=== PATIENT | male | born 1950 | race Caucasian/White ===

== ENCOUNTER → 2019-06-16 14:34 | Outpatient (CLI) | payer MEDICARE, SELFPAY ==
--- NOTE | 2019-06-16 15:00 | CA_ITS ---
APPROVED REPORT Bilateral Lower Extremity Venous Study for DVT. Avionics Integration Engineer: ANTONI Indications Lower Extremity Pain: Lower Extremity Edema: HISTORY OF FACTOR V-5 PREVIOUS HISTORY OF DVT LOWER EXTREMITY LEFT Vein Imaging SFJ (L): Partially Compressible POP (L): Partially Compressible PTV (L): Partially Compressible Findings Acute DVT is visualized in the SUPERFICIAL FEMORAL VEIN, POPLITEAL VEIN,POSTERIOR TIBIAL veins of the left lower extremity. Conclusion Acute DVT is visualized in the SUPERFICIAL FEMORAL VEIN, POPLITEAL VEIN,POSTERIOR TIBIAL veins of the left lower extremity. Electronically signed by : Panfilo Marrero MD 06/16/2019 15:53:24
[2019-06-16 15:17] LABS: Basophils # 0.1 K/mm3 (0-0.2); Basophils % 0.6 % (0.1-2.0); Eosinophils # 0.2 K/mm3 (0.0-0.4); Eosinophils % 2.7 % (0.1-12.0); Hematocrit 43.4 % (42.0-52.0); Lymphocytes # 1.9 K/mm3 (0.7-4.5); Lymphocytes % 21.2 % (10-50); Mean Corpuscular HGB Conc 32.3 g/dL (31.8-35.4); Mean Corpuscular Hemoglobin 27.4 pg (27.0-31.2); Mean Corpuscular Volume 84.7 fl (80-94); Mean Platelet Volume 6.7 fl (7.4-10.4); Monocytes # 0.7 K/mm3 (0.1-1.0); Monocytes % 7.5 % (1.7-9.3); Neutrophils # 6.1 K/mm3 (1.8-7.8); Platelet Count 272 K/mm3 (142-424); Red Blood Count 5.12 M/mm3 (4.60-6.20); Red Cell Distribution Width 14.1 % (11.5-17.5)
[2019-06-16 15:28] LABS: INR 1.32 (0.9-1.1); Prothrombin Time 13.5 seconds (9.4-11.8)
[2019-06-16 17:13] LABS: Anion Gap 11.7 mEq/L (5-15); Blood Urea Nitrogen 16 mg/dL (7-18); Calcium 9.5 mg/dL (8.5-10.1); Carbon Dioxide 31 mmol/L (21.0-32.0); Chloride 100 mmol/L (98-107); Creatinine,Serum 1.02 mg/dL (0.70-1.30); Estimated Glomerular Filt Rate 72 ml/min (>60); GFR (African American) 87 ML/MIN (>60); Glucose 142 mg/dL (74-106); Potassium 4.7 mmoL/L (3.5-5.1); Sodium 138 mmol/L (136-145)
== END ==
LOC: LAB 14:36 → RT 14:59
PROVIDERS: PCP Nurse Practitioner Family; Visit Provider Internal Medicine Adolescent Medicine
DX: I82.492 Acute embolism and thrombosis of other specified deep vein of left lower extremity (principal); M79.605 Pain in left leg
CPT/HCPCS: 36415; 80048; 85025; 85610; 93971

== ENCOUNTER → 2019-09-11 10:01 | Outpatient (CLI) | payer MEDICARE, SELFPAY ==
--- NOTE | 2019-09-11 10:34 | XR_ITS ---
PROCEDURE: XR CHEST 2V CLINICAL HISTORY: COUGH COMPARISON: No exams were available for comparison FINDINGS: The cardiomediastinal silhouette and pulmonary vascularity are within normal limits. The lungs are clear without infiltrates, suspicious nodules, or pleural effusions. No acute bony abnormalities. IMPRESSION: No acute findings. Dictated by: Dr. Karel Mcgee MD 09/11/2019 12:[address] Karel Mcgee MD in [place] 09/11/2019 12:17
[2019-09-11 10:41] LABS: Basophils % 0.7 % (0.1-2.0); Eosinophils # 0.1 K/mm3 (0.0-0.4); Eosinophils % 2.1 % (0.1-12.0); Hematocrit 44.4 % (42.0-52.0); Hemoglobin 14.1 g/dL (14.1-18.0); Lymphocytes # 1.6 K/mm3 (0.7-4.5); Mean Corpuscular HGB Conc 31.7 g/dL (31.8-35.4); Mean Corpuscular Hemoglobin 27.2 pg (27.0-31.2); Mean Corpuscular Volume 85.7 fl (80-94); Mean Platelet Volume 7.2 fl (7.4-10.4); Monocytes # 0.6 K/mm3 (0.1-1.0); Monocytes % 9.2 % (1.7-9.3); Neutrophils # 3.9 K/mm3 (1.8-7.8); Platelet Count 324 K/mm3 (142-424); Red Blood Count 5.18 M/mm3 (4.60-6.20); Red Cell Distribution Width 14.8 % (11.5-17.5); White Blood Count 6.3 K/mm3 (4.8-10.8)
[2019-09-11 14:23] LABS: Hemoglobin A1C 8.3 % (0.0-7.0)
[2019-09-11 17:24] LABS: Alanine Aminotransferase 19 U/L (12-78); Albumin Level 3.5 gm/dL (3.4-5.0); Albumin/Globulin Ratio 1.1 (1.1-1.8); Alkaline Phosphatase 51 U/L (46-116); Anion Gap 14.7 mEq/L (5-15); Aspartate Amino Transferase 17 U/L (15-37); Bilirubin,Total 0.4 mg/dL (0.2-1.0); Blood Urea Nitrogen 17 mg/dL (7-18); Calcium 8.8 mg/dL (8.5-10.1); Carbon Dioxide 26 mmol/L (21.0-32.0); Chloride 102 mmol/L (98-107); Chol/HDL Ratio 4.4 (1-3.5); Cholesterol 115 mg/dL (140-200); Creatinine,Serum 0.83 mg/dL (0.70-1.30); Estimated Glomerular Filt Rate 92 ml/min (>60); GFR (African American) 111 ML/MIN (>60); Globulin 3.3 gm/dl (1.3-3.2); Glucose 162 mg/dL (74-106); HDL Cholesterol 26 mg/dL (27-67); LDL Cholesterol 76 mg/dL (0-130); Potassium 4.7 mmoL/L (3.5-5.1); Prostate Specific Ag Screen 4.3 ng/mL (0.0-4.0); Sodium 138 mmol/L (136-145); Thyroid Stimulating Hormone 2.19 uIU/ml (0.358-3.740); Total Protein,Serum 6.8 gm/dL (6.4-8.2); Triglycerides 63 mg/dL (30-200); VLDL Cholesterol 13 mg/dL (0-40)
[2019-09-12 17:21] LABS: Microalbumin, Urine 7.9 ug/mL (Not Estab.)
[2019-09-13 10:17] LABS: Peripheral Smear Review Scanned Result
== END ==
PROVIDERS: PCP Nurse Practitioner Family; Visit Provider Nurse Practitioner Family
DX: E11.9 Type 2 diabetes mellitus without complications (principal); R22.1 Localized swelling, mass and lump, neck; R05 Cough; D68.2 Hereditary deficiency of other clotting factors; I82.509 Chronic embolism and thrombosis of unspecified deep veins of unspecified lower extremity; I10 Essential (primary) hypertension; N40.1 Benign prostatic hyperplasia with lower urinary tract symptoms; Z12.5 Encounter for screening for malignant neoplasm of prostate
CPT/HCPCS: 36415; 71046; 80053; 80061; 82043; 83036; 84443; 85025; G0103

== ENCOUNTER → 2019-09-12 11:45 | Outpatient (CLI) | payer MEDICARE, SELFPAY ==
--- NOTE | 2019-09-12 11:57 | CT_ITS ---
PROCEDURE: CT SOFT TISSUE NECK W CON CLINICAL HISTORY: LT SIDE NECK MASS COMPARISON: THY US THYROID from 05/28/2014 TECHNIQUE: Oral Contrast: None IV Contrast: 75 mL Optiray 350 Axial images obtained with sagittal and coronal reformats. All CT scans at the facility use one or more dose reduction, viz: automated exposure control, ma/kV adjustment per patient size (including targeted exams where dose is matched to indication, i.e. head), or iterative reconstruction technique. FINDINGS: A BB is placed on the palpable abnormality in the left neck. There is a large lymph node at this region at the internal jugular area posterior to the sternocleidomastoid beginning superior to the level of the hyoid and extending inferior to the level of the hyoid. This node measures 6.4 cm cephalad caudad, 3.7 cm transverse, and 3.2 cm AP. There are other smaller lymph nodes in both sides of the neck. The parotid glands, submandibular glands, thyroid gland and epiglottis has an unremarkable appearance. No obvious nasopharyngeal mass. The base of the tongue has an unremarkable appearance as does the glottic and subglottic region. The lung apices are clear. There are degenerative changes in the cervical spine. Paranasal sinuses are unremarkable. No mastoid effusion IMPRESSION: Enlarged left internal jugular ( level 2/level 3). Neoplasm such as lymphoma or metastatic disease is considered. Reactive lymph node is not totally excluded. Fine-needle aspiration could be performed with sonographic guidance if clinically desired. Dictated by: Panfilo Marrero MD 09/12/2019 13:04 Electronically signed by Panfilo Marrero MD in [place] 09/12/2019 13:04
== END ==
PROVIDERS: PCP Nurse Practitioner Family; Visit Provider Nurse Practitioner Family
DX: R22.1 Localized swelling, mass and lump, neck (principal)
CPT/HCPCS: 70491; Q9967

== ENCOUNTER → 2019-10-02 09:11 | Outpatient (CLI) | payer MEDICARE, SELFPAY ==
--- NOTE | 2019-10-02 09:15 | US_ITS ---
PROCEDURE: US SOFT TISSUE HEAD AND NECK CLINICAL INDICATION: LT SIDE NECK MASS COMPARISON: CT SOFT TISSUE NECK W CON from 09/12/2019 FINDINGS: There is a 4.4 x 2 cm hypoechoic mass in the left neck corresponding to the palpable abnormality and corresponding to the CT abnormality consistent with enlarged lymph node. This does not represent a cyst. The nodules not extensively hypervascular. The submandibular and parotid glands have an unremarkable appearance. No other dominant nodules are evident. IMPRESSION: 4.4 x 2 cm hypoechoic left neck mass consistent with enlarged lymph node. This could be neoplastic such as lymphoma or metastatic disease or could be reactive in nature. This was subsequently targeted for biopsy. Dictated by: Panfilo Marrero MD 10/03/2019 11:30 Electronically signed by Panfilo Marrero MD in [place] 10/03/2019 11:31
--- NOTE | 2019-10-02 09:17 | US_ITS ---
PROCEDURE: US BIOPSY ST CHEST/NECK CLINICAL INDICATION: LT NECK MASS COMPARISON: CT SOFT TISSUE NECK W CON from 09/12/2019 US SOFT TISSUE HEAD AND NECK from 10/02/2019 FINDINGS: Following obtaining informed consent and procedure under aseptic conditions and local anesthesia with 1 percent buffered lidocaine with sonographic guidance, 2 fine needle aspirations were performed the left neck mass. Following this, 4 core biopsies were obtained using sonographic guidance with an 18 gauge needle. The patient tolerated the procedure well without evidence of immediate complication. Cytology: Polymorphous lymphocytes Pathology: Atypical lymphoid proliferation with dysplastic cells highly suspicious for Hodgkin's lymphoma IMPRESSION: Uneventful ultrasound-guided fine needle aspiration and core biopsy of left neck mass showing Atypical lymphoid proliferation with dysplastic cells highly suspicious for Hodgkin's lymphoma. Please see pathologist comments Dictated by: Panfilo Marrero MD 10/07/2019 11:38 Electronically signed by Panfilo Marrero MD in [place] 10/07/2019 11:38
== END ==
PROVIDERS: PCP Nurse Practitioner Family; Visit Provider Nurse Practitioner Family
DX: R22.1 Localized swelling, mass and lump, neck (principal)
CPT/HCPCS: 10005; 76536; 76942; 88305; 88342

== ENCOUNTER → 2021-04-06 11:46 | Outpatient (CLI) | payer MEDICARE, SELFPAY | PROVIDERS: Visit Provider Internal Medicine Gastroenterology | DX: Z01.812 Encounter for preprocedural laboratory examination (principal); Z20.822 Contact with and (suspected) exposure to COVID-19; Z12.11 Encounter for screening for malignant neoplasm of colon | CPT/HCPCS: U0003 ==

== ENCOUNTER 2021-04-08 10:41 | Day surgery (SDC) | payer MEDICARE, SELFPAY ==
[2021-03-31 08:29] VITALS: BMI 34.8
[2021-04-08] VITALS (7 sets, daily range): BP systolic 98–162; BP diastolic 53–88; PULSE 59–85; RESP 16–18; TEMP 36.9–37.1; O2SAT 92–98
--- NOTE | 2021-04-08 11:23 | P.PN_ITS ---
[facility] Anesthesia Checklist - Patient Identification Patient Identification: Arm Band - Structural Data Admitted From: Home Planned Operative Procedure/s: Colonoscopy Consent for Planned Operative Procedure(s) Verified: Yes - NPO Status Verified Time NPO: 00:00 - Airway Assessment C-Spine Mobility Assessed: Yes TMJ Mobility Assessed: Yes Dentition: Good Dentition - Neurological Assessment Level of Consciousness: Awake Hx Seizures: No Numbness or tingling in extremities: No - Anesthesia Plan Anesthesia Risk discussed: Yes Anesthesia Plan: Verified ASA Class: III Anesthesia Type: MAC [facility] History I have reviewed the patient's past medical history: Yes Medical History: Reports:: Cancer (hodgkins lymphoma), Diabetes Mellitus Type 2, Hyperlipidemia, Lung Disease, Pulmonary Embolism Denies:: Diabetes Mellitus Type 1, MRSA *Have you ever received a pneumonia vaccine?: Yes *Have you received a flu vaccine this season?: Yes Other Medical History: Reports: Other (Factor 5 Leiden, DVT) Anesthesia experience/problems:: None Amputation: No Fractures: No - *Social History Last grade of school completed: Advanced degree Smoking Status: Never smoker Alcohol Intake: never Substance Use Type: denies use *Occupational Status:: retired *Travel in the last 8 weeks: None Family Hx:: Unable to obtain
[2021-04-08 11:41] LABS: POC Glucose,Bedside 169 (70-110)
--- NOTE | 2021-04-08 12:25 | HMH.PROC ---
[facility] Procedure Note Procedure Note:: Colonoscopy Procedure Report: Colonoscopy with cold snare polypectomy Endoscopist: Lj Marshall II, MD Referring physician: MARTINEZ Kenney/Tima Vasquez MD (hematology/oncology [facility]) Date of Procedure: April 08, 2021 Equipment: Olympus 190 variable stiffness pediatric colonoscope Sedation: MAC sedation Indication: Mr. Hager is a 71-year-old gentleman who was diagnosed with lymphoma. He received chemotherapy and during the duration of the treatment he had moderate to marked constipation. Nothing worked except for MiraLAX. He states that he would have sputtering bowel movements all through chemotherapy. He also developed more significant left upper quadrant abdominal pain that would sometimes be excruciating and awaken him from sleep. He does state that his father had perforated diverticulitis. He reports no rectal bleeding, weight loss or family history of colon cancer. He does have moderate bloating and some gassiness. Procedure: Prior to the procedure, a history and physical exam was performed, and patient's medications and allergies were reviewed. The risks, benefits and alternatives of the sedation and procedure were discussed with the patient. All questions were answered and informed consent was obtained. The patient was brought to the procedure room. Patient identification and proposed procedure were verified by the physician and the nurse. The patient was placed in a left lateral decubitus position and the scope was passed under direct vision. Throughout the procedure, the patient's blood pressure, pulse, and oxygen saturations were monitored continuously. The colonoscopy was accomplished without difficulty. The patient tolerated the procedure well. Findings: On digital rectal examination there was normal rectal tone. There were no external hemorrhoids. Prostate was 2+ with some firm asymmetry in the left upper lobe of the prostate. The colonoscope was introduced through the anal canal to the rectum and advanced to the cecum. The ileocecal valve and appendiceal orifice were identified. The scope was advanced a short distance into the ileum which appeared grossly normal. The scope was then withdrawn into the colon. The cecum and ascending colon were normal. There was a single 5 mm polyp in the transverse colon removed via cold snare polypectomy. There was some angulation at the splenic flexure suggestive of splenic flexure syndrome. There were scattered extensive diverticuli throughout the distal descending and sigmoid colon (LEFT colon). The rectum itself was normal. Upon retroflexion within the rectum there were grade 2 internal hemorrhoids. The preparation was fair throughout with [place] Preparation Score of 7 out of 9. The cecal time was 12 minutes. Impression: 1. Transverse colon polyp (5 mm) 2. Extensive left-sided diverticulosis 3. 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 Grade 2 internal hemorrhoids 5. Left upper lobe prostate mild firmness/asymmetry Plan: I do feel that his left upper quadrant abdominal pain is related to the functional intestinal disorder called splenic flexure syndrome. We will discuss additional dietary measures and treatment options. I will follow up the polyp histology and determine whether further surveillance is warranted. I would encourage routine PSA testing.
== END 2021-04-08 13:20 | disposition home or self-care (01) ==
LOC: OUTP 10:44
PROVIDERS: PCP Nurse Practitioner Family; Visit Provider Internal Medicine Gastroenterology
PROC: 0DJD8ZZ Inspection of Lower Intestinal Tract, Via Natural or Artificial Opening Endoscopic (ICD-10-PCS; CPT 45378; principal; 2021-04-08 12:00)
DX: K63.5 Polyp of colon (principal); K57.30 Diverticulosis of large intestine without perforation or abscess without bleeding; K59.9 Functional intestinal disorder, unspecified; K64.1 Second degree hemorrhoids; Z83.79 Family history of other diseases of the digestive system; Z85.71 Personal history of Hodgkin lymphoma; E11.9 Type 2 diabetes mellitus without complications; E78.5 Hyperlipidemia, unspecified; Z86.711 Personal history of pulmonary embolism; J98.4 Other disorders of lung; Z86.718 Personal history of other venous thrombosis and embolism; Z88.2 Allergy status to sulfonamides
CPT/HCPCS: 45385; 82962; 88305

== ENCOUNTER → 2021-04-21 08:18 | Outpatient (CLI) | payer MEDICARE, SELFPAY ==
[2021-04-21 08:59] LABS: Basophils # 0.1 K/mm3 (0-0.2); Basophils % 1.3 % (0.1-2.0); Eosinophils # 0.4 K/mm3 (0.0-0.4); Hematocrit 44.3 % (42.0-52.0); Lymphocytes # 1.6 K/mm3 (0.7-4.5); Lymphocytes % 29.2 % (10-50); Mean Corpuscular HGB Conc 33.8 g/dL (31.8-35.4); Mean Corpuscular Hemoglobin 29.5 pg (27.0-31.2); Mean Platelet Volume 7.1 fl (7.4-10.4); Monocytes # 0.5 K/mm3 (0.1-1.0); Monocytes % 9.8 % (1.7-9.3); Neutrophils # 2.9 K/mm3 (1.8-7.8); Neutrophils % 52.7 % (37.0-80.0); Platelet Count 282 K/mm3 (142-424); Red Blood Count 5.09 M/mm3 (4.60-6.20); Red Cell Distribution Width 14.3 % (11.5-17.5); White Blood Count 5.4 K/mm3 (4.8-10.8)
[2021-04-21 09:16] LABS: Microalbumin < 6.000 mg/L (0-16.7)
[2021-04-21 12:43] LABS: Alanine Aminotransferase 25 U/L (12-78); Albumin Level 4.1 g/dl (3.5-5.0); Albumin/Globulin Ratio 1.7 (1.1-1.8); Alkaline Phosphatase 56 U/L (38-126); Aspartate Amino Transferase 23 U/L (17-59); Bilirubin,Total 0.5 mg/dl (0.2-1.3); Blood Urea Nitrogen 18 mg/dl (9-20); Calcium 9.4 mg/dl (8.4-10.2); Carbon Dioxide 28 mmol/L (22.0-30.0); Chloride 101 mmol/L (98-107); Chol/HDL Ratio 10.4 (1-3.5); Cholesterol 271 mg/dl (140-200); Estimated Glomerular Filt Rate 95 ml/min (>60); GFR (African American) 115 ML/MIN (>60); Globulin 2.4 g/dL (1.3-3.2); Glucose 183 mg/dl (74-100); HDL Cholesterol 26 mg/dl (40-60); Sodium 137 mmol/L (136-145); Total Protein,Serum 6.5 g/dl (6.3-8.2); Triglycerides 176 mg/dl (30-150); VLDL Cholesterol 35 mg/dL (0-40)
[2021-04-21 12:54] LABS: Direct LDL Cholesterol 208.52 mg/dL (100-129)
[2021-04-21 13:14] LABS: Prostate Specific Ag Screen 3.5 ng/ml (0.0-4.0)
== END ==
PROVIDERS: Visit Provider Internal Medicine Adolescent Medicine
DX: E11.9 Type 2 diabetes mellitus without complications (principal); E78.2 Mixed hyperlipidemia; N40.1 Benign prostatic hyperplasia with lower urinary tract symptoms; Z12.5 Encounter for screening for malignant neoplasm of prostate; Z79.84 Long term (current) use of oral hypoglycemic drugs
CPT/HCPCS: 36415; 80053; 80061; 82043; 83036; 85025; G0103

== ENCOUNTER → 2021-06-16 12:10 | Outpatient (CLI) | payer MEDICARE, SELFPAY ==
[2021-06-16 13:02] LABS: Prothrombin Time 35.9 seconds (10.1-12.5)
[2021-06-16 13:05] LABS: INR 3.33 (0.9-1.1)
== END ==
PROVIDERS: Visit Provider Nurse Practitioner Family
DX: Z51.81 Encounter for therapeutic drug level monitoring (principal); Z79.01 Long term (current) use of anticoagulants; D68.2 Hereditary deficiency of other clotting factors
CPT/HCPCS: 36415; 85610

== ENCOUNTER → 2021-09-29 15:39 | Outpatient (CLI) | payer MEDICARE, SELFPAY ==
[2021-09-29 16:26] LABS: INR 3.85 (0.9-1.1); Prothrombin Time 39.4 seconds (10.1-12.5)
== END ==
PROVIDERS: Visit Provider Nurse Practitioner Family
DX: Z51.81 Encounter for therapeutic drug level monitoring (principal); Z79.01 Long term (current) use of anticoagulants; D68.2 Hereditary deficiency of other clotting factors
CPT/HCPCS: 36415; 85610

== ENCOUNTER → 2021-11-01 13:46 | Outpatient (CLI) | payer MEDICARE, SELFPAY ==
[2021-11-01 14:32] LABS: INR 3.15 (0.9-1.1); Prothrombin Time 32.7 seconds (10.1-12.5)
== END ==
PROVIDERS: Visit Provider Nurse Practitioner Family
DX: D68.2 Hereditary deficiency of other clotting factors (principal); Z51.81 Encounter for therapeutic drug level monitoring; Z79.01 Long term (current) use of anticoagulants
CPT/HCPCS: 36415; 85610

== ENCOUNTER → 2021-11-18 08:24 | Outpatient (CLI) | payer MEDICARE, SELFPAY ==
[2021-11-18 08:47] LABS: Basophils # 0.1 K/mm3 (0-0.2); Basophils % 1.7 % (0.1-2.0); Eosinophils # 0.2 K/mm3 (0.0-0.4); Eosinophils % 3.7 % (0.1-12.0); Hematocrit 49.9 % (42.0-52.0); Lymphocytes # 1.6 K/mm3 (0.7-4.5); Lymphocytes % 25.4 % (10-50); Mean Corpuscular HGB Conc 32.1 g/dL (31.8-35.4); Mean Corpuscular Hemoglobin 29.1 pg (27.0-31.2); Mean Corpuscular Volume 90.7 fl (80-94); Mean Platelet Volume 7.8 fl (7.4-10.4); Monocytes # 0.5 K/mm3 (0.1-1.0); Monocytes % 7.5 % (1.7-9.3); Neutrophils # 3.9 K/mm3 (1.8-7.8); Neutrophils % 61.7 % (37.0-80.0); Platelet Count 256 K/mm3 (142-424); Red Blood Count 5.51 M/mm3 (4.60-6.20); Red Cell Distribution Width 13.7 % (11.5-17.5); White Blood Count 6.3 K/mm3 (4.8-10.8)
[2021-11-18 08:56] LABS: INR 2.43 (0.9-1.1); Prothrombin Time 25.7 seconds (10.1-12.5)
[2021-11-18 09:00] LABS: Microalbumin/Creatinine Ratio 13.7
[2021-11-18 09:01] LABS: Creatinine,Urine Random 151 mg/dL (Not Estab.)
[2021-11-18 09:29] LABS: Alanine Aminotransferase 30 U/L (12-78); Albumin Level 4.7 g/dl (3.5-5.0); Albumin/Globulin Ratio 2.2 (1.1-1.8); Alkaline Phosphatase 57 U/L (38-126); Anion Gap 13.5 mEq/L (5-15); Aspartate Amino Transferase 31 U/L (17-59); Bilirubin,Total 0.6 mg/dl (0.2-1.3); Blood Urea Nitrogen 16 mg/dl (9-20); Calcium 10.2 mg/dl (8.4-10.2); Carbon Dioxide 30 mmol/L (22.0-30.0); Chloride 100 mmol/L (98-107); Chol/HDL Ratio 4.2 (1-3.5); Cholesterol 126 mg/dl (140-200); Estimated Glomerular Filt Rate 111 ml/min (>60); GFR (African American) 134 ML/MIN (>60); Globulin 2.1 g/dL (1.3-3.2); Glucose 219 mg/dl (74-100); HDL Cholesterol 30 mg/dl (40-60); Potassium 4.5 mmoL/L (3.5-5.1); Sodium 139 mmol/L (136-145); Total Protein,Serum 6.8 g/dl (6.3-8.2); Triglycerides 145 mg/dl (30-150); VLDL Cholesterol 29 mg/dL (0-40)
[2021-11-18 11:37] LABS: Hemoglobin A1C 8.9 % (4.0-6.0)
== END ==
PROVIDERS: Visit Provider Nurse Practitioner Family
DX: I10 Essential (primary) hypertension (principal); E11.9 Type 2 diabetes mellitus without complications; Z51.81 Encounter for therapeutic drug level monitoring; Z79.01 Long term (current) use of anticoagulants; Z79.84 Long term (current) use of oral hypoglycemic drugs
CPT/HCPCS: 36415; 80053; 80061; 82043; 82570; 83036; 85025; 85610

== ENCOUNTER 2022-02-27 20:44 | Emergency (ER) | payer MEDICARE, SELFPAY ==
[2022-02-27] VITALS (8 sets, daily range): BP systolic 120–167; BP diastolic 63–77; PULSE 77–102; RESP 16–18; TEMP 36.7–36.9; O2SAT 95–97; BMI 34.7
--- NOTE | 2022-02-27 21:03 | XR_ITS ---
PROCEDURE INFORMATION: Exam: XR Chest Exam date and time: 02/27/2022 9:01 PM Age: 71 years old Clinical indication: Chest wall pain; Additional info: Left sided posterior pain TECHNIQUE: Imaging protocol: XR of the chest. Views: 2 views. COMPARISON: DX XR CHEST 2V 09/11/2019 10:59 AM FINDINGS: Lungs: Unremarkable. No consolidation. Pleural spaces: Unremarkable. No pleural effusion. No pneumothorax. Heart/Mediastinum: Unremarkable. No cardiomegaly. Bones/joints: Degenerative changes of the shoulders. IMPRESSION: No acute findings.
[2022-02-27 21:16] LABS: Basophils # 0.1 K/mm3 (0-0.2); Basophils % 0.7 % (0.1-2.0); Eosinophils # 0.1 K/mm3 (0.0-0.4); Eosinophils % 1.5 % (0.1-12.0); Hematocrit 47.9 % (42.0-52.0); Hemoglobin 16.4 g/dL (14.1-18.0); Lymphocytes % 11.7 % (10-50); Mean Corpuscular HGB Conc 34.3 g/dL (31.8-35.4); Mean Corpuscular Hemoglobin 30.2 pg (27.0-31.2); Mean Corpuscular Volume 88.1 fl (80-94); Mean Platelet Volume 7.5 fl (7.4-10.4); Monocytes # 0.7 K/mm3 (0.1-1.0); Monocytes % 8.1 % (1.7-9.3); Neutrophils # 6.8 K/mm3 (1.8-7.8); Neutrophils % 78.1 % (37.0-80.0); Platelet Count 265 K/mm3 (142-424); Red Blood Count 5.44 M/mm3 (4.60-6.20); Red Cell Distribution Width 13.9 % (11.5-17.5); White Blood Count 8.8 K/mm3 (4.8-10.8)
[2022-02-27 21:22] LABS: Alanine Aminotransferase 34 U/L (12-78); Albumin Level 4.4 g/dl (3.5-5.0); Albumin/Globulin Ratio 1.8 (1.1-1.8); Alkaline Phosphatase 59 U/L (38-126); Amylase 59 U/L (30-110); Anion Gap 14.4 mEq/L (5-15); Aspartate Amino Transferase 31 U/L (17-59); Bilirubin,Total 0.6 mg/dl (0.2-1.3); Blood Urea Nitrogen 14 mg/dl (9-20); Calcium 9.4 mg/dl (8.4-10.2); Carbon Dioxide 29 mmol/L (22.0-30.0); Chloride 96 mmol/L (98-107); Creatinine Clearance Estimated 110 mL/min (50-200); Estimated Glomerular Filt Rate 111 ml/min (>60); GFR (African American) 134 ML/MIN (>60); Globulin 2.5 g/dL (1.3-3.2); Glucose 210 mg/dl (74-100); Lipase 95 U/L (23-300); Potassium 4.4 mmoL/L (3.5-5.1); Sodium 135 mmol/L (136-145); Total Protein,Serum 6.9 g/dl (6.3-8.2)
[2022-02-27 21:27] LABS: C-Reactive Protein 9.5 mg/L (0-4)
[2022-02-27 21:41] LABS: Procalcitonin 0.058 ng/mL (0.0-2.0)
--- NOTE | 2022-02-27 21:45 | CT_ITS ---
PROCEDURE INFORMATION: Exam: CT Chest With Contrast; Diagnostic Exam date and time: 02/27/2022 9:54 PM Age: 71 years old Clinical indication: Shortness of breath; Additional info: SOB, left sided posterior pain TECHNIQUE: Imaging protocol: Diagnostic computed tomography of the chest with contrast. Radiation optimization: All CT scans at this facility use at least one of these dose optimization techniques: automated exposure control; mA and/or kV adjustment per patient size (includes targeted exams where dose is matched to clinical indication); or iterative reconstruction. Contrast material: ISOVUE; Contrast volume: 75 ml; Contrast route: IV; COMPARISON: CR XR CHEST 2V 02/27/2022 9:01 PM FINDINGS: Lungs: There are hypoventalitory changes at the lung bases. Calcified right lower lobe subpleural granuloma. Pleural spaces: No pneumothorax. No pleural effusion. Heart: No cardiomegaly. No pericardial effusion. Lymph nodes: No enlarged lymph nodes. Vasculature: Unremarkable. No aortic aneurysm. Bones/joints: Scoliosis. No acute fracture. Soft tissues: No signigicant swelling. IMPRESSION: No acute findings.
--- NOTE | 2022-02-27 22:09 | CT_ITS ---
PROCEDURE INFORMATION: Exam: CT Abdomen And Pelvis With Contrast Exam date and time: 02/27/2022 9:54 PM Age: 71 years old Clinical indication: Abdominal pain TECHNIQUE: Imaging protocol: Computed tomography of the abdomen and pelvis with contrast. Radiation optimization: All CT scans at this facility use at least one of these dose optimization techniques: automated exposure control; mA and/or kV adjustment per patient size (includes targeted exams where dose is matched to clinical indication); or iterative reconstruction. Contrast material: ISOVUE; Contrast volume: 75 ml; Contrast route: IV; COMPARISON: CR XR CHEST 2V 02/27/2022 9:01 PM FINDINGS: Lungs: Small calcified right lower lobe granuloma. Liver: Normal. No mass. Gallbladder and bile ducts: No calcified stones. No ductal dilation. Pancreas: Fatty infiltration of the pancreas. Spleen: No splenomegaly. Adrenal glands: No mass. Kidneys and ureters: No hydronephrosis. Stomach and bowel: Diverticulosis coli without evidence for diverticulitis. Moderate to large stool burden within the colon. No bowel obstruction. Appendix: No evidence of appendicitis. Intraperitoneal space: No free air. No significant fluid collection. Vasculature: Calcified atherosclerosis. No abdominal aortic aneurysm. Lymph nodes: No enlarged lymph nodes. Urinary bladder: No acute abnormality. Reproductive: Prostate is enlarged measuring 5.7 cm. Bones/joints: Degenerative changes of the spine. No acute fracture. Soft tissues: Fat containing left inguinal hernia measuring 3 cm. IMPRESSION: No acute findings. Chronic and incidental findings described above.
[2022-02-27 22:12] LABS: Influenza A, PCR Not Detected (NotDetected); Influenza B, PCR Not Detected (NotDetected)
[2022-02-27 22:16] LABS: Microscopic, Urine URINE MICROSCOPIC (MICROSCOPIC)
[2022-02-27 22:17] LABS: Erythrocyte Sedimentation Rate 7 mm/hr (0-20)
[2022-02-27 22:29] LABS: Appearance,Urine CLEAR (Clear); Bilirubin,Urine Negative (Negative); Blood, Urine Negative (Negative); Color,Urine YELLOW (Yellow); Glucose,Urine (UA) 1+ (Negative); Ketones,Urine 1+ (Negative); Leukocyte Esterase,Urine Negative (Negative); Nitrate,Urine Negative (Negative); Protein,Urine Negative (Negative); Specific Gravity, Urine <= 1.005 (1.005-1.030); Urobilinogen,Urine 0.2 EU/dl (0.2)
--- NOTE | 2022-02-27 22:50 | HMH.EDNVD ---
ED Disposition Clinical Impression: COVID-19 Abdominal pain Qualifiers: Abdominal location: generalized Qualified Code(s): R10.84 - Generalized abdominal pain Disposition: Home, Self-Care Condition on Discharge: Good Instructions: DI for Acute Abdominal Pain, DI for COVID-19 (Suspected or Confirmed ) Additional Instructions: fluids and call pcp for follow up Referrals: Catrachita Raphael APRN [Primary Care Provider] - - Critical Care Critical Care Time: No Attestation: On 02/27/22, the high probability of a clinically significant, sudden or life threatening deterioration of the following system(s) required my full and direct attention, intervention and personal management. The time I documented below is in addition to time spent performing reported procedures but includes the following listed in this critical care notation. Medical Decision Making - Medical Records Medical records reviewed: Yes: I reviewed the patient's medical records. - Дмитрий Inquiry Pt receiving controlled substance: No Vital Signs: 02/27/22 20:47 Temperature 98.5 F Temperature Source Oral Pulse Rate [Left Radial] 86 Respiratory Rate 18 Blood Pressure [Right Arm] 152/72 H Blood Pressure Mean [Right Arm] 98 Blood Pressure Source [Right Arm] Automatic Cuff Blood Pressure Position [Right Arm] Sitting 02 Sat by Pulse Oximetry 97 Oxygen Delivery Method Room Air - Lab Data Lab results reviewed: Yes: I reviewed the patient's lab results. Lab Results 02/27/22 21:05: WBC 8.8, RBC 5.44, Hgb 16.4, Hct 47.9, MCV 88.1, MCH 30.2, MCHC 34.3, RDW 13.9, Plt Count 265, MPV 7.5, Neut % (Auto) 78.1, Lymph % (Auto) 11.7, [place] % (Auto) 8.1, Eos % (Auto) 1.5, Baso % (Auto) 0.7, Neut # (Auto) 6.8, Lymph # (Auto) 1.0, Burke # (Auto) 0.7, Eos # (Auto) 0.1, Baso # (Auto) 0.1, ESR 7 02/27/22 21:05: Sodium 135 L, Potassium 4.4, Chloride 96 L, Carbon Dioxide 29, Anion Gap 14.4, BUN 14, Creatinine 0.70, Estimated Creat Clear 110, Estimated GFR 111, Est GFR ( Amer) 134, Glucose 210 H, Calcium 9.4, Total Bilirubin 0.6, AST 31, ALT 34, Alkaline Phosphatase 59, C-Reactive Protein 9.5 H, Total Protein 6.9, Albumin 4.4, Globulin 2.5, Albumin/Globulin Ratio 1.8, Amylase 59, Lipase 95, Procalcitonin 0.058 02/27/22 21:05: Lactate 2.0 02/27/22 22:05: SARS-CoV-2 (PCR) Detected A, Influenza A Untype (PCR) Not detected, Influenza Type B (PCR) Not detected 02/27/22 22:07: Urine Color Yellow, Urine Appearance Clear, Urine pH 7.0, Ur Specific [place] <= 1.005, Urine Protein Negative, Urine Glucose (UA) 1+, Urine Ketones 1+, Urine Blood Negative, Urine Nitrate Negative, Urine Bilirubin Negative, Urine Urobilinogen 0.2, Ur Leukocyte Esterase Negative, Urine RBC None, Urine WBC Occasional, Ur Squamous Epith Cells Occasional, Urine Bacteria Trace Result diagrams: 02/27/22 21:05 02/27/22 21:05 Orders (Tests/Meds): ED MEDICATIONS Generic Name Dose Route Start Last Admin Trade Name Freq PRN Reason Stop Dose Admin Sodium Chloride 1,000 mls @ 999 mls/hr 02/27/22 21:15 02/27/22 21:05 Sod Chlor 0.9% 1000ml Bag IV 02/27/22 22:15 999 mls/hr .Q1H1M HAWK Administration Discontinued Medications Generic Name Dose Route Start Last Admin Trade Name Freq PRN Reason Stop Dose Admin Iopamidol 75 ml 02/27/22 22:11 02/27/22 22:11 Iopamidol-370 (76%);100ml Bottle IV 02/27/22 22:12 75 ml ONCE ONE Administration Ondansetron HCl 4 mg 02/27/22 21:02 02/27/22 21:05 Ondansetron 4mg/2ml Vial IV 02/27/22 21:03 4 mg ONCE ONE Administration Sodium Chloride 10 ml 02/27/22 22:11 02/27/22 22:11 Sodium Chloride 0.9% 10ml Syr (Rad Only) IV 02/27/22 22:12 10 ml ONCE ONE Administration ORDERS Category Date Time Status PT INR [Prothrombin Time INR] Stat Lab 02/27/22 21:05 Received Blood Culture Stat Micro 02/27/22 21:05 Received - Radiology Data #1 Image(s): Chest Image Reviewed: Yes I discussed the image results w/the radiologist
[2022-02-27 22:51] LABS: Bacteria,Urine Trace /lpf; Squamous Epithelial Cell,Urine Occasional #/hpf (0-5); WBC,Urine Occasional #/hpf (0-3)
[2022-02-27 23:02] LABS: Coronavirus 19, PCR Detected (NotDetected)
[2022-02-27 23:21] LABS: INR 3.44 (0.9-1.1); Prothrombin Time 35.5 seconds (10.1-12.5)
== END 2022-02-27 23:44 | disposition home or self-care (01) ==
PROVIDERS: Emergency Provider Emergency Medicine; PCP Nurse Practitioner Family
DX: U07.1 COVID-19 (principal); R10.84 Generalized abdominal pain; D68.51 Activated protein C resistance; C81.90 Hodgkin lymphoma, unspecified, unspecified site; E11.9 Type 2 diabetes mellitus without complications; E78.5 Hyperlipidemia, unspecified
CPT/HCPCS: 71046; 71260; 74177; 80053; 81001; 82150; 83605; 83690; 84145; 85025; 85610; 85651; 86140; 87040; 96365; 96375; 99284; C9803; J2405; Q9967; U0003; U0005

== ENCOUNTER → 2022-08-31 06:35 | Outpatient (CLI) | payer MEDICARE, SELFPAY ==
--- NOTE | 2022-08-31 | CA_ITS ---
APPROVED REPORT Exam: Pharmacologic Technologist: Kacie Valiente, Ht: 6 ft 0 in Wt: 250 lbs BSA: 2.34 m2 HR: 78 bpm BP: 129/80 mmHg Rhythm: NSR, low voltage QRS Medical History Medical History: HTN, Hyperlipidemia, Diabetes Medications: Warfarin,,,,, Metformin,,,,, Losartan,,,,, Lipitor,,,,, Vit D3,,,,, Vit C,,,,, OmeGA 3,,,,, Zinc,,,,, Cardiac Risk Factors: HTN, Hyperlipidemia, Diabetes (non-insulin) Stress Test Details Test: LEXISCAN HR Resting HR: 81 bpm Max Heart Rate (APMHR): 147.188496 bpm Max HR Achieved: 142 bpm Target HR (85% APMHR): 124.612430 bpm % of APMHR: 96.60 Recovery HR: 102 bpm BP Resting BP: 129/80 mmHg Max BP: 149/71 mmHg Recovery BP: 141.0/68.0 mmHg ECG Resting ECG: NSR, low voltage QRS Clinical Exercise duration: 04:00 min Highest Stage Achieved: Stress ECG Conclusion During lexiscan pt experinced dizzy mild head discomfort. No CP noted. Occasional PVC. 0.5mm horizontal ST depression inferiorly. Non diagnostic lexiscan stress. Myoview images reported separately. Electronically signed by : Adis Munguia MD 09/01/2022 09:37:48
--- NOTE | 2022-08-31 06:39 | NM_ITS ---
APPROVED REPORT Exam: Nuclear Stress Test Indication: short of breath..fatigue Patient Location: Outpatient Stress Tech: Kacie LLAMAS Tech:eNyda Lombardo MAEVE RT(R)(N) Ht: 6 ft 0 in Wt: 250 lbs HR: 81 bpm BP: 129/80 mmHg BSA: 2.34 m2 TID: 1.07 History: short of breath..fatigue Procedure: Patient received a 0.4 mg of intravenous Lexiscan, resting heart rate 81 bpm, resting blood pressure 129/80 mmHg, with Lexiscan maximum heart rate achived was 142 bpm which is Less than 85 % of the maximum predicted heart rate and blood pressure was 149/71 mmHg. With Lexiscan, patient denied any complaint of chest pain. Electrocardiogram Resting electrocardiogram showed sinus rhythm, with Lexiscan there is less than 1.[address] segment depression noted from the baseline EKG. The EKG portion of the Lexiscan is nondiagnostic. Cardiac Stress and Resting SPECT Images: Cardiac Stress and Resting SPECT images were obtained using technetium 99m Myoview 31.5 mCi stress and 10.63 mCi at rest. Gated SPECT analysis of segmental wall motion and calculation of the ejection fraction also done. Prone images were also obtained. Cardiac stress and rest SPECT images showed a mild fixed defect in the inferior wall with normal contractility in the gated SPECT is likely secondary to soft tissue attenuation from diaphragm no reversible ischemia seen, computer derived ejection fraction is 46% with no regional wall motion abnormality, right ventricle is normal size and contractility. Conclusion: 1. The EKG portion of the Lexiscan is nondiagnostic. 2. No scintigraphic evidence of reversible ischemia seen, computer derived ejection fraction is 46% with no regional wall motion abnormality, right ventricle is normal size and contractility. 3. Likely normal Lexiscan Myoview study. Electronically signed by : Adis Munguia MD 09/01/2022 09:45:17
--- NOTE | 2022-08-31 06:58 | CA_ITS ---
FINAL REPORT TECHNIQUE: Real-time imaging was performed of the extracranial carotid arteries in transverse and longitudinal planes with color duplex evaluation of blood flow velocity. Spectral analysis was performed. The cervicovertebral arteries were also examined. Stenosis evaluation based on elevated velocity criteria. CLINICAL HISTORY: Dizziness, hypertension FINDINGS: FINDINGS: RIGHT CAROTID: CCA PSV: 90 cm/sec ICA PSV: 91 cm/sec ECA PSV: 73 ICA/CCA systolic flow velocity ratio: 1.01 Mild atherosclerotic plaque is noted. Narrowing is classified in the less than 50 % category. LEFT CAROTID: CCA PSV: 103 cm/sec ICA PSV: 83 cm/sec ECA PSV: 78 ICA/CCA systolic flow velocity ratio: 0.81 Mild atherosclerotic plaque is noted. Narrowing is classified in the less than 50 % category. VERTEBRALS: Vertebral arteries are patent with antegrade flow and expected spectral waveforms. IMPRESSION: Less than 50% carotid artery stenosis. Patent vertebral arteries. Reviewed, Interpreted and Dictated by Tremaine Stratton MD Transcribed by Lidia Morton Authenticated and . [facility]
== END ==
PROVIDERS: PCP Nurse Practitioner Family; Visit Provider Nurse Practitioner Family
DX: R06.09 Other forms of dyspnea (principal); R42 Dizziness and giddiness; I10 Essential (primary) hypertension; Z85.79 Personal history of other malignant neoplasms of lymphoid, hematopoietic and related tissues
CPT/HCPCS: 78452; 93017; 93306; 93880; A9502; J2785

== ENCOUNTER → 2023-05-04 08:36 | Outpatient (CLI) | payer MEDICARE, SELFPAY ==
--- NOTE | 2023-05-04 08:41 | US_ITS ---
FINAL REPORT TECHNIQUE: Limited sonographic images of the thyroid were obtained. CLINICAL HISTORY: THYROMEGALY FINDINGS: US THYROID/HEAD OR NECK SOFT TISSUE Right lobe of the thyroid measures 4.3 x 1.5 x 1.9 cm. There is a cystic nodule measuring 3 x 3 x 2 mm consistent with TI-RADS category 1. The left lobe of the thyroid measures 4.1 x 1.6 x 1.5 cm. There is a cystic nodule measuring 3 x 4 x 2 mm consistent with TI-RADS category 1. Isthmus measures 0.32 cm. IMPRESSION: Bilateral thyroid nodules consistent with TI-RADS category 1. No follow-up is required per TI-RADS criteria. Reviewed, Interpreted and Dictated by Dimas Barbosa III, MD Transcribed by Randi Santillan Authenticated and [facility]
== END ==
PROVIDERS: PCP Nurse Practitioner Family; Visit Provider Nurse Practitioner Family
DX: E01.0 Iodine-deficiency related diffuse (endemic) goiter (principal)
CPT/HCPCS: 76536

== ENCOUNTER → 2023-10-02 09:36 | Outpatient (CLI) | payer MEDICARE, SELFPAY ==
--- NOTE | 2023-10-02 09:49 | XR_ITS ---
FINAL REPORT CLINICAL HISTORY: LT SIDED CHEST WALL PAIN FINDINGS: THORACIC SPINE SERIES. AP and lateral views were obtained. There is no acute fracture. The disc spaces are maintained. There is no malalignment. IMPRESSION: No acute process. Reviewed, Interpreted and Dictated by Tremaine Stratton MD Transcribed by Colin Grover Authenticated and [facility]
--- NOTE | 2023-10-02 09:49 | XR_ITS ---
FINAL REPORT CLINICAL HISTORY: LT SIDED CHEST WALL PAIN FINDINGS: RIBS WITH CHEST: Multiple views of the left ribs were obtained. There is no acute fracture. The lungs are clear. No pneumothorax is identified. IMPRESSION: No rib fracture or pneumothorax identified. Reviewed, Interpreted and Dictated by Tremaine Stratton MD Transcribed by Colin Grover Authenticated and [facility]
== END ==
PROVIDERS: PCP Nurse Practitioner Family; Visit Provider Nurse Practitioner Family
DX: R07.89 Other chest pain (principal)
CPT/HCPCS: 71101; 72072

== ENCOUNTER 2025-05-23 09:39 | Outpatient (CLI) | payer MEDICARE, SELFPAY ==
--- OUTSIDE RECORDS SUMMARY | 2025-04-16 11:05 | XMS_ITS | Encounter Summary ---
[facility] Address [address] [place] [address] Care Team Providers Care Track Repairer Name Role Phone Catrachita Raphael APRN Primary Care Provid er Encounter Details Date Type Department Care Team (Late st Contact Info) Description 04/16/2025 11:05 AM EDT Lab [facility] [address] [place] [phone] History of Hodgkin's lymphoma Social History [...] - 10.80 10*3/mm3 04/16/2025 11:10 AM EDT [facility] RBC 5.26 4.14 - 5.80 10*6/mm3 04/16/2025 11:10 AM EDT [facility] Hemoglobin 14.9 13.0 - 17.7 g/dL 04/16/2025 11:10 AM EDT [facility] Hematocrit 45.7 37.5 - 51.0 % 04/16/2025 11:10 AM EDT [facility] MCV 86.9 79.0 - 97.0 fL 04/16/2025 11:10 AM EDT [facility] MCH 28.3 26.6 - 33.0 pg 04/16/2025 11:10 AM EDT [facility] MCHC 32.6 31.5 - 35.7 g/dL 04/16/2025 11:10 AM EDT [facility] RDW 14.3 12.3 - 15.4 % 04/16/2025 11:10 AM EDT [facility] RDW-SD 45.6 37.0 - 54.0 fl 04/16/2025 11:10 AM EDT [facility] MPV 8.6 6.0 - 12.0 fL 04/16/2025 11:10 AM EDT [facility] Platelets 191 140 - 450 10*3/mm3 04/16/2025 11:10 AM EDT [facility] Neutrophil % 52.3 42.7 - 76.0 % 04/16/2025 11:10 AM EDT [facility] Lymphocyte % 35.2 19.6 - 45.3 % 04/16/2025 11:10 AM EDT [facility] Monocyte % 9.8 5.0 - 12.0 % 04/16/2025 11:10 AM EDT [facility] Eosinophil % 1.7 0.3 - 6.2 % 04/16/2025 11:10 AM EDT [facility] Basophil % 0.8 0.0 - 1.5 % 04/16/2025 11:10 AM EDT [facility] Immature Grans % 0.2 0.0 - 0.5 % 04/16/2025 11:10 AM EDT [facility] Neutrophils, Absolute 3.46 1.70 - 7.00 10*3/mm3 04/16/2025 11:10 AM EDT [facility] Lymphocytes, Absolute 2.33 0.70 - 3.10 10*3/mm3 04/16/2025 11:10 AM EDT [facility] Monocytes, Absolute 0.65 0.10 - 0.90 10*3/mm3 04/16/2025 11:10 AM EDT [facility] Eosinophils, Absolute 0.11 0.00 - 0.40 10*3/mm3 04/16/2025 11:10 AM EDT [facility] Basophils, Absolute 0.05 0.00 - 0.20 10*3/mm3 04/16/2025 11:10 AM EDT [facility] Immature Grans, Absolute 0.01 0.00 - 0.05 10*3/mm3 04/16/2025 11:10 AM EDT [facility] Blood Venipuncture / Unknown 04/16/2025 11:08 AM EDT 04/16/2025 11:08 AM EDT us Tima Vasquez MD LAB BLOOD ORDERABLES Final Resul t [facility]
[address] [place] [address], documented in this encounter Visit Diagnoses Diagnosis History of Hodgkin's lymphoma documented in this encounter Care Teams Track Repairer Relationship Specialty Start Date End Date Catrachita Raphael APRN [address] [place] [facility] [address] [facility] [address] [place] [id number] PCP - General Family Medicine 10/09/19 documented as of this encounter
--- OUTSIDE RECORDS SUMMARY | 2025-04-16 11:15 | XMS_ITS | Encounter Summary ---
[facility] [address] [place] [address] Care Team Providers Care Medical Grade Shoemaker Name Role Phone Catrachita Raphael APRN Primary Care Provid er Encounter Details Date Type Department Care Team (Late st Contact Info) Description 04/16/2025 11:15 AM EDT Office Visit [facility] [address] [facility] [address] [place] [phone] Tima Vasquez MD [address] [facility] [address] [place] [address] Mixed cellularity Hodgkin lymphoma of lymph nodes [...] neck node with other smaller nodes. 10/02/2019 [facility] left neck fine-needle aspiration and biopsy on Lovenox off Coumadin for procedure showed atypical lymphoid proliferation with dysplastic CD30 positive cells suspicious for classic Hodgkin lymphoma but unequivocal diagnosis hindered by the low number of CD30 positive cells. Excisional biopsy recommended by pathology. -10/27/2019 initial [facility] consultation: Reviewed the above hematology [...] weeks. -02/27/2022 patient went to ER at [facility] with abdominal pain, CT chest, abdomen and pelvisnegative. He did test positive for COVID. -03/14/2022 CT neck negative. CBC and CMP normal. -03/21/2022 [facility] follow-up: Srinivasa continues to do well with no evidence of diseaserecurrence in regards to his history of Hodgkin's lymphoma. He went to the ER on 02/27/2022 at [facility] with left-sided abdominal pain, CT [...] CBC and CMP on return. - 03/22/2023 [facility]ology follow-up: CBC today is unremarkable with hemoglobin 15.7 and normal white count platelet count and differential. Continue annual follow-up with CBC. Port now removed. 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 Should I be needed, I also can [...] OF PORT; Surgeon: Petros Crain MD; Location: [facility]; Service: General COLONOSCOPY HERNIA REPAIR Right 1981 Dr. Red @ [facility]- right inguinal - unsure about mesh in place LYMPH NODE BIOPSY Left 10/02/2019 (L) neck Dr. Marrero @ [facility] OTHER SURGICAL HISTORY vocal cord visualization PORTACATH PLACEMENT Left 10/2019 [facility] Allergies Allergen Reactions Sulfa Antibiotics Unknown [...] neck node with other smaller nodes. 10/02/2019 [facility] left neck fine-needle aspiration and biopsy on Lovenox off Coumadin for procedure showed atypical lymphoid proliferation with dysplastic CD30 positive cells suspicious for classic Hodgkin lymphoma but unequivocal diagnosis hindered by the low number of CD30 positive cells. Excisional biopsy recommended by pathology. -10/27/2019 initial [facility] consultation: Reviewed the above hematology [...] weeks. -02/27/2022 patient went to ER at [facility] with abdominal pain, CT chest, abdomen and pelvisnegative. He did test positive for COVID. -03/14/2022 CT neck negative. CBC and CMP normal. -03/21/2022 [facility] follow-up: Srinivasa continues to do well with no evidence of diseaserecurrence in regards to his history of Hodgkin's lymphoma. He went to the ER on 02/27/2022 at [facility] with left-sided abdominal pain, CT [...] CBC and CMP on return. - 03/22/2023 [facility] follow-up: CBC today is unremarkable with hemoglobin 15.7 and normal white count platelet count and differential. Continue annual follow-up with CBC. Port now removed. 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 Should I be needed, I also can [...] Primary documented in this encounter Care Teams Medical Grade Shoemaker Relationship Specialty Start Date End Date Catrachita Raphael APRN [address] [place] [facility] [address] [place] [address] PCP - General Family Medicine 10/09/19 documented as of this encounter
--- OUTSIDE RECORDS SUMMARY | 2025-04-23 08:44 | XMS_ITS | Encounter Summary ---
Author Organization [employer] ([place], [place], [place], [place]) Address [address] [place] [address] Care Team Providers Care Career Services Assistant Name Role Phone Unavailable Primary Care Provider Unavailabl e Reason for Referral * MRI (Routine) - Closed Specialty Diagnoses / Procedures Referred By Contac t Referred To Contact Radiology Diagnoses Elevated PSA Procedures MR prostate without & with IV contrast Jorge Ocampo MD [address] [place] [address] Phone: tel: fax: Referral ID Status Reason Start Date Expiration Date Visits Re quested Visits Authorized [id number] Closed 04/13/2025 04/13/2026 1 1 Reason for Visit * MRI (Routine) - Closed Specialty Diagnoses / Procedures Referred By Contac t Referred To Contact Radiology Diagnoses Elevated PSA Procedures MR prostate without & with IV contrast Jorge Ocampo MD [address] [place] [address] Phone: tel: fax: Referral ID Status Reason Start Date Expiration Date Visits Re quested Visits Authorized [id number] Closed 04/13/2025 04/13/2026 1 1 Encounter Details Date Type Department Care Team (Latest Contact Info) Description 04/23/2025 8:44 AM EDT - 04/23/2025 11:59 PM EDT Hospital Encounter [facility] MRI - [address] [place] [address] Jorge Ocampo MD [address] [place] [address] Elevated PSA Discharge Disposition: Home [...] protocol. The images were reviewed on the [employer] CAD workstation. The prostate measures 5.6 x [...] 4 lesions and were localized on the [employer] CAD software. TRANSITION ZONE: The transition zone [...] protocol. The images were reviewed on the [employer] CAD workstation. The prostate measures 5.6 x [...] by Dimas Barbosa MD Jorge Ocampo MD [facility] [place] MRI ORDERABLES Final Result documented in this [...]
--- OUTSIDE RECORDS SUMMARY | 2025-05-23 09:43 | XMS_ITS | Encounter Summary ---
[facility] Address [address] [place] [address] Care Team Providers Care Nurse Administrator Name Role Phone Catrachita Raphael APRN Primary Care Provid er Encounter Details Date Type Department Care Team (Late st Contact Info) Description 07/22/2018 External CPT II OPERATIONS/DISPATCH - [facility] Social History Tobacco Use Types Packs/Day Years Used Date Smoking Tobacco: Never Assessed Sex and Gender Information Value Date Recorded Sex Assigned at Male 04/11/2025 12:19 PM EDT Legal Sex Male 2:12 PM EST Gender Identity Not on file Sexual Orientation Not on file documented as of this encounter Plan of Treatment Not on file documented as of this encounter Visit Diagnoses Not on filedocumented in this encounter Additional Health Concerns Infection Onset Date Last Indicated Resolved Time COVID Screen (preop/placement) 04/02/2020 04/02/2020 04/03/2020 4:25 PM EDT documented as of this encounter Care Teams Nurse Administrator Relationship Specialty Start Date End Date Catrachita Raphael APRN [address] [place] [id number] PCP - General Family Medicine 10/09/19 documented as of this encounter
--- OUTSIDE RECORDS SUMMARY | 2025-05-23 09:43 | XMS_ITS | Encounter Summary ---
[facility] Address [address] [place] [address] Care Team Providers Care Trash Hauler Name Role Phone Catrachita Raphael APRN Primary Care Provid er Encounter Details Date Type Department Care Team (Latest Contact Info) Description 04/16/2025 Travel Social History Tobacco Use Types Packs/Day Years [...] Diagnoses Not on filedocumented in this encounter Care Teams Trash Hauler Relationship Specialty Start Date End Date Catrachita Raphael APRN [address] [place] [id number] PCP - General Family Medicine 10/09/19 documented as of this encounter
--- OUTSIDE RECORDS SUMMARY | 2025-05-23 09:43 | XMS_ITS | Clinical Summary ---
Author Organization [employer] ([place], [place], [place], [place]) Address [address] [place] [address] Care Team Providers Care Director Of Purchasing Name Role Phone Unavailable Primary Care Provider Unavailabl e Allergies No known active allergies Encounters Date Type Department Care Team Description 04/23/2025 8:44 AM EDT - 04/23/2025 11:59 PM EDT Hospital Encounter [facility] MRI - [address] [place] [address] Jorge Ocampo MD Elevated PSA Discharge Disposition: Home or Self Care 04/23/2025 Travel 04/13/2025 Outside Orders [facility] Central Scheduling [address] [place] [address] Jorge Ocampo MD Elevated PSA (Primary Dx) from Last 3 Months Social History Tobacco Use Types Packs/Day Years Used Date Smoking Tobacco: Never Assessed Sex and Gender Information Value Date Recorded Sex Assigned at Male 04/23/2025 7:44 AM CDT Legal Sex Male 10:03 AM CDT Gender Identity Male 04/23/2025 7:44 AM CDT Sexual Orientation Not on file Plan of Treatment Health Maintenance Due Date Last Done Comments Depression Screening (12+) 1961 Tobacco Cessation Counseling and Screening (12+) 1961 Hepatitis C Screening 1967 Medicare Initial AWV G0438 03/23/2015 Respiratory Syncytial Virus (RSV) Adult or (1 - 1-dose 75+ series) 2024 COVID-19 VACCINE (2023-2 5 season) 2024 08/09/2022, 08/24/2021, 12/15/2020, Additional history exists Falls Risk Screening 10/22/2024 Influenza Vaccine (#1) 2025 , 07/10/2023, 08/07/2022, Additional history exists DTAP/TDAP/TD VACCINES (2 - T d or Tdap) 09/22/2034 09/22/2024 Pneumococcal 50+ years Completed 08/28/2024, 2019 Shingles Vaccine (Zoster) Completed 12/01/2024, 11/2023 Procedures Procedure Name Priority Date/Time Associated Diagnosis Comments MR PROSTATE WITHOUT & WITH IV CONTRAST Routine 04/23/2025 9:52 AM EDT Elevated PSA from Last 3 Months Results * MR prostate without & with [...] present). Images reviewed, interpreted, and dictated by MD Roxana Lucas 04/23/2025 10:47 AM EDT MR PELVIS WITHOUT AND WITH CONTRAST HISTORY: Elevated PSA COMPARISON: None FINDINGS: Multiplanar MR imaging of the pelvis was performed without and with contrast using the prostate MRI protocol. The images were reviewed on the [employer] CAD workstation. The prostate measures 5.6 x [...] 4 lesions and were localized on the [employer] CAD software. TRANSITION ZONE: The transition zone [...] protocol. The images were reviewed on the [employer] CAD workstation. The prostate measures 5.6 x [...] by Dimas Barbosa MD Jorge Ocampo MD IMG MRI ORDERABLES Final Result from Last 3 Months Insurance [facility] MEDICARE ADVANTAGE
--- OUTSIDE RECORDS SUMMARY | 2025-05-23 09:43 | XMS_ITS | Encounter Summary ---
Author Organization [facility] Address [address] [place] [address] Care Team Providers Care Civil Technician Name Role Phone Catrachita Raphael APRN Primary Care Provid er Encounter Details Date Type Department Care Team (Late st Contact Info) Description 12/06/2017 External CPT II ELIGIBILITY COUNSELOR - [facility] Social History Tobacco Use [...] documented as of this encounter Care Teams Civil Technician Relationship Specialty Start Date End Date Catrachita Raphael APRN [address] [place] [id number] PCP - General Family Medicine 10/09/19 documented as of this encounter
--- OUTSIDE RECORDS SUMMARY | 2025-05-23 09:43 | XMS_ITS | Encounter Summary ---
Author Organization [employer] ([place], [place], [place], [place]) Address [address] [facility] [place] [address] Care Team Providers Care Transportation Superintendent Name Role Phone Unavailable Primary Care Provider Unavailabl e Reason for Referral * MRI (Routine) - Closed Specialty Diagnoses / Procedures Referred By Contac t Referred To Contact Radiology Diagnoses Elevated PSA Procedures MR prostate without & with IV contrast Jorge Ocampo MD [address] [address] Phone: tel: fax: Referral ID Status Reason Start Date Expiration Date Visits Re quested Visits Authorized [id number] Closed 04/13/2025 04/13/2026 1 1 Encounter Details Date Type Department Care Team (Late st Contact Info) Description 04/13/2025 Outside Orders [facility] Central Scheduling [address] [place] [address] Jorge Ocampo MD [address] [facility] [address] [place] [address] Elevated PSA (Primary Dx) Social History Tobacco Use Types [...] on file documented as of this encounter Results * MR prostate without [...] protocol. The images were reviewed on the [employer] CAD workstation. The prostate measures 5.6 x [...] protocol. The images were reviewed on the [employer] CAD workstation. The prostate measures 5.6 x [...] Ocampo MD IMG MRI ORDERABLES Final Result documented in this encounter Visit Diagnoses Diagnosis Elevated PSA- Primary Elevated prostate specific antigen (PSA) Elevated PSA Elevated prostate specific antigen (PSA) documented in this encounter
--- OUTSIDE RECORDS SUMMARY | 2025-05-23 09:43 | XMS_ITS | Clinical Summary ---
[facility] Organization [facility] Address [address] [place] [address] Care Team Providers Care Patrol Sergeant Name Role Phone Catrachita Raphael APRN Primary Care Provid er Allergies Active Allergy Reactions Criticality Noted Date Comments Sulfa Antibiotics Unknown - Low Severity 2019 PT does not remember- as child Medications atorvastatin (LIPITOR) 40 MG tablet Take 1 tablet by mouth Every Night. 9 Active warfarin (COUMADIN) 10 MG tablet Take 1 tablet by mouth Take As Directed. Sunday, Sunday, Sunday, Sunday 5mg. Sunday, 9 Active coenzyme Q10 100 MG capsule Take 1 capsule by mouth Daily. Active Cyanocobalamin (VITAMIN B-12 PO) Take 5,000 mcg by mouth Daily. Active cetirizine (zyrTEC) 10 MG tablet Take 1 tablet by mouth Daily. Active loratadine (CLARITIN) 10 MG tablet Take 1 tablet by mouth As Needed for Allergies. Active Melatonin 10 MG tablet Take 1 tablet by mouth As Needed. Active trifluridine (VIROPTIC) 1 % ophthalmic solution Administer 1 drop into the left eye As Needed. Active NIACIN ER PO Take by mouth. Pt not sure dosage- will bring with next visit Active losartan (COZAAR) 50 MG tablet Take 1 tablet by mouth Daily. Please call office for follow-up appointment for further refills. 90 tablet 4 Active Jardiance 25 MG tablet tablet 4 Active metFORMIN (GLUCOPHAGE) 500 MG tablet Take 1 tablet by mouth 3 (Three) Times a Day With Meals. Active glipizide (GLUCOTROL XL) 10 MG 24 hr tablet Take 2 tablets by mouth Daily. 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 10/27/2019 Encounter for antineoplastic chemotherapy 2019 Encounters Date Type Department Care Team Description 04/16/2025 11:15 AM EDT Office Visit [facility] [address] [facility] [address] [place] [address] Tima Vasquez MD 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 (Primary Dx) 04/16/2025 11:05 AM EDT Lab [facility] [address] [place] [address] History of Hodgkin's lymphoma 04/16/2025 Travel from Last 3 Months Immunizations Immunization Administration Dates Next Due COVID-19 (MODERNA) 1st,2nd,3 rd Dose Monovalent 08/24/2021,12/15/2020,11/17/2020 COVID-19 (MODERNA) BIVALENT 12+YRS 08/09/2022 Fluad Quad 65+ 07/29/2020 Fluzone High-Dose 65+yrs 08/07/2022,08/24/2021 Influenza, Unspecified 07/29/2020 Pneumococcal Conjugate 13-Valent (PCV13) 020 Family History Medical History Relation Name Comments Factor V Leiden deficiency Daughter Clotting disorder Maternal Grandfather Truman Solitario Diabetes Mother Factor V Leiden deficiency Mother Melanoma Mother Factor V Leiden deficiency Son Relation Name Status Comments Daughter Alive Maternal Grandfather Truman Solitario Mother Alive Son Alive Social History Tobacco Use Types Packs/Day Years [...] on file Sexual Orientation Not on file Last Filed Vital Signs Vital Sign Reading [...] Mass Index 29.97 04/16/2025 11:07 AM EDT Plan of Treatment Health Maintenance Due Date Last Done Comments DIABETIC FOOT EXAM 1960 URINE MICROALBUMIN-CREATININ E RATIO (uACR) 1960 HEPATITIS C SCREENING 10/27/2019 LIPID PANEL 11/18/2022 11/18/2021, 07/0 10/2020, 09/11/2019, Additional history exists ANNUAL WELLNESS VISIT 11/28/2022 11/28/2021 , 07/22/2018, 05/04/2017 DIABETIC EYE EXAM 11/28/2022 11/28/2021, , 07/22/2018, Additional history exists HEMOGLOBIN A1C 02/05/2023 08/07/2022, 10/23, 04/21/2021, Additional history exists RSV Vaccine - Adults (1 - 1- dose 75+ series) 2024 COVID-19 Vaccine (5 - 2023-2 5 season) 2024 08/09/2022, 08/24/2021, 12/15/2020, Additional history exists INFLUENZA VACCINE 07/22/2025 08/28/2024, , 08/07/2022, Additional history exists TDAP/TD VACCINES (2 - Td or Tdap) 09/22/2034 024 COLONOSCOPY Discontinued 04/08/2021, 11/23, 12/11/2016 COLORECTAL CANCER SCREENING Discontinued Pneumococcal Vaccine 50+ Completed 08/28/2024, 05/2020 ZOSTER VACCINE Completed 12/01/2024, 09/22/2024 COLOGUARD Discontinued COLON CANCER SCREENING 5 YEA R SIGMOID[address]COPY Discontinued CT COLONOGRAPHY Discontinued FECAL OCCULT BLOOD TEST Discontinued FIT Testing (1 year) Discontinued Medical Devices Implanted Type Area Home Appliances Mechanic Device Identifier Shelf Expiration Date Model / Serial / Lot Powerport Isp Clearvue Cath 8f 45cm - [id number] Implanted:Qty: 1 on 11/12/2019 by Petros Crain MD at [facility] Implant Right: Neck BARD PERIPHERAL VASCULAR 01/19/2021 [id number] / / [id number] Procedures Procedure Name Priority Date/Time Associated Diagnosis Comments CBC AND DIFFERENTIAL Routine 04/16/2025 11:08 AM EDT History of Hodgkin's lymphoma CBC WITH AUTO DIFFERENTIAL Routine 04/16/2025 11:08 AM EDT History of Hodgkin's lymphoma SCANNED - COLONOSCOPY 12/11/2016 from Last 3 Months or Most Recently Relevant to Health Maintenance Results * CBC Auto Differential (04/16/2025 11:08 AM EDT) WBC 6.61 3.40 - 10.80 10*3/mm3 04/16/2025 11:10 AM EDT [facility] RBC 5.26 4.14 - 5.80 10*6/mm3 04/16/2025 11:10 AM EDT [facility] Hemoglobin 14.9 13.0 - 17.7 g/dL 04/16[facility]2025 [facility] Hematocrit 45.7 37.5 - 51.0 % 04/16/2025 11:10 [facility] MCV 86.9 79.0 - 97.0 fL 04/16/2025 11:10 [facility] MCH 28.3 26.6 - 33.0 pg 04/16/2025 11:10 [facility] MCHC 32.6 31.5 - 35.7 g/dL 04/16/2025 11:10 AM [facility] RDW 14.3 12.3 - 15.4 % 04/16/2025 11:10 AM [facility] RDW-SD 45.6 37.0 - 54.0 fl 04/16/2025 11:10 AM [facility] MPV 8.6 6.0 - 12.0 fL 04/16/2025 11:10 AM [facility] Platelets 191 140 - 450 10*3/mm3 04/16/2025 11:10 AM [facility] Neutrophil % 52.3 42.7 - 76.0 % 04/16/2025 11:10 AM [facility] Lymphocyte % 35.2 19.6 - 45.3 % 04/16/2025 11:10 AM [facility] Monocyte % 9.8 5.0 - 12.0 % 04/16/2025 11:10 [facility] Eosinophil % 1.7 0.3 - 6.2 % 04/16/2025 11:10 [facility] Basophil % 0.8 0.0 - 1.5 % 04/16/2025 11:10 AM [facility] Immature Grans % 0.2 0.0 - 0.5 % 04/16/2025 11:10 AM [facility] Neutrophils, Absolute 3.46 1.70 - [...] 11:08 AM EDT 04/16/2025 11:08 AM EDT Tima Vasquez MD LAB BLOOD ORDERABLES Final Resul t [facility]
[address] [place] [address], * SCANNED - COLONOSCOPY (12/11/2016) Catrachita Raphael APRN CHART REVIEW TABS Final Result from Last 3 Months or Most Recently Relevant to Health Maintenance Insurance [id number] [facility] [id number] [facility] Medicare Advantage GROUP PPO Care Teams Patrol Sergeant Relationship Specialty Start Date End Date Catrachita Raphael APRN [address] [place] [id number] PCP - General Family Medicine 10/09/19
--- OUTSIDE RECORDS SUMMARY | 2025-05-23 09:43 | XMS_ITS | Encounter Summary ---
Author Organization [employer] ([place], [place], [place], [place]) Address [address] [place] [address] Care Team Providers Care Sign Language Teacher Name Role Phone Unavailable Primary Care Provider Unavailabl e Encounter Details Date Type Department Care Team (Latest Contact Info) Description 04/23/2025 Travel Social History Tobacco Use Types Packs/Day [...]
--- OUTSIDE RECORDS SUMMARY | 2025-05-23 09:43 | XMS_ITS | Encounter Summary ---
Author Organization [facility] Address [address] [place] [address] Care Team Providers Care Product Scientist Name Role Phone Catrachita Raphael APRN Primary Care Provid er Encounter Details Date Type Department Care Team (Late st Contact Info) Description 05/04/2017 External CPT II ASTHMA EDUCATOR - [facility] Social History Tobacco Use [...] documented as of this encounter Care Teams Product Scientist Relationship Specialty Start Date End Date Catrachita Raphael APRN [address] [place] [id number] PCP - General Family Medicine 10/09/19 documented as of this encounter
--- OUTSIDE RECORDS SUMMARY | 2025-05-23 09:43 | XMS_ITS | Referral Summary ---
Author Organization [employer] ([place], [place], [place], [place]) Address [address] [place] [address] Care Team Providers Care Straw Hat Machine Operator Name Role Phone Unavailable Primary Care Provider Unavailabl e Encounters Date Type Department Care Team Description 04/23/2025 Travel 04/23/2025 8:44 AM EDT - 04/23/2025 11:59 PM EDT Hospital Encounter [facility] - [address] [place] [address] Jorge Ocampo MD Elevated PSA Discharge Disposition: Home or Self Care 04/13/2025 Outside Orders [facility] [place] [facility] Sched[facility] [address] [place] [address] Jorge Ocampo MD Elevated PSA (Primary Dx) from Last 3 Months Allergies No known active allergies Social History Tobacco Use Types Packs/Day Years Used Date Smoking Tobacco: Never Assessed Sex and Gender Information Value Date Recorded Sex Assigned at Male 04/23/2025 7:44 AM CDT Legal Sex Male 10:03 AM CDT Gender Identity Male 04/23/2025 7:44 AM CDT Sexual Orientation Not on file Plan of Treatment Not on file Procedures Procedure Name Priority Date/Time Associated Diagnosis [...] protocol. The images were reviewed on the [employer] CAD workstation. The prostate measures 5.6 x [...] protocol. The images were reviewed on the [employer] CAD workstation. The prostate measures 5.6 x [...] Final Result from Last [address] Insurance [facility] MEDICARE ADVANTAGE
--- OUTSIDE RECORDS SUMMARY | 2025-05-23 09:43 | XMS_ITS ---
Author Organization [facility] Address [address] [place] [address] Care Team Providers Care Sewage Reticulation Drafting Officer Name Role Phone Catrachita Raphael APRN Primary Care Provid er Active Problems Problem Noted Date Diagnosed Date [...] in 10/27/2019 Encounter for antineoplastic chemotherapy 2019 Current Treatment and Therapy Plans No current plan information found. Past Treatment and Therapy Plans ONCOLOGY TREATMENT Plan Name Start Date Discontinue Date Treatment Medications Discontinue Reason Plan Provider Cycles OP HODGKIN LYMPHOMA ABVD DOXOrubicin / Dacarbazine / VinBLAStine / Bleomycin 11/27/2019 06/08/2020 Bleomycin (BLENOXANE) chemo IVPBdacarbazine (DTIC) chemo IVPBDOXOrubicin (ADRIAMYCIN)vinBL AStine (VELBAN) chemo IVPB Therapy Complete Tima Vasquez MD 5 of 6 cycles started Therapy Plan 1 - Infusion Treatment Plan Name Start Date Discontinue Date Treatment Medications Discontinue Reason Plan Provider OP CENTRAL VENOUS ACCESS DEVICE ACCESS, CARE, AND MAINTENANCE (CVAD) 11/27/2019 12/22/2020 No medications scheduled. 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 Hodgkin's Lymphoma Survivorship Plan General Information Patient name Srinivasa Hager Date of 1950 Phone Email [email or web address] Cancer Treatment Team Patient Care Team: Petros Crain MD as Consulting Physician (General Surgery) Seth Pierre MD as Consulting Physician (Radiation Oncology) Tima Vasquez MD as Referring Physician (Hematology and Oncology) Provider Phone numbers Care Team Provider: Catrachita Raphael APRN, ([phone]) Care Team Provider: Petros Crain MD, ([phone]) Care Team Provider: Seth Pierre MD, ([phone]) Care Team Provider: Tima Vasquez MD, ([phone]) Care Team Provider: Leodan Pedraza MD, ([phone]) Post Treatment Care Team Primary Care Physician Catrachita Raphael APRN [phone] [address] [place] [facility] [address] [address] Background Information Medical history Past Medical History: Cataract bilat still present Diabetes mellitus (CMS/HCC) very seldom and if feels funny Factor 5 Leiden mutation, heterozygous (CMS/HCC) H/O blood clots Hypertension Lymphoma (CMS/HCC) PE (pulmonary thromboembolism) (CMS/HCC) Tinnitus Wears glasses Surgical history Past Surgical History: CERVICAL LYMPH NODE BIOPSY/EXCISION Procedure: EXCISION LEFT CERVICAL LYMPH NODE, INSERTION OF PORT; Surgeon: Petros Crain MD; Location: [facility] OR; Service: General COLONOSCOPY HERNIA REPAIR Dr. Red @ [facility]- right inguinal - unsure about mesh in place LYMPH NODE BIOPSY (L) neck Dr. Marrero @ [facility] OTHER SURGICAL HISTORY vocal cord visualization PORTACATH PLACEMENT [facility] Tobacco use Social History Tobacco Use Smoking Status Never Smoker Smokeless Tobacco Never Used Family oncology history Cancer-related family history includes Melanoma in his mother. 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 Hence based on male 44 years of age and a sedimentation rate over 50 (sed rate of 55), he has some unfavorable characteristics. There was no mediastinal mass however and no bulky adenopathy and not greater then 3 lymph nodes involved though it is hard to say precisely how many nodes in the conglomerate mass in the left neckare involved. Hence I am calling this 1 [...] dyspnea on exertion. His first PET was 11/05/2027 and his node was excised in the cervical region on 11/12/2019. Hence this being responsive to chemo is hard to discern as the negative PET 01/15/2020 after 2 courses of ABVD was likely largely due to extraction of the node, History of right lower extremity DVT with large PE in his 30s found to have heterozygous factor V Leiden mutation but off anticoagulation for decades. 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 Per patient, clot went from ankle to groin. Hypertension Hyperlipidemia Diabetes Oncology timeline: History of hypertension, diabetes, [...] neck node with other smaller nodes. 10/02/2019 [facility] left neck fine-needle aspiration and biopsy on Lovenox off Coumadin for procedure showed atypical lymphoid proliferation with dysplastic CD30 positive cells suspicious for classic Hodgkin lymphoma but unequivocal diagnosis hindered by the low number of CD30 positive cells. Excisional biopsy recommended by pathology. -10/27/2019 initial [facility] medical oncology consultation: Reviewed the above hematology [...] his sedimentation rate mixed cellularity Hodgkin lymphoma. 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 Left ventricular systolic function is normal. No significant structural or functional valvular disease. 11/17/2019 Cancer Staged Staging form: Hodgkin And Non-Hodgkin Lymphoma, AJCC 8th Edition - Clinical: Stage I - Signed by Tima Vasquez MD on 11/17/2019 11/27/2019 - 03/02/2020 Chemotherapy OP HODGKIN LYMPHOMA ABVD DOXOrubicin / Dacarbazine / VinBLAStine / Bleomycin ABVD x2 followed by AVD x3, holding the sixth and final course due to debilitation with ambulation and dyspnea on exertion despite normal ejection fraction at that junction and normal oxygenation 11/27/2019 - Chemotherapy OP CENTRAL VENOUS ACCESS DEVICE ACCESS, [...] neck via External Beam Radiation - EBRT. Complications during Therapy: No concerns stated Modification to Treatment Plan: Completed 5 courses of therapy, held 6th course due to shortness ofbreath and [facility] Lifetime Dose Tracking Doxorubicin: 204.375 mg/m2 (480 mg) Bleomycin: 96 Units Disease Status at Completion of Primary Therapy: Complete Clinical Response / No Evidence of Disease Persistent Treatment-Associated Adverse Effects at Completion of Therapy It is important to recognize that not every person experiences the following adverse events after treatment. You may not have any of these issues, a few or many adverse effects. Experiences are highly variable. Please discuss any adverse effects of cancer treatment with your cancer care team. After Surgical Therapy After Chemotherapy Chemotherapy travels throughout the body and can affect both cancer cells and normal, healthy cells. Damage to healthy cells can cause side effects. Every person doesn't get every side effect, and some people get few, if any. Many side effects go away fairly quickly after treatment ends, but some may take months or even years to completely go away. The time it takes to get over some side effects and get your energy back varies from person to person. It depends on many factors; including your overall health and the drugsyou were given. Some side effects can last a lifetime, such as when chemo causes long-term damage to the heart, lungs, kidneys, or reproductive organs. Certain types of chemo sometimes cause delayed effects, such as a second cancers that may show up many years later. Ask your doctor or nurse if youneed more information. After Radiation Therapy Radiation therapy can cause early and late side effects. Early side effects are those that happen during or shortly after treatment and are usually gone within a few weeks after treatment ends. Late side effects may take months or years to develop and vary depending on the areas of the body included in the field of radiation and the radiation techniques that were used. The most common early side effects are fatigue (feeling tired) and skin changes. Other early side effects are usually related to the area being treated. If you continue to have some skin problems after treatment ends, be gentle with the skin in the treatment area until all signs of irritation are gone and continue to care for your skin as your doctors and nurses have advised. If you continue to have fatigue, you may need to plan your activities to maximize energy, get extra rest while your bodyis still recovering and follow other instructions from your doctors and nurses such as exercise andactivity. MCC effects of radiation therapy vary greatly depending on the areas included in the field ofradiation and the radiation techniques that were used. Ask your doctors and nurses about the risk of usp effects. Keep your follow up appointments and keep up with recommended health screenings. Other Care of your Venous Access Device No Venous Access Device currently in place General After Cancer Treatment It is not uncommon for cancer to impact other areas of your life such as relationships, work and mental health. If you develop financial concerns, resources are sometimes available to assist in these areas. Depression and anxiety can present either during or after cancer diagnosis and treatment. It is important to discuss with your physician any of these concerns so these resources can be made available to you. General Cancer Support & Resources [facility] [address], [address] [place] [address] Med Onc: Quality Engineering Manager Onc: [employer] Boards: Carina Spears - Psychiatric Nurse Practitioner: Yulissa Hughes APRN - [phone] Kick It! (A free smoking cessation program) Financial Counselor and Contact Information: [facility] Financial Counseling - Lay Health Advocate Contact Information: Dee Marrero - [phone] Wound Ostomy & Continence Nurse: Local Cancer Support Group and Contact Information: Look Good Feel Better: A non-medical, brand-neutral public service program that teaches beauty techniques to people with cancer to help them manage the appearance-related side effects of cancer treatment. The program includes lessons on skin and nail care, cosmetics, wigs and turbans, accessories and styling, helping people with cancer to find some normalcy in a life. - See more at: http://lookgoodfeelbetter.org Journey Toward Empowerment - for Women with Cancer: ([facility]) The Tools and encouragement you need to live your life to the fullest. Free Dinner served @ 6:00pm followed by speaker from 6:30 - 7:30pm. The series runs from July, and meets monthly. Call Elsy Salcido RN, OCN @ to receive information and upcoming schedule. [facility]: This support group is open to anyone that has been diagnosed with cancer of any type. Meets at 6:30pm on the last Sunday of each month. Location: [facility]; [address] [place] [address]. For more information call Estephanie Harrell @ . Surveillance How Frequent? Medical Oncology visits H&P every 3-6 months for 1-2-year, then every 6-12 months until year 3,then annually. Lab tests CBC, platelets, ESR (if elevated at time of initial diagnosis), chemistry profile as clinically indicated. Thyroid stimulating hormone (TSH) at least annually if radiation to neck. Imaging exams CT scan with contrast at 6, 12, and 24 months following completion of therapy or as clinically indicated. Immunizations Influenza Herpes Zoster Pneumococcal Yearly Once As appropriate Tobacco Cessation The patient is not currently a tobacco user. Counseling given: Not Answered Monitor for ongoing toxicities: None Specified Call your doctor if you have any of these signs or symptoms New or worsening symptoms. Pain that is new, unrelieved or bothersome. Difficulty with your emotions, anxiety, and/or depression. Physical problems that affect your abilities in your daily life or those that are bothersome (for example, continued fatigue, trouble sleeping, sexual problems, or edema). Referrals provided There are no referral needs at this time. Self Care Plan Self Care Plan: What You Can Do to Stay Healthy after Treatment for Cancer Cancer treatments may increase your chance of developing other health problems years after you havecompleted treatment. The purpose of this self care plan is to inform you about what steps you can take to maintain good health after cancer treatment. Keep in mind that every person treated for cancer is different and that these recommendations are not intended to be a substitute for the advice of a doctor or other health care advocate. Please use these recommendations to talk with your health care provider about an appropriate follow up care plan for you. Surveillance for Your Cancer Recommendation Frequency Comments Cancer surveillance visit with medical provider that is focused on detecting signs of recurrence ofyour cancer. For additional information, visit www.livestrong.org or www.cancer.net/patient/Survivorship Frequency depends on type and stage of cancer you had. (If you had a higher risk cancer, you may be seen more often). Your doctor has provided you with a personalized cancer treatment summary and survivorship care plan. If you need another copy, ask your doctor. General Cancer Screening for Men Cancer screening tests are designed to find cancer or pre-cancerous areas before there are any symptoms and, generally, when treatments are most successful. Various organizations have developed guidelines for cancer screening for men. While these guidelines vary slightly between different organizations, they cover the same basic screening tests for prostate and colorectal cancers. In addition, during routine health examinations (at any age) your health care provider may also evaluate for cancers of the skin, mouth and thyroid. Not all screening tests are right for everyone. Your personal and family cancer history, and/or the presence of a known genetic predisposition, can affect which tests are right for you, and at what age you begin them. Therefore, you should discuss these with your health care provider. Your care plan will also include a section on follow up care foryour type of cancer, and these recommendations override the general screening recommendations for that particular type of cancer in the general population. The [place] [employer] Society (ACS) recommends these screening guidelines for men: Recommendation Frequency Comments Colon and Rectal Cancer Screening For more information see the ACS document Colorectal Cancer: Early Detection. www.cancer.org/ssLINK/qqwecazxiu-hadxjj-rzsvx-detection-maxim Options for colon cancer screening can be divided into those that screen for both cancer and polyps, and those that just screen for cancer.Screening should begin at age 45 (unless you are considered high risk (see comments), using one of the following testing schedules: Tests that find polyps and cancer (Preferred over those that find cancer alone. If any of these tests are positive, a colonoscopy should be done.) Flexible sigmoidoscopy every five years, or Colonoscopy every 10 years, or Double-contrast barium enema every five years, or CT colonography (virtual colonoscopy) every five years Tests that primarily test for cancer Yearly fecal occult blood test (FOBT)*, or Yearly fecal immunochemical test (FIT) *, or Stool DNA test (sDNA), interval uncertain* * The multiple stool take-home test should be used. One test done by the doctor in the office is not adequate. A colonoscopy should be done if the test is positive. Talk with your doctor about your medical history, and what colorectal cancer screening test and schedule is best for you. Individuals at higher risk of colon cancer should have screening earlier and potentially more frequently. Those at higher risk of colon and rectal cancer: Individuals with a family history of colon or rectal cancer in a relative who was diagnosed before the age of 60 Individuals with a history of polyps Individuals with inflammatory bowel disease (Crohn's disease or ulcerative colitis) Individuals with a genetic predisposition to colon or rectal cancer, such as hereditary non-polyposis colon cancer (HNPCC) syndrome or familial adenomatous polyposis (FAP) syndrome Prostate Cancer Screening For more information, see the ACS Document Prostate Cancer Prevention and Early Detection: http://www.cancer.org/cancer/prostatecancer/moreinformation/prostatecancerearlyd etection/index Starting at age 50 (unless you are considered high risk ), men should talk to their doctor about the pros and cons of prostate cancer testing, and then decide if they want to be tested. Tests that can be used to detect for prostate cancer include Prostate-specific antigen (PSA) or digital rectal exam (SAVI). ndividuals are considered higher risk if they are and/or have a family history of prostate cancer. Those who are considered high risk should have this talk at age 40 or 45. Testicular Screening For more information, see the ACS Document Testicular Cancer Detection: http://www.cancer.org/cancer/testicularcancer/detailedguide/ghhzxxkvnc-roahqq-ot tection Men of any age can develop testicular cancer; however, about half of all cases occur in men between the ages of20 and 34. A testicular self- exam is recommended monthly after a man has gone through puberty. In doing so, lorne should look and feel for any hard lumps, rounded bumps, or any change in the size, shape, or consistency of his testicles. If something appears abnormal, see a health care provider for further evaluation. Sun Exposure and Skin Cancer Risk Skin cancer is the most commonly diagnosed type of cancer, and rates are on the rise. However, thisis one cancer that in most cases can be prevented or detected early. While you may hear that you need the sun to make vitamin D, in reality you only need a few minutes a day to do this. Exposure to ultraviolet (UV) rays, either by natural sunlight or tanning beds, can lead to skin cancer. In additio n, UV rays lead to other forms of skin damage, including wrinkles, loss of skin elasticity, dark patches (sometimes called age spots or liver spots), and pre- cancerous skin changes (such as dry, scaly, rough patches). Although dark- skinned people are less likely to develop skin cancer, they can anddo develop skin cancers, most often in areas that are not exposed to sun (on the soles of the feet,under nails, and genitals). You can do a lot to protect yourself from damaging UV rays and to detect skin cancer early. Start by practicing sun safety, including using a broad spectrum sunscreen (which protects against UVA and UVB rays) with an SPF of at least 30 every day, avoiding peak sun times (10 a.m. to 4 p.m., when therays are strongest) and wearing protective clothing such as hats, sunglasses and long- sleeved shirts. Examine your skin regularly so you become familiar with any moles or birthmarks. If a mole has changed in any way, you should have a health care provider examine the area. This includes a change in size, shape or color; the development of scaliness, bleeding, oozing, itchiness or pain; or the development of a sore that will not heal. If you have a lot of moles, it may be helpful to make note of moles using photographs or a mole map . For a guide to performing a skin exam, visit www.skincarephysicians.com/skincancernet/skin_examinations.html. Healthy Lifestyle For some cancer survivors, the experience is the motivation to making healthy lifestyle changes. Itmay seem insignificant, but these changes have been shown to reduce the risk of the cancer coming back or a new cancer developing. Below are some tips on adopting a healthier lifestyle. Maintaining ahealthy weight is important in cancer prevention, as is physical activity and eating a healthy diet. Strive to incorporate all three pieces of the puzzle: healthy weight, balanced diet and regular exercise. Recommendation Goal Comments Maintain a healthy weight. For more information, visit http://www.nhlbi.nih.gov/health/public/heart/obesity/lose_wt/index.htm www.win.niddk.nih.gov Call the [place] [employer] Talk to your health care team about what a healthy weight is for you, and take stepsto reach and maintain that weight. For many people reaching their ideal weight can be a challenge; however, losing even 5 to 10 poundscan lower blood pressure, blood sugar and cholesterol levels. Weigh yourself weekly to monitor for weight gain/loss Being overweight can increase your chance of your cancer coming back. Maintaining a healthy weight, physical activity and eating a healthy diet are all important in cancer prevention. Being overweight can increase your chance of having high blood pressure, high blood sugar and/or high cholesterol, which can lead to heart disease, diabetes and stroke. If you would like more information about your blood sugar, cholesterol or blood pressure, talk with your primary care provider. Eat a healthy diet, mostly from plant sources. For more information, visit http://www.choosemyplate.gov/food-groups/ Eat healthy, including plenty of fruits and vegetables daily. Drink more water, less soda and juice. Limit how much alcohol you drink (if you drink at all). Strive to have two- thirds of your plate be vegetables, fruits, whole grains and beans, while one- third or less should be an animal product. Choose fish and chicken and limit red meat and processed meats. Limit intake of alcohol to two drinks per day. Exercise. To learn more about recommendations for diet, activity and weight, visit AICR???s Guidelines for Survivors http://preventcancer.aicr.org/site/PageServer?pagename=patients_survivors_guidel alexander ACS Eat Healthy and Get Active www.cancer.org/Healthy/EatHealthyGetActive/index Experts recommend at least 30 minutes of hgajmane-cf-kqnoebuh activity per day, five days a week. Research shows that exercise can help you control your weight, improve your energy level, and help you sleep at night. The quintero is to find a physical activity you enjoy such as walking, dancing or gardening and do it regularly. If you have been inactivefor a while, start out slowly. You can start out by exercising 10 minutes a day several days a week. If you feel dizzy, short of breath, or have chest pain during exercise, stop exercising and talk with your primary care doctor. Do not use tobacco in any form. For more information, visit http://www.cdc.gov/tobacco/campaign/tips/ If you use tobacco, quit as soon as possible. Smoking is the most preventable cause of in the [place] If you would like more information, ask your doctor or you can call a national hotline at 5(843)-QUIT-NOW. Have regular check-ups by a healthcare professional. For more information about healthy screening tests for men visit the U.S. Department of Health and Human Services. http://www.womenshealth.gov/xgqxpjyqj-xuchx-yoq-vaccines/jnjrjxdtb-ijpys-xpf-men / For more information about adult vaccinations visit the CDC: http://www.cdc.gov/vaccines/recs/schedules/adult-schedule.htm Keep up-to-date on general health screening tests, including cholesterol, blood pressure and glucose (blood sugar) levels. Get an annual influenza vaccine (flu shot). Get vaccinated with the pneumococcal vaccine, which prevents a type of pneumonia, and re-vaccinatedas determined by your health care team. Don???t forget dental and eye health! The [place] [employer] recommends adults have their eyes examined every two years until age 60, then annually. People who wear glasses or correctivelenses or are at high risk for eye problems (i.e., diabetics, family history of eye disease) shouldbe seen more frequently. The [place] [employer] recommends adults see their dentist at least once a year. No information on file. No information on file.
--- OUTSIDE RECORDS SUMMARY | 2025-05-23 09:43 | XMS_ITS | Encounter Summary ---
[facility] Address [address] [place] [address] Care Team Providers Care Slate Mixer Name Role Phone Catrachita Raphael APRN Primary Care Provid er Encounter Details Date Type Department Care Team (Late st Contact Info) Description 08/31/2016 External CPT II CHILD DEVELOPMENT TEACHER - [facility] Social History Tobacco Use [...] documented as of this encounter Care Teams Slate Mixer Relationship Specialty Start Date End Date Catrachita Raphael APRN [address] [place] [address] PCP - General Family Medicine 10/09/19 documented as of this encounter
[2025-05-23 11:17] LABS: INR 1.19 (0.9-1.1); Prothrombin Time 13.0 seconds (10.1-12.5)
== END 2025-05-23 23:59 | disposition home or self-care (01) ==
LOC: LAB 09:41
PROVIDERS: PCP Nurse Practitioner Family; Visit Provider Family Medicine
DX: D68.2 Hereditary deficiency of other clotting factors (principal); Z79.01 Long term (current) use of anticoagulants
CPT/HCPCS: 36415; 85610

== ENCOUNTER 2025-05-25 13:08 | Outpatient (CLI) | payer MEDICARE, SELFPAY ==
--- OUTSIDE RECORDS SUMMARY | 2025-04-16 11:05 | XMS_ITS | Encounter Summary ---
[facility] [address] [place] [address] Care Team Providers Care Merchandise Deliverer Name Role Phone Catrachita Raphael APRN Primary Care Provid er Encounter Details Date Type Department Care Team (Late st Contact Info) Description 04/16/2025 11:05 AM EDT Lab [facility] [address] [place] [phone] History of Hodgkin's lymphoma Social History [...] - 10.80 10*3/mm3 04/16/2025 11:10 AM EDT [facility] RBC 5.26 4.14 - 5.80 10*6/mm3 04/16/2025 11:10 AM EDT [facility] Hemoglobin 14.9 13.0 - 17.7 g/dL 04/16/2025 11:10 AM EDT [facility] Hematocrit 45.7 37.5 - 51.0 % 04/16/2025 11:10 AM EDT [facility] MCV 86.9 79.0 - 97.0 fL 04/16/2025 11:10 AM EDT [facility] MCH 28.3 26.6 - 33.0 pg 04/16/2025 11:10 AM EDT [facility] MCHC 32.6 31.5 - 35.7 g/dL 04/16/2025 11:10 AM EDT [facility] RDW 14.3 12.3 - 15.4 % 04/16/2025 11:10 AM EDT [facility] RDW-SD 45.6 37.0 - 54.0 fl 04/16/2025 11:10 AM EDT [facility] MPV 8.6 6.0 - 12.0 fL 04/16/2025 11:10 AM EDT [facility] Platelets 191 140 - 450 10*3/mm3 04/16/2025 11:10 AM EDT [facility] Neutrophil % 52.3 42.7 - 76.0 % 04/16/2025 11:10 AM EDT [facility] Lymphocyte % 35.2 19.6 - 45.3 % 04/16/2025 11:10 AM EDT [facility] Monocyte % 9.8 5.0 - 12.0 % 04/16/2025 11:10 AM EDT [facility] Eosinophil % 1.7 0.3 - 6.2 % 04/16/2025 11:10 AM EDT [facility] Basophil % 0.8 0.0 - 1.5 % 04/16/2025 11:10 AM EDT [facility] Immature Grans % 0.2 0.0 - 0.5 % 04/16/2025 11:10 AM EDT [facility] Neutrophils, Absolute 3.46 1.70 - 7.00 10*3/mm3 04/16/2025 11:10 AM EDT [facility] Lymphocytes, Absolute 2.33 0.70 - 3.10 10*3/mm3 04/16/2025 11:10 AM EDT [facility] Monocytes, Absolute 0.65 0.10 - 0.90 10*3/mm3 04/16/2025 11:10 AM EDT [facility] Eosinophils, Absolute 0.11 0.00 - 0.40 10*3/mm3 04/16/2025 11:10 AM EDT [facility] Basophils, Absolute 0.05 0.00 - 0.20 10*3/mm3 04/16/2025 11:10 AM EDT [facility] Immature Grans, Absolute 0.01 0.00 - 0.05 10*3/mm3 04/16/2025 11:10 AM EDT [facility] Blood Venipuncture / Unknown 04/16/2025 11:08 AM EDT 04/16/2025 11:08 AM EDT us Tima Vasquez MD LAB BLOOD ORDERABLES Final Resul t [facility]
[address] [place] [address], documented in this encounter Visit Diagnoses Diagnosis History of Hodgkin's lymphoma documented in this encounter Care Teams Merchandise Deliverer Relationship Specialty Start Date End Date Catrachita Raphael APRN [address] [place] [facility] [address] [facility] [address] [place] [address] PCP - General Family Medicine 10/09/19 documented as of this encounter
--- OUTSIDE RECORDS SUMMARY | 2025-04-16 11:15 | XMS_ITS | Encounter Summary ---
[facility] Address [address] [place] [address] Care Team Providers Care Awning Maker Name Role Phone Catrachita Raphael APRN Primary Care Provid er Encounter Details Date Type Department Care Team (Late st Contact Info) Description 04/16/2025 11:15 AM EDT Office Visit [facility] [address] [facility] [address] [place] [id number] Tima Vasquez MD [address] [facility] [address] [place] [address] Mixed cellularity Hodgkin lymphoma of lymph nodes [...] neck node with other smaller nodes. 10/02/2019 [facility] left neck fine-needle aspiration and biopsy on Lovenox off Coumadin for procedure showed atypical lymphoid proliferation with dysplastic CD30 positive cells suspicious for classic Hodgkin lymphoma but unequivocal diagnosis hindered by the low number of CD30 positive cells. Excisional biopsy recommended by pathology. -10/27/2019 initial [facility] consultation: Reviewed the above hematology [...] weeks. -02/27/2022 patient went to ER at [facility] with abdominal pain, CT chest, abdomen and pelvisnegative. He did test positive for COVID. -03/14/2022 CT neck negative. CBC and CMP normal. -03/21/2022 [facility] follow-up: Srinivasa continues to do well with no evidence of diseaserecurrence in regards to his history of Hodgkin's lymphoma. He went to the ER on 02/27/2022 at [facility] with left-sided abdominal pain, CT chest, abdomen [...] CBC and CMP on return. - 03/22/2023 [facility] oncology follow-up: CBC today is unremarkable with hemoglobin 15.7 and normal white count platelet count and differential. Continue annual follow-up with CBC. Port now removed. 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 Should I be needed, I also can [...] OF PORT; Surgeon: Petros Crain MD; Location: [facility]; Service: General COLONOSCOPY HERNIA REPAIR Right 1981 Dr. Red @ [facility]- right inguinal - unsure about mesh in place LYMPH NODE BIOPSY Left 10/02/2019 (L) neck Dr. Marrero @ [facility] OTHER SURGICAL HISTORY vocal cord visualization PORTACATH PLACEMENT Left 10/2019 [facility] Allergies Allergen Reactions Sulfa Antibiotics Unknown - [...] neck node with other smaller nodes. 10/02/2019 [facility] left neck fine-needle aspiration and biopsy on Lovenox off Coumadin for procedure showed atypical lymphoid proliferation with dysplastic CD30 positive cells suspicious for classic Hodgkin lymphoma but unequivocal diagnosis hindered by the low number of CD30 positive cells. Excisional biopsy recommended by pathology. -10/27/2019 initial [facility] consultation: Reviewed the above hematology [...] weeks. -02/27/2022 patient went to ER at [facility] with abdominal pain, CT chest, abdomen and pelvisnegative. He did test positive for COVID. -03/14/2022 CT neck negative. CBC and CMP normal. -03/21/2022 [facility] follow-up: Srinivasa continues to do well with no evidence of diseaserecurrence in regards to his history of Hodgkin's lymphoma. He went to the ER on 02/27/2022 at [facility] with left-sided abdominal pain, CT chest, abdomen [...] CBC and CMP on return. - 03/22/2023 [facility] oncology follow-up: CBC today is unremarkable with hemoglobin 15.7 and normal white count platelet count and differential. Continue annual follow-up with CBC. Port now removed. 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 Should I be needed, I also can [...] Primary documented in this encounter Care Teams Awning Maker Relationship Specialty Start Date End Date Catrachita Raphael APRN [address] [place] [facility] [address] [place] [address] PCP - General Family Medicine 10/09/19 documented as of this encounter
--- OUTSIDE RECORDS SUMMARY | 2025-04-23 08:44 | XMS_ITS | Encounter Summary ---
Author Organization [employer] ([place], [place], [place], [place]) Address [address] [place] [address] Care Team Providers Care Biomedical Equipment Tech Name Role Phone Unavailable Primary Care Provider Unavailabl e Reason for Referral * MRI (Routine) - Closed Specialty Diagnoses / Procedures Referred By Contac t Referred To Contact Radiology Diagnoses Elevated PSA Procedures MR prostate without & with IV contrast Jorge Ocampo MD [address] [place] [address] Phone: tel: fax: Referral ID Status Reason Start Date Expiration Date Visits Re quested Visits Authorized [id number] Closed 04/13/2025 04/13/2026 1 1 Reason for Visit * MRI (Routine) - Closed Specialty Diagnoses / Procedures Referred By Contac t Referred To Contact Radiology Diagnoses Elevated PSA Procedures MR prostate without & with IV contrast Jorge Ocampo MD [address] [place] [address] Phone: tel: fax: Referral ID Status Reason Start Date Expiration Date Visits Re quested Visits Authorized [id number] Closed 04/13/2025 04/13/2026 1 1 Encounter Details Date Type Department Care Team (Latest Contact Info) Description 04/23/2025 8:44 AM EDT - 04/23/2025 11:59 PM EDT Hospital Encounter [facility] MRI - [address] [place] [address] Jorge Ocampo MD [address] [place] [address] Elevated PSA Discharge Disposition: Home or Self Care Social History Tobacco Use Types Packs/Day Years Used Date Smoking Tobacco: Never Assessed Sex and Gender Information Value Date Recorded Sex Assigned at Male 04/23/2025 7:44 AM CDT Legal Sex Male 10:03 AM CDT Gender Identity Male 04/23/2025 7:44 AM CDT Sexual Orientation Not on file documented as of this encounter Plan of Treatment Not on file documented as of this encounter Procedures Procedure Name Priority Date/Time Associated Diagnosis Comments MR PROSTATE WITHOUT & WITH IV CONTRAST Routine 04/23/2025 9:52 AM EDT Elevated PSA documented in this encounter Results * MR prostate without & with IV contrast (04/23/2025 9:52 AM EDT) Anatomical Region Laterality Modality Magnetic Resonan ce (MRI) 04/23/2025 10:4 4 AM EDT Impressions 04/23/2025 10:47 AM EDT Enlarged prostate with BPH. 2 small abnormalities in the right peripheral zone and an abnormality in the anterior left transition zone worrisome for neoplasm. PI-RADS 4-high (clinically significant cancer is likely to be present). Images reviewed, interpreted, and dictated by Dimas Barbosa MD Narrative 04/23/2025 10:47 AM EDT MR PELVIS WITHOUT AND WITH CONTRAST HISTORY: Elevated PSA COMPARISON: None FINDINGS: Multiplanar MR imaging of the pelvis was performed without and with contrast using the prostate MRI protocol. The images were reviewed on the [employer] CAD workstation. The prostate measures 5.6 x 5.1 x 4.4 cm. This corresponds to a volume of 68 cc. PERIPHERAL ZONE: 2 small decreased T2 signal nodules are seen in the right posterior peripheral zone at the mid gland. The more anterior one measures 5 x 4 mm in the more posterior one measures 6 x 5 mm. These both show significant restricted diffusion and early contrast enhancement. These are consistent with PI-RADS 4 lesions and were localized on the [employer] CAD software. TRANSITION ZONE: The transition zone is enlarged and nodular consistent with BPH. There is a 13 x 9 mm focus of decreased T2 signal involving the left anterior transition zone at the base of the gland with significant restricted diffusion and early contrast enhancement. This is consistent with a PI-RADS 4 lesion and was localized on the [employer] CAD software. Review of the remainder of the pelvis reveals no evidence of mass or adenopathy. No abnormal fluid collection is seen. A left inguinal hernia is seen containing fat only. Procedure Note Dimas Barbosa MD - 04/23/2025 MR PELVIS WITHOUT AND WITH CONTRAST HISTORY: Elevated PSA COMPARISON: None FINDINGS: Multiplanar MR imaging of the pelvis was performed without and with contrast using the prostate MRI protocol. The images were reviewed on the [employer] CAD workstation. The prostate measures 5.6 x 5.1 x 4.4 cm. This corresponds to a volume of 68 cc. PERIPHERAL ZONE: 2 small decreased T2 signal nodules are seen in the right posterior peripheral zone at the mid gland. The more anterior one measures 5 x 4 mm in the more posterior one measures 6 x 5 mm. These both show significant restricted diffusion and early contrast enhancement. These are consistent with PI-RADS 4 lesions and were localized on the [employer] CAD software. TRANSITION ZONE: The transition zone is enlarged and nodular consistent with BPH. There is a 13 x 9 mm focus of decreased T2 signal involving the left anterior transition zone at the base of the gland with significant restricted diffusion and early contrast enhancement. This is consistent with a PI-RADS 4 lesion and was localized on the [employer] CAD software. Review of the remainder of the pelvis reveals no evidence of mass or adenopathy. No abnormal fluid collection is seen. A left inguinal hernia is seen containing fat only. IMPRESSION: Enlarged prostate with BPH. 2 small abnormalities in the right peripheral zone and an abnormality in the anterior left transition zone worrisome for neoplasm. PI-RADS 4-high (clinically significant cancer is likely to be present). Images reviewed, interpreted, and dictated by Dimas Barbosa MD Jorge Ocampo MD [facility] MRI ORDERABLES Final Result documented in this encounter Visit Diagnoses Diagnosis Elevated PSA Elevated prostate specific antigen (PSA) documented in this encounter Administered Medications Inactive Administered Medications - up to 3 most recent administrations Medication Order MAR Action Action Date Dose Rate Site gadobenate dimeglumine (MULTIHANCE) 529 mg/mL (0.1mmol/0.2mL) injection 20 mL 20 mL Once, intravenous, On Dotty 04/23/25 at 0930, For 1 dose, Intra-op Given 04/23/2025 9:44 AM EDT 20 mLs Rig ht Arm documented in this encounter
--- OUTSIDE RECORDS SUMMARY | 2025-05-25 13:11 | XMS_ITS | Encounter Summary ---
Author Organization [employer] ([place], [place], [place], [place]) Address [address] [place] [address] Care Team Providers Care Surveillance Analyst Name Role Phone Unavailable Primary Care Provider [...]
--- OUTSIDE RECORDS SUMMARY | 2025-05-25 13:11 | XMS_ITS | Encounter Summary ---
[facility] Address [address] [place] [address] Care Team Providers Care Railway Head Tender Name Role Phone Catrachita Raphael APRN Primary Care Provid er Encounter Details Date Type Department Care Team (Late st Contact Info) Description 07/22/2018 External CPT II DIRECTOR OF SPORTS PERFORMANCE - [facility] Social History Tobacco Use [...] documented as of this encounter Care Teams Railway Head Tender Relationship Specialty Start Date End Date Catrachita Raphael APRN [address] [place] [address] PCP - General Family Medicine 10/09/19 documented as of this encounter
--- OUTSIDE RECORDS SUMMARY | 2025-05-25 13:11 | XMS_ITS | Encounter Summary ---
[facility] Address [address] [place] [address] Care Team Providers Care Animal Control Supervisor Name Role Phone Catrachita Raphael APRN Primary [...] on filedocumented in this encounter Care Teams Animal Control Supervisor Relationship Specialty Start Date End Date Catrachita Raphael APRN [address] [place] [address] PCP - General Family Medicine 10/09/19 documented as of this encounter
--- OUTSIDE RECORDS SUMMARY | 2025-05-25 13:11 | XMS_ITS | Encounter Summary ---
[facility] Organization [facility] Address [address] [place] [address] Care Team Providers Care Corn Cutter Name Role Phone Catrachita Raphael APRN Primary Care Provid er Encounter Details Date Type Department Care Team (Late st Contact Info) Description 05/04/2017 External CPT II COOKING APPLIANCE REPAIR TECHNICIAN - [facility] Social History Tobacco Use [...] documented as of this encounter Care Teams Corn Cutter Relationship Specialty Start Date End Date Catrachita Raphael APRN [address] [place] [address] PCP - General Family Medicine 10/09/19 documented as of this encounter
--- OUTSIDE RECORDS SUMMARY | 2025-05-25 13:11 | XMS_ITS | Encounter Summary ---
[facility] Address [address] [place] [address] Care Team Providers Care Trench Digging Machine Operator Name Role Phone Catrachita Raphael APRN Primary Care Provid er Encounter Details Date Type Department Care Team (Late st Contact Info) Description 12/06/2017 External CPT II COFFEE MAKER SERVICER - [facility] Social History Tobacco Use [...] documented as of this encounter Care Teams Trench Digging Machine Operator Relationship Specialty Start Date End Date Catrachita Raphael APRN [address] [place] [address] PCP - General Family Medicine 10/09/19 documented as of this encounter
--- OUTSIDE RECORDS SUMMARY | 2025-05-25 13:11 | XMS_ITS | Encounter Summary ---
Author Organization [email or web address] ([place], [place], [place], [place]) Address [address] [facility] [place] [address] Care Team Providers Care Local Area Network Systems Adminstrator Name Role Phone Unavailable Primary Care Provider Unavailabl e Reason for Referral * MRI (Routine) - Closed Specialty Diagnoses / Procedures Referred By Contac t Referred To Contact Radiology Diagnoses Elevated PSA Procedures MR prostate without & with IV contrast Jorge Ocampo MD [address] [address] Phone: tel: fax: Referral ID Status Reason Start Date Expiration Date Visits Re quested Visits Authorized [id number] Closed 04/13/2025 04/13/2026 1 1 Encounter Details Date Type Department Care Team (Late st Contact Info) Description 04/13/2025 Outside Orders [facility] Central Scheduling 1 [place] [address] Jorge Ocampo MD 211 [facility] [address] [place] [address] Elevated PSA (Primary Dx) Social [...] protocol. The images were reviewed on the [employer] CAD workstation. The prostate measures 5.6 x [...] protocol. The images were reviewed on the [employer] CAD workstation. The prostate measures 5.6 x [...]
--- OUTSIDE RECORDS SUMMARY | 2025-05-25 13:11 | XMS_ITS | Encounter Summary ---
[facility] Address [address] [place] [address] Care Team Providers Care District Fire Management Officer Name Role Phone Catrachita Raphael APRN Primary Care Provid er Encounter Details Date Type Department Care Team (Late st Contact Info) Description 08/31/2016 External CPT II SCULPTURE INSTRUCTOR - [facility] Social History Tobacco Use [...] documented as of this encounter Care Teams District Fire Management Officer Relationship Specialty Start Date End Date Catrachita Raphael APRN [address] [place] [address] PCP - General Family Medicine 10/09/19 documented as of this encounter
--- OUTSIDE RECORDS SUMMARY | 2025-05-25 13:11 | XMS_ITS | Clinical Summary ---
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) 04/16/2025 11:05 AM EDT Lab [facility] [address] [place] [address] History of Hodgkin's lymphoma 04/16/2025 Travel from [...] year) Discontinued Medical Devices Implanted Type Area Hearing Care Professional Device Identifier Shelf Expiration Date Model / Serial / Lot Powerport Isp Clearvue Cath 8f 45cm - [id number] Implanted:Qty: 1 on 11/12/2019 by Petros Crain MD at [facility] Implant Right: Neck BARD PERIPHERAL VASC[employer] 01/19/2021 [id number] / / [id number] Procedures Procedure Name Priority Date/Time Associated Diagnosis [...] - 10.80 10*3/mm3 04/16/2025 11:10 AM EDT [facility] RBC 5.26 4.14 - 5.80 10*6/mm3 04/16/2025 11:10 AM EDT [facility] Hemoglobin 14.9 13.0 - 17.7 g/dL [facility] Hematocrit 45.7 37.5 - 51.0 % 04/16/2025 11[facility] MCV 86.9 79.0 - 97.0 fL 04/16/2025 11:[facility] MCH 28.3 26.6 - 33.0 pg 04/16/2025 11:[facility] MCHC 32.6 31.5 - 35.7 g/dL 04/16/2025 11:10 AM [facility] RDW 14.3 12.3 - 15.4 % 04/16/2025 11:10 AM [facility] RDW-SD 45.6 37.0 - 54.0 fl 04/16/2025 11:10 AM [facility] MPV 8.6 6.0 - 12.0 fL 04/16/2025 11:10 AM [facility] Platelets 191 140 - 450 10*3/mm3 04/16/2025 11:10 AM [facility] Neutrophil % 52.3 42.7 - 76.0 % 04/16/2025 11:10 AM [facility] Lymphocyte % 35.2 19.6 - 45.3 % 04/16/2025 11:10 AM [facility] Monocyte % 9.8 5.0 - 12.0 % 04/16/2025 11[facility] Eosinophil % 1.7 0.3 - 6.2 % 04/16/2025 11:[facility] Basophil % 0.8 0.0 - 1.5 % 04/16/2025 11:10 [facility] Immature Grans % 0.2 0.0 - 0.5 % 04/16/2025 11:10 AM [facility] Neutrophils, Absolute 3.46 1.70 - 7.00 10*3/mm3 04/16/2025 11:10 AM EDT [facility] Lymphocytes, Absolute 2.33 0.70 - 3.10 10*3/mm3 04/16/2025 11:10 AM EDT [facility] Monocytes, Absolute 0.65 0.10 - 0.90 10*3/mm3 04/16/2025 11:10 AM EDT [facility] Eosinophils, Absolute 0.11 0.00 - 0.40 10*3/mm3 04/16/2025 11:10 AM EDT [facility] Basophils, Absolute 0.05 0.00 - 0.20 10*3/mm3 04/16/2025 11:10 AM EDT [facility] Immature Grans, Absolute 0.01 0.00 - 0.05 10*3/mm3 04/16/2025 11:10 AM EDT [facility] Blood Venipuncture / Unknown 04/16/2025 11:08 AM EDT 04/16/2025 11:08 AM EDT Tima Vasquez MD LAB BLOOD ORDERABLES Final Resul t [facility]
[address] [place] [address], * SCANNED - COLONOSCOPY (12/11/2016) Catrachita Raphael APRN CHART REVIEW TABS Final Result from Last 3 Months or Most Recently Relevant to Health Maintenance Insurance [id number] [address] [facility] [address] [place] [place] [id number] [facility] Medicare Advantage GROUP PPO Care Teams Gun Profiler Relationship Specialty Start Date End Date Catrachita Raphael APRN [address] [place] [address] PCP - General Family Medicine 10/09/19
--- OUTSIDE RECORDS SUMMARY | 2025-05-25 13:11 | XMS_ITS ---
Author Organization [facility] Address [address] [place] [address] Care Team Providers Care Architectural Sales Consultant Name Role Phone Catrachita Raphael APRN Primary [...] Hager Date of 1950 Phone Email [email or web address] Cancer Treatment Team Patient Care Team: Petros Crain MD as Consulting Physician (General Surgery) Seth Pierre MD as Consulting Physician (Radiation Oncology) Tima Vasquez MD as Referring Physician (Hematology and Oncology) Provider Phone numbers Care Team Provider: Catrachita Raphael APRN, ([phone]) Care Team Provider: Petros Crain MD, ([phone]) Care Team Provider: Seth Pierre MD, ([phone]) Care Team Provider: Tima Vasquez MD, ([phone]) Care Team Provider: Leodan Pedraza MD, ([phone]) Post Treatment Care Team Primary Care Physician Catrachita Raphael APRN [phone] [address] [facility] [address] [address] Background Information Medical history Past Medical History: Cataract bilat still present Diabetes mellitus (CMS/HCC) very seldom and if feels funny Factor 5 Leiden mutation, heterozygous (CMS/HCC) H/O blood clots Hypertension Lymphoma (CMS/HCC) PE (pulmonary thromboembolism) (CMS/HCC) Tinnitus Wears glasses Surgical history Past Surgical History: CERVICAL LYMPH NODE BIOPSY/EXCISION Procedure: EXCISION LEFT CERVICAL LYMPH NODE, INSERTION OF PORT; Surgeon: Petros Crain MD; [facility]; Service: General COLONOSCOPY HERNIA REPAIR Dr. Red @ [facility]- right inguinal - unsure about mesh in place LYMPH NODE BIOPSY (L) neck Dr. Marrero @ [facility] OTHER SURGICAL HISTORY vocal cord visualization PORTACATH PLACEMENT [facility] Tobacco use Social History Tobacco Use Smoking [...] neck node with other smaller nodes. 10/02/2019 [facility] left neck fine-needle aspiration and biopsy on Lovenox off Coumadin for procedure showed atypical lymphoid proliferation with dysplastic CD30 positive cells suspicious for classic Hodgkin lymphoma but unequivocal diagnosis hindered by the low number of CD30 positive cells. Excisional biopsy recommended by pathology. -10/27/2019 initial [facility] medical oncology consultation: Reviewed the above hematology [...] due to shortness ofbreath [facility] Lifetime Dose Tracking Doxorubicin: 204.375 mg/m2 (480 [...] doctors and nurses such as exercise andactivity. nursing home effects of radiation therapy vary greatly depending on the areas included in the field ofradiation and the radiation techniques that were used. Ask your doctors and nurses about the risk of nursing home effects. Keep your follow up appointments and [...] to you. General Cancer Support & Resources [facility] [address] [facility], [address] [place] [address] Med Onc: Spanish Teacher Onc: Cashier Ticket Selling: Carina Spears - Psychiatric Nurse Practitioner: Yulissa Hughes APRN - [phone] Kick It! (A free smoking cessation program) Financial Counselor and Contact Information: [facility] Financial Counseling - Clinical Administrative Coordinator Contact Information: Dee Marrero - [phone] Wound Ostomy & Continence Nurse: Local Cancer [...] Toward Empowerment - for Women with Cancer: ([facility]) The Tools and encouragement you need to live your life to the fullest. Free Dinner served @ 6:00pm followed by speaker from 6:30 - 7:30pm. The series runs from July, and meets monthly. Call Elsy Salcido RN, OCN @ to receive information and upcoming schedule. [place] [facility]: This support group is open to anyone that has been diagnosed with cancer of any type. Meets at 6:30pm on the last Sunday of each month. Location: [facility]; [address] [place] [address]. For more information call Estephanie Harrell @ [...] advice of a doctor or other health career coordinator. Please use these recommendations to talk with [...] of cancer in the general population. The [place] [employer] Society (ACS) recommends these screening guidelines for men: Recommendation Frequency Comments Colon and Rectal Cancer Screening For more information see the ACS document Colorectal Cancer: Early Detection. www.cancer.org/ssLINK/tcakppnhcl-tlwana-ivmsf-detection-maxim Options for colon cancer screening can be [...] see the ACS Document Testicular Cancer Detection: http://www.cancer.org/cancer/testicularcancer/detailedguide/mkaexycpaw-pgucjz-yq tection Men of any age can develop [...] more information, visit http://www.nhlbi.nih.gov/health/public/heart/obesity/lose_wt/index.htm www.win.niddk.nih.gov Call the [place] [employer] Association Talk to your health care [...] Experts recommend at least 30 minutes of hdcrqedm-xk-lhiebaqq activity per day, five days a week. [...] you can call a national hotline at 1(500)-QUIT-NOW. Have regular check-ups by a healthcare professional. For more information about healthy screening tests for men visit the U.S. Department of Health and Human Services. http://www.womenshealth.gov/yceabrxza-uizyn-mgt-vaccines/omcnzrbkj-frazx-nsz-men / For more information about adult vaccinations visit the CDC: http://www.cdc.gov/vaccines/recs/schedules/adult-schedule.htm Keep up-to-date on general health screening tests, including cholesterol, blood pressure and glucose (blood sugar) levels. Get an annual influenza vaccine (flu shot). Get vaccinated with the pneumococcal vaccine, which prevents a type of pneumonia, and re-vaccinatedas determined by your health care team. Don???t forget dental and eye health! The [place] [employer] recommends adults have their eyes examined every two years until age 60, then annually. People who wear glasses or correctivelenses or are at high risk for eye problems (i.e., diabetics, family history of eye disease) shouldbe seen more frequently. The [place] [employer] Association recommends adults see their dentist at least once a year. No information on file. No information on file.
--- OUTSIDE RECORDS SUMMARY | 2025-05-25 13:11 | XMS_ITS | Referral Summary ---
Author Organization [employer] ([place], [place], [place], [place]) Address [address] [place] [address] Care Team Providers Care Mirror Maker Name Role Phone Unavailable Primary Care Provider Unavailabl e Encounters Date Type Department Care Team Description 04/23/2025 Travel 04/23/2025 8:44 AM EDT - 04/23/2025 11:59 PM EDT Hospital Encounter [facility] MRI - [address] [place] [address] Jorge Ocampo MD Elevated PSA Discharge Disposition: Home or Self Care 04/13/2025 [facility] Sched[facility] 1 [place] [address] Jorge Ocampo MD Elevated PSA [...] protocol. The images were reviewed on the [employer] CAD workstation. The prostate measures 5.6 x [...] protocol. The images were reviewed on the [employer] CAD workstation. The prostate measures 5.6 x [...] Final Result from Last 3 Months Insurance [facility] [place] [address]
--- OUTSIDE RECORDS SUMMARY | 2025-05-25 13:11 | XMS_ITS | Clinical Summary ---
Author Organization [employer] ([place], [place], [place], [place]) Address [address] [place] [address] Care Team Providers Care Booth Usher Name Role Phone Unavailable Primary Care Provider Unavailabl e Allergies No known active allergies Encounters Date Type Department Care Team Description 04/23/2025 8:44 AM EDT - 04/23/2025 11:59 PM EDT [facility] [address] [place] [address] Jorge Ocampo MD Elevated PSA Discharge Disposition: Home or Self Care 04/23/2025 Travel 04/13/2025 Outside Orders [facility] Central Scheduling 1 [place] [address] Jorge Ocampo MD Elevated PSA [...] protocol. The images were reviewed on the [employer] CAD workstation. The prostate measures 5.6 x [...] 4 lesions and were localized on the [employer] CAD software. TRANSITION ZONE: The transition zone [...] protocol. The images were reviewed on the [employer] CAD workstation. The prostate measures 5.6 x [...] Final Result from Last 3 Months Insurance * Guarantor: Srinivasa Hager Account Type Relation to Patient Date of Phone Billing Address Personal/Family Self 1950 [id number] [address] [facility] [address] [place] [address] [facility] MEDICARE ADVANTAGE
[2025-05-25 13:22] LABS: Hematocrit 48.1 % (42.0-52.0); Hemoglobin 15.9 g/dL (14.1-18.0); Immature Granulocytes % 0.4 %; Mean Corpuscular HGB Conc 33.1 g/dL (31.8-35.4); Mean Corpuscular Hemoglobin 28.2 pg (27.0-31.2); Mean Corpuscular Volume 85.3 fl (80-94); Nucleated Red Blood Cells % 0 %; Platelet Count 237 K/mm3 (142-424); Red Blood Count 5.64 M/mm3 (4.60-6.20); Red Cell Distribution Width-SD 42.0 fL; White Blood Count 7.6 K/mm3 (4.8-10.8)
[2025-05-25 13:41] LABS: INR 1.66 (0.9-1.1); Prothrombin Time 17.7 seconds (10.1-12.5)
[2025-05-25 14:35] LABS: Anion Gap 13.9 mEq/L (5-15); Blood Urea Nitrogen 17 mg/dl (9-20); Calcium 10.8 mg/dl (8.4-10.2); Carbon Dioxide 28 mmol/L (22.0-30.0); Chloride 101 mmol/L (98-107); Creatinine,Serum 0.90 mg/dl (0.66-1.25); Estimated Glomerular Filt Rate 82 ml/min (>60); GFR (African American) 99 ML/MIN (>60); Glucose 155 mg/dl (74-100); Potassium 4.9 mmoL/L (3.5-5.1); Sodium 138 mmol/L (136-145)
== END 2025-05-25 23:59 | disposition home or self-care (01) ==
LOC: LAB 13:09
PROVIDERS: PCP Nurse Practitioner Family; Visit Provider Nurse Practitioner Family
DX: D68.2 Hereditary deficiency of other clotting factors (principal); Z79.02 Long term (current) use of antithrombotics/antiplatelets
CPT/HCPCS: 36415; 80048; 85025; 85610

== ENCOUNTER 2025-05-28 14:31 | Outpatient (CLI) | payer MEDICARE, SELFPAY ==
--- OUTSIDE RECORDS SUMMARY | 2025-04-16 11:05 | XMS_ITS | Encounter Summary ---
[facility] Address [address] [place] [address] Care Team Providers Care Salt Operator Name Role Phone Catrachita Raphael APRN Primary Care Provid er Encounter Details Date Type Department Care Team (Late st Contact Info) Description 04/16/2025 11:05 AM EDT Lab [facility] [address] [place] [phone] History of Hodgkin's lymphoma Social History Tobacco Use Types Packs/Day Years Used Date Smoking Tobacco: Never Smokeless Tobacco: Never Alcohol Use Standard Drinks/Week Comments Never 0 (1 standard drink = 0.6 oz pur e alcohol) AUDIT-C Answer Date Recorded Q1: How often do you have a drink containing alc ohol? Never 12/10/2020 Average Number of Drinks Not on file 021 Frequency of Binge Drinking Not on file 11/22 PHQ-2 Answer Date Recorded Retired PHQ-9: Brief Depression Severity Measure Score 0 03/22/2023 PHQ-2 Answer Date Recorded Patient Health Questionnaire-2 Score 0 04/16/2025 Sex and Gender Information Value Date Recorded Sex Assigned at Male 04/11/2025 12:19 PM EDT Legal Sex Male 2:12 PM EST Gender Identity Not on file Sexual Orientation Not on file documented as of this encounter Functional Status documented as of this encounter Plan of Treatment Not on file documented as of this encounter Procedures Procedure Name Priority Date/Time Associated Diagnosis Comments CBC WITH AUTO DIFFERENTIAL Routine 04/16/2025 11:08 AM EDT History of Hodgkin's lymphoma CBC AND DIFFERENTIAL Routine 04/16/2025 11:08 AM EDT History of Hodgkin's lymphoma documented in this encounter Results * CBC Auto Differential (04/16/2025 11:08 AM EDT) WBC 6.61 3.40 - 10.80 10*3/mm3 04/16/2025 11:10 AM EDT [facility] RBC 5.26 4.14 - 5.80 10*6/mm3 04/16/2025 11:10 AM EDT [facility] Hemoglobin 14.9 13.0 - 17.7 g/dL 04/16/2025 11:10 AM EDT [facility] Hematocrit 45.7 37.5 - 51.0 % 04/16/2025 11:10 AM EDT [facility] MCV 86.9 79.0 - 97.0 fL 04/16/2025 11:10 AM EDT [facility] MCH 28.3 26.6 - 33.0 pg 04/16/2025 11:10 AM EDT [facility] MCHC 32.6 31.5 - 35.7 g/dL 04/16/2025 11:10 AM EDT [facility] RDW 14.3 12.3 - 15.4 % 04/16/2025 11:10 AM EDT [facility] RDW-SD 45.6 37.0 - 54.0 fl 04/16/2025 11:10 AM EDT [facility] MPV 8.6 6.0 - 12.0 fL 04/16/2025 11:10 AM EDT [facility] Platelets 191 140 - 450 10*3/mm3 04/16/2025 11:10 AM EDT [facility] Neutrophil % 52.3 42.7 - 76.0 % 04/16/2025 11:10 AM EDT [facility] Lymphocyte % 35.2 19.6 - 45.3 % 04/16/2025 11:10 AM EDT [facility] Monocyte % 9.8 5.0 - 12.0 % 04/16/2025 11:10 AM EDT [facility] Eosinophil % 1.7 0.3 - 6.2 % 04/16/2025 11:10 AM EDT [facility] Basophil % 0.8 0.0 - 1.5 % 04/16/2025 11:10 AM EDT [facility] Immature Grans % 0.2 0.0 - 0.5 % 04/16/2025 11:10 AM EDT [facility] Neutrophils, Absolute 3.46 1.70 - 7.00 10*3/mm3 04/16/2025 11:10 AM EDT [facility] Lymphocytes, Absolute 2.33 0.70 - 3.10 10*3/mm3 04/16/2025 11:10 AM EDT [facility] Monocytes, Absolute 0.65 0.10 - 0.90 10*3/mm3 04/16/2025 11:10 AM EDT [facility] Eosinophils, Absolute 0.11 0.00 - 0.40 10*3/mm3 04/16/2025 11:10 AM EDT [facility] Basophils, Absolute 0.05 0.00 - 0.20 10*3/mm3 04/16/2025 11:10 AM EDT [facility] Immature Grans, Absolute 0.01 0.00 - 0.05 10*3/mm3 04/16/2025 11:10 AM EDT [facility] Blood Venipuncture / Unknown 04/16/2025 11:08 AM EDT 04/16/2025 11:08 AM EDT us Tima Vasquez MD LAB BLOOD ORDERABLES Final Resul t [facility]
[address] [place] [address], documented in this encounter Visit Diagnoses Diagnosis History of Hodgkin's lymphoma documented in this encounter Care Teams Salt Operator Relationship Specialty Start Date End Date Catrachita Raphael APRN [address] [place] [facility] [address] [facility] [address] [place] [address] PCP - General Family Medicine 10/09/19 documented as of this encounter
--- OUTSIDE RECORDS SUMMARY | 2025-04-16 11:15 | XMS_ITS | Encounter Summary ---
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 (Primary Dx) Social History Tobacco Use Types Packs/Day Years Used Date Smoking Tobacco: Never Smokeless Tobacco: Never Tobacco Cessation:Counseling Given: Not Answered Alcohol Use Standard Drinks/Week Comments Never 0 [...] on file documented as of this encounter Last Filed Vital Signs Vital Sign Reading Time Taken Comments Blood Pressure 155/79 04/16/2025 11:07 AM EDT Pulse 68 04/16/2025 11:07 AM EDT Temperature 36.3 C (97.3 F) 04/16/2025 11:07 AM EDT Respiratory Rate 18 04/16/2025 11:07 AM EDT Oxygen Saturation 95% 04/16/2025 11:07 AM EDT Inhaled Oxygen Concentration - - Weight 100 kg (221 lb) 04/16/2025 11:07 AM EDT Height 182.9 cm (6') 04/16/2025 11:07 AM EDT Body Mass Index 29.97 04/16/2025 11:07 AM EDT documented in this encounter Functional Status documented as of this encounter Progress Notes * Tima Vasquez MD - 04/16/2025 11:15 AM EDT CHIEF COMPLAINT: I am getting my prostate worked up Problem List: Oncology/Hematology History Overview Note 1. 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 Albumin was over 4, hemoglobin was over 10.5, white count was less than 15,000 and a lymphocyte percentage was over 8% and the absolute lymphocyte count was over 601,000. He is male and over 44 years of age but is not stage IV. Hence based on male 44years of age and a sedimentation rate over 50 (sed rate of 55), he has some unfavorable characteristics. There was no mediastinal mass however and no bulky adenopathy and not greater then 3 lymph nodes involved though it is hard to say precisely how many nodes in the conglomerate mass in the left neck are involved. Hence I am calling this 1 a non-bulky unfavorable risk with an IPS score of at least 2 suggesting 5-year 80% freedom from progression and 91% overall survival with ABVD based therapy. -Despite normal ejection fraction and pulmonary function testing and oxygenation. No PE. Negative PET after fifth course. Tumor board consensus was to just stop after the fifth course and give no further chemotherapy nor consolidative radiation to the non-bulky cervical disease that remitted quickly with the first 2 courses of the received ABVD x2 with negative PET followed by AVD x3 holding the sixth and final course due to generalized debilitation with ambulation and dyspnea on exertion. His first PET was 11/05/2019 and his node was excised in the cervical region on 11/12/2019. Hence this being responsive to chemo is hard to discern as the negative PET 01/15/2020 after 2 courses of ABVD was likely largely due to extraction of the node, 2. History of right lower extremity DVT with large PE in his 30s found to have heterozygous factor V Leiden mutation but off anticoagulation for decades. 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 Per patient, clot went from ankle to groin. 3. Hypertension 4. Hyperlipidemia 5. Diabetes Oncology timeline: History of hypertension, diabetes, hyperlipidemia, chronic deep vein thrombosis lower extremity with reported factor V deficiency per primary care problem list. On Coumadin indefinitely. Had left lower extremity deep vein thrombosis in his 30s and that happened again in the right leg a few years later and then again in the left leg and later was told he had factor V Leiden mutation. Mid August 2019 stumbled upon a left neck mass about the size of a croquet ball. Better after placing a heating pad but stable in size since that time. No bed drenching night sweats or unexplained fevers. No other adenopathy. 09/11/2019 peripheral smear showed mild monocytosis per Dr. Mejia. Chest x-ray negative 09/12/2019 CT soft tissue neck showed 6.4 cm left neck node with other smaller nodes. 10/02/2019 [facility] left neck fine-needle aspiration and biopsy on Lovenox off Coumadin for procedure showed atypical lymphoid proliferation with dysplastic CD30 positive cells suspicious for classic Hodgkin lymphoma but unequivocal diagnosis hindered by the low number of CD30 positive cells. Excisional biopsy recommended by pathology. -10/27/2019 initial [facility] medical oncology consultation: Reviewed the above hematology oncology timeline with him. I do not palpate any other adenopathy other than the approximately 5 cm left neck mass. I have spoken with Dr. Haris Crain to get incisional/excisional biopsy as well as possible port placement at that time. Will need to be on Lovenox starting 5 days in advance of the biopsy off of Coumadin and then resume Coumadin and Lovenox postop with daily pro time. Once INR greater than 2 postop, can discontinue the Lovenox. I have E prescribed enough for 10 days of Lovenox and daily protimes for the next month which should include enough time for him to get his INR therapeutic postop. We will get a PET in preparation for treatment planning presuming this corroborates lymphoma though this may yet be inflammatory given the paucity of CD30 positive cells. It is important to know the specific subtype of lymphoma as well to guide treatment. We will check his CBC, CMP, sedimentation rate,LDH, HIV, hepatitis B and C, pulmonary function tests, and echocardiogram as there is a high likelih ood of need for anthracycline use presuming this is Hodgkin or non-Hodgkin. Further decisions as touse of brentuximab versus bleomycin will be made pending the pulmonary function test results. PET necessary for staging and decision making. -11/05/2019 PET shows conglomerate mass 5 cm size left neck PET avid with no disease elsewhere. -11/12/2019 cervical lymph node excision Dr. crain showing mixed cellularity Hodgkin lymphoma with conglomerate nodes in left neck 5 cm in size otherwise PET negative. -11/17/2019 hematology oncology follow-up visit: Reviewed the above data with the patient. Followinga chemotherapy alone plan he would get ABVD x2 followed by PET followed by Deauville criteria to guide subsequent algorithm. If chemoradiation therapy was desired to try to avoid as many courses of chemo he could consider ABVD x2 followed by PET and then based on Deauville criteria consider fewer to duarte courses of ABVD with involve field radiation. If he had a low Deauville score of 1-2 one could consider dropping the bleomycin and need chemotherapy on algorithm. He will need port, PFT with DLCO, chemo education. Ejection fraction 57%. -01/15/2020 PET shows surgical resection of left faiza soft tissue cervical region without abnormal hypometabolism Deauville score 1. No distant bulky adenopathy or metastatic extension. May have periapical abscess with mandible to the first and second molars. -03/26/2020 medical oncology follow-up visit:-Received ABVD x2 courses with subsequent negative PET 01/15/2020. Due to the COVID pandemic to diminish frequency of visits it was decided to use the non-radiation arm and we will opted for an additional AVD x4 without bleomycin. Despite this he developed more dyspnea on exertion despite normal oxygenation. Feels normal at rest. Presented at tumor board 03/26/[address] PE protocol 03/23/2020 showed no PE and just a little bronchiectasis and similar imaging to the PET of December with an ejection fraction of 62% on echo. Hemoglobin in the 12. Consensus at tumor board was that he likely was cured at this point and to not push him for the sixth course in order to consolidate with radiation if repeat PET is negative. We will do telehealth visit in the next week or 2 to follow-up on PET and his DLCO and if that is unremarkable then would just follow him per protocol per NCCN guidelines. If he has activity in the neck then we would consolidate with rad iation as long as it is minimal activity but he had no significant activity in December. -04/09/2020 medical oncology follow-up visit: Pulmonary function testing entirely normal including DLCO and good oxygenation. Ejection fraction normal. PET negative. As I have sought further through his history, the original PET was followed by diagnostic lymphadenectomy and hence the negative PET after 2 courses of ABVD may in fact be related is much to resection as it was too the chemotherapy and the responsiveness that we used to discern the number of courses of therapy would be blinded by the fact that his only measurable disease was mostly if not completely removed at the time of diagnostic lymphadenectomy. 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 To that end I will get him to pulmonary to make sure they think there is nothing going on in the way of asthma or reversible airways disease but I will also get him to ENT to see if there is a pseudomembrane/pseudo-vocal cord but I would not give further chemotherapy but we would, given the inability totruly estimate disease responsiveness because of the above conundrum, give involved site radiation therapy and I have relayed all this to Dr. Seth Pierre who also concurs with this. The collateral damage from the involved site radiation therapy to a cervical faiza region should be minimal provided that his airway would not run into additional trouble from the radiation for which we will get input from ENT and pulmonary. Otherwise he will see my nurse practitioner back in 2 months for survivorship visit and she will outline the NCCN guidelines for routine follow-up of stage I non-bulky but high risk on the basis of his sedimentation rate mixed cellularity Hodgkin lymphoma. -03/10/21 med onc follow up: 03/01/2021 CT neck chest abdomen pelvis with contrast shows no evidence of lymphomatous recurrence. CBC, CMP, TSH, all unremarkable save for slight elevation of glucose andsedimentation rate one-point above normal. Saw Dr. Pierre 12/10/2020 with no evidence of recurrence. This was his 12-month surveillance follow-up scan. Per NCCN guidelines, he will be due for he willbe due for 24-month follow-up surveillance scan in a year from now having completed therapy 03/18/2020 and radiation to the neck 05/14/2020. He has already touch base with Dr. Crain for removal of his port but Dr. Crain wanted to wait on that and I will let Dr. Crain and the patient negotiate the timingbut from my standpoint, he can have the port removed anytime. He has a history of factor V Leiden mutation with a history of PE on chronic Coumadin INR monitored by his PCP. He will need to have his Lovenox bridge when port is removed. He will continue to have his port flushed every 6 to 8 weeks. -02/27/2022 patient went to ER at [facility] with abdominal pain, CT chest, abdomen and pelvisnegative. He did test positive for COVID. -03/14/2022 CT neck negative. CBC and CMP normal. -03/21/2022 [facility] clinic follow-up: Srinivasa continues to do well with no evidence of diseaserecurrence in regards to his history of Hodgkin's lymphoma. He went to the ER on 02/27/2022 at [facility] with left-sided abdominal pain, CT chest, abdomen and pelvis were done at that time thatshowed no evidence of acute disease, no lymphadenopathy. He had CT of the neck here on 03/14/2022 that showed no cervical lymphadenopathy. CBC and CMP were normal other than for glucose of 181. He hasnot had TSH checked this year that he is aware of, he will ask his PCP to check with his next bloodwork. TSH last February was normal. He is now 2 years out from treatment of his lymphoma with no diseaserecurrence. Per NCCN guidelines there are no plans for routine surveillance scans going forward in t he absence of new symptoms. His port is not out. We will see him back in 1 year for follow-up with CBC and CMP on return. - 03/22/2023 [facility] oncology follow-up: CBC today is unremarkable with hemoglobin 15.7 and normal white count platelet count and differential. Continue annual follow-up with CBC. Port now removed. 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 He has no new worrisome symptoms for disease recurrence. He completed all treatment including chemotherapy and radiation April 2020. He has some baseline dyspnea. He had a thorough cardiac workup in September 2022 including echocardiogram that was normal. We will continue surveillance per NCCN guidelines with repeat CBC and H&P in 1 year at which time he will be 5 years out. He did haveradiation to the left neck and states that his primary care provider does check his thyroid function periodically and it has been normal. He reports that he had an ultrasound of his thyroid this yearand he had 2 cysts. History of DVT with heterozygous factor V Leiden mutation: Patient continues on Coumadin for lifetime has had no further clotting events. He reports that he maintains his INR between 2.0 and 3.0 consistently. Managed by primary care provider - 04/16/2025 [facility] oncology follow-up: CBC and differential entirely unremarkable. No somatic complaints to suggest recurrence and no interval problems since last visit 1 year ago. Continues lifetime Coumadin for history of DVT with heterozygous factor V Leiden mutation managed by primary care. From the stage Ia nonbulky Hodgkin lymphoma standpoint, no need for routine hematologic oncology follow-up per NCCN guidelines. Can get annual physical exam with primary care. He is getting his prostate worked up by urologist in [place]. Should I be needed, I also can manage high risk oradvanced stage prostate cancers along with his urologist/radiation oncologist or what ever they dete rmine the need be. From the purely lymphoma standpoint he does not need oncology follow-up and fromthe DVT standpoint his primary care doctor is providing the Coumadin. Should he need surgical interventions he will need to Coumadin 5 days in advance but I would not necessarily put him through a Lovenox bridge. 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 Left ventricular systolic function is normal. No significant structural or functional valvular disease. 11/17/2019 Cancer Staged Staging form: Hodgkin And Non-Hodgkin Lymphoma, AJCC 8th Edition - Clinical: Stage I - Signed by Tima Vasquez MD on 11/17/2019 11/27/2019 - 03/18/2020 Chemotherapy OP HODGKIN LYMPHOMA ABVD DOXOrubicin / Dacarbazine / VinBLAStine / Bleomycin ABVD x2 followed by AVD x3, holding the sixth and final course due to debilitation with ambulation and dyspnea on exertion despite normal ejection fraction at that junction and normal oxygenation 11/27/2019 - 11/15/2020 Chemotherapy OP CENTRAL VENOUS ACCESS DEVICE ACCESS, CARE, AND MAINTENANCE (CVAD) 01/15/2020 Imaging PET shows surgical resection of left faiza soft tissue cervical region without abnormal hypometabolism Deauville score 1. No distant bulky adenopathy or metastatic extension. May have periapical abscess with mandible to the first and second molars. 03/23/[address] PE protocol 1. No evidence of pulmonary embolus or other clearly acute chest disease. 2. Mild bilateral lower lobe bronchiectasis and mild linear bilateral scarring, similar to previous PET/CT scan study. EF 62% 04/05/2020 Imaging -04/02/2020 PET shows stable maxillary uptake due to gum disease but otherwise negative PET. -04/05/2020 pulmonary function test shows normal DLCO and spirometry. 05/03/2020 - 05/14/2020 Radiation Radiation OncologyTreatment Course: Srinivasa Hager received 2000 cGy in 10 fractions to left neck via External Beam Radiation - EBRT. 09/06/[address] neck, chest, abdomen and pelvis IMPRESSION: Stable negative CT of the neck, chest, abdomen and pelvis with no evidence of lymphomatous disease recurrence or progression. 03/01/[address] neck, chest, abdomen and pelvis IMPRESSION: Stable and essentially normal contrast-enhanced CT of the neck, chest, abdomen and pelvis with no evidence of lymphomatous disease recurrence or progression. HISTORY OF PRESENT ILLNESS: The patient is a 75 y.o. male, here for follow up on management of history of lymphoma as outlined. No new somatic complaints. History of VTE on lifetime Coumadin without recurrent VTE. Past Medical History: Diagnosis Date Asthma Cataract bilat still present Deep vein thrombosis 1980 Diabetes mellitus very seldom and if feels funny Factor 5 Leiden mutation, heterozygous H/O blood clots History of radiation therapy 05/14/2020 involved field to left neck Hyperlipidemia 1989 Hypertension Lymphoma PE (pulmonary thromboembolism) Tinnitus Wears glasses Past Surgical History: Procedure Laterality Date CERVICAL LYMPH NODE BIOPSY/EXCISION Left 11/12/2019 Procedure: EXCISION LEFT CERVICAL LYMPH NODE, INSERTION OF PORT; Surgeon: Petros Crain MD; [facility]; Service: General COLONOSCOPY HERNIA REPAIR Right 1981 Dr. Red @ [facility]- right inguinal - unsure about mesh in place LYMPH NODE BIOPSY Left 10/02/2019 (L) neck Dr. Marrero @ [facility] OTHER SURGICAL HISTORY vocal cord visualization PORTACATH PLACEMENT Left 10/2019 [facility] Allergies Allergen Reactions Sulfa Antibiotics Unknown - Low Severity PT does not remember- as child Family History and Social History reviewed and changed as necessary REVIEW OF SYSTEM: No new somatic complaints other than deconditioning PHYSICAL EXAM: Truncal obesity. No focal motor or sensory deficits. Normal station and gait. No palpable cervical axillary or inguinal adenopathy and no palpable hepatosplenomegaly. Vitals: 04/16/25 1107 BP: 155/79 Pulse: 68 Resp: 18 Temp: 97.3 ??F (36.3 ??C) SpO2: 95% Weight: 100 kg (221 lb) Height: 182.9 cm (72 ) Vitals: 04/16/25 1107 PainSc: 0-No pain ECOG score: 1 Vitals reviewed. ECOG: (1) Restricted in Physically Strenuous Activity, Ambulatory & Able to Do Work of Light Nature Lab Results Component Value Date HGB 14.9 04/16/2025 HCT 45.7 04/16/2025 MCV 86.9 04/16/2025 PLT 191 04/16/2025 WBC 6.61 04/16/2025 NEUTROABS 3.46 04/16/2025 LYMPHSABS 2.33 04/16/2025 MONOSABS 0.65 04/16/2025 EOSABS 0.11 04/16/2025 BASOSABS 0.05 04/16/2025 Lab Results Component Value Date GLUCOSE 250 (H) 03/22/2023 BUN 19 03/22/2023 CREATININE 1.06 03/22/2023 NA 138 03/22/2023 K 5.6 (H) 03/22/2023 CL 100 03/22/2023 CO2 29.0 03/22/2023 CALCIUM 10.2 03/22/2023 PROTEINTOT 7.0 03/22/2023 ALBUMIN 4.3 03/22/2023 BILITOT 0.5 03/22/2023 ALKPHOS 50 03/22/2023 AST 18 03/22/2023 ALT 20 03/22/2023 ASSESSMENT & PLAN: 1. 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 Albumin was over 4, hemoglobin was over 10.5, white count was less than 15,000 and a lymphocyte percentage was over 8% and the absolute lymphocyte count was over 601,000. He is male and over 44 years of age but is not stage IV. Hence based on male 44years of age and a sedimentation rate over 50 (sed rate of 55), he has some unfavorable characteristics. There was no mediastinal mass however and no bulky adenopathy and not greater then 3 lymph nodes involved though it is hard to say precisely how many nodes in the conglomerate mass in the left neck are involved. Hence I am calling this 1 a non-bulky unfavorable risk with an IPS score of at least 2 suggesting 5-year 80% freedom from progression and 91% overall survival with ABVD based therapy. -Despite normal ejection fraction and pulmonary function testing and oxygenation. No PE. Negative PET after fifth course. Tumor board consensus was to just stop after the fifth course and give no further chemotherapy nor consolidative radiation to the non-bulky cervical disease that remitted quickly with the first 2 courses of the received ABVD x2 with negative PET followed by AVD x3 holding the sixth and final course due to generalized debilitation with ambulation and dyspnea on exertion. His first PET was 11/05/2019 and his node was excised in the cervical region on 11/12/2019. Hence this being responsive to chemo is hard to discern as the negative PET 01/15/2020 after 2 courses of ABVD was likely largely due to extraction of the node, 2. History of right lower extremity DVT with large PE in his 30s found to have heterozygous factor V Leiden mutation but off anticoagulation for decades. 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 Per patient, clot went from ankle to groin. 3. Hypertension 4. Hyperlipidemia 5. Diabetes Oncology timeline: History of hypertension, diabetes, hyperlipidemia, chronic deep vein thrombosis lower extremity with reported factor V deficiency per primary care problem list. On Coumadin indefinitely. Had left lower extremity deep vein thrombosis in his 30s and that happened again in the right leg a few years later and then again in the left leg and later was told he had factor V Leiden mutation. Mid August 2019 stumbled upon a left neck mass about the size of a croquet ball. Better after placing a heating pad but stable in size since that time. No bed drenching night sweats or unexplained fevers. No other adenopathy. 09/11/2019 peripheral smear showed mild monocytosis per Dr. Mejia. Chest x-ray negative 09/12/2019 CT soft tissue neck showed 6.4 cm left neck node with other smaller nodes. 10/02/2019 [facility] left neck fine-needle aspiration and biopsy on Lovenox off Coumadin for procedure showed atypical lymphoid proliferation with dysplastic CD30 positive cells suspicious for classic Hodgkin lymphoma but unequivocal diagnosis hindered by the low number of CD30 positive cells. Excisional biopsy recommended by pathology. -10/27/2019 initial [facility] medical oncology consultation: Reviewed the above hematology oncology timeline with him. I do not palpate any other adenopathy other than the approximately 5 cm left neck mass. I have spoken with Dr. Haris Crain to get incisional/excisional biopsy as well as possible port placement at that time. Will need to be on Lovenox starting 5 days in advance of the biopsy off of Coumadin and then resume Coumadin and Lovenox postop with daily pro time. Once INR greater than 2 postop, can discontinue the Lovenox. I have E prescribed enough for 10 days of Lovenox and daily protimes for the next month which should include enough time for him to get his INR therapeutic postop. We will get a PET in preparation for treatment planning presuming this corroborates lymphoma though this may yet be inflammatory given the paucity of CD30 positive cells. It is important to know the specific subtype of lymphoma as well to guide treatment. We will check his CBC, CMP, sedimentation rate,LDH, HIV, hepatitis B and C, pulmonary function tests, and echocardiogram as there is a high likelih ood of need for anthracycline use presuming this is Hodgkin or non-Hodgkin. Further decisions as touse of brentuximab versus bleomycin will be made pending the pulmonary function test results. PET necessary for staging and decision making. -11/05/2019 PET shows conglomerate mass 5 cm size left neck PET avid with no disease elsewhere. -11/12/2019 cervical lymph node excision Dr. Crain showing mixed cellularity Hodgkin lymphoma with conglomerate nodes in left neck 5 cm in size otherwise PET negative. -11/17/2019 hematology oncology follow-up visit: Reviewed the above data with the patient. Followinga chemotherapy alone plan he would get ABVD x2 followed by PET followed by Deauville criteria to guide subsequent algorithm. If chemoradiation therapy was desired to try to avoid as many courses of chemo he could consider ABVD x2 followed by PET and then based on Deauville criteria consider fewer to duarte courses of ABVD with involve field radiation. If he had a low Deauville score of 1-2 one could consider dropping the bleomycin and need chemotherapy on algorithm. He will need port, PFT with DLCO, chemo education. Ejection fraction 57%. -01/15/2020 PET shows surgical resection of left faiza soft tissue cervical region without abnormal hypometabolism Deauville score 1. No distant bulky adenopathy or metastatic extension. May have periapical abscess with mandible to the first and second molars. -03/26/2020 medical oncology follow-up visit:-Received ABVD x2 courses with subsequent negative PET 01/15/2020. Due to the COVID pandemic to diminish frequency of visits it was decided to use the non-radiation arm and we will opted for an additional AVD x4 without bleomycin. Despite this he developed more dyspnea on exertion despite normal oxygenation. Feels normal at rest. Presented at tumor board 03/26/[address] PE protocol 03/23/2020 showed no PE and just a little bronchiectasis and similar imaging to the PET of December with an ejection fraction of 62% on echo. Hemoglobin in the 12. Consensus at tumor board was that he likely was cured at this point and to not push him for the sixth course in order to consolidate with radiation if repeat PET is negative. We will do telehealth visit in the next week or 2 to follow-up on PET and his DLCO and if that is unremarkable then would just follow him per protocol per NCCN guidelines. If he has activity in the neck then we would consolidate with rad iation as long as it is minimal activity but he had no significant activity in December. -04/09/2020 medical oncology follow-up visit: Pulmonary function testing entirely normal including DLCO and good oxygenation. Ejection fraction normal. PET negative. As I have sought further through his history, the original PET was followed by diagnostic lymphadenectomy and hence the negative PET after 2 courses of ABVD may in fact be related is much to resection as it was too the chemotherapy and the responsiveness that we used to discern the number of courses of therapy would be blinded by the fact that his only measurable disease was mostly if not completely removed at the time of diagnostic lymphadenectomy. 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 To that end I will get him to pulmonary to make sure they think there is nothing going on in the way of asthma or reversible airways disease but I will also get him to ENT to see if there is a pseudomembrane/pseudo-vocal cord but I would not give further chemotherapy but we would, given the inability totruly estimate disease responsiveness because of the above conundrum, give involved site radiation therapy and I have relayed all this to Dr. Seth Pierre who also concurs with this. The collateral damage from the involved site radiation therapy to a cervical faiza region should be minimal provided that his airway would not run into additional trouble from the radiation for which we will get input from ENT and pulmonary. Otherwise he will see my nurse practitioner back in 2 months for survivorship visit and she will outline the NCCN guidelines for routine follow-up of stage I non-bulky but high risk on the basis of his sedimentation rate mixed cellularity Hodgkin lymphoma. -03/10/21 med onc follow up: 03/01/2021 CT neck chest abdomen pelvis with contrast shows no evidence of lymphomatous recurrence. CBC, CMP, TSH, all unremarkable save for slight elevation of glucose andsedimentation rate one-point above normal. Saw Dr. Pierre 12/10/2020 with no evidence of recurrence. This was his 12-month surveillance follow-up scan. Per NCCN guidelines, he will be due for he willbe due for 24-month follow-up surveillance scan in a year from now having completed therapy 03/18/2020 and radiation to the neck 05/14/2020. He has already touch base with Dr. Crain for removal of his port but Dr. Crain wanted to wait on that and I will let Dr. Crain and the patient negotiate the timingbut from my standpoint, he can have the port removed anytime. He has a history of factor V Leiden mutation with a history of PE on chronic Coumadin INR monitored by his PCP. He will need to have his Lovenox bridge when port is removed. He will continue to have his port flushed every 6 to 8 weeks. -02/27/2022 patient went to ER at [facility] with abdominal pain, CT chest, abdomen and pelvisnegative. He did test positive for COVID. -03/14/2022 CT neck negative. CBC and CMP normal. -03/21/2022 [facility] follow-up: Srinivasa continues to do well with no evidence of diseaserecurrence in regards to his history of Hodgkin's lymphoma. He went to the ER on 02/27/2022 at [facility] with left-sided abdominal pain, CT chest, abdomen and pelvis were done at that time thatshowed no evidence of acute disease, no lymphadenopathy. He had CT of the neck here on 03/14/2022 that showed no cervical lymphadenopathy. CBC and CMP were normal other than for glucose of 181. He hasnot had TSH checked this year that he is aware of, he will ask his PCP to check with his next bloodwork. TSH last February was normal. He is now 2 years out from treatment of his lymphoma with no diseaserecurrence. Per NCCN guidelines there are no plans for routine surveillance scans going forward in t he absence of new symptoms. His port is not out. We will see him back in 1 year for follow-up with CBC and CMP on return. - 03/22/2023 [facility]ology follow-up: CBC today is unremarkable with hemoglobin 15.7 and normal white count platelet count and differential. Continue annual follow-up with CBC. Port now removed. 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 He has no new worrisome symptoms for disease recurrence. He completed all treatment including chemotherapy and radiation April 2020. He has some baseline dyspnea. He had a thorough cardiac workup in September 2022 including echocardiogram that was normal. We will continue surveillance per NCCN guidelines with repeat CBC and H&P in 1 year at which time he will be 5 years out. He did haveradiation to the left neck and states that his primary care provider does check his thyroid function periodically and it has been normal. He reports that he had an ultrasound of his thyroid this yearand he had 2 cysts. History of DVT with heterozygous factor V Leiden mutation: Patient continues on Coumadin for lifetime has had no further clotting events. He reports that he maintains his INR between 2.0 and 3.0 consistently. Managed by primary care provider - 04/16/2025 [facility]ology follow-up: CBC and differential entirely unremarkable. No somatic complaints to suggest recurrence and no interval problems since last visit 1 year ago. Continues lifetime Coumadin for history of DVT with heterozygous factor V Leiden mutation managed by primary care. From the stage Ia nonbulky Hodgkin lymphoma standpoint, no need for routine hematologic oncology follow-up per NCCN guidelines. Can get annual physical exam with primary care. He is getting his prostate worked up by urologist in [place]. Should I be needed, I also can manage high risk oradvanced stage prostate cancers along with his urologist/radiation oncologist or what ever they dete rmine the need be. From the purely lymphoma standpoint he does not need oncology follow-up and fromthe DVT standpoint his primary care doctor is providing the Coumadin. Should he need surgical interventions he will need to Coumadin 5 days in advance but I would not necessarily put him through a Lovenox bridge. Care today inclusive of time spent today prior to patient's arrival reviewing interval data and during visit translating that the patient putting forth a plan as outlined above and after visit communicating this to his primary care took 35 minutes patient care time throughout the day today. Tima Vasquez MD 04/16/2025 documented in this encounter Plan of Treatment Not on file documented as of this encounter Visit Diagnoses Diagnosis 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- Primary documented in this encounter Care Teams Director Of Clinical Education Relationship Specialty Start Date End Date Catrachita Raphael APRN [address] [place] [facility] [address] [place] [address] PCP - General Family Medicine 10/09/19 documented as of this encounter
--- OUTSIDE RECORDS SUMMARY | 2025-05-28 14:34 | XMS_ITS | Encounter Summary ---
Author [facility] Address [address] [place] [address] Care Team Providers Care Spool Cleaner Name Role Phone Catrachita Raphael APRN Primary Care Provid er Encounter Details Date Type Department Care Team (Late st Contact Info) Description 07/22/2018 External CPT II RETAIL STORE MANAGER - [facility] Social History Tobacco Use [...] documented as of this encounter Care Teams Spool Cleaner Relationship Specialty Start Date End Date Catrachita Raphael APRN [address] [place] [address] PCP - General Family Medicine 10/09/19 documented as of this encounter
--- OUTSIDE RECORDS SUMMARY | 2025-05-28 14:34 | XMS_ITS | Encounter Summary ---
Author Organization [facility] Address [address] [place] [address] Care Team Providers Care Glaze Wiper Name Role Phone Catrachita Raphael APRN Primary [...] on filedocumented in this encounter Care Teams Glaze Wiper Relationship Specialty Start Date End Date Catrachita Raphael APRN [address] [place] [address] PCP - General Family Medicine 10/09/19 documented as of this encounter
--- OUTSIDE RECORDS SUMMARY | 2025-05-28 14:34 | XMS_ITS | Encounter Summary ---
[facility] Address [address] [place] [address] Care Team Providers Care Supervisor Fertilizer Processing Name Role Phone Catrachita Raphael APRN Primary Care Provid er Encounter Details Date Type Department Care Team (Late st Contact Info) Description 12/06/2017 External CPT II TUBE TESTER - [facility] Social History Tobacco Use [...] documented as of this encounter Care Teams Supervisor Fertilizer Processing Relationship Specialty Start Date End Date Catrachita Raphael APRN [address] [place] [address] PCP - General Family Medicine 10/09/19 documented as of this encounter
--- OUTSIDE RECORDS SUMMARY | 2025-05-28 14:34 | XMS_ITS | Encounter Summary ---
[facility] Address [address] [place] [address] Care Team Providers Care Assistant To The Dean Name Role Phone Catrachita Raphael APRN Primary Care Provid er Encounter Details Date Type Department Care Team (Late st Contact Info) Description 08/31/2016 External CPT II BENEFITS REPRESENTATIVE - [facility] Social History Tobacco Use [...] documented as of this encounter Care Teams Assistant To The Dean Relationship Specialty Start Date End Date Catrachita Raphael APRN [address] [place] [address] PCP - General Family Medicine 10/09/19 documented as of this encounter
--- OUTSIDE RECORDS SUMMARY | 2025-05-28 14:34 | XMS_ITS | Clinical Summary ---
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) 04/16/2025 11:05 AM EDT Lab [facility] [address] [place] [address] History of Hodgkin's lymphoma 04/16/2025 Travel from Last 3 Months Immunizations Immunization Administration Dates Next Due COVID-19 (MODERNA) 1st,2nd,3 rd Dose Monovalent 08/24/2021,12/15/2020,11/17/2020 COVID-19 (MODERNA) BIVALENT 12+YRS 08/09/2022 Fluad Quad 65+ 07/29/2020 Fluzone High-Dose 65+yrs 08/07/2022,08/24/2021 Influenza, Unspecified 07/29/2020 Pneumococcal Conjugate 13-Valent (PCV13) 020 Family History Medical History Relation Name Comments Factor V Leiden deficiency Daughter Clotting disorder Maternal Grandfather Trumna Solitario Diabetes Mother Factor V Leiden deficiency [...] year) Discontinued Medical Devices Implanted Type Area Sandstone Inspector Repairer Device Identifier Shelf Expiration Date Model / Serial / Lot Powerport Isp Clearvue Cath 8f 45cm - [id number] Implanted:Qty: 1 on 11/12/2019 by Petros Crain MD at [facility] Implant Right: Neck BARD PERIPHERAL VASCULAR 01/19/2021 [id number] / / [id number] Procedures Procedure Name Priority Date/Time Associated Diagnosis [...] - 10.80 10*3/mm3 04/16/2025 11:10 AM EDT [facility] RBC 5.26 4.14 - 5.80 10*6/mm3 04/16/2025 11:10 AM EDT [facility] Hemoglobin 14.9 13.0 - 17.7 g/dL 04/16[facility] Hematocrit 45.7 37.5 - 51.0 % 04/16/2025 [facility] MCV 86.9 79.0 - 97.0 fL 04/16/2025 11:10 [facility] MCH 28.3 26.6 - 33.0 pg 04/16/2025 11:10 [facility] MCHC 32.6 31.5 - 35.7 g/dL 04/16/2025 11:10 AM [facility] RDW 14.3 12.3 - 15.4 % 04/16/2025 11:10 AM [facility] RDW-SD 45.6 37.0 - 54.0 fl 04/16/2025 11:10 AM [facility] MPV 8.6 6.0 - 12.0 fL 04/16/2025 11:10 AM [facility] Platelets 191 140 - 450 10*3/mm3 04/16/2025 11:10 AM [facility] Neutrophil % 52.3 42.7 - 76.0 % 04/16/2025 11:10 AM [facility] Lymphocyte % 35.2 19.6 - 45.3 % 04/16/2025 11:10 AM [facility] Monocyte % 9.8 5.0 - 12.0 % 04/16/2025 11:[facility] Eosinophil % 1.7 0.3 - 6.2 % 04/16/2025 11:10 [facility] Basophil % 0.8 0.0 - 1.5 % 04/16/2025 11:10 [facility] Immature Grans % 0.2 0.0 - 0.5 % 04/16/2025 11:10 AM [facility] Neutrophils, Absolute 3.46 1.70 - 7.00 10*3/mm3 04/16/2025 11:10 AM EDT [facility] Lymphocytes, Absolute 2.33 0.70 - 3.10 10*3/mm3 04/16/2025 11:10 AM EDT [facility] Monocytes, Absolute 0.65 0.10 - 0.90 10*3/mm3 04/16/2025 11:10 AM EDT [facility] Eosinophils, Absolute 0.11 0.00 - 0.40 10*3/mm3 04/16/2025 11:10 AM EDT [facility] Basophils, Absolute 0.05 0.00 - 0.20 10*3/mm3 04/16/2025 11:10 AM EDT [facility] Immature Grans, Absolute 0.01 0.00 - 0.05 10*3/mm3 04/16/2025 11:10 AM EDT [facility] Blood Venipuncture / Unknown 04/16/2025 11:08 AM EDT 04/16/2025 11:08 AM EDT Tima Vasquez MD LAB BLOOD ORDERABLES Final Resul t [facility]
[address] [place] [address], * SCANNED - COLONOSCOPY (12/11/2016) Catrachita Raphael APRN CHART REVIEW TABS Final Result from Last 3 Months or Most Recently Relevant to Health Maintenance Insurance [id number] [address] [facility] [address] [place] [id number] [facility] Medicare Advantage GROUP PPO Care Teams Heel Shaver Relationship Specialty Start Date End Date Catrachita Raphael APRN [address] [place] [address] [place] [address] PCP - General Family Medicine 10/09/19
--- OUTSIDE RECORDS SUMMARY | 2025-05-28 14:34 | XMS_ITS ---
Author Organization [facility] Address [address] [place] [address] Care Team Providers Care Professor Of History Name Role Phone Catrachita Raphael APRN Primary [...] Hager Date of 1950 Phone Email [email or web address] Patient Care Team: Petros Crain MD as Consulting Physician (General Surgery) Seth Pierre MD as Consulting Physician (Radiation Oncology) Tima Vasquez MD as Referring Physician (Hematology and Oncology) Provider Phone numbers Care Team Provider: Catrachita Raphael APRN, ([phone]) Care Team Provider: Petros Crain MD, ([phone]) Care Team Provider: Seth Pierre MD, ([phone]) Care Team Provider: Tima Vasquez MD, ([phone]) Care Team Provider: Leodan Pedraza MD, ([phone]) Post Treatment Care Team Primary Care Physician Catrachita Raphael APRN [phone] [address] [facility] [address] [address] Background Information Medical history Past Medical History: [...] Surgeon: Petros Crain MD; Location: [facility] OR; Service: General COLONOSCOPY HERNIA REPAIR Dr. Red @ [facility]- right inguinal - unsure about mesh in place LYMPH NODE BIOPSY (L) neck Dr. Marrero @ [facility] OTHER SURGICAL HISTORY vocal cord visualization PORTACATH PLACEMENT [facility] Tobacco use Social History Tobacco [...] neck node with other smaller nodes. 10/02/2019 [facility] left neck fine-needle aspiration and biopsy on Lovenox off Coumadin for procedure showed atypical lymphoid proliferation with dysplastic CD30 positive cells suspicious for classic Hodgkin lymphoma but unequivocal diagnosis hindered by the low number of CD30 positive cells. Excisional biopsy recommended by pathology. -10/27/2019 initial [facility] medical oncology consultation: Reviewed the above [...] due to shortness ofbreath [facility] Lifetime Dose Tracking Doxorubicin: 204.375 mg/m2 [...] doctors and nurses such as exercise andactivity. longterm effects of radiation therapy vary greatly depending on the areas included in the field ofradiation and the radiation techniques that were used. Ask your doctors and nurses about the risk of halfway effects. Keep your follow up appointments and [...] to you. General Cancer Support & Resources [facility] [address] [facility], [address] [place] [address] Med Onc: Chicken And Fish Butcher Onc: Parole Hearing Officer: Carina Spears - Psychiatric Nurse Practitioner: Yulissa Hughes APRN - [phone] Kick It! (A free smoking cessation program) Financial Counselor and Contact Information: [facility] Financial Counseling - Bias Cutting Machine Operator Contact Information: Dee Marrero - [phone] Wound Ostomy & Continence Nurse: Local Cancer [...] Toward Empowerment - for Women with Cancer: ([facility]) The Tools and encouragement you need to live your life to the fullest. Free Dinner served @ 6:00pm followed by speaker from 6:30 - 7:30pm. The series runs from July, and meets monthly. Call Elsy Salcido RN, OCN @ to receive information and upcoming schedule. [facility]: This support group is open to anyone that has been diagnosed with cancer of any type. Meets at 6:30pm on the last Sunday of each month. Location: [facility]; [address] [place] [address]. For more information call Estephanie Harrell @ [...] advice of a doctor or other health post acute care nurse practitioner. Please use these recommendations to talk with [...] of cancer in the general population. The [place] [employer] (ACS) recommends these screening guidelines for men: Recommendation Frequency Comments Colon and Rectal Cancer Screening For more information see the ACS document Colorectal Cancer: Early Detection. www.cancer.org/ssLINK/semsxtgbjc-vqbefr-mhfvj-detection-maxim Options for colon cancer screening can be [...] see the ACS Document Testicular Cancer Detection: http://www.cancer.org/cancer/testicularcancer/detailedguide/zijmvtwzdi-lphgar-bm tection Men of any age can develop [...] more information, visit http://www.nhlbi.nih.gov/health/public/heart/obesity/lose_wt/index.htm www.win.niddk.nih.gov Call the [place] [employer] Talk to your health care [...] Experts recommend at least 30 minutes of iltmfgng-va-czglwmkx activity per day, five days a week. [...] you can call a national hotline at 4(508)-QUIT-NOW. Have regular check-ups by a healthcare professional. For more information about healthy screening tests for men visit the U.S. Department of Health and Human Services. http://www.womenshealth.gov/cqiccfvhc-eqiro-hos-vaccines/crvklpann-ugwzr-dpa-men / For more information about adult vaccinations visit the CDC: http://www.cdc.gov/vaccines/recs/schedules/adult-schedule.htm Keep up-to-date on general health screening tests, including cholesterol, blood pressure and glucose (blood sugar) levels. Get an annual influenza vaccine (flu shot). Get vaccinated with the pneumococcal vaccine, which prevents a type of pneumonia, and re-vaccinatedas determined by your health care team. Don???t forget dental and eye health! The [employer] recommends adults have their eyes examined every two years until age 60, then annually. People who wear glasses or correctivelenses or are at high risk for eye problems (i.e., diabetics, family history of eye disease) shouldbe seen more frequently. The [employer] Dental Association recommends adults see their dentist at least once a year. No information on file. No information on file.
--- OUTSIDE RECORDS SUMMARY | 2025-05-28 14:34 | XMS_ITS | Encounter Summary ---
[facility] Address [address] [place] [address] Care Team Providers Care Plastic Extrusion Operator Name Role Phone Catrachita Raphael APRN Primary Care Provid er Encounter Details Date Type Department Care Team (Late st Contact Info) Description 05/04/2017 External CPT II SALON LEAD[facility] - [facility] Social History Tobacco Use [...] documented as of this encounter Care Teams Plastic Extrusion Operator Relationship Specialty Start Date End Date Catrachita Raphael APRN [address] [place] [address] PCP - General Family Medicine 10/09/19 documented as of this encounter
[2025-05-28 15:30] LABS: INR 3.39 (0.9-1.1); Prothrombin Time 34.4 seconds (10.1-12.5)
== END 2025-05-28 23:59 | disposition home or self-care (01) ==
PROVIDERS: PCP Nurse Practitioner Family; Visit Provider Nurse Practitioner Family
DX: Z51.81 Encounter for therapeutic drug level monitoring (principal); Z79.01 Long term (current) use of anticoagulants
CPT/HCPCS: 36415; 85610

== ENCOUNTER 2025-08-12 14:17 | Outpatient (CLI) | payer MEDICARE, SELFPAY ==
--- OUTSIDE RECORDS SUMMARY | 2025-07-03 02:20 | XMS_ITS | Continuity of Care Document ---
Author Organization [facility] Phone Care Team Providers Care Tab Cutter Name Role Phone ART, MATIAS S Admitting ART, MATIAS S Unavailable ART, MATIAS S Primary Attending SIA FERRIS Primary Care RESULTS Patient: QAMAR Loredo Date of : 1950 6 LABORATORY RESULTS Information is not available LABORATORY NARRATIVE RESULTS ORDER 100: PROSTATE PET SCAN PSMA (LOINC: 17989-3) ORDER DATE: June 30, 2025 4:16:00 PM [facility] Specimen Source: Specimen Type: PERFORMING LAB: [address] [id number] Final Result Date: July 01, 2025 12:58:00 PM [facility] TEST: PROSTATE PET SCAN PSMA [address] [address] (Phone) IMAGING REPORT ____Name: CATA FOOTE RMRN: [id number] : [id number] #: [id number] Age: 75 Years Patient Type: Outpatient Sex: MAccession#: [id number] Description: PROSTATE PET SCAN PSMAExam Reason: c61 malignant neoplasm of prostrateOrder Date/Time: 07/01/2025 08:47:00 AMDictated By: Seth Kenny MDOrdering Physician: Kavitha RIVERA Physician: MATIAS RIVERA PT HEAD NECK, 07/01/2025 7:47 AM CDTc61 malignant neoplasm of prostratePET/CT imaging was performed from the skull base to the mid-thigh following the intravenous administration of gallium- [address] imaging was performed for attenuation correction and lesion localization.* Extensive scatter and artifact throughout the examination, somewhat lowering sensitivity.* Examination reveals no focal areas of hyperintense uptake to suggest the presence of bony metastatic disease or abnormal abdominal/pelvic lymph nodes.* Scattered uptake throughout the prostate, there may be a small more focal area of uptake within the posterior lateral left gland, SUV 7.0 image 254, this could represent the site of primary malignancy although artifact obscured detail as defined above.* CT reveals aortic and coronary atherosclerosis.* Calcified granuloma right lung, basilar scarring/atelectasis.* Small fat-containing umbilical hernia.* Degenerative disease involving the spine, PARS defects L5.* PAGE 1 OF 2Name: CATA FOOTE RMRN: [id number] : [id number] #: [id number] Age: 75 Years Patient Type: Outpatient Sex: MAccession#: [id number] Description: PROSTATE PET SCAN PSMAExam Reason: c61 malignant neoplasm of prostrateOrder Date/Time: 07/01/2025 08:47:00 AM IMPRESSION:* No evidence of metastatic disease.Electronically signed by: Seth Kenny MD 07/01/2025 08:55 AM EDT RP Workstation: [id number] InterpreterName: Seth Sander ID: [id number] PAGE 2 OF 2 RADIOLOGY RESULTS Information is not available PATHOLOGY NARRATIVE RESULTS Information is not available MICROBIOLOGY RESULTS No Micro Labs/Results Exist for Patient BLOOD ADMIN RESULTS Information is not available MEDICATIONS HOME MEDICATIONS Status RXNORM NDC Medication Dose Route Frequency Dates Comments Reported By Updated By Drug Treatment Unknown DISCHARGE MEDICATIONS Status RXNORM NDC Medication Dose Route Frequency Dates Dis pense Data Comments Physician Updated By No Discharge Medication Info rmation Available INPATIENT MEDICATIONS Status RXNORM NDC Medication Dose Route Frequency Rat e Quantity Dates Indication Dispense Data Comments Physician Updated By No Inpatient Medication Info rmation Available SOCIAL HISTORY SOCIAL HISTORY - Smoking Status SNOMED-CT Social History Element Description Effective Dates Offered Cessation Comment Updated By [id number] Smoking Status Unknown If Ever Smoked SOCIAL HISTORY - Gender Sex: Male SOCIAL HISTORY - Status : status i nformation is not available Intention in Next Year: intention information is not available SOCIAL HISTORY - Assessments Code System Description Status Date Value of Assessment Updated By Comment Assessment Information is no t available SOCIAL HISTORY - [place] Affiliation [place] information is not av ailable SOCIAL HISTORY - Legal Sex Legal Sex information is not available SOCIAL HISTORY - Sexual Behavior Sexual Orientation Gender Identity SNOMED-CT Description SNO MED -CT Description Activity Level No of Partners Partner Type UpdatedBy Information is not available SOCIAL HISTORY - Occupation Occupation information is no t available HEALTH CONCERNS Problems Concern Status Health Concern problem infor mation not available. Smoking Status Status Years Used Consumed packs p er day Health Concern smoking histo ry information not available. Family History Concern Status Health Concern family histor y information not available. ENCOUNTERS ENCOUNTER INFORMATION Reason for Visit MALIGNANT NEOPLASM O F PROSTATE Admission June 30, 2025 4:05:00 PM [place] [id number] Discharge June 30, 2025 8:05:00 PM [facility] DISCHARGED TO HOME OR SELF CARE ENCOUNTER DIAGNOSES Notes information is not nayla ilable. Code System Diagnosis Onset Date Diagnosis information is not available. 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 [id number] on July 03, 2025 6:19:40 AM [facility] Z88.2 ICD10 ALLERGY STATUS TO SULFONAMID ES [id number] on July 03, 2025 6:19:40 AM [facility] C61 ICD10 MALIGNANT NEOPLASM OF PROSTA TE [id number] on July 03, 2025 6:19:40 AM [facility] Z88.2 ICD10 ALLERGY STATUS TO SULFONAMID ES [id number] on July 03, 2025 6:19:40 AM [facility] CARE TEAM Care Tab Cutter Role MATIAS RIVERA Admitting MATIAS RIVREA Referring MATIAS RIVERA Primary Attending SIA FERRIS Primary Care CARE TEAM CARE subway repair supervisor Role on Team Location Telecom Status Start Date End Chente e Updated By BARRINGTON Arango APRN PCP normal June 30, 2025 4:09:08 PM [facility] June 30, 2025 8:05:00 PM [facility] [id number] on June 30, 2025 4:09:08 PM [facility] NICOLE Strickland MD PCP normal June 24, 2025 2:44:51 PM [facility] June 30, 2025 4:09:08 PM [facility] [id number] on June 30, 2025 4:09:08 PM [facility] NICOLE Strickland MD Referring normal June 24, 2025 2:44:51 PM [facility] June 30, 2025 8:05:00 PM [facility] [id number] on June 30, 2025 4:09:08 PM [facility] NICOLE Strickland MD Attending normal June 24, 2025 2:44:51 PM [facility] June 30, 2025 8:05:00 PM [facility] [id number] on June 30, 2025 4:09:08 PM [facility] NICOLE Strickland MD Admitting normal June 24, 2025 2:44:51 PM [facility] June 30, 2025 8:05:00 PM [facility] [id number] on June 30, 2025 4:09:08 PM [facility]
--- OUTSIDE RECORDS SUMMARY | 2025-08-12 15:09 | XMS_ITS | Referral Summary ---
Author Organization [employer] ([place], [place], [place], [place]) Address [address] [place] [address] Care Team Providers Care Pool Nurse Name Role Phone Unavailable Primary Care Provider Unavailabl e Allergies No known active allergies Social History Tobacco Use Types Packs/Day Years Used Date Smoking Tobacco: Never Assessed Sex and Gender Information Value Date Recorded Sex Assigned at Male 04/23/2025 7:44 AM CDT Legal Sex Male 10:03 AM CDT Gender Identity Male 04/23/2025 7:44 AM CDT Sexual Orientation Not on file Plan of Treatment Not on file Insurance [facility]
--- OUTSIDE RECORDS SUMMARY | 2025-08-12 15:09 | XMS_ITS | Data Portability ---
Author Organization [facility] RODRIGO Middleton MCCARR CLOSED Address [address] [place] [address] Care Team Providers Care Head Of History Name Role Phone TIMA MAHER Referring Provider SIA FERRIS Primary Care Provider Assessment No assessment recorded. Plan of Treatment Reminders Order Date Submit Date Provider Last Modified By Organization Details Last Modified Time Details Appointments None record ed. Lab None record ed. Referral None record ed. Procedures None record ed. Surgeries None record ed. Imaging None record ed. Medication Orders None record ed. Patient TargetsNo targets recorded. Patient Instructions Encounter Date Encounter Id Patient Instructions Last Modified By Organization Details Last Modified Time 04/15/2020 [id number] shortness of breath: care instructions [email or web address] Not available 04/15/2020 17:42:32 1. Flexible laryngoscopy performed in office; Full risks, complications, and benefits of operative versus non-operative intervention have been thoroughly discussed. Understanding was expressed, informed consent given, and we will proceed with the discussed in office treatment plan. There were no questions for me at the end of the office visit. 2. F/U PRN asalva Not available 04/15/2020 16:02:50 [email or web address] Not available 04/15 17:40:22 Reason for Referral None Reported. Problems No Known Problems Procedures Surgical History Date Name Laterality Status Provider Name and Address Organization Details Recorded Time 04/15/20 20 Laryngoscopy Flex completed Calista Amor [facility] 04/15/2020 15:59:53 Imaging Results None recorded. Procedure Notes None recorded. Medical Equipment None Reported. Allergies Allergen ID Allergen Name Allergen Category Reaction Reaction Severity Criticality Documentation Date Start Date Code Code System Note Provider Name and Address Organization Details Recorded Time 400744 niacin medicatio n rash mild Not available 04/09/20202019 7393 RxNorm Pricilla Issa [facility] 0 15:49:59 464491 Substance with sulfonami de structure and antibacte rial mechanism of action (substanc e) medicatio n Not available Not available Not available 04/15/2020 21461 8003 SNOMED Patricia Ziegler [facility] 0 14:43:08 Medications Name Sig Start Date Stop Date Status Note LastModified by Organization Details LastModified Time atorvastatin 40 mg tablet 40 mg by oral route. active Not Available Not Available Not Available cetirizine 10 mg tablet 10 mg by oral route. active Not Available Not Available Not Available warfarin 10 mg tablet 10 mg by oral route. active Not Available Not Available Not Available Claritin 10 mg tablet 10 mg by oral route. active Not Available Not Available Not Available ondansetron HCl 8 mg tablet 8 mg by oral route. active Not Available Not Available Not Available lidocaine-pr ilocaine 2.5 %-2.5 % topical kit 2019 active Not Available Not Available Not Avai lable lidocaine-pr ilocaine 2.5 %-2.5 % topical cream active Not Available Not Available Not Available trifluridine 1 % eye drops 1 [drp] by ophthalmic route. active Not Available Not Available No t Available prednisolone acetate 1 % eye drops,suspen fly active Not Available Not Available Not Available glyburide 5 mg-metformin 500 mg tablet 1 {tbl} twice a day by oral route. active Not Available Not Available No t Available dexamethason e 4 mg tablet active Not Available Not Available Not Available losartan 25 mg tablet 25 mg by oral route. active Not Available Not Available Not Available doxazosin 4 mg tablet 4 mg by oral route. active Not Available Not Available Not Available amoxicillin 875 mg-potassium clavulanate 125 mg tablet 1 {tbl} twice a day by oral route. active Not Available Not Available No t Available enoxaparin 120 mg/0.8 mL subcutaneous syringe 120 mg twice a day by sub-q route. active Not Available Not Available No t Available coenzyme Q10 100 mg capsule 100 mg by oral route. active Not Available Not Available Not Available moxifloxacin 0.5 % eye drops active Not Available Not Available Not Available melatonin 10 mg tablet 10 mg by oral route. active Not Available Not Available Not Available Vitals Date Recorded Body height Body mass index (BMI) Body weight Body temperature Heart rate Systolic And Diastolic Provider Name and Address Organization Details Last Updated DateTime 0 182.88 cm 33.5 kg/m2 509810. 32 g 97.3 [degF] 101 /min 115/60 mm[Hg] Patricia Ziegler [facility] 0 14:47:52 Social History Question Answer Notes LastModified by [employer] Details LastModified Time Tobacco Smoking Status Never Smoker Gomezhazel Del Toros [facility] 04/15/2020 14:48:04 How Much Tobacco Do You Chew? None Information not available 04/15/2020 Sex: Unknown Functional Status Question Answer Note LastModified by [employer] Details LastModified Time What is your level of alcohol consumption? None Information not available 04/15/2020 Do you or have you ever used smokeless tobacco? Never used smokeless tobacco Information not available 04/15/2020 Do you or have you ever used e-cigarettes or vape? Never used electronic cigarettes Information not available 04/15/2020 Mental Status None recorded. Family History Relationship Description Onset Age of this Age Resolved Age Notes LastModified by Organization Details LastModified Time Father No current problems or disability Not available 04/15 14:46:34 Mother No current problems or disability Not available 04/15 14:46:34 Medical History Condition Response Diabetes Y Cancer Hypertension Y High Cholesterol Y Past Encounters Encounter ID Performer Location Encounter Start Date Encounter Closed Date Diagnosis/Indication Diagnosis SNOMED-CT Code Diagnosis ICD10 Code Diagnosis IMO Codes Diagnosis Note [id number] RIC CALABRESE MD [facility] [address] [place] [address] 04/15/2020 13:56:41 04/15/2020 16:29:07 Dyspnea 697545484 R06.00 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 Laryngeal spasm 58435934 2 J38.5 -possible Health Concerns Section Related Observation LastModified by Organization Detai ls LastModified Time None Recorded Concern Status LastModified by Organization Details LastModified Time None Recorded Advance Directives Directive None Recorded Payers Insurance Date Sequence Insurance Name Policy Number Policy Moraes Covered Member ID Moraes Member ID Guarantor Name 04/19/2020 1 [place] Srinivasa Hager [id number] Srinivasa Hager 04/15/2020 2 [employer] (MEDICARE SUPPLEMENT) Srinivasa Hager [id number] Srinivasa Hager Notes Date Note Type Note Provider Name and Address Organization Details Recorded Time 04/15/2020 text/html Srinivasa is a 70 year old male being seen in the office in consultation at the request of Dr. Tima Maher for an evaluation of his throat. 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 He has been experiencing shortness of breath while getting his chemotherapy. Dr. Maher noted that two of the chemotherapies he was taking did cause shortness of breath. They d/c one chemo with no improvement. Dr. Maher did suggest d/c both and switching to radiation. Srinivasa had his port removed and coming out of anestesia he has severe dyspnea. 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 Srinivasa has been evaluated by pulmonary with normal findings(3 normal spirometry). He has also been with cardio with normal findings(EKG,Ultraso und). RIC CALABRESE MD [address] [place], [address], [facility] 04/15/2020 17:42:35
--- OUTSIDE RECORDS SUMMARY | 2025-08-12 15:09 | XMS_ITS | Continuity of Care Document ---
Author Organization [facility] Address [address] [place] [address] Care Team Providers Care Server Developer Name Role Phone SIA FERRIS Primary Care Provider [phone] Assessment No assessment recorded. Plan of Treatment Reminders Order Date Submit Date Provider Last Modified By Organization Details Last Modified Time Details Appointments OV EST 30 2024 01:00P Arelis Teixeira PA-C Not available Not available Not available Lab PSA, serum or plasma 2024 025 [facility] (Registration ), [address] , [place], [address], 07/17/2025 16:58:41 CMP, serum or plasma 2024 025 [facility] (Registration ), [address] , [place], [address], 07/17/2025 16:58:40 testoste columba, free + total, serum 2024 025 [facility] (Registration ), [address] , [place], [address], 07/21/2025 15:13:03 CBC w/ diff [email or web address] [place] [address] (Registration ), [address] , [place], [address], 07/24/2025 11:17:00 PT/INR 2024 025 [facility] (Registration ), [address], [place], [address], 07/24/2025 11:17:00 Referral None recorded . Procedures None recorded . Surgeries None recorded . Imaging None recorded . Medication Orders None recorded . Patient TargetsNo targets recorded. Patient InstructionsNo instructions recorded. Reason for Referral None Reported. Results Created Date Observation Date Name Description Value Unit Range Abnormal Flag Note LastModifiedBy Organization Detail LastModifiedTime 07/17/2007/17/2025 CBC AUTO W DIFF WBC 8.6 K/uL 4.0-10 .5 Not Available [facility] ([facility]) [address], [place], [address], 07/17/2025 15:55:14 07/17/2007/17/2025 CBC AUTO W DIFF RBC 5.6 M/mm3 4.7-6. 1 Not Available [facility] ([facility]) [address], [place], [address], 07/17/2025 15:55:14 07/17/2007/17/2025 CBC AUTO W DIFF HGB 15.5 gm/dL 13.5-1 8.0 Not Available [facility] ([facility]) [address] , [place], [address], 07/17/2025 15:55:14 07/17/2007/17/2025 CBC AUTO W DIFF HCT 47.7 % 42.0-5 2.0 Not Available [facility] ([facility]) [address] , [place], [address], 07/17/2025 15:55:14 07/17/2007/17/2025 CBC AUTO W DIFF MCV 85.3 fL 78-100 Not Available [facility] ([facility]) [address], [place], [address], 07/17/2025 15:55:14 07/17/20 25 07/17/2025 CBC AUTO W DIFF MCH 27.7 pg 27-31 Not Available [facility] ([facility]) [address], [place], [address], 07/17/2025 15:55:14 07/17/20 25 07/17/2025 CBC AUTO W DIFF MCHC 32.5 g/dL 32-36 Not Available [facility] ([facility]) [address], [place], [address], 07/17/2025 15:55:14 07/17/20 25 07/17/2025 CBC AUTO W DIFF RDW 14.1 % 11.5-1 4.0 high Not Available [facility] ([facility]) [address], [place], [address], 07/17/2025 15:55:14 07/17/20 25 07/17/2025 CBC AUTO W DIFF platelet count 230 K/uL 150-45 0 Not Available [facility] ([facility]) [address], [place], [address], 07/17/2025 15:55:14 07/17/20 25 07/17/2025 CBC AUTO W DIFF MPV 9.5 fL 6-9.5 Not Available [facility] ([facility]) [address] [place], [address], 07/17/2025 15:55:14 07/17/20 25 07/17/2025 CBC AUTO W DIFF neutrophil% 61.4 % 43-65 Not Available [facility] ([facility]) [address] [place], [address], 07/17/2025 15:55:14 07/17/20 25 07/17/2025 CBC AUTO W DIFF lymphocyte% 26.9 % 20.5-4 5.5 Not Available [facility] ([facility]) [address] [place], [address], 07/17/2025 15:55:14 07/17/20 25 07/17/2025 CBC AUTO W DIFF monocyte% 8.7 % 5.5-11 .7 Not Available [facility] ([facility]) [address] [facility], [place], [address], 07/17/2025 15:55:14 07/17/20 25 07/17/2025 CBC AUTO W DIFF eosinophil% 2.2 % 0.9-2. 9 Not Available [facility] ([facility]) [address] [place], [address], 07/17/2025 15:55:14 07/17/20 25 07/17/2025 CBC AUTO W DIFF basophil% 0.6 % 0.2-1. 0 Not Available [facility] ([facility]) [address] [place], [address], 07/17/2025 15:55:14 07/17/20 25 07/17/2025 CBC AUTO W DIFF immature granulocytes % 0.2 % 0.0-0. 8 Not Available [facility] ([facility]) [address] [place], [address], 07/17/2025 15:55:14 07/17/20 25 07/17/2025 CBC AUTO W DIFF nucleated red blood cells % 0.0 % Not Available [facility] ([facility]) [address] [place], [address], 07/17/2025 15:55:14 07/17/20 25 07/17/2025 CBC AUTO W DIFF neutrophil# 5.3 K/uL 2.2-4. 8 high Not Available [facility] ([facility]) [address] [place], [address], 07/17/2025 15:55:14 07/17/20 25 07/17/2025 CBC AUTO W DIFF lymphocyte# 2.3 cell/ mcL 1.3-2. 9 Not Available [facility] ([facility]) [address], [place], [address], 07/17/2025 15:55:14 07/17/20 25 07/17/2025 CBC AUTO W DIFF monocyte# 0.7 cell/ mcL 0.3-0. 8 Not Available [facility] ([facility]) [address] [facility], [place], [address], 07/17/2025 15:55:14 07/17/20 25 07/17/2025 CBC AUTO W DIFF eosinophil# 0.2 cell/ mcL 0-0.2 Not Available [facility] ([facility]) [address], [place], [address], 07/17/2025 15:55:14 07/17/2007/17/2025 CBC AUTO W DIFF basophil# 0.1 cell/ mcL 0.0-1. 0 Not Available [facility] ([facility]) [address] [facility], [place], [address], 07/17/2025 15:55:14 07/17/20 25 07/17/2025 CBC AUTO W DIFF immature gramulocytes # 0.02 K/uL Not Available [facility] ([facility]) [address] [facility], [place], [address], 07/17/2025 15:55:14 07/17/2007/17/2025 CBC AUTO W DIFF nucleated red blood cells # 0.00 K/uL Not Available [facility] ([facility]) [address] [place], [address], 07/17/2025 15:55:14 07/17/2007/17/2025 CBC AUTO W DIFF manual differential NO Not Available [facility] ([facility]) [address] [facility] [place], [address], 07/17/2025 15:55:14 07/17/20 25 07/17/2025 PT (PROT HROMB IN TIME) W INR prothrombin time 17.8 secon ds 9.3-11 .4 high Not Available [facility] ([facility]) [address] , [place], [address], 07/17/2025 15:57:24 07/17/20 25 07/17/2025 PT (PROT HROMB IN TIME) W INR INR 1.8 ratio 0.97-1 .05 high INR is inten ded to be used ONLY for patie nts on stabl e oral antic oagul ant thera py. Thera peuti c Range s: 2.0-3 .0 Usual Thera peuti c Range 2.5-3 .5 For patie nts with histo ry of Multi ple Deep Vein Throm bus or Mecha nical Heart Valve s Not Available [facility] ([facility]) [address] , [place], [address], 07/17/2025 15:57:24 07/17/20 25 07/17/2025 COMP METAB OLIC PANEL sodium 139 mmol/ L 136-14 5 Not Available [facility] ([facility]) [address] , [place], [address], 07/17/2025 16:58:40 07/17/20 25 07/17/2025 COMP METAB OLIC PANEL potassium 4.6 mmol/ L 3.6-5. 0 Not Available [facility] ([facility]) [address], [place], [address], 07/17/2025 16:58:40 07/17/20 25 07/17/2025 COMP METAB OLIC PANEL chloride 102 mmol/ L 98-107 Not Available [facility] ([facility]) [address], [place], [address], 07/17/2025 16:58:40 07/17/20 25 07/17/2025 COMP METAB OLIC PANEL carbon dioxide 26.7 mmol/ L 21.0-3 2.0 Not Available [facility] ([facility]) [address], [place], [address], 07/17/2025 16:58:40 07/17/20 25 07/17/2025 COMP METAB OLIC PANEL anion gap 14.9 Not Available [facility] ([facility]) [address], [place], [address], 07/17/2025 16:58:40 07/17/20 25 07/17/2025 COMP METAB OLIC PANEL glucose 113 mg/dL 70-120 Not Available [facility] ([facility]) [address] [facility], [place], [address], 07/17/2025 16:58:40 07/17/20 25 07/17/2025 COMP METAB OLIC PANEL BUN 19 mg/dL 7-18 high Not Available [facility] ([facility]) [address] [facility], [place], [address], 07/17/2025 16:58:40 07/17/20 25 07/17/2025 COMP METAB OLIC PANEL creatinine 0.8 mg/dL 0.6-1. 3 Not Available [facility] ([facility]) [address] [facility], [place], [address], 07/17/2025 16:58:40 07/17/20 25 07/17/2025 COMP METAB OLIC PANEL glomerular filtration rate 92 mlper min 60- GFR LIMIT ATION : The eGFR equat ion CKD-E PI 2020 is not appli cable for pedia tric patie nts or great er than 90 years of age. The follo wing condi tions may alter the GFR resul t: extre mes in body size, malnu triti on or obesi ty, skele duarte muscl e disea se, parap legia or quadr ipleg ia, veget fern diet or rapid ly paige ing kiney funct ion. Not Available [facility] ([facility]) [address], [place], [address], 07/17/2025 16:58:40 07/17/20 25 07/17/2025 COMP METAB OLIC PANEL osmolality (calculated) 292 mOsm/ kg 275-30 1 OSMOL ALITY IS A CALCU LATIO N UTILI ZING THE SERUM /PLAS MA SODIU M, GLUCO SE AND UREA NITRO GEN (BUN) LEVEL S. FOR THE MOST ACCUR ATE RESUL T A MEASU RED SERUM OSMOL ALITY IS SUGGE STED. Not Available [facility] ([facility]) [address] [facility], [place], [address], 07/17/2025 16:58:40 07/17/20 25 07/17/2025 COMP METAB OLIC PANEL total protein 7.4 g/dL 6.4-8. 2 Not Available [facility] ([facility]) [address] [facility], [place], [address], 07/17/2025 16:58:40 07/17/20 25 07/17/2025 COMP METAB OLIC PANEL albumin 3.9 g/dL 3.4-5. 0 Not Available [facility] ([facility]) [address] [facility], [place], [address], 07/17/2025 16:58:40 07/17/20 25 07/17/2025 COMP METAB OLIC PANEL globulin 3.5 Not Available [facility] ([facility]) [address] [facility], [place], [address], 07/17/2025 16:58:40 07/17/20 25 07/17/2025 COMP METAB OLIC PANEL alb/glob ratio 1.1 0.7-2 Not Available [facility] ([facility]) [address], [place], [address], 07/17/2025 16:58:40 07/17/20 25 07/17/2025 COMP METAB OLIC PANEL calcium 9.8 mg/dL 8.5-10 .5 Not Available [facility] ([facility]) [address] [facility], [place], [address], 07/17/2025 16:58:40 07/17/20 25 07/17/2025 COMP METAB OLIC PANEL bilirubin total 0.60 mg/dL 0.10-1 .00 Not Available [facility] ([facility]) [address] [facility], [place], [address], 07/17/2025 16:58:40 07/17/20 25 07/17/2025 COMP METAB OLIC PANEL AST (SGOT) 17 U/L 0-37 Not Available [facility] ([facility]) [address] [facility], [place], [address], 07/17/2025 16:58:40 07/17/20 25 07/17/2025 COMP METAB OLIC PANEL ALT (SGPT) 26 U/L 0-65 Not Available [facility] ([facility]) [address] [facility], [place], [address], 07/17/2025 16:58:40 07/17/20 25 07/17/2025 COMP METAB OLIC PANEL alk phosphatase 56 U/L 46-116 Not Available [facility] ([facility]) [address] [facility], [place], [address], 07/17/2025 16:58:40 07/17/20 25 07/17/2025 PROST ATE SPECI FIC AG (PSA) prostate specific Ag (PSA) 6.6 NG/mL 0-4.0 high Not Available [facility] ([facility]) [address] [facility], [place], [address], 07/17/2025 16:58:41 07/17/20 25 07/21/2025 TESTO STERO NE,FR EE AND TOTAL testosterone , serum 295 NG/dL 264-91 6 Adult male refer ence inter valentín is based on a popul ation of healt hy nonob larisa males (BMI <30) betwe en 19 and 39 years old. Claudette robins, et.al . JCEM 2017, 102;1 161-1 173. PMID: 58135 103. Not Available [facility] ([facility]) [address] [facility], [place], [address], 07/21/2025 15:13:03 07/17/20 25 07/21/2025 TESTO STERO NE,FR EE AND TOTAL testosterone , free, direct 5.2 pg/mL 6.6-18 .1 low Perfo rmed at: [facility] [address] [facility], [place] [address] Lab Direc tor: Ramu hernandez PhD, Phone : [phone] Perfo rmed at: [facility] [address] [place] [address] Lab Direc tor: Dayanara mann MD, Phone : [phone] Not Available [facility] ([facility]) [address] [facility], [place], [address], 07/21/2025 15:13:03 07/01/20 25 07/01/2025 PET-C T, skull base to mid-t high scan No observ ation record ed. [facility] [address] [place] [address] Dr, [place], [address], 07/03/2025 10:45:08 Result Notes None recorded. 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 0363544077448 Active 2024 PEDRO Sampson - [place] [facility] [place] 5 11:10:38 Hyperchole sterolemia 54714493 Active 2024 PEDRO Sampson - [place] [facility] [place] 5 11:10:46 History of radiation therapy 924292977 Active 2024 PEDRO Sampson [facility] & [place] 5 11:10:57 Prostate specific antigen above reference range 118251016 Active 2024 MATIAS RIVERA MD [address], [place], [address] , PEDRO Arroyo LPNT [facility] & [place] 5 11:55:36 Lower urinary tract symptoms 151749834 Active 2024 MATIAS RIVERA MD [address], [place], [address] , PEDRO Arroyo LPNT [facility] & [place] 5 11:56:25 Malignant neoplasm of prostate 643414777 Active 2024 MATIAS RIVERA MD [address], [place], [address] , [facility] & [place] 5 16:24:52 Problem Notes Documentation Provider Name and Address Organization Details Recorded Time Ichthyology Teacher Consult Note : SW met w/ pt and during clinic appt for initial consult. SW informed pt of role in care and provided contact information. Pt denied needs at this time. SW communicated support ongoing. Rosmery Aj PEDRO garza [facility] & [place] 07/17/2025 14:22:38 Radiation Oncologist Consult Note : ONN and OSW met with pt. in person at initial visit with medical oncology. Pt.'s present, as well. ONN gave an introduction, contact information, and education material. Pt. did not express any barriers to care. Pt. did not have any questions/concerns. ONN encouraged pt. to reach out should any needs arise. ONN will continue to f/u. Adela Velasquez PEDRO garza LPNT [facility] & [place] 08/04/2025 14:56:37 Procedures Surgical History Date Name Laterality Status Provider Name and Address Organization Details Recorded Time 0 Radiation Therapy completed Mo Mendezmag PEDRO Arroyo NT [facility] & [place] 05/05/2025 10:49:43 0 Cancer Surgery completed Mo Darcie Arroyo HARSH [facility] & [place] 05/05/2025 10:49:43 4 Abdominal Surgery completed Mo VASQUEZ - LPNT [facility] & [place] 05/05/2025 10:49:43 7 Tonsillectomy/ Adenoidectomy completed Mo Arroyo LPNT [facility] & [place] 05/05/2025 10:49:43 knee joint operation completed Nieves Arroyo LPELROY [facility] & [place] 01/06/2025 11:09:38 Imaging Results None recorded. Procedure Notes None recorded. Medical Equipment None Reported. Allergies Allergen ID Allergen Name Allergen Category Reaction Reaction Severity Criticality Documentation Date Start Date Code Code System Note Provider Name and Address Organization Details Recorded Time 977118 Substance with sulfonami de structure and antibacte rial mechanism of action (substanc e) medicatio n Not available Not available Not available 12/10/2024 86709 8003 SNOMED Nieves Dinh [facility], PEDRO Arroyo LPNT [facility] & [place] 09:33:08 Medications Name Sig Start Date Stop Date Status Note LastModified by Organization Details LastModified Time losartan 50 mg tablet Take 1 tablet every day by oral route. active Not Available Not Available No t Available atorvastati n 40 mg tablet Take 1 tablet every day by oral route. active Not Available Not Available No t Available metformin 500 mg tablet Take 1 tablet twice a day by oral route. active Not Available Not Available No t Available warfarin 10 mg tablet Take 1 tablet every day by oral route. active Not Available Not Available No t Available glipizide ER 10 mg tablet, extended release 24 hr 07/17 completed Not Available Not Available Not Available glipizide 10 mg tablet Take 1 tablet every day by oral route. active Not Available Not Available No t Available tramadol 50 mg tablet TAKE 1 TABLET BY MOUTH EVERY 6 HOURS NEEDED FOR MODERATE PAIN 4-6 PAIN SCALE active Not Available Not Available No t Available Vitamin C 1,000 mg tablet Take by oral route. active Not Available Not Available No t Available tamsulosin 0.4 mg capsule Take 1 capsule every day by oral route. active Not Available Not Available No t Available FV Vitamin C 1000 mg tablet Take by oral route. active Not Available Not Available No t Available cefdinir 300 mg capsule Take 1 capsule every 12 hours by oral route for 3 days. 07/24 completed Not Available Not Available Not Available enoxaparin 100 mg/mL subcutaneou s syringe INJECT 1 ML SUBCUTANE OUSLY TWICE DAILY 06/09 completed Not Available Not Available Not Available [address] Lidia 06/09 completed Not Available Not Available Not Available Co Q-10 active Not Available Not Avail able Not Available Zyrtec active Not Available Not Availa ble Not Available Calcium 600 + D(3) active Not Available Not Available Not Available Gas-X Ultra-Stren gth 180 mg capsule Take 1 capsule by oral route for 5 days. 2024 active Not Available Not Available Not Avai lable vitamin B12 500 mcg-folic acid 400 mcg tablet Take by oral route. active Not Available Not Available No t Available niacin (inositol niacinate) 500 mg tablet Take by oral route. active Not Available Not Available No t Available melatonin 10 mg capsule Take by oral route. active Not Available Not Available No t Available Jardiance 25 mg tablet Take 1 tablet every day by oral route. active Not Available Not Available No t Available turmeric active Not Available Not Avai lable Not Available Vitals Date Recorded Body height Body mass index (BMI) Body weight Body temperature Oxygen saturation Oxygen saturation in Arterial blood by Pulse oximetry Heart rate Systolic And Diastolic Provider Name and Address Organization Details Last Updated DateTime 182.88 cm 30.5 kg/m2 872404. 21 g 98.2 [degF] 96 % 96 % 66 /min 139/77 mm[Hg] Renea Frankie VASQUEZ [facility] & [place] 13:13:36 Social History Question Answer Notes LastModified by Organizat ion Details LastModified Time Tobacco Smoking Status Never Smoker Renea Frankie null, [place] - [facility] & [place] 07/17/2025 13:16:05 Do You Have An Advance Directive? No Information not available 05/05/2025 Are You Blind Or Do You Have Difficulty Seeing? Yes Information not available 05/05/2025 What Is Your Level Of Caffeine Consumption? Moderate [email or web address] Information not available 07/17/2025 What Was The Date Of Your Most Recent Tobacco Screening? 05/02/2025 Information not available 05/05/2025 Are You Passively Exposed To Smoke? No Information not available 05/05/2025 Has Tobacco Cessation Counseling Been Provided? No [email or web address] Information not available 07/17/2025 Sex: Unknown Functional Status Question Answer Note LastModified by Organizat ion Details LastModified Time Do you use any illicit or recreational drugs? No Information not available 05/05/2025 Do you or have you ever used any other forms of tobacco or nicotine? No [email or web address] Information not available 07/17/2025 What is your level of alcohol consumption? None Information not available 05/05/2025 What is your exercise level? Occasional Information not available 05/05/2025 Mental Status Question Answer Note LastModified by Organization D etails LastModified Time Do you feel stressed (tense, restless, nervous, or anxious, or unable to sleep at night)? [id number] Information not available 05/05/2025 Family History Relationship Description Onset Age of this Age Resolved Age Notes LastModified by Organization Details LastModified Time Mother Malignant melanoma [email or web address] Not available 07/17 13:14:00 Paternal Aunt Malignant neoplastic disease states it grew on her spine and ended up killin g her . [email or web address] Not available 07/17/2025 13:15:27 Medical History Condition Response Diabetes Y Clotting Disorder Y Back Problems Y Deep Vein Thrombosis Y Hypertension Y High Cholesterol Y Immunizations Vaccine Type Date Status Note Provider Nam e and Address Organization Details Recorded Time Influenza, adjuvanted, trivalent, PF 9 completed Not Available [facility] 08/07/2025 10:12:24 Influenza, split virus, quadrivalent, PF 0 completed Not Available [facility] 08/07/2025 10:12:24 Pneumococcal conjugate PCV 13 0 completed Not Available [facility] 08/07/2025 10:12:24 COVID-19, mRNA, LNP-S, PF, 100 mcg/0.5mL dose or 50 mcg/0.25mL dose 1 completed Not Available [facility] 08/07/2025 10:12:24 COVID-19, mRNA, LNP-S, PF, 100 mcg/0.5mL dose or 50 mcg/0.25mL dose 1 completed Not Available [facility] 08/07/2025 10:12:24 Influenza, high-dose, quadrivalent, PF 1 completed Not Available [facility] 08/07/2025 10:12:24 COVID-19, mRNA, LNP-S, PF, 100 mcg/0.5mL dose or 50 mcg/0.25mL dose 1 completed Not Available [facility] 08/07/2025 10:12:24 Influenza, high-dose, quadrivalent, PF 2 completed Not Available [facility] 08/07/2025 10:12:24 COVID-19, mRNA, LNP-S, bivalent, PF, 50 mcg/0.5 mL or 25mcg/0.25 mL dose 2 completed Not Available [facility] 08/07/2025 10:12:24 RSV, bivalent, protein subunit RSVpreF, diluent reconstituted, 0.5 mL, PF 3 completed Not Available [facility] 08/07/2025 10:12:24 Influenza, adjuvanted, quadrivalent, PF 3 completed Not Available [facility] 08/07/2025 10:12:24 Pneumococcal conjugate PCV20, polysaccharide [id number] conjugate, adjuvant, PF 4 completed Not Available [facility] 08/07/2025 10:12:24 Influenza, high-dose, trivalent, PF 4 completed Not Available [facility] 08/07/2025 10:12:24 Tdap 4 completed Not Available [facility] 08/07/2025 10:12:24 zoster recombinant 4 completed Not Available [facility] 08/07/2025 10:12:24 zoster recombinant 5 completed Not Available [facility] 08/07/2025 10:12:24 Past Encounters Encounter ID Performer Location Encounter Start Date Encounter Closed Date Diagnosis/Indication Diagnosis SNOMED-CT Code Diagnosis ICD10 Code Diagnosis IMO Codes Diagnosis Note [id number] MATIAS RIVERA MD [facility] [facility] [address] [place] [address] 07/07/2025 07:42:01 07/07/2025 08:21:52 Malignant neoplasm of prostate 335627636 C61 [id number] MATIAS RIVERA MD [facility]-[address] [place] [address] 07/14/2025 07:49:24 07/14/2025 08:33:29 Malignant neoplasm of prostate 986430002 C61 82555 Prostate s pecific antigen above reference range 161026714 R97.20 [id number] Markell Sharma MD [facility] [address] [place] [address] 07/17/2025 13:02:04 07/17/2025 13:56:16 Malignant neoplasm of prostate 442397785 C61 76558 Prostate biopsy performed on May 20, 2025 with findings of prostate adenocarci noma [place] 4+3=7 involving 1 core. Representi ng 15% of total core volume. No perineural invasion identified . Patient seen by Radiation Medicine and discussion radiation therapy for treatment prostate cancer. PSA PET scan performed on July 01, 2025 with no evidence metastatic disease.Ba sed on pathology and imaging pT2 N0 M0. Stage II. grade group 3 based on Buzz score. ECOG 0. Based on NCCN guidelines patient falls into intermedia te risk category. Discussion androgen deprivatio n therapy with Eligard or Lupron for 4-6 months. Will start androgen deprivatio n prior to starting radiation therapy. Will follow-up Patient presents July 17, 2025. Discussed androgen deprivatio n therapy and considerat ion there of while being treated with radiation therapy. 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 Patient received 1 cycle ABVD with significan t side effects. Patient finished treatment with radiation therapy. Patient has been on observatio n since that time. Health Concerns Section Related Observation LastModified by Organization Detai ls LastModified Time None Recorded Concern Status LastModified by Organization Details LastModified Time None Recorded Payers Encounter Date Sequence Insurance Name Policy Number Policy Moraes Covered Member ID Moraes Member ID Guarantor Name 07/17/2025 1 [facility] (MEDICARE REPLACEMENT/A DVANTAGE - PPO) [id number] Srinivasa Hager [id number] Srinivasa Alley Notes Date Note Type Note Provider Name and Address Organization Details Recorded Time 07/17/2025 text/html 75 yo M presents for evaluation of prostate cancer. Patient seen by Urology in April 2025 for elevated PSA. Prostate biopsy performed on May 20, 2025 with findings of prostate adenocarcinoma [place] 4+3=7 involving 1 core. Representing 15% of total core volume. No perineural invasion identified. Patient seen by Radiation Medicine and discussion radiation therapy for treatment prostate cancer. PSA PET scan performed on July 01, 2025 with no evidence metastatic disease.Based on pathology and imaging pT2 N0 M0. Stage II. grade group 3 based on [place] score. ECOG 0. Based on NCCN guidelines patient falls into intermediate risk category. Discussion androgen deprivation therapy with Eligard or Lupron for 4-6 months. Will start androgen deprivation prior to starting radiation therapy. Will follow-up Patient presents July 17, 2025. Discussed androgen deprivation therapy and consideration there of while being treated with radiation therapy. Markell Sharma MD [address], [place], [address], [place] - [facility] - [place] & [place] 07/17/2025 14:52:17
--- OUTSIDE RECORDS SUMMARY | 2025-08-12 15:09 | XMS_ITS | Continuity of Care Document ---
Author Organization [facility] Address [address] [address] Care Team Providers Care Facing End Trimmer Name Role Phone SIA FERRIS Primary Care Provider Assessment Encounter Date Assessment Date Assessment LastModified by Organization Details LastModified Time 07/07/2025 07/07/2025 ASSESSMENT: Srinivasa Hager is a 75-year-old male with prostate cancer localized to the prostate gland and a history of factor V Leiden deficiency. PLAN: 1. Refer the patient to Dr. Martins, a radiation oncologist, for consultation regarding radiation therapy options for prostate cancer treatment. 2. Advise the patient to monitor for communication from Dr. Martins' office within two to three days. If no contact is made, the patient should notify this office. 3. Plan to follow up with the patient in three to four weeks to address any further questions and coordinate care. 4. Discuss the expected outcomes of radiation therapy, including significant PSA reduction and monitoring PSA levels post-treatment to confirm remission. 5. Provide reassurance regarding the low likelihood of recurrence, estimated to be well below 10%. 6. Coordinate scheduling based on the patient's availability, noting that both the patient and provider will be out of town during specific dates. Please note this report was created using voice recognition/text compilation software documentation services during the encounter with the patient. [email or web address] Not available 07/07/2025 08:18:27 Plan of Treatment Reminders Order Date Submit Date Provider Last Modified By Organization Details Last Modified Time Details Appointments OV EST 30 2024 01:00P Arelis Teixeira PA-C Not available Not available Not available Lab None recorded. Referral radiation oncologis t referral - Glsn 4+3 2024 025 [email or web address] Iza Clayton MD, [address] [facility], [place], [address], 08/04/2025 14:56:37 Procedures None recorded. Surgeries None recorded. Imaging None recorded. Medication Orders None recorded. Patient TargetsNo targets recorded. Patient InstructionsNo instructions recorded. Reason for Referral Glsn 4+3 Referring Physician: Jorge Rivera, Urology, Encounter Date: 07/07/2025 Results Created Date Observation Date Name Description Value Unit Range Abnormal Flag Note LastModifiedBy Organization Detail LastModifiedTime 06/09/2006/09/2025 urina lysis , dipst ick Leukocytes (reference range) negati ve Not Available [place] [address] [address] [facility] [address], [place], [address], 06/09/2025 15:45:06 06/09/20 25 06/09/2025 urina lysis , dipst ick Nitrite (reference range:) negati ve Not Available [place] [address] [address] [facility] [address], [place], [address], 06/09/2025 15:45:06 06/09/20 25 06/09/2025 urina lysis , dipst ick Urobilinogen (reference range) 0.2 Not Available [place] [address] [address] [facility] [address], [place], [address], 06/09/2025 15:45:06 06/09/20 25 06/09/2025 urina lysis , dipst ick Protein (reference range) negati ve Not Available [place] [address] [address] [facility] [address], [place], [address], 06/09/2025 15:45:06 06/09/20 25 06/09/2025 urina lysis , dipst ick pH (reference range 5-8.5) 5.5 Not Available Rosemary [place]al [place] [address] [address] [facility] [address], [place], [address], 06/09/2025 15:45:06 06/09/20 25 06/09/2025 urina lysis , dipst ick Blood (reference range:) large Not Available [place] [address] [address] [facility] [address], [place], [address], 06/09/2025 15:45:06 06/09/20 25 06/09/2025 urina lysis , dipst ick Specific Bowdle (reference range) 1.010 Not Available [place] [address] [address] [facility] [address], [place], [address], 06/09/2025 15:45:06 06/09/20 25 06/09/2025 urina lysis , dipst ick Ketone (reference range) negati ve Not Available [place] [address] [address] [facility] [address], [place], [address], 06/09/2025 15:45:06 06/09/20 25 06/09/2025 urina lysis , dipst ick Bilirubin (reference range) negati ve Not Available [place] [address] [address] [facility] [address], [place], [address], 06/09/2025 15:45:06 06/09/20 25 06/09/2025 urina lysis , dipst ick Glucose (reference range) 1000 Not Available [place] [address] [address] [facility] [address], [place], [address], 06/09/2025 15:45:06 06/09/20 25 06/09/2025 urina lysis , dipst ick Color (reference range: yellow-brown ) Yellow Not Available [place] [address] [address] [facility] [address], [place], [address], 06/09/2025 15:45:06 06/09/20 25 06/09/2025 bladd er scan (PROC ) Calculated Residual Urine: 0ml Not Available [facility] [address], [place], [address], 06/09/2025 15:44:54 07/01/20 25 07/01/2025 PET-C T, skull base to mid-t high scan No observ ation record ed. [facility] [address] [place] [address] [place], [address], 07/03/2025 10:45:08 Result Notes None recorded. 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 0413141680507 Active 2024 Nieves garza, [place] - [facility] - [place] & [place] 5 11:10:38 Hyperchole sterolemia 57212529 Active 2024 Nieves garza, [place] [facility] [place] & [place] 5 11:10:46 History of radiation therapy 901314829 Active 2024 Nieves garza, [place] [facility] [place] & [place] 5 11:10:57 Prostate specific antigen above reference range 912943003 Active 2024 JORGE RIVERA MD [address], [place], [address] , [place] [facility] & [place] 5 11:55:36 Lower urinary tract symptoms 707896406 Active [address], [place], [address] , [place] [facility] - [place] & [place] 5 11:56:25 Malignant neoplasm of prostate 415171206 Active [address], [place], [address] , [place] [facility] & [place] 5 16:24:52 Problem Notes None recorded. Procedures Surgical History Date Name Laterality Status Provider Name and Address Organization Details Recorded Time 0 Radiation Therapy completed Mo CHE [facility] & [place] 05/05/2025 10:49:43 0 Cancer Surgery completed Mo Mendez [facility] & [place] 05/05/2025 10:49:43 4 Abdominal Surgery completed Mo Mendez [facility] & [place] 05/05/2025 10:49:43 7 Tonsillectomy/ Adenoidectomy completed Mo Mendez [facility] & [place] 05/05/2025 10:49:43 knee joint operation completed Nieves CHE [facility] & [place] 01/06/2025 11:09:38 Imaging Results None recorded. Procedure Notes None recorded. Medical Equipment None Reported. Allergies Allergen ID Allergen Name Allergen Category Reaction Reaction Severity Criticality Documentation Date Start Date Code Code System Note Provider Name and Address Organization Details Recorded Time 651393 Substance with sulfonami de structure and antibacte rial mechanism of action (substanc e) medicatio n Not available Not available Not available 12/10/2024 54602 [id number] SNOMED Nieves Dinh [facility], [facility] & [place] 5 09:33:08 Medications Name Sig Start Date Stop [...] Available Not Avai lable Not Available Vitals None Recorded Social History Question Answer Notes LastModified by Organizat ion Details LastModified Time Tobacco Smoking Status Never Smoker Renea David null, [place] - [facility] - [place] & [place] 07/17/2025 13:16:05 Do You Have An Advance Directive? No Information not available 05/05/2025 Are You Blind Or Do You Have Difficulty Seeing? Yes Information not available 05/05/2025 What Is Your Level Of Caffeine Consumption? Moderate Information not available 07/17/2025 What Was The Date Of Your Most Recent Tobacco Screening? 05/02/2025 Information not available 05/05/2025 Are You Passively Exposed To Smoke? No Information not available 05/05/2025 Has Tobacco Cessation Counseling Been Provided? No [email or web address] Information not available 07/17/2025 Sex: Unknown Functional Status Question Answer Note LastModified by Organizat ion Details LastModified Time Do you use any illicit or recreational drugs? No Information not available 05/05/2025 Do you or have you ever used any other forms of tobacco or nicotine? No [email or web address] Information not available 07/17/2025 What is your level of alcohol consumption? None Information not available 05/05/2025 What is your exercise level? Occasional Information not available 05/05/2025 Mental Status Question Answer Note LastModified by Organization D etails LastModified Time Do you feel stressed (tense, restless, nervous, or anxious, or unable to sleep at night)? [id number] Information not available 05/05/2025 Family History Relationship Description Onset Age of this Age Resolved Age Notes LastModified by Organization Details LastModified Time Mother Malignant melanoma [email or web address] Not available 07/17 13:14:00 Paternal Aunt Malignant neoplastic disease states it grew on her spine and ended up killin g her . [email or web address] Not available 07/17/2025 13:15:27 Medical History Condition Response Diabetes Y Clotting Disorder Y High Cholesterol Y Back Problems Y Deep Vein Thrombosis Y Hypertension Y Immunizations Vaccine Type Date Status Note Provider Nam e and Address Organization Details Recorded Time Influenza, adjuvanted, trivalent, PF 9 completed Not Available [facility] 08/07/2025 10:12:24 Influenza, split virus, quadrivalent, PF 0 completed Not Available [facility] 08/07/2025 10:12:24 Pneumococcal conjugate PCV 13 0 completed Not Available [facility] 08/07/2025 10:12:24 COVID-19, mRNA, LNP-S, PF, 100 mcg/0.5mL dose or 50 mcg/0.25mL dose 1 completed Not Available [facility] 08/07/2025 10:12:24 COVID-19, mRNA, LNP-S, PF, 100 mcg/0.5mL dose or 50 mcg/0.25mL dose 1 completed Not Available [facility] 08/07/2025 10:12:24 Influenza, high-dose, quadrivalent, PF 1 completed Not Available [facility] 08/07/2025 10:12:24 COVID-19, mRNA, LNP-S, PF, 100 mcg/0.5mL dose or 50 mcg/0.25mL dose 1 completed Not Available [facility] 08/07/2025 10:12:24 Influenza, high-dose, quadrivalent, PF 2 completed Not Available [facility] 08/07/2025 10:12:24 COVID-19, mRNA, LNP-S, bivalent, PF, 50 mcg/0.5 mL or 25mcg/0.25 mL dose 2 completed Not Available [facility] 08/07/2025 10:12:24 RSV, bivalent, protein subunit RSVpreF, diluent reconstituted, 0.5 mL, PF 3 completed Not Available [facility] 08/07/2025 10:12:24 Influenza, adjuvanted, quadrivalent, PF 3 completed Not Available [facility] 08/07/2025 10:12:24 Pneumococcal conjugate PCV20, polysaccharide [id number] conjugate, adjuvant, PF 4 completed Not Available [facility] 08/07/2025 10:12:24 Influenza, high-dose, trivalent, PF 4 completed Not Available [facility] 08/07/2025 10:12:24 Tdap 4 completed Not Available [facility] 08/07/2025 10:12:24 zoster recombinant 4 completed Not Available [facility] 08/07/2025 10:12:24 zoster recombinant 5 completed Not Available [facility] 08/07/2025 10:12:24 Past Encounters Encounter ID Performer Location Encounter Start Date Encounter Closed Date Diagnosis/Indication Diagnosis SNOMED-CT Code Diagnosis ICD10 Code Diagnosis IMO Codes Diagnosis Note [id number] JORGE RIVERA MD [facility] 00 [address] [facility] [address] [place] [address] 06/09/2025 14:46:25 06/09/2025 16:29:00 Malignant neoplasm of prostate [id number] C61 [id number] JORGE RIVERA MD [facility] [address] [facility] [address] [place] [address] 07/07/2025 07:42:01 07/07/2025 08:21:52 Malignant neoplasm of prostate [id number] C61 55826 Health Concerns Section Related Observation LastModified by Organization Detai ls LastModified Time None Recorded Concern Status LastModified by Organization Details LastModified Time None Recorded Payers Encounter Date Sequence Insurance Name Policy Number Policy Moraes Covered Member ID Moraes Member ID Guarantor Name 07/07/2025 1 [facility] (MEDICARE REPLACEMENT/A DVANTAGE - PPO) [id number] Srinivasa Hager [id number] Srinivasa Hager Notes Date Note Type Note Provider Name and Address Organization Details Recorded Time 07/07/2025 text/html 07/07/25 Tele visit to discuss PET-CT results. Srinivasa Hager is a 75-year-old male who presents for a telephonic visit regarding prostate cancer management. He has a history of prostate cancer and factor V Leiden deficiency, which complicates surgical options due to the need to discontinue blood thinners for several weeks. He has undergone a PSMA scan last week, which demonstrated no evidence of metastatic disease, with findings limited to the prostate. He has previously undergone radiation therapy using stereotactic radiation techniques, which resulted in two thyroid cysts but no thyroid cancer. He expresses interest in radiation therapy as a treatment option for his current condition and has questions about the process, outcomes, and follow-up. He is considering consultation with Dr. Martins, a radiation oncologist, for further evaluation and treatment planning. Audio only tele visit conducted my office in [facility]. Patient identity confirmed with name and date of . Verbal consent given to proceed. 06/09/25 Patient returns to my office for TRUS Bx results.Srinivasa Hager is a 75-year-old male who presents for a post-operative follow-up. He underwent prostate biopsy due to concerns raised by MRI findings and a modest elevation in PSA levels. Out of 19 cores taken during the biopsy, cancer was identified in only one core, with a Buzz score of 4+3=7, indicating intermediate-risk prostate cancer. Additionally, abnormal cells were noted in a lesion adjacent to the cancerous area, which is not uncommon when cancer is nearby. Srinivasa has a history of cancer treatment, including chemotherapy and radiation therapy, and reports that his previous cancer disappeared following treatment. He recalls being treated by Dr. Vasquez, his oncologist, during that time. He also experienced complications with chemotherapy, including lung issues, which led to a switch to radiation therapy. Post-operatively, Srinivasa reports bleeding episodes that began after taking Lovenox and warfarin. He describes bright red blood spots initially, which progressed to significant bleeding, including soaking through clothing. He attempted to contact the clinic but faced challenges reaching staff on Sunday. He eventually connected with a nurse who ordered INR and blood count tests. The INR results were slightly elevated but within normal range. Srinivasa discontinued Lovenox and adjusted his warfarin dosage under medical guidance, which led to improvement in bleeding. He notes intermittent discharge, including dark red blood clots and slimy material resembling gelatin. Srinivasa denies pain associated with the prostate cancer and reports hemorrhoids as a separate concern. He expresses interest in understanding the rate of growth of his prostate cancer and the next steps in management. 05/05/25Patient returns to my office for MRI results and follow up LUTS and elevated PSA.Srinivasa Hager is a 75-year-old male who presents for a follow-up visit. He has a history of lymphoma, which required both punch and slice biopsies, and treatment with Lovenox bridging due to Factor V Leiden and Coumadin use. He reports undergoing an MRI of the prostate, which identified three PI-RADS 4 lesions: two in the peripheral zone and one in the transition zone. He expresses concern about the possibility of clinically significant prostate cancer and discusses the implications of his anticoagulation therapy on potential biopsy procedures.He mentions a prior colonoscopy performed approximately three to four years ago, during which two small polyps measuring 5 millimeters were removed. He also notes a history of thyroid cysts, which he attributes to prior chemotherapy or radiation therapy. He has been advised by his oncologist to monitor his thyroid function, which has been stable thus far.Srinivasa describes a previous experience with a sinus infection that required antibiotics, which interfered with his warfarin therapy and resulted in hematuria for three days. He recalls receiving vitamin K treatment to stabilize his condition. 0 01/06/25Srinivasa Hager is a 74-year-old male who presents for a new patient visit. He reports a history of elevated PSA levels, which have increased over the past few months. His primary care physician recommended he see a specialist due to the elevated levels. He has been taking tamsulosin (Flomax) for urinary symptoms, which he started on the advice of a previous doctor. His primary care physician recently doubled the dosage, but he has not noticed significant improvement in his symptoms. He reports urinating three to four times per night, which can be reduced to once if he stops drinking fluids after 6 PM. He denies any blood in his urine or history of urinary tract infections.Srinivasa has a significant medical history, including factor V Leiden deficiency, for which he takes Coumadin. He has had three major blood clots in the past, and his condition was diagnosed after his blood was sent for testing in [place]. He also has a history of lymphoma, which he has been managing for nearly five years. His father likely from a perforated bowel, and Srinivasa himself has been told he is at risk for a similar condition. 07/01/25 PET-CT (CRM): Extensive scatter and artifact throughout the examination, somewhat lowering sensitivity. Examination reveals no focal areas of hyperintense uptake to suggest the presence of bony metastatic disease or abnormal abdominal/pelvic lymph nodes. Scattered uptake throughout the prostate, there may be small more focal area of uptake within the posterior lateral left gland, SUV 7.0 image 254, this could represent the site of primary malignancy although artifact obscured detail as defined above. CT reveals aortic and coronary atherosclerosis. Calcified granuloma right lung, basilar scaring/atelectasis. Small fat-containing umbilical hernia. Degenerative disease involving the spine, PARS defects L5.No evidence of metastatic disease. 05/20/25 TRUS Bx: RLM 4+3=7, PI RADS #3 Atypical small acinar proliferation, vol 54.2 cc04/23/25 MRI Prostate w/w/o (): PERIPHERAL ZONE: 2 small decreased T2 signal nodules are seen in the right posterior peripheral zone at the mid gland. The more anterior one measures 5 x 4 mm in the more posterior one measures 6 x 5 mm. These both show significant restricted diffusion and early contrast enhancement. These are consistent with PI-RADS 4 lesions and were localized on the [employer] CAD software.TRANSITION ZONE: The transition zone is enlarged and nodular consistent with BPH. There is a 13 x 9 mm focus of decreased T2 signal involving the left anterior transition zone at the base of the gland with significant restricted diffusion and early contrast enhancement. This is consistent with a PI-RADS 4 lesion and was localized on the [employer] CAD software. Vol. PSA 5.611/06/14 PSA 4. PSA 3.93 JORGE RIVERA MD [address] [facility], [place], [address], [facility] - [facility] - [place] & [place] 07/07/2025 12:24:16
--- OUTSIDE RECORDS SUMMARY | 2025-08-12 15:09 | XMS_ITS | Clinical Summary ---
Author Organization [facility] ([place], [place], [place], [place]) Address [address] [place] [address] Care Team Providers Care Peeled Potato Inspector Name Role Phone Unavailable Primary Care Provider [...] or (1 - 1-dose 75+ series) 2024 Falls Risk Screening 10/22/2024 COVID-19 VACCINE (5 - 2024-2 6 season) 2025 08/09/2022, 08/24/2021, 12/15/2020, Additional history exists Influenza Vaccine (#1) 2025 , 07/10/2023, 08/07/2022, Additional history exists DTAP/TDAP/TD VACCINES (2 - T d or Tdap) 09/22/2034 09/22/2024 Pneumococcal 50+ years Completed 08/28/2024, 2019 Shingles Vaccine (Zoster) Completed 12/01/2024, 11/2023 Insurance [facility] MEDICARE ADVANTAGE
--- OUTSIDE RECORDS SUMMARY | 2025-08-12 15:09 | XMS_ITS | Encounter Summary ---
[facility] Organization 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
--- OUTSIDE RECORDS SUMMARY | 2025-08-12 15:09 | XMS_ITS | Encounter Summary ---
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
--- OUTSIDE RECORDS SUMMARY | 2025-08-12 15:09 | XMS_ITS | Continuity of Care Document ---
Author Organization [facility] Address [address] [place] [address] Care Team Providers Care Office Runner Name Role Phone SIA FERRIS Primary Care Provider [phone] Assessment No assessment recorded. Plan of Treatment Reminders Order Date Submit Date Provider Last Modified By Organization Details Last Modified Time Details Appointments OV EST 30 2024 01:00P Arelis Teixeira PA-C Not available Not available Not available Lab PSA, serum or plasma 2024 025 [facility] (Registration ), [address] , [place], [address], 08/07/2025 11:42:09 CMP, serum or plasma 2024 025 [facility] (Registration ), [address] , [place], [address], 08/07/2025 11:42:07 testoste columba, free + total, serum 2024 025 [facility] (Registration ), [address] , [place], [address], 08/11/2025 15:12:56 CBC w/ diff [address] (Registration ), [address] , [place], [address], 08/07/2025 10:43:01 Referral None recorded . Procedures None recorded . Surgeries None recorded . Imaging None recorded . Medication Orders None recorded . Patient TargetsNo targets recorded. Patient InstructionsNo instructions recorded. Reason for Referral None Reported. Results Created Date Observation Date Name Description Value Unit Range Abnormal Flag Note LastModifiedBy Organization Detail LastModifiedTime 07/17/2007/17/2025 CBC AUTO W DIFF WBC 8.6 K/uL 4.0-10 .5 Not Available [facility] ([facility]) [address] , [place], [address], 07/17/2025 15:55:14 07/17/2007/17/2025 CBC AUTO W DIFF RBC 5.6 M/mm3 4.7-6. 1 Not Available [facility] ([facility]) [address], [place], [address], 07/17/2025 15:55:14 07/17/20 25 07/17/2025 CBC AUTO W DIFF HGB 15.5 gm/dL 13.5-1 8.0 Not Available [facility] ([facility]) [address] , [place], [address], 07/17/2025 15:55:14 07/17/20 25 07/17/2025 CBC AUTO W DIFF HCT 47.7 % 42.0-5 2.0 Not Available [facility] ([facility]) [address] [place], [address], 07/17/2025 15:55:14 07/17/2007/17/2025 CBC AUTO W DIFF MCV 85.3 fL 78-100 Not Available [facility] ([facility]) [address] [place], [address], 07/17/2025 15:55:14 07/17/2007/17/2025 CBC AUTO W DIFF MCH 27.7 pg 27-31 Not Available [facility] ([facility]) [address] [place], [address], 07/17/2025 15:55:14 07/17/20 25 07/17/2025 CBC AUTO W DIFF MCHC 32.5 g/dL 32-36 Not Available [facility] ([facility]) [address] , [place], [address], 07/17/2025 15:55:14 07/17/20 25 07/17/2025 CBC AUTO W DIFF RDW 14.1 % 11.5-1 4.0 high Not Available [facility] ([facility]) [address] , [place], [address], 07/17/2025 15:55:14 07/17/20 25 07/17/2025 CBC AUTO W DIFF platelet count 230 K/uL 150-45 0 Not Available [facility] ([facility]) [address], [place], [address], 07/17/2025 15:55:14 07/17/20 25 07/17/2025 CBC AUTO W DIFF MPV 9.5 fL 6-9.5 Not Available [facility] ([facility]) [address] , [place], [address], 07/17/2025 15:55:14 07/17/20 25 07/17/2025 CBC AUTO W DIFF neutrophil% 61.4 % 43-65 Not Available [facility] ([facility]) [address] [place], [address], 07/17/2025 15:55:14 07/17/20 25 07/17/2025 CBC AUTO W DIFF lymphocyte% 26.9 % 20.5-4 5.5 Not Available [facility] ([facility]) [address] [place], [address], 07/17/2025 15:55:14 07/17/20 25 07/17/2025 CBC AUTO W DIFF monocyte% 8.7 % 5.5-11 .7 Not Available [facility] ([facility]) [address], [place], [address], 07/17/2025 15:55:14 07/17/20 25 07/17/2025 CBC AUTO W DIFF eosinophil% 2.2 % 0.9-2. 9 Not Available [facility] ([facility]) [address], [place], [address], 07/17/2025 15:55:14 07/17/20 25 07/17/2025 CBC AUTO W DIFF basophil% 0.6 % 0.2-1. 0 Not Available [facility] ([facility]) [address] [facility], [place], [address], 07/17/2025 15:55:14 07/17/20 25 07/17/2025 CBC AUTO W DIFF immature granulocytes % 0.2 % 0.0-0. 8 Not Available [facility] ([facility]) [address] [facility], [place], [address], 07/17/2025 15:55:14 07/17/20 25 07/17/2025 CBC AUTO W DIFF nucleated red blood cells % 0.0 % Not Available [facility] ([facility]) [address] [facility], [place], [address], 07/17/2025 15:55:14 07/17/2007/17/2025 CBC AUTO W DIFF neutrophil# 5.3 K/uL 2.2-4. 8 high Not Available [facility] ([facility]) [address] [facility], [place], [address], 07/17/2025 15:55:14 07/17/20 25 07/17/2025 CBC AUTO W DIFF lymphocyte# 2.3 cell/ mcL 1.3-2. 9 Not Available [facility] ([facility]) [address] [place], [address], 07/17/2025 15:55:14 07/17/20 25 07/17/2025 CBC AUTO W DIFF monocyte# 0.7 cell/ mcL 0.3-0. 8 Not Available [facility] ([facility]) [address], [place], [address], 07/17/2025 15:55:14 07/17/20 25 07/17/2025 CBC AUTO W DIFF eosinophil# 0.2 cell/ mcL 0-0.2 Not Available [facility] ([facility]) [address], [place], [address], 07/17/2025 15:55:14 07/17/20 25 07/17/2025 CBC AUTO W DIFF basophil# 0.1 cell/ mcL 0.0-1. 0 Not Available [facility] ([facility]) [address], [place], [address], 07/17/2025 15:55:14 07/17/20 25 07/17/2025 CBC AUTO W DIFF immature gramulocytes # 0.02 K/uL Not Available [facility] ([facility]) [address] [facility], [place], [address], 07/17/2025 15:55:14 07/17/20 25 07/17/2025 CBC AUTO W DIFF nucleated red blood cells # 0.00 K/uL Not Available [facility] ([facility]) [address] [facility], [place], [address], 07/17/2025 15:55:14 07/17/2007/17/2025 CBC AUTO W DIFF manual differential NO Not Available [facility] ([facility]) [address], [place], [address], 07/17/2025 15:55:14 07/17/20 25 07/17/2025 PT (PROT HROMB IN TIME) W INR prothrombin time 17.8 secon ds 9.3-11 .4 high Not Available [facility] ([facility]) [address], [place], [address], 07/17/2025 15:57:24 07/17/20 25 07/17/2025 PT (PROT [...] Mecha nical Heart Valve s Not Available [facility] ([facility]) [address], [place], [address], 07/17/2025 15:57:24 07/17/20 25 07/17/2025 COMP METAB OLIC PANEL sodium 139 mmol/ L 136-14 5 Not Available [facility] ([facility]) [address] [place], [address], 07/17/2025 16:58:40 07/17/20 25 07/17/2025 COMP METAB OLIC PANEL potassium 4.6 mmol/ L 3.6-5. 0 Not Available [facility] ([facility]) [address] [place], [address], 07/17/2025 16:58:40 07/17/20 25 07/17/2025 COMP METAB OLIC PANEL chloride 102 mmol/ L 98-107 Not Available [facility] ([facility]) [address] [place], [address], 07/17/2025 16:58:40 07/17/20 25 07/17/2025 COMP METAB OLIC PANEL carbon dioxide 26.7 mmol/ L 21.0-3 2.0 Not Available [facility] ([facility]) [address] [place], [address], 07/17/2025 16:58:40 07/17/20 25 07/17/2025 COMP METAB OLIC PANEL anion gap 14.9 Not Available [facility] ([facility]) [address], [place], [address], 07/17/2025 16:58:40 07/17/20 25 07/17/2025 COMP METAB OLIC PANEL glucose 113 mg/dL 70-120 Not Available [facility] ([facility]) [address] , [place], [address], 07/17/2025 16:58:40 07/17/20 25 07/17/2025 COMP METAB OLIC PANEL BUN 19 mg/dL 7-18 high Not Available [facility] ([facility]) [address] , [place], [address], 07/17/2025 16:58:40 07/17/20 25 07/17/2025 COMP METAB OLIC PANEL creatinine 0.8 mg/dL 0.6-1. 3 Not Available [facility] ([facility]) [address] , [place], [address], 07/17/2025 16:58:40 07/17/20 25 07/17/2025 COMP METAB [...] paige ing kiney funct ion. Not Available [facility] ([facility]) [address] , [place], [address], 07/17/2025 16:58:40 07/17/20 25 07/17/2025 COMP METAB OLIC PANEL osmolality (calculated) 292 mOsm/ kg 275-30 1 OSMOL ALITY IS A CALCU LATIO N UTILI ZING THE SERUM /PLAS MA SODIU M, GLUCO SE AND UREA NITRO GEN (BUN) LEVEL S. FOR THE MOST ACCUR ATE RESUL T A MEASU RED SERUM OSMOL ALITY IS INES TORRESIshmael. Not Available [facility] ([facility]) [address] [facility], [place], [address], 07/17/2025 16:58:40 07/17/20 25 07/17/2025 COMP METAB OLIC PANEL total protein 7.4 g/dL 6.4-8. 2 Not Available [facility] ([facility]) [address] [facility], [place], [address], 07/17/2025 16:58:40 07/17/20 25 07/17/2025 COMP METAB OLIC PANEL albumin 3.9 g/dL 3.4-5. 0 Not Available [facility] ([facility]) [address] [facility], [place], [address], 07/17/2025 16:58:40 07/17/20 25 07/17/2025 COMP METAB OLIC PANEL globulin 3.5 Not Available [facility] ([facility]) [address] [facility], [place], [address], 07/17/2025 16:58:40 07/17/20 25 07/17/2025 COMP METAB OLIC PANEL alb/glob ratio 1.1 0.7-2 Not Available [facility] ([facility]) [address] [facility], [place], [address], 07/17/2025 16:58:40 07/17/20 25 07/17/2025 COMP METAB OLIC PANEL calcium 9.8 mg/dL 8.5-10 .5 Not Available [facility] ([facility]) [address] [place], [address], 07/17/2025 16:58:40 07/17/20 25 07/17/2025 COMP METAB OLIC PANEL bilirubin total 0.60 mg/dL 0.10-1 .00 Not Available [facility] ([facility]) [address] [facility], [place], [address], 07/17/2025 16:58:40 07/17/20 25 07/17/2025 COMP METAB OLIC PANEL AST (SGOT) 17 U/L 0-37 Not Available [facility] ([facility]) [address] [facility] [address], [place], [address], 07/17/2025 16:58:40 07/17/20 25 07/17/2025 COMP METAB OLIC PANEL ALT (SGPT) 26 U/L 0-65 Not Available [facility] ([facility]) [address] [facility], [place], [address], 07/17/2025 16:58:40 07/17/20 25 07/17/2025 COMP METAB OLIC PANEL alk phosphatase 56 U/L 46-116 Not Available [facility] ([facility]) [address] [facility] [address], [place], [address], 07/17/2025 16:58:40 07/17/20 25 07/17/2025 PROST ATE SPECI FIC AG (PSA) prostate specific Ag (PSA) 6.6 NG/mL 0-4.0 high Not Available [facility] ([facility]) [address] [facility], [place], [address], 07/17/2025 16:58:41 07/17/20 25 07/21/2025 TESTO STERO NE,FR EE AND TOTAL testosterone , serum 295 NG/dL 264-91 6 Adult male refer ence inter valentín is based on a popul ation of healt hy nonob larisa males (BMI <30) betwe en 19 and 39 years old. Claudette robins et.al . JCEM 2017, 102;1 161-1 173. PMID: 82595 103. Not Available [facility] ([facility]) [address] [facility], [place], [address], 07/21/2025 15:13:03 07/17/20 25 07/21/2025 TESTO STERO NE,FR EE AND TOTAL testosterone , free, direct 5.2 pg/mL 6.6-18 .1 low Perfo rmed at: [facility] n [address] [id number] Lab Direc tor: Ramu hernandez PhD, Phone : [phone] Perfo rmed at: [facility] [place] [address] [facility] , [facility] [place] [address] Lab Direc tor: Dayanara mann MD, Phone : [phone] Not Available [facility] ([facility]) [address], [place], [address], 07/21/2025 15:13:03 08/07/20 25 08/07/2025 CBC AUTO W DIFF WBC 7.5 K/uL 4.0-10 .5 Not Available [facility] ([facility]) [address], [place], [address], 08/07/2025 10:56:51 08/07/20 25 08/07/2025 CBC AUTO W DIFF RBC 5.5 M/mm3 4.7-6. 1 Not Available [facility] ([facility]) [address], [place], [address], 08/07/2025 10:56:51 08/07/20 25 08/07/2025 CBC AUTO W DIFF HGB 15.3 gm/dL 13.5-1 8.0 Not Available [facility] ([facility]) [address] [place], [address], 08/07/2025 10:56:51 08/07/20 25 08/07/2025 CBC AUTO W DIFF HCT 47.4 % 42.0-5 2.0 Not Available [facility] ([facility]) [address], [place], [address], 08/07/2025 10:56:51 08/07/20 25 08/07/2025 CBC AUTO W DIFF MCV 86.7 fL 78-100 Not Available [facility] ([facility]) [address] , [place], [address], 08/07/2025 10:56:51 08/07/20 25 08/07/2025 CBC AUTO W DIFF MCH 28.0 pg 27-31 Not Available [facility] ([facility]) [address] , [place], [address], 08/07/2025 10:56:51 08/07/20 25 08/07/2025 CBC AUTO W DIFF MCHC 32.3 g/dL 32-36 Not Available [facility] ([facility]) [address], [place], [address], 08/07/2025 10:56:51 08/07/20 25 08/07/2025 CBC AUTO W DIFF RDW 14.1 % 11.5-1 4.0 high Not Available [facility] ([facility]) [address], [place], [address], 08/07/2025 10:56:51 08/07/20 25 08/07/2025 CBC AUTO W DIFF platelet count 242 K/uL 150-45 0 Not Available [facility] ([facility]) [address] , [place], [address], 08/07/2025 10:56:51 08/07/20 25 08/07/2025 CBC AUTO W DIFF MPV 9.6 fL 6-9.5 high Not Available [facility] ([facility]) [address], [place], [address], 08/07/2025 10:56:51 08/07/20 25 08/07/2025 CBC AUTO W DIFF neutrophil% 56.4 % 43-65 Not Available [facility] ([facility]) [address], [place], [address], 08/07/2025 10:56:51 08/07/2008/07/2025 CBC AUTO W DIFF lymphocyte% 29.3 % 20.5-4 5.5 Not Available [facility] ([facility]) [address] [facility], [place], [address], 08/07/2025 10:56:51 08/07/20 25 08/07/2025 CBC AUTO W DIFF monocyte% 10.2 % 5.5-11 .7 Not Available [facility] ([facility]) [address] [facility], [place], [address], 08/07/2025 10:56:51 08/07/20 25 08/07/2025 CBC AUTO W DIFF eosinophil% 2.9 % 0.9-2. 9 Not Available [facility] ([facility]) [address] [facility], [place], [address], 08/07/2025 10:56:51 08/07/20 25 08/07/2025 CBC AUTO W DIFF basophil% 0.7 % 0.2-1. 0 Not Available [facility] ([facility]) [address] [facility], [place], [address], 08/07/2025 10:56:51 08/07/20 25 08/07/2025 CBC AUTO W DIFF immature granulocytes % 0.5 % 0.0-0. 8 Not Available [facility] ([facility]) [address] [place], [address], 08/07/2025 10:56:51 08/07/2008/07/2025 CBC AUTO W DIFF nucleated red blood cells % 0.0 % Not Available [facility] ([facility]) [address] [place], [address], 08/07/2025 10:56:51 08/07/20 25 08/07/2025 CBC AUTO W DIFF neutrophil# 4.2 K/uL 2.2-4. 8 Not Available [facility] ([facility]) [address] [facility], [place], [address], 08/07/2025 10:56:51 08/07/20 25 08/07/2025 CBC AUTO W DIFF lymphocyte# 2.2 cell/ mcL 1.3-2. 9 Not Available [facility] ([facility]) [address] [facility], [place], [address], 08/07/2025 10:56:51 08/07/20 25 08/07/2025 CBC AUTO W DIFF monocyte# 0.8 cell/ mcL 0.3-0. 8 Not Available [facility] ([facility]) [address] [facility], [place], [address], 08/07/2025 10:56:51 08/07/20 25 08/07/2025 CBC AUTO W DIFF eosinophil# 0.2 cell/ mcL 0-0.2 Not Available [facility] ([facility]) [address] [place], [address], 08/07/2025 10:56:51 08/07/20 25 08/07/2025 CBC AUTO W DIFF basophil# 0.1 cell/ mcL 0.0-1. 0 Not Available [facility] ([facility]) [address] [place], [address], 08/07/2025 10:56:51 08/07/20 25 08/07/2025 CBC AUTO W DIFF immature gramulocytes # 0.04 K/uL Not Available [facility] ([facility]) [address] [place], [address], 08/07/2025 10:56:51 08/07/20 25 08/07/2025 CBC AUTO W DIFF nucleated red blood cells # 0.00 K/uL Not Available [facility] ([facility]) [address] [place], [address], 08/07/2025 10:56:51 08/07/2008/07/2025 CBC AUTO W DIFF manual differential NO Not Available [facility] ([facility]) [address], [place], [address], 08/07/2025 10:56:51 08/07/2008/07/2025 COMP METAB OLIC PANEL sodium 140 mmol/ L 136-14 5 Not Available [facility] ([facility]) [address], [place], [address], 08/07/2025 11:42:07 08/07/2008/07/2025 COMP METAB OLIC PANEL potassium 4.6 mmol/ L 3.6-5. 0 Not Available [facility] ([facility]) [address], [place], [address], 08/07/2025 11:42:07 08/07/2008/07/2025 COMP METAB OLIC PANEL chloride 101 mmol/ L 98-107 Not Available [facility] ([facility]) [address], [place], [address], 08/07/2025 11:42:07 08/07/20 25 08/07/2025 COMP METAB OLIC PANEL carbon dioxide 29.3 mmol/ L 21.0-3 2.0 Not Available [facility] ([facility]) [address], [place], [address], 08/07/2025 11:42:07 08/07/2008/07/2025 COMP METAB OLIC PANEL anion gap 14.3 Not Available [facility] ([facility]) [address] , [place], [address], 08/07/2025 11:42:07 08/07/20 25 08/07/2025 COMP METAB OLIC PANEL glucose 147 mg/dL 70-120 high Not Available [facility] ([facility]) [address], [place], [address], 08/07/2025 11:42:07 08/07/20 25 08/07/2025 COMP METAB OLIC PANEL BUN 20 mg/dL 7-18 high Not Available [facility] ([facility]) [address], [place], [address], 08/07/2025 11:42:07 08/07/20 25 08/07/2025 COMP METAB OLIC PANEL creatinine 0.8 mg/dL 0.6-1. 3 Not Available [facility] ([facility]) [address], [place], [address], 08/07/2025 11:42:07 08/07/2008/07/2025 COMP METAB OLIC PANEL glomerular filtration rate [...] paige ing kiney funct ion. Not Available [facility] ([facility]) [address], [place], [address], 08/07/2025 11:42:07 08/07/20 25 08/07/2025 COMP METAB OLIC PANEL osmolality (calculated) 296 mOsm/ kg 275-30 1 OSMOL ALITY IS A CALCU LATIO N UTILI ZING THE SERUM /PLAS MA SODIU M, GLUCO SE AND UREA NITRO GEN (BUN) LEVEL S. FOR THE MOST ACCUR ATE RESUL T A MEASU RED SERUM OSMOL ALITY IS SUGGE STED. Not Available [facility] ([facility]) [address], [place], [address], 08/07/2025 11:42:07 08/07/20 25 08/07/2025 COMP METAB OLIC PANEL total protein 7.5 g/dL 6.4-8. 2 Not Available [facility] ([facility]) [address] , [place], [address], 08/07/2025 11:42:07 08/07/20 25 08/07/2025 COMP METAB OLIC PANEL albumin 3.9 g/dL 3.4-5. 0 Not Available [facility] ([facility]) [address], [place], [address], 08/07/2025 11:42:07 08/07/2008/07/2025 COMP METAB OLIC PANEL globulin 3.6 Not Available [facility] ([facility]) [address], [place], [address], 08/07/2025 11:42:07 08/07/20 25 08/07/2025 COMP METAB OLIC PANEL alb/glob ratio 1.1 0.7-2 Not Available [facility] ([facility]) [address], [place], [address], 08/07/2025 11:42:07 08/07/20 25 08/07/2025 COMP METAB OLIC PANEL calcium 9.9 mg/dL 8.5-10 .5 Not Available [facility] ([facility]) [address] , [place], [address], 08/07/2025 11:42:07 08/07/20 25 08/07/2025 COMP METAB OLIC PANEL bilirubin total 0.70 mg/dL 0.10-1 .00 Not Available [facility] ([facility]) [address], [place], [address], 08/07/2025 11:42:07 08/07/20 25 08/07/2025 COMP METAB OLIC PANEL AST (SGOT) 15 U/L 0-37 Not Available [facility] ([facility]) [address] [facility], [place], [address], 08/07/2025 11:42:07 08/07/20 25 08/07/2025 COMP METAB OLIC PANEL ALT (SGPT) 25 U/L 0-65 Not Available [facility] ([facility]) [address] [facility], [place], [address], 08/07/2025 11:42:07 08/07/20 25 08/07/2025 COMP METAB OLIC PANEL alk phosphatase 45 U/L 46-116 low Not Available [facility] ([facility]) [address] [facility], [place], [address], 08/07/2025 11:42:07 08/07/20 25 08/07/2025 PROST ATE SPECI FIC AG (PSA) prostate specific Ag (PSA) 7.3 NG/mL 0-4.0 high Not Available [facility] ([facility]) [address] [facility], [place], [address], 08/07/2025 11:42:09 08/07/20 25 08/11/2025 TESTO STERO NE,FR EE AND TOTAL testosterone , serum 273 NG/dL 264-91 6 Adult male refer ence inter valentín is based on a popul ation of healt hy nonob larisa males (BMI <30) betwe en 19 and 39 years old. Claudette robins et.al . JCEM 2017, 102;1 161-1 173. PMID: 14030 103. Not Available [facility] ([facility]) [address] [facility], [place], [address], 08/11/2025 15:12:56 08/07/20 25 08/11/2025 TESTO STERO NE,FR EE AND TOTAL testosterone , free, direct 5.5 pg/mL 6.6-18 .1 low Perfo rmed at: [facility] [address] [address] Lab Direc tor: Ramu hernandez PhD, Phone : [phone] Perfo rmed at: [facility] [place] [address] , [place] [address] Lab Direc tor: Dayanara mann MD, Phone : [phone] Not Available [facility] ([facility]) [address], [place], [address], 08/11/2025 15:12:56 Result Notes None recorded. 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 7288486613524 Active 2024 Nieves Dinh null, [place] - [facility] - [place] [facility] [place] 5 11:10:38 Hyperchole sterolemia 87653794 Active 2024 Nieves Dinh null, [place] [facility] [place] 5 11:10:46 History of radiation therapy 689031046 Active 2024 Nieves Dinh null, [place] - [facility] [place] 5 11:10:57 Prostate specific antigen above reference range 581785741 Active 2024 MATIAS RIVERA MD [address], [place], [address] , [place] - [facility] [place] [facility] [place] 5 11:55:36 Lower urinary tract symptoms 723468200 Active 2024 MATIAS RIVERA MD [address], [place], [address] , [place] - [facility] [place] [facility] [place] 5 11:56:25 Malignant neoplasm of prostate 305591657 Active 2024 MATIAS RIVERA MD [address], [place], [address] , [place] [facility] - [place] & [place] 5 16:24:52 Problem Notes None recorded. Procedures Surgical History Date Name Laterality Status Provider Name and Address Organization Details Recorded Time 0 Radiation Therapy completed [facility] & [place] 05/05/2025 10:49:43 0 Cancer Surgery completed [facility] & [place] 05/05/2025 10:49:43 4 Abdominal Surgery completed [facility] & [place] 05/05/2025 10:49:43 7 Tonsillectomy/ Adenoidectomy completed [facility] & [place] 05/05/2025 10:49:43 knee joint operation completed [facility] & [place] 01/06/2025 11:09:38 Imaging Results None recorded. Procedure Notes None recorded. Medical Equipment None Reported. Allergies Allergen ID Allergen Name Allergen Category Reaction Reaction Severity Criticality Documentation Date Start Date Code Code System Note Provider Name and Address Organization Details Recorded Time [id number] Substance with sulfonami de structure and antibacte rial mechanism of action (substanc e) medicatio n Not available Not available Not available 12/10/2024 02228 8003 SNOMED Nieves Dinh [facility], [facility] & [place] 5 09:33:08 Medications Name Sig Start Date [...] Arterial blood by Pulse oximetry Heart rate Respiratory rate Systolic And Diastolic Provider Name and Address Organization Details Last Updated DateTime 5 182.88 cm 30.4 kg/m2 232996. 49 g 97.3 [degF] 96 % 96 % 67 /min 18 /min 142/72 mm[Hg] Perri Melloemilia [facility] & [place] 10:26:15 Social History Question Answer Notes LastModified by Organizat ion Details LastModified Time Tobacco Smoking Status Never Smoker Renea Frankie garza, [facility] & [place] 07/17/2025 13:16:05 Do You Have An Advance Directive? No Information not available 05/05/2025 Are You Blind Or Do You Have Difficulty Seeing? Yes Information not available 05/05/2025 What Is Your Level Of Caffeine Consumption? Moderate [email or web address] Information not available 07/17/2025 What Was The Date Of Your Most Recent Tobacco Screening? 05/02/2025 Information not available 05/05/2025 Are You Passively Exposed To Smoke? No Information not available 05/05/2025 Has Tobacco Cessation Counseling Been Provided? No [email or web address] Information not available 07/17/2025 Sex: Unknown Functional Status Question Answer Note LastModified by Organizat ion Details LastModified Time Do you use any illicit or recreational drugs? No Information not available 05/05/2025 Do you or have you ever used any other forms of tobacco or nicotine? No [email or web address] Information not available 07/17/2025 What is your level of alcohol consumption? None Information not available 05/05/2025 What is your exercise level? Occasional Information not available 05/05/2025 Mental Status Question Answer Note LastModified by Organization D etails LastModified Time Do you feel stressed (tense, restless, nervous, or anxious, or unable to sleep at night)? [id number] Information not available 05/05/2025 Family History Relationship Description Onset Age of this Age Resolved Age Notes LastModified by Organization Details LastModified Time Mother Malignant melanoma [email or web address] Not available 07/17 13:14:00 Paternal Aunt Malignant neoplastic disease states it grew on her spine and ended up killin g her . [email or web address] Not available 07/17/2025 13:15:27 Medical History Condition Response Clotting Disorder Y Deep Vein Thrombosis Y High Cholesterol Y Diabetes Y Back Problems Y Hypertension Y Immunizations Vaccine Type Date Status Note Provider Nam e and Address Organization Details Recorded Time Influenza, adjuvanted, trivalent, PF 9 completed Not Available [facility] 08/07/2025 10:12:24 Influenza, split virus, quadrivalent, PF 0 completed Not Available [facility] 08/07/2025 10:12:24 Pneumococcal conjugate PCV 13 0 completed Not Available [facility] 08/07/2025 10:12:24 COVID-19, mRNA, LNP-S, PF, 100 mcg/0.5mL dose or 50 mcg/0.25mL dose 1 completed Not Available [facility] 08/07/2025 10:12:24 COVID-19, mRNA, LNP-S, PF, 100 mcg/0.5mL dose or 50 mcg/0.25mL dose 1 completed Not Available [facility] 08/07/2025 10:12:24 Influenza, high-dose, quadrivalent, PF 1 completed Not Available [facility] 08/07/2025 10:12:24 COVID-19, mRNA, LNP-S, PF, 100 mcg/0.5mL dose or 50 mcg/0.25mL dose 1 completed Not Available [facility] 08/07/2025 10:12:24 Influenza, high-dose, quadrivalent, PF 2 completed Not Available [facility] 08/07/2025 10:12:24 COVID-19, mRNA, LNP-S, bivalent, PF, 50 mcg/0.5 mL or 25mcg/0.25 mL dose 2 completed Not Available [facility] 08/07/2025 10:12:24 RSV, bivalent, protein subunit RSVpreF, diluent reconstituted, 0.5 mL, PF 3 completed Not Available [facility] 08/07/2025 10:12:24 Influenza, adjuvanted, quadrivalent, PF 3 completed Not Available [facility] 08/07/2025 10:12:24 Pneumococcal conjugate PCV20, polysaccharide [id number] conjugate, adjuvant, PF 4 completed Not Available [facility] 08/07/2025 10:12:24 Influenza, high-dose, trivalent, PF 4 completed Not Available [facility] 08/07/2025 10:12:24 Tdap 4 completed Not Available [facility] 08/07/2025 10:12:24 zoster recombinant 4 completed Not Available [facility] 08/07/2025 10:12:24 zoster recombinant 5 completed Not Available [facility] 08/07/2025 10:12:24 Past Encounters Encounter ID Performer Location Encounter Start Date Encounter Closed Date Diagnosis/Indication Diagnosis SNOMED-CT Code Diagnosis ICD10 Code Diagnosis IMO Codes Diagnosis Note [id number] MATIAS RIVERA MD [facility] Urology-[address] [place] [address] 07/14/2025 07:49:24 07/14/2025 08:33:29 Malignant neoplasm of prostate 180176632 C61 78682 Prostate s pecific antigen above reference range 314755791 R97.20 [id number] Markell Sharma MD [facility] Oncology and Hematolog y [address] [facility] [facility] [place] [address] 07/17/2025 13:02:04 07/17/2025 13:56:16 Malignant neoplasm of prostate 047065955 C61 84386 Prostate biopsy performed on May 20, 2025 with findings of prostate adenocarci noma Pomeroy 4+3=7 involving 1 core. Representi ng 15% of total core volume. No perineural invasion identified . Patient seen by Radiation Medicine and discussion radiation therapy for treatment prostate cancer. PSA PET scan performed on July 01, 2025 with no evidence metastatic disease.Ba sed on pathology and imaging pT2 N0 M0. Stage II. grade group 3 based on Pomeroy score. ECOG 0. 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 Patient received 1 cycle ABVD with significan t side effects. Patient finished treatment with radiation therapy. Patient has been on observatio n since that time. [id number] Ioana Teixeira PA-C [facility] Oncology and Hematolog y [address] [place] [address] 08/07/2025 10:11:59 08/07/2025 10:58:13 Malignant neoplasm of prostate 121764751 C61 40975 Prostate biopsy performed on May 20, 2025 with findings of prostate adenocarci noma Buzz 4+3=7 involving 1 core. Representi ng 15% of total core volume. No perineural invasion identified . Patient seen by Radiation Medicine and discussion radiation therapy for treatment prostate cancer. PSA PET scan performed on July 01, 2025 with no evidence metastatic disease.Ba sed on pathology and imaging pT2 N0 M0. Stage II. grade group 3 based on Pomeroy score. ECOG 0. Based on NCCN guidelines patient falls into intermedia te risk category. Discussion androgen deprivatio n therapy with Eligard or Lupron for 4-6 months. Will start androgen deprivatio n prior to starting radiation therapy. Will follow-up Patient presents on August 07, 2025. Labs on July 17, 2025 with PSA 6.6. Will follow-up as patient starts androgen deprivatio n therapy. Patient will start androgen deprivatio n therapy today. He is planning to start radiation therapy. 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 Patient received 1 cycle ABVD with significan t side effects. Patient finished treatment with radiation therapy. Patient has been on observatio n since that time. Prostate s pecific antigen above reference range 989891672 R97.20 [id number] Labs on July 17, 2025 with PSA 6.6. Will follow-up as patient starts androgen deprivatio n therapy. Drug therapy finding [id number] Z79.818 [id number] Starting androgen deprivatio n therapy with Eligard for 4-6 months on August 07, 2025. Will follow up tolerabili ty. Education performed before injection was given today. Discussed possible side effects to [facility] for. Health Concerns Section Related Observation LastModified by Organization Detai ls LastModified Time None Recorded Concern Status LastModified by Organization Details LastModified Time None Recorded Payers Encounter Date Sequence Insurance Name Policy Number Policy Moraes Covered Member ID Moraes Member ID Guarantor Name 08/07/2025 1 [facility] (MEDICARE REPLACEMENT/A DVANTAGE - PPO) [id number] Srinivasa Hager [id number] Srinivasa Hager Notes Date Note Type Note Provider Name and Address Organization Details Recorded Time 08/07/2025 text/html 75 yo M presents for evaluation of prostate cancer. Patient seen by Urology in April 2025 for elevated PSA. Prostate biopsy performed on May 20, 2025 with findings of prostate adenocarcinoma Pomeroy 4+3=7 involving 1 core. Representing 15% of total core volume. No perineural invasion identified. Patient seen by Radiation Medicine and discussion radiation therapy for treatment prostate cancer. PSA PET scan performed on July 01, 2025 with no evidence metastatic disease.Based on pathology and imaging pT2 N0 M0. Stage II. grade group 3 based on Pomeroy score. ECOG 0. Based on NCCN guidelines patient falls into intermediate risk category. Discussion androgen deprivation therapy with Eligard or Lupron for 4-6 months. Will start androgen deprivation prior to starting radiation therapy. Will follow-up Patient presents on August 07, 2025. Labs on July 17, 2025 with PSA 6.6. Will follow-up as patient starts androgen deprivation therapy. Patient will start androgen deprivation therapy today. He is planning to start radiation therapy. Ioana Teixeira PA-C [address], [place], [address], [facility] - [place] & [place] 08/07/2025 10:49:42
--- OUTSIDE RECORDS SUMMARY | 2025-08-12 15:09 | XMS_ITS | Encounter Summary ---
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
--- OUTSIDE RECORDS SUMMARY | 2025-08-12 15:09 | XMS_ITS | Encounter Summary ---
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
--- OUTSIDE RECORDS SUMMARY | 2025-08-12 15:10 | XMS_ITS | Encounter Summary ---
Author Organization [facility] [employer] [facility] ([place], [place], [place], [place]) Address [address] [place] [address] Care Team Providers Care Operations Manager Name Role Phone Unavailable Primary Care Provider Unavailabl e Reason for Referral * MRI (Routine) - Closed Specialty Diagnoses / Procedures Referred By Contac t Referred To Contact Radiology Diagnoses Elevated PSA Procedures MR prostate without & with IV contrast Jorge Ocampo MD [address] [address] Phone: tel: fax: Referral ID Status Reason Start Date Expiration Date Visits Re quested Visits Authorized [id number] Closed 04/13/2025 04/13/2026 1 1 Encounter Details Date Type Department Care Team (Late st Contact Info) Description 04/13/2025 Outside Orders [facility] Central Scheduling [address] [place] [address] Jorge Ocampo MD [address] [facility] [address] [place] [address] Elevated PSA (Primary Dx) Social [...] protocol. The images were reviewed on the [employer] CAD workstation. The prostate measures 5.6 x [...] protocol. The images were reviewed on the [employer] CAD workstation. The prostate measures 5.6 x [...]
--- OUTSIDE RECORDS SUMMARY | 2025-08-12 15:10 | XMS_ITS ---
Author Organization [facility] Address [address] [place] [address] Care Team Providers Care Director Fundraising Name Role Phone Catrachita Raphael APRN Primary [...] Hager Date of 1950 Phone Email [email or web address] Cancer Treatment Team Patient Care Team: Petros Crain MD as Consulting Physician (General Surgery) Seth Pierre MD as Consulting Physician (Radiation Oncology) Tima Vasquez MD as Referring Physician (Hematology and Oncology) Provider Phone numbers Care Team Provider: Catrachita Raphael APRN, ([phone]) Care Team Provider: Petros Crain MD, ([phone]) Care Team Provider: Seth Pierre MD, ([phone]) Care Team Provider: Tima Vasquez MD, ([phone]) Care Team Provider: Leodan Pedraza MD, ([phone]) Post Treatment Care Team Primary Care Physician Catrachita Raphael APRN [phone] [address] [facility] [address] [address] Background Information Medical history Past Medical History: [...] Surgeon: Petros Crain MD; Location: [facility] OR; Service: General COLONOSCOPY HERNIA REPAIR Dr. Red @ [facility]- right inguinal - unsure about mesh in place LYMPH NODE BIOPSY (L) neck Dr. Marre[facility] @ [facility] OTHER SURGICAL HISTORY vocal cord visualization PORTACATH PLACEMENT [facility] Tobacco use Social History Tobacco Use Smoking [...] neck node with other smaller nodes. 10/02/2019 [facility] left neck fine-needle aspiration and biopsy on Lovenox off Coumadin for procedure showed atypical lymphoid proliferation with dysplastic CD30 positive cells suspicious for classic Hodgkin lymphoma but unequivocal diagnosis hindered by the low number of CD30 positive cells. Excisional biopsy recommended by pathology. -10/27/2019 initial [facility] medical oncology consultation: Reviewed the above hematology [...] I have relayed all this to Dr. Seht Pierre who also concurs with this. The [...] due to shortness ofbreath [facility] Lifetime Dose Tracking Doxorubicin: 204.375 mg/m2 [...] doctors and nurses such as exercise andactivity. keno terminal operator effects of radiation therapy vary greatly depending on the areas included in the field ofradiation and the radiation techniques that were used. Ask your doctors and nurses about the risk of petroleum terminal plant operator effects. Keep your follow up appointments and keep up with recommended health screenings. Other Care of your Venous Access Device No Venous Access Device currently in place General After Cancer Treatment It is not uncommon for cancer to impact other areas of your life such as relationships, work and mental health. If you develop financial concerns, resources are sometimes available to assist in theseareas. Depression and anxiety can present either during or after cancer diagnosis and treatment. Itis important to discuss with your physician any of these concerns so these resources can be made available to you. General Cancer Support & Resources [facility] [address] [facility] [address], [address] [place] [address] Med Onc: Embossing Toolsetter Onc: Packer Operator Automatic: Carina Spears - Psychiatric Nurse Practitioner: Yulissa Hughes APRN - [phone] Kick It! (A free smoking cessation program) Financial Counselor and Contact Information: [facility] Financial Counseling - Can Crimper Contact Information: Dee Marrero - [phone] Wound Ostomy & Continence Nurse: Local Cancer [...] Toward Empowerment - for Women with Cancer: ([facility]) The Tools and encouragement you need to live your life to the fullest. Free Dinner served @ 6:00pm followed by speaker from 6:30 - 7:30pm. The series runs from July, and meets monthly. Call Elsy Salcido RN, OCN @ to receive information and upcoming schedule. [facility] Cancer Buddies: This support group is open to anyone that has been diagnosed with cancer of any type. Meets at 6:30pm on the last Sunday of each month. Location: [facility]; [address] [place] [address]. For more information call Estephanie Harrell @ [...] advice of a doctor or other health gericare aide teacher. Please use these recommendations to talk with [...] of cancer in the general population. The [employer] Cancer Society (ACS) recommends these screening guidelines for men: Recommendation Frequency Comments Colon and Rectal Cancer Screening For more information see the ACS document Colorectal Cancer: Early Detection. www.cancer.org/ssLINK/dpxqzhlbqf-wwvjtj-vnbbu-detection-maxim Options for colon cancer screening can be [...] see the ACS Document Testicular Cancer Detection: http://www.cancer.org/cancer/testicularcancer/detailedguide/lhbtfyqbnk-fywzzp-mu tection Men of any age can develop [...] more information, visit http://www.nhlbi.nih.gov/health/public/heart/obesity/lose_wt/index.htm www.win.niddk.nih.gov Call the [employer] Heart Association Talk to your health care [...] Experts recommend at least 30 minutes of neqrkcbt-ck-mszrbvmz activity per day, five days a week. [...] you can call a national hotline at 6(860)-QUIT-NOW. Have regular check-ups by a healthcare professional. For more information about healthy screening tests for men visit the U.S. Department of Health and Human Services. http://www.womenshealth.gov/rwmbopqly-uimql-yyc-vaccines/qsjoemouj-pgabw-rul-men / For more information about adult vaccinations visit the CDC: http://www.cdc.gov/vaccines/recs/schedules/adult-schedule.htm Keep up-to-date on general health screening tests, including cholesterol, blood pressure and glucose (blood sugar) levels. Get an annual influenza vaccine (flu shot). Get vaccinated with the pneumococcal vaccine, which prevents a type of pneumonia, and re-vaccinatedas determined by your health care team. Don???t forget dental and eye health! The [employer] recommends adults have their eyes examined every two years until age 60, then annually. People who wear glasses or correctivelenses or are at high risk for eye problems (i.e., diabetics, family history of eye disease) shouldbe seen more frequently. The [employer] Dental Association recommends adults see their dentist at least once a year. No information on file. No information on file.
--- OUTSIDE RECORDS SUMMARY | 2025-08-12 15:10 | XMS_ITS | Clinical Summary ---
[facility] Address [address] [place] [address] Care Team Providers Care Residential Supervisor Name Role Phone Catrachita Raphael APRN [...] in 10/27/2019 Encounter for antineoplastic chemotherapy 2019 Immunizations Immunization Administration Dates Next Due COVID-19 [...] (1 - 1- dose 75+ series) 2024 INFLUENZA VACCINE 05/22/2025 08/28/2024, , 08/07/2022, Additional history exists COVID-19 Vaccine ( - 2024-2 6 season) 2025 08/09/2022, 08/24/2021, 12/15/2020, Additional history exists TDAP/TD VACCINES (2 - Td or Tdap) 09/22/2034 024 COLONOSCOPY Discontinued 04/08/2021, 11/23, 12/11/2016 COLORECTAL CANCER SCREENING Discontinued Pneumococcal Vaccine 50+ Completed 08/28/2024, 10/0 05/2020 ZOSTER VACCINE Completed 12/01/2024, 09/22/2024 COLOGUARD Discontinued COLON CANCER SCREENING 5 YEA R SIGMOIDOSCOPY Discontinued CT COLONOGRAPHY Discontinued FECAL OCCULT BLOOD TEST Discontinued FIT Testing (1 year) Discontinued Medical Devices Implanted Type Area Anesthetic Assistant Device Identifier Shelf Expiration Date Model / Serial / Lot Powerport Isp Clearvue Cath 8f 45cm - [id number] Implanted:Qty: 1 on 11/12/2019 by Petros Crain MD at [facility] Implant Right: Neck BARD PERIPHERAL VASCULAR 01/19/2021 [id number] / / [id number] Procedures Procedure Name Priority Date/Time Associated Diagnosis Comments SCANNED - COLONOSCOPY 12/11/2016 from Last 3 Months or Most Recently Relevant to Health Maintenance Results * SCANNED - COLONOSCOPY (12/11/2016) Catrachita Raphael APRN CHART REVIEW TABS Final Result from Last 3 Months or Most Recently Relevant to Health Maintenance Insurance Care Teams Residential Supervisor Relationship Specialty Start Date End Date Catrachita Raphael APRN [address] [place] [address] PCP - General Family Medicine 10/09/19
--- OUTSIDE RECORDS SUMMARY | 2025-08-12 15:10 | XMS_ITS | Data Portability ---
Author Organization [place] - [facility] & [place] [facility] ADMIN Address [address] [place] [id number] Care Team Providers Care Practice Director Name Role Phone SIA FERRIS Primary Care Provider Assessment Encounter Date Assessment Date Assessment LastModified by Organization Details LastModified Time 06/09/2025 06/09/2025 ASSESSMENT: Srinivasa Hager is a 75-year-old male with intermediate-ris k prostate cancer ([place] score 4+3=7) identified in one core during biopsy. PLAN: 1. Order a PSMA PET scan to ensure the cancer is localized to the prostate and has not spread elsewhere. 2. Discuss the likelihood of slow progression of prostate cancer, emphasizing that it is one of the slower-moving cancers. 3. Provide reassurance regarding the low probability of cancer spread based on current findings. 4. Recommend radiation therapy as the preferred treatment option due to Srinivasa's age and the risks associated with surgery, including recovery challenges and the need to discontinue blood thinners. 5. Offer to arrange a consultation with a radiation oncologist, Dr. Martins, to discuss treatment options further. 6. Advise Srinivasa to schedule the PSMA scan at [facility] and coordinate follow-up discussions after the scan results are available. 7. Encourage Sirnivasa to contact the clinic if any concerns arise or if he experiences worsening symptoms. Please note this report was created using voice recognition/text compilation software documentation services during the encounter with the patient. [email or web address] Not available 06/09/2025 16:26:02 07/07/2025 07/07/2025 ASSESSMENT: Srinivasa Hager is a [...] the patient. [email or web address] Not available 07/07/2025 08:18:27 07/14/2025 07/14/2025 ASSESSMENT: Srinivasa Hager is a 75-year-old male with prostate cancer requiring radiation therapy. PLAN: 1. Proceed with the Barrigel procedure scheduled for the to minimize radiation effects on the rectum. 2. Prescribe a three-day course of antibiotics to be started the day before the procedure. The prescription will be sent to [facility] in [place]. 3. Advise the patient to inform the healthcare provider managing his warfarin about the antibiotics, as they may affect INR levels. 4. Coordinate scheduling and procedural details with Dr. Martins. 5. Provide reassurance regarding the safety and minimal risks associated with the Barrigel procedure. Please note this report was created using voice recognition/text compilation software documentation services during the encounter with the patient. [email or web address] Not available 07/14/2025 08:08:52 Plan of Treatment Reminders Order Date Submit Date Provider Last Modified By Organization Details Last Modified Time Details Appointments OV EST 30 2024 01:00P Arelis Teixeira PA-C Not available Not available Not available Lab PSA, serum or plasma 2024 025 [facility] (Registration ), [address], [place], [address], 08/07/2025 11:42:09 CMP, serum or plasma 2024 025 [facility] (Registration ), [address], [place], [address], 08/07/2025 11:42:07 testoster one, free + total, serum 2024 025 [facility] (Registration ), [address], [place], [address], 08/11/2025 15:12:56 CBC w/ diff [address] (Registration ), [address], [place], [address], 08/07/2025 10:43:01 PSA, serum or plasma 2024 025 [facility] (Registration ), [address], [place], [address], 07/17/2025 16:58:41 CMP, serum or plasma 2024 025 [facility] (Registration ), [address], [place], [address], 07/17/2025 16:58:40 testoster one, free + total, serum 2024 025 [facility] (Registration ), [address], [place], [address], 07/21/2025 15:13:03 CBC w/ diff [address] (Registration ), [address] [place], [address], 07/24/2025 11:17:00 PT/INR [address] (Registration ), [address] [place], [address], 07/24/2025 11:17:00 urinalysi s, dipstick [address] [facility], [address] [facility] [address], [place], [address], 06/09/2025 16:25:20 Referral radiation oncologis t referral - Glsn 4+3 2024 025 [email or web address] Iza Clayton MD, [address] [facility], [place], [address], 08/04/2025 14:56:37 Procedures bladder scan (PROC) [address] [facility], [address] [facility], [place], [address], 06/09/2025 16:25:20 Surgeries transperi dori placement of biodegrad able material, charmaine-pros tatic, single or multiple injection (s), including image guidance, when performed (SURG) 2024 025 [email or web address] Not available 08/05/2025 11:50:47 Imaging PET-CT, skull base to mid-thigh scan - PSMA scan 2024 025 [facility], [address] [place] [address] [place], [address], 07/03/2025 10:45:08 Medication Orders cefdinir 300 mg capsule 2024 025 [facility], [address], [address], 07/24/2025 05:02:43 Patient TargetsNo targets recorded. Patient InstructionsNo instructions recorded. Reason for Referral Glsn 4+3 Referring Physician: Jorge Rivera, Urology, Encounter Date: 07/07/2025 Results Created Date Observation Date Name Description Value Unit Range Abnormal Flag Note LastModifiedBy Organization Detail LastModifiedTime 05/18/202025 PT (PROT HROMB IN TIME) W INR prothrombin time 12.0 secon ds 9.3-11 .4 high Not Available [facility] ([facility]) [address] [place], [address], 05/18/2025 11:13:28 05/18/20 25 05/18/2025 PT (PROT HROMB IN TIME) W INR INR 1.1 ratio 0.97-1 .05 high INR is inten ded to be used ONLY for patie nts on stabl e oral antic oagul ant thera py. Thera peuti c Range s: 2.0-3 .0 Usual Thera peuti c Range 2.5-3 .5 For patie nts with histo ry of Multi ple Deep Vein Throm bus or Mecha nical Heart Valve s Not Available [facility] ([facility]) [address] , [place], [address], 05/18/2025 11:13:28 05/18/20 25 05/18/2025 PTT (PART IAL THROM B TIME) PTT (partial thrombin time) 31.4 secon ds 24.5-3 2.8 Not Available [facility] ([facility]) [address] , [place], [address], 05/18/2025 11:14:34 05/20/20 25 05/28/2025 PATHO LOGY SPECI MEN pathology specimen SEE SURESH D RPT Not Available [facility] ([facility]) [address] [place], [address], 05/28/2025 09:57:30 06/09/20 25 06/09/2025 urina lysis , dipst ick Leukocytes (reference range) negati ve Not Available [facility]-[address] [facility] [address], [place], [address], 06/09/2025 15:45:06 06/09/20 25 06/09/2025 urina lysis , dipst ick Nitrite (reference range:) negati ve Not Available [place] [address] [address] [facility] [address], [place], [address], 06/09/2025 15:45:06 06/09/20 25 06/09/2025 urina lysis , dipst ick Urobilinogen (reference range) 0.2 Not Available [place] [address] [address] [facility] [address], [place], [address], 06/09/2025 15:45:06 06/09/20 25 06/09/2025 urina lysis , dipst ick Protein (reference range) negati ve Not Available [place] [address] [address] [facility] [address], [place], [address], 06/09/2025 15:45:06 06/09/20 25 06/09/2025 urina lysis , dipst ick pH (reference range 5-8.5) 5.5 Not Available [place] [address] [address] [facility] [address], [place], [address], 06/09/2025 15:45:06 06/09/20 25 06/09/2025 urina lysis , dipst ick Blood (reference range:) large Not Available [place] [address] [address] [facility] [address], [place], [address], 06/09/2025 15:45:06 06/09/20 25 06/09/2025 urina lysis , dipst ick Specific Bishop (reference range) 1.010 Not Available [place] [address] [address] [facility] [address], [place], [address], 06/09/2025 15:45:06 06/09/20 25 06/09/2025 urina lysis , dipst ick Ketone (reference range) negati ve Not Available [place] [address] [address] [facility] [address], [place], [address], 06/09/2025 15:45:06 06/09/20 25 06/09/2025 urina lysis , dipst ick Bilirubin (reference range) negati ve Not Available [place] [address], [place], [address], 06/09/2025 15:45:06 06/09/20 25 06/09/2025 ur[place] lysis , dipst ick Glucose (reference range) 1000 Not Available [place] [address] [address] [facility], [place], [address], 06/09/2025 15:45:06 06/09/20 25 06/09/2025 ur[place] lysis , dipst ick Color (reference range: yellow-brown ) Yellow Not Available [place] [address] [address] [facility] [address], [place], [address], 06/09/2025 15:45:06 06/09/20 25 06/09/2025 bladd er scan (PROC ) Calculated Residual Urine: 0ml Not Available [place] [address] [address] [facility], [place], [address], 06/09/2025 15:44:54 07/17/20 25 07/17/2025 CBC AUTO W DIFF WBC 8.6 K/uL 4.0-10 .5 Not Available [facility] ([facility]) [address], [place], [address], 07/17/2025 15:55:14 07/17/20 25 07/17/2025 CBC AUTO W DIFF RBC 5.6 M/mm3 4.7-6. 1 Not Available [facility] ([facility]) [address], [place], [address], 07/17/2025 15:55:14 07/17/20 25 07/17/2025 CBC AUTO W DIFF HGB 15.5 gm/dL 13.5-1 8.0 Not Available [facility] ([facility]) [address] , [place], [address], 07/17/2025 15:55:14 07/17/20 25 07/17/2025 CBC AUTO W DIFF HCT 47.7 % 42.0-5 2.0 Not Available [facility] ([facility]) [address] , [place], [address], 07/17/2025 15:55:14 07/17/20 25 07/17/2025 CBC AUTO W DIFF MCV 85.3 fL 78-100 Not Available [facility] ([facility]) [address] , [place], [address], 07/17/2025 15:55:14 07/17/20 25 07/17/2025 CBC AUTO W DIFF MCH 27.7 pg 27-31 Not Available [facility] ([facility]) [address] , [place], [address], 07/17/2025 15:55:14 07/17/20 25 07/17/2025 CBC AUTO W DIFF MCHC 32.5 g/dL 32-36 Not Available [facility] ([facility]) [address] , [place], [address], 07/17/2025 15:55:14 07/17/20 25 07/17/2025 CBC AUTO W DIFF RDW 14.1 % 11.5-1 4.0 high Not Available [facility] ([facility]) [address] , [place], [address], 07/17/2025 15:55:14 07/17/20 25 07/17/2025 CBC AUTO W DIFF platelet count 230 K/uL 150-45 0 Not Available [facility] ([facility]) [address] , [place], [address], 07/17/2025 15:55:14 07/17/20 25 07/17/2025 CBC AUTO W DIFF MPV 9.5 fL 6-9.5 Not Available [facility] ([facility]) [address] [facility], [place], [address], 07/17/2025 15:55:14 07/17/20 25 07/17/2025 CBC AUTO W DIFF neutrophil% 61.4 % 43-65 Not Available [facility] ([facility]) [address] [facility], [place], [address], 07/17/2025 15:55:14 07/17/20 25 07/17/2025 CBC AUTO W DIFF lymphocyte% 26.9 % 20.5-4 5.5 Not Available [facility] ([facility]) [address] [facility], [place], [address], 07/17/2025 15:55:14 07/17/20 25 07/17/2025 CBC AUTO W DIFF monocyte% 8.7 % 5.5-11 .7 Not Available [facility] ([facility]) [address] [place], [address], 07/17/2025 15:55:14 07/17/20 25 07/17/2025 CBC AUTO W DIFF eosinophil% 2.2 % 0.9-2. 9 Not Available [facility] ([facility]) [address] [place], [address], 07/17/2025 15:55:14 07/17/20 25 07/17/2025 CBC AUTO W DIFF basophil% 0.6 % 0.2-1. 0 Not Available [facility] ([facility]) [address] [place], [address], 07/17/2025 15:55:14 07/17/20 25 07/17/2025 CBC AUTO W DIFF immature granulocytes % 0.2 % 0.0-0. 8 Not Available [facility] ([facility]) [address], [place], [address], 07/17/2025 15:55:14 07/17/20 25 07/17/2025 CBC AUTO W DIFF nucleated red blood cells % 0.0 % Not Available [facility] ([facility]) [address] [facility], [place], [address], 07/17/2025 15:55:14 07/17/20 25 07/17/2025 CBC AUTO W DIFF neutrophil# 5.3 K/uL 2.2-4. 8 high Not Available [facility] ([facility]) [address] [facility], [place], [address], 07/17/2025 15:55:14 07/17/20 25 07/17/2025 CBC AUTO W DIFF lymphocyte# 2.3 cell/ mcL 1.3-2. 9 Not Available [facility] ([facility]) [address] [facility], [place], [address], 07/17/2025 15:55:14 07/17/20 25 07/17/2025 CBC AUTO W DIFF monocyte# 0.7 cell/ mcL 0.3-0. 8 Not Available [facility] ([facility]) [address] [facility], [place], [address], 07/17/2025 15:55:14 07/17/20 25 07/17/2025 CBC AUTO W DIFF eosinophil# 0.2 cell/ mcL 0-0.2 Not Available [facility] ([facility]) [address] [facility], [place], [address], 07/17/2025 15:55:14 07/17/20 25 07/17/2025 CBC AUTO W DIFF basophil# 0.1 cell/ mcL 0.0-1. 0 Not Available [facility] ([facility]) [address] [facility], [place], [address], 07/17/2025 15:55:14 07/17/20 25 07/17/2025 CBC AUTO W DIFF immature gramulocytes # 0.02 K/uL Not Available [facility] ([facility]) [address], [place], [address], 07/17/2025 15:55:14 07/17/20 25 07/17/2025 CBC AUTO W DIFF nucleated red blood cells # 0.00 K/uL Not Available [facility] ([facility]) [address], [place], [address], 07/17/2025 15:55:14 07/17/20 25 07/17/2025 CBC AUTO W DIFF manual differential NO Not Available [facility] ([facility]) [address], [place], [address], 07/17/2025 15:55:14 07/17/20 25 07/17/2025 PT (PROT HROMB IN TIME) W INR prothrombin time 17.8 secon ds 9.3-11 .4 high Not Available [facility] ([facility]) [address] , [place], [address], 07/17/2025 15:57:24 07/17/20 25 07/17/2025 PT (PROT [...] Mecha nical Heart Valve s Not Available [facility] ([facility]) [address] , [place], [address], 07/17/2025 15:57:24 07/17/2007/17/2025 COMP METAB OLIC PANEL sodium 139 mmol/ L 136-14 5 Not Available [facility] ([facility]) [address] , [place], [address], 07/17/2025 16:58:40 07/17/20 25 07/17/2025 COMP METAB OLIC PANEL potassium 4.6 mmol/ L 3.6-5. 0 Not Available [facility] ([facility]) [address] , [place], [address], 07/17/2025 16:58:40 07/17/20 25 07/17/2025 COMP METAB OLIC PANEL chloride 102 mmol/ L 98-107 Not Available [facility] ([facility]) [address] , [place], [address], 07/17/2025 16:58:40 07/17/20 25 07/17/2025 COMP METAB OLIC PANEL carbon dioxide 26.7 mmol/ L 21.0-3 2.0 Not Available [facility] ([facility]) [address] , [place], [address], 07/17/2025 16:58:40 07/17/20 25 07/17/2025 COMP METAB OLIC PANEL anion gap 14.9 Not Available [facility] ([facility]) [address] , [place], [address], 07/17/2025 16:58:40 07/17/20 25 07/17/2025 COMP METAB OLIC PANEL glucose 113 mg/dL 70-120 Not Available [facility] ([facility]) [address] [place], [address], 07/17/2025 16:58:40 07/17/20 25 07/17/2025 COMP METAB OLIC PANEL BUN 19 mg/dL 7-18 high Not Available [facility] ([facility]) [address] [place], [address], 07/17/2025 16:58:40 07/17/20 25 07/17/2025 COMP METAB OLIC PANEL creatinine 0.8 mg/dL 0.6-1. 3 Not Available [facility] ([facility]) [address], [place], [address], 07/17/2025 16:58:40 07/17/20 25 07/17/2025 COMP METAB [...] paige ing kiney funct ion. Not Available [facility] ([facility]) [address] , [place], [address], 07/17/2025 16:58:40 07/17/20 25 07/17/2025 COMP METAB OLIC PANEL osmolality (calculated) 292 mOsm/ kg 275-30 1 OSMOL ALITY IS A CALCU LATIO N UTILI ZING THE SERUM /PLAS MA SODIU M, GLUCO SE AND UREA NITRO GEN (BUN) LEVEL S. FOR THE MOST ACCUR ATE RESUL T A MEASU RED SERUM OSMOL ALITY IS SUGGE ANDREAD. Not Available [facility] ([facility]) [address] , [place], [address], 07/17/2025 16:58:40 07/17/20 25 07/17/2025 COMP METAB OLIC PANEL total protein 7.4 g/dL 6.4-8. 2 Not Available [facility] ([facility]) [address] , [place], [address], 07/17/2025 16:58:40 07/17/20 25 07/17/2025 COMP METAB OLIC PANEL albumin 3.9 g/dL 3.4-5. 0 Not Available [facility] ([facility]) [address] , [place], [address], 07/17/2025 16:58:40 07/17/20 25 07/17/2025 COMP METAB OLIC PANEL globulin 3.5 Not Available [facility] ([facility]) [address] , [place], [address], 07/17/2025 16:58:40 07/17/20 25 07/17/2025 COMP METAB OLIC PANEL alb/glob ratio 1.1 0.7-2 Not Available [facility] ([facility]) [address], [place], [address], 07/17/2025 16:58:40 07/17/20 25 07/17/2025 COMP METAB OLIC PANEL calcium 9.8 mg/dL 8.5-10 .5 Not Available [facility] ([facility]) [address] , [place], [address], 07/17/2025 16:58:40 07/17/20 25 07/17/2025 COMP METAB OLIC PANEL bilirubin total 0.60 mg/dL 0.10-1 .00 Not Available [facility] ([facility]) [address] , [place], [address], 07/17/2025 16:58:40 07/17/20 25 07/17/2025 COMP METAB OLIC PANEL AST (SGOT) 17 U/L 0-37 Not Available [facility] ([facility]) [address] , [place], [address], 07/17/2025 16:58:40 07/17/20 25 07/17/2025 COMP METAB OLIC PANEL ALT (SGPT) 26 U/L 0-65 Not Available [facility] ([facility]) [address], [place], [address], 07/17/2025 16:58:40 07/17/20 25 07/17/2025 COMP METAB OLIC PANEL alk phosphatase 56 U/L 46-116 Not Available [facility] ([facility]) [address], [place], [address], 07/17/2025 16:58:40 07/17/20 25 07/17/2025 PROST ATE SPECI FIC AG (PSA) prostate specific Ag (PSA) 6.6 NG/mL 0-4.0 high Not Available [facility] ([facility]) [address] [facility], [place], [address], 07/17/2025 16:58:41 07/17/20 25 07/21/2025 TESTO STERO NE,FR EE AND TOTAL testosterone , serum 295 NG/dL 264-91 6 Adult male refer ence inter valentín is based on a popul ation of healt hy nonob larisa males (BMI <30) betwe en 19 and 39 years old. Claudette robins et.al . JCEM 2017, 102;1 161-1 173. PMID: 66203 103. Not Available [facility] ([facility]) [address] [facility], [place], [address], 07/21/2025 15:13:03 07/17/20 25 07/21/2025 TESTO STERO NE,FR EE AND TOTAL testosterone , free, direct 5.2 pg/mL 6.6-18 .1 low Perfo rmed at: [facility] [address] [place] [address] Lab Direc tor: Ramu hernandez PhD, Phone : [phone] Perfo rmed at: [facility] - [facility] rp Jennifer yan [address] [facility] , [facility] [place] [address] Lab Direc tor: Dayanara mann MD, Phone : [phone] Not Available [facility] ([facility]) [address], [place], [address], 07/21/2025 15:13:03 08/07/20 25 08/07/2025 CBC AUTO W DIFF WBC 7.5 K/uL 4.0-10 .5 Not Available [facility] ([facility]) [address], [place], [address], 08/07/2025 10:56:51 08/07/20 25 08/07/2025 CBC AUTO W DIFF RBC 5.5 M/mm3 4.7-6. 1 Not Available [facility] ([facility]) [address] , [place], [address], 08/07/2025 10:56:51 08/07/20 25 08/07/2025 CBC AUTO W DIFF HGB 15.3 gm/dL 13.5-1 8.0 Not Available [facility] ([facility]) [address] , [place], [address], 08/07/2025 10:56:51 08/07/2008/07/2025 CBC AUTO W DIFF HCT 47.4 % 42.0-5 2.0 Not Available [facility] ([facility]) [address] , [place], [address], 08/07/2025 10:56:51 08/07/2008/07/2025 CBC AUTO W DIFF MCV 86.7 fL 78-100 Not Available [facility] ([facility]) [address] , [place], [address], 08/07/2025 10:56:51 08/07/20 25 08/07/2025 CBC AUTO W DIFF MCH 28.0 pg 27-31 Not Available [facility] ([facility]) [address] , [place], [address], 08/07/2025 10:56:51 08/07/20 25 08/07/2025 CBC AUTO W DIFF MCHC 32.3 g/dL 32-36 Not Available [facility] ([facility]) [address] , [place], [address], 08/07/2025 10:56:51 08/07/20 25 08/07/2025 CBC AUTO W DIFF RDW 14.1 % 11.5-1 4.0 high Not Available [facility] ([facility]) [address] , [place], [address], 08/07/2025 10:56:51 08/07/20 25 08/07/2025 CBC AUTO W DIFF platelet count 242 K/uL 150-45 0 Not Available [facility] ([facility]) [address], [place], [address], 08/07/2025 10:56:51 08/07/20 25 08/07/2025 CBC AUTO W DIFF MPV 9.6 fL 6-9.5 high Not Available [facility] ([facility]) [address], [place], [address], 08/07/2025 10:56:51 08/07/20 25 08/07/2025 CBC AUTO W DIFF neutrophil% 56.4 % 43-65 Not Available [facility] ([facility]) [address], [place], [address], 08/07/2025 10:56:51 08/07/20 25 08/07/2025 CBC AUTO W DIFF lymphocyte% 29.3 % 20.5-4 5.5 Not Available [facility] ([facility]) [address], [place], [address], 08/07/2025 10:56:51 08/07/20 25 08/07/2025 CBC AUTO W DIFF monocyte% 10.2 % 5.5-11 .7 Not Available [facility] ([facility]) [address] [place], [address], 08/07/2025 10:56:51 08/07/20 25 08/07/2025 CBC AUTO W DIFF eosinophil% 2.9 % 0.9-2. 9 Not Available [facility]) [address] [facility] [place], [address], 08/07/2025 10:56:51 08/07/20 25 08/07/2025 CBC AUTO W DIFF basophil% 0.7 % 0.2-1. 0 Not Available [facility] ([facility]) [address] [facility], [place], [address], 08/07/2025 10:56:51 08/07/20 25 08/07/2025 CBC AUTO W DIFF immature granulocytes % 0.5 % 0.0-0. 8 Not Available [facility] ([facility]) [address] [facility], [place], [address], 08/07/2025 10:56:51 08/07/20 25 08/07/2025 CBC AUTO W DIFF nucleated red blood cells % 0.0 % Not Available [facility] ([facility]) [address] [facility], [place], [address], 08/07/2025 10:56:51 08/07/20 25 08/07/2025 CBC AUTO W DIFF neutrophil# 4.2 K/uL 2.2-4. 8 Not Available [facility] ([facility]) [address] [facility], [place], [address], 08/07/2025 10:56:51 08/07/20 25 08/07/2025 CBC AUTO W DIFF lymphocyte# 2.2 cell/ mcL 1.3-2. 9 Not Available [facility] ([facility]) [address] [facility], [place], [address], 08/07/2025 10:56:51 08/07/20 25 08/07/2025 CBC AUTO W DIFF monocyte# 0.8 cell/ mcL 0.3-0. 8 Not Available [facility] ([facility]) [address] [facility], [place], [place], [address], 08/07/2025 10:56:51 10/17/08/07/2025 CBC AUTO W DIFF eosinophil# 0.2 cell/ mcL 0-0.2 Not Available [facility] ([facility]) [address] , [place], [address], 08/07/2025 10:56:51 08/07/20 25 08/07/2025 CBC AUTO W DIFF basophil# 0.1 cell/ mcL 0.0-1. 0 Not Available [facility] ([facility]) [address] , [place], [address], 08/07/2025 10:56:51 08/07/20 25 08/07/2025 CBC AUTO W DIFF immature gramulocytes # 0.04 K/uL Not Available [facility] ([facility]) [address] , [place], [address], 08/07/2025 10:56:51 08/07/20 25 08/07/2025 CBC AUTO W DIFF nucleated red blood cells # 0.00 K/uL Not Available [facility] [place] [facility] ([facility]) [address] , [place], [address], 08/07/2025 10:56:51 08/07/20 25 08/07/2025 CBC AUTO W DIFF manual differential NO Not Available [facility] ([facility]) [address] , [place], [address], 08/07/2025 10:56:51 08/07/20 25 08/07/2025 COMP METAB OLIC PANEL sodium 140 mmol/ L 136-14 5 Not Available [facility] ([facility]) [address], [place], [address], 08/07/2025 11:42:07 08/07/20 25 08/07/2025 COMP METAB OLIC PANEL potassium 4.6 mmol/ L 3.6-5. 0 Not Available [facility] ([facility]) [address] , [place], [address], 08/07/2025 11:42:07 08/07/2008/07/2025 COMP METAB OLIC PANEL chloride 101 mmol/ L 98-107 Not Available [facility] ([facility]) [address] , [place], [address], 08/07/2025 11:42:07 08/07/2008/07/2025 COMP METAB OLIC PANEL carbon dioxide 29.3 mmol/ L 21.0-3 2.0 Not Available [facility] ([facility]) [address], [place], [address], 08/07/2025 11:42:07 08/07/2008/07/2025 COMP METAB OLIC PANEL anion gap 14.3 Not Available [facility] ([facility]) [address], [place], [address], 08/07/2025 11:42:07 08/07/20 25 08/07/2025 COMP METAB OLIC PANEL glucose 147 mg/dL 70-120 high Not Available [facility] ([facility]) [address], [place], [address], 08/07/2025 11:42:07 08/07/20 25 08/07/2025 COMP METAB OLIC PANEL BUN 20 mg/dL 7-18 high Not Available [facility] ([facility]) [address], [place], [address], 08/07/2025 11:42:07 08/07/20 25 08/07/2025 COMP METAB OLIC PANEL creatinine 0.8 mg/dL 0.6-1. 3 Not Available [facility] ([facility]) [address] [place], [address], 08/07/2025 11:42:07 08/07/20 25 08/07/2025 COMP METAB OLIC PANEL glomerular filtration rate [...] paige ing kiney funct ion. Not Available [facility] ([facility]) [address], [place], [address], 08/07/2025 11:42:07 08/07/2008/07/2025 COMP METAB OLIC PANEL osmolality (calculated) 296 mOsm/ kg 275-30 1 OSMOL ALITY IS A CALCU LATIO N UTILI ZING THE SERUM /PLAS MA SODIU M, GLUCO SE AND UREA NITRO GEN (BUN) LEVEL S. FOR THE MOST ACCUR ATE RESUL T A MEASU RED SERUM OSMOL ALITY IS SUGANTONIO TORRESD. Not Available [facility] ([facility]) [address] , [place], [address], 08/07/2025 11:42:07 08/07/2008/07/2025 COMP METAB OLIC PANEL total protein 7.5 g/dL 6.4-8. 2 Not Available [facility] ([facility]) [address], [place], [address], 08/07/2025 11:42:07 08/07/2008/07/2025 COMP METAB OLIC PANEL albumin 3.9 g/dL 3.4-5. 0 Not Available [facility] ([facility]) [address], [place], [address], 08/07/2025 11:42:07 08/07/2008/07/2025 COMP METAB OLIC PANEL globulin 3.6 Not Available [facility] ([facility]) [address], [place], [address], 08/07/2025 11:42:07 08/07/20 25 08/07/2025 COMP METAB OLIC PANEL alb/glob ratio 1.1 0.7-2 Not Available [facility] ([facility]) [address], [place], [address], 08/07/2025 11:42:07 08/07/20 25 08/07/2025 COMP METAB OLIC PANEL calcium 9.9 mg/dL 8.5-10 .5 Not Available [facility] ([facility]) [address], [place], [address], 08/07/2025 11:42:07 08/07/2008/07/2025 COMP METAB OLIC PANEL bilirubin total 0.70 mg/dL 0.10-1 .00 Not Available [facility] ([facility]) [address] [facility], [place], [address], 08/07/2025 11:42:07 08/07/20 25 08/07/2025 COMP METAB OLIC PANEL AST (SGOT) 15 U/L 0-37 Not Available [facility] ([facility]) [address] [facility], [place], [address], 08/07/2025 11:42:07 08/07/20 25 08/07/2025 COMP METAB OLIC PANEL ALT (SGPT) 25 U/L 0-65 Not Available [facility] ([facility]) [address] [facility], [place], [address], 08/07/2025 11:42:07 08/07/20 25 08/07/2025 COMP METAB OLIC PANEL alk phosphatase 45 U/L 46-116 low Not Available [facility] ([facility]) [address] [facility], [place], [address], 08/07/2025 11:42:07 08/07/20 25 08/07/2025 PROST ATE SPECI FIC AG (PSA) prostate specific Ag (PSA) 7.3 NG/mL 0-4.0 high Not Available [facility] ([facility]) [address] [facility], [place], [address], 08/07/2025 11:42:09 08/07/20 25 08/11/2025 TESTO STERO NE,FR EE AND TOTAL testosterone , serum 273 NG/dL 264-91 6 Adult male refer ence inter valentín is based on a popul ation of healt hy nonob larisa males (BMI <30) betwe en 19 and 39 years old. Claudette robins et.al . JCEM 2017, 102;1 161-1 173. PMID: 90881 103. Not Available [facility] ([facility]) [address] [facility], [place], [address], 08/11/2025 15:12:56 08/07/20 25 08/11/2025 TESTO STERO NE,FR EE AND TOTAL testosterone , free, direct 5.5 pg/mL 6.6-18 .1 low Perfo rmed at: - [facility] [address] [place] [address] Lab Direc tor: Ramu hernandez PhD, Phone : [phone] Perfo rmed at: - [facility] [address] [address] Lab Direc tor: Dayanara mann MD, Phone : [phone] Not Available [facility] ([facility]) [address] [facility], [place], [address], 08/11/2025 15:12:56 07/01/20 25 07/01/2025 PET-C T, skull base to mid-t high scan No observ ation record ed. [facility] Radiology [address] [place] [address] , [place], [address], 07/03/2025 10:45:08 Result Notes None recorded. 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 2425190198795 Active 2024 Nieves garza, [place] - [facility] [place] & [place] 5 11:10:38 Hyperchole sterolemia 38238928 Active 2024 N[place] [facility] & [place] 5 11:10:46 History of radiation therapy 218301594 Active 2024 Nieves garza, [place] [facility] [place] & [place] 5 11:10:57 Prostate specific antigen above reference range 124718906 Active 2024 JORGE RIVERA MD [address], [place], [address] , [place] [facility] [place] & [place] 5 11:55:36 Lower urinary tract symptoms 322362626 Active 2024 JORGE RIVERA MD [address], [place], [address] , [place] [facility] [place] & [place] 5 11:56:25 Malignant neoplasm of prostate 990230623 Active 2024 JORGE RIVERA MD [address], [place], [address] , [place] [facility] [place] & [place] 5 16:24:52 Problem Notes Documentation Provider Name and Address Organization Details Recorded Time Back Panel Padder Consult Note : SW met w/ pt and during clinic appt for initial consult. SW informed pt of role in care and provided contact information. Pt denied needs at this time. SW communicated support ongoing. Rosmery Aj kayla, [place] [facility] [place] & [place] 07/17/2025 14:22:38 Radiation Oncologist Consult Note : [...] ONN will continue to f/u. Adela Velasquez [place], [place] - [facility] & [place] 08/04/2025 14:56:37 Oncology Patient Navigator : ONN contacted pt. after recent visit with medical oncology. Pt. did not have any questions/concerns. ONN encouraged pt. to reach out should any needs arise. ONN will continue to f/u. PEDRO Mazariegos [facility] & [place] 08/10/2025 16:42:53 Procedures Surgical History Date Name Laterality Status Provider Name and Address Organization Details Recorded Time 0 Radiation Therapy completed Mo HOUSE [facility] & [place] 05/05/2025 10:49:43 0 Cancer Surgery completed Mo Arroyo [place] & [place] 05/05/2025 10:49:43 4 Abdominal Surgery completed Mo HOUSE [facility] & [place] 05/05/2025 10:49:43 7 Tonsillectomy/ Adenoidectomy completed Mo HOUSE [facility] & [place] 05/05/2025 10:49:43 knee joint operation completed Nieves Arroyo [place] & [place] 01/06/2025 11:09:38 Imaging Results None recorded. Procedure Notes None recorded. Medical Equipment None Reported. Allergies Allergen ID Allergen Name Allergen Category Reaction Reaction Severity Criticality Documentation Date Start Date Code Code System Note Provider Name and Address Organization Details Recorded Time 879110 Substance with sulfonami de structure and antibacte rial mechanism of action (substanc e) medicatio n Not available Not available Not available 12/10/2024 82162 8003 SNOMED PEDRO Sampson [place] & [place] 5 09:33:08 Medications Name Sig Start Date [...] height Body mass index (BMI) Body weight Oxygen saturation Oxygen saturation in Arterial blood by Pulse oximetry Heart rate Systolic And Diastolic Provider Name and Address Organization Details Last Updated DateTime 5 182.88 cm 30 kg/m2 833164. 63 g 97 % 97 % 50 /min 126/68 mm[Hg] Ana Hill [facility] & [place] 5 15:44:15 Date Recorded Body height Body mass index (BMI) Body weight Body temperature Oxygen saturation Oxygen saturation in Arterial blood by Pulse oximetry Heart rate Systolic And Diastolic Provider Name and Address Organization Details Last Updated DateTime 182.88 cm 30.5 kg/m2 569025. 21 g 98.2 [degF] 96 % 96 % 66 /min 139/77 mm[Hg] Renea David [facility] & [place] 13:13:36 Date Recorded Body height Body mass index (BMI) Body weight Body temperature Oxygen saturation Oxygen saturation in Arterial blood by Pulse oximetry Heart rate Respiratory rate Systolic And Diastolic Provider Name and Address Organization Details Last Updated DateTime 5 182.88 cm 30.4 kg/m2 870235. 49 g 97.3 [degF] 96 % 96 % 67 /min 18 /min 142/72 mm[Hg] Perri Noble [facility] & [place] 5 10:26:15 Social History Question Answer Notes LastModified by [employer] Details LastModified Time Tobacco Smoking Status Never Smoker Renea David [facility] & [place] 07/17/2025 13:16:05 Do You Have An Advance Directive? No Information not available 05/05/2025 Are You Blind Or Do You Have Difficulty Seeing? Yes Information not available 05/05/2025 What Is Your Level Of Caffeine Consumption? Moderate [email or web address] Information not available 07/17/2025 What Was The Date Of Your Most Recent Tobacco Screening? 05/02/2025 Information not available 05/05/2025 Are You Passively Exposed To Smoke? No Information not available 05/05/2025 Has Tobacco Cessation Counseling Been Provided? No [email or web address] Information not available 07/17/2025 Sex: Unknown Functional Status Question Answer Note LastModified by [employer] ion Details LastModified Time Do you use any illicit or recreational drugs? No Information not available 05/05/2025 Do you or have you ever used any other forms of tobacco or nicotine? No [email or web address] Information not available 07/17/2025 What is your level of alcohol consumption? None Information not available 05/05/2025 What is your exercise level? Occasional Information not available 05/05/2025 Mental Status Question Answer Note LastModified by Organization D etails LastModified Time Do you feel stressed (tense, restless, nervous, or anxious, or unable to sleep at night)? [id number] Information not available 05/05/2025 Family History Relationship Description Onset Age of this Age Resolved Age Notes LastModified by Organization Details LastModified Time Mother Malignant melanoma [email or web address] Not available 07/17 13:14:00 Paternal Aunt Malignant neoplastic disease states it grew on her spine and ended up killin g her . [email or web address] Not available 07/17/2025 13:15:27 Medical History Condition Response Diabetes Y Clotting Disorder Y Back Problems Y Deep Vein Thrombosis Y Hypertension Y High Cholesterol Y Immunizations Vaccine Type Date Status Note Provider Nam e and Address Organization Details Recorded Time Influenza, adjuvanted, trivalent, PF 9 completed Not Available [facility] 08/07/2025 10:12:24 Influenza, split virus, quadrivalent, PF [...] [facility] 08/07/2025 10:12:24 Influenza, high-dose, quadrivalent, PF 1 completed Not Available [facility] 08/07/2025 10:12:24 COVID-19, mRNA, LNP-S, PF, 100 mcg/0.5mL dose or 50 mcg/0.25mL dose 1 completed Not Available [facility] 08/07/2025 10:12:24 Influenza, high-dose, quadrivalent, PF 2 completed Not Available [facility] 08/07/2025 10:12:24 COVID-19, mRNA, LNP-S, bivalent, PF, 50 mcg/0.5 mL or 25mcg/0.25 mL dose 2 completed Not Available [facility] 08/07/2025 10:12:24 RSV, bivalent, protein subunit RSVpreF, diluent reconstituted, 0.5 mL, PF 3 completed Not Available [facility] 08/07/2025 10:12:24 Influenza, adjuvanted, quadrivalent, PF 3 completed Not Available [facility] 08/07/2025 10:12:24 Pneumococcal conjugate PCV20, polysaccharide [id number] conjugate, adjuvant, PF 4 completed Not Available [facility] 08/07/2025 10:12:24 Influenza, high-dose, trivalent, PF 4 completed Not Available [facility] 08/07/2025 10:12:24 Tdap 4 completed Not Available [facility] 08/07/2025 10:12:24 zoster recombinant 4 completed Not Available [facility] 08/07/2025 10:12:24 zoster recombinant 5 completed Not Available [facility] 08/07/2025 10:12:24 Past Encounters Encounter ID Performer Location Encounter Start Date Encounter Closed Date Diagnosis/Indication Diagnosis SNOMED-CT Code Diagnosis ICD10 Code Diagnosis IMO Codes Diagnosis Note [id number] JORGE RIVERA MD [facility] Urology-1 00 [address] [facility] [address] [place] [address] 01/06/2025 10:41:52 01/06/2025 11:59:04 Prostate specific antigen above reference range 548538199 R97.20 50102 Lower urin xiang tract symptoms 324119410 R39.9 [id number] continue tamsulosin [id number] JORGE RIVERA MD [facility] Urology-1 [address] [facility] [address] [place] [address] 05/05/2025 10:33:31 05/05/2025 11:40:29 Prostate specific antigen above reference range 562982274 R97.20 [id number] JORGE RIVERA MD [facility] Urology-1 00 [address] [facility] [address] [place] [address] 06/09/2025 14:46:25 06/09/2025 16:29:00 Malignant neoplasm of prostate 153625880 C61 03896 [id number] JORGE RIVERA MD [facility] Urology-1 [address] [facility] [address] [place] [address] 07/07/2025 07:42:01 07/07/2025 08:21:52 Malignant neoplasm of prostate 540247445 C61 36355 [id number] JORGE RIVERA MD [facility] Urology-1 [address] [facility] [address] [place] [address] 07/14/2025 07:49:24 07/14/2025 08:33:29 Malignant neoplasm of prostate 125068565 C61 89295 Prostate s pecific antigen above reference range 199583859 R97.20 [id number] Markell Sharma MD [facility] Oncology and Hematolog y [address] [facility] [address] [place] [address] 07/17/2025 13:02:04 07/17/2025 13:56:16 Malignant neoplasm of prostate 716906693 C61 10550 Prostate biopsy performed on May 20, 2025 [...] 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 Patient received 1 cycle ABVD with significan t side effects. Patient finished treatment with radiation therapy. Patient has been on observatio n since that time. [id number] Ioana Teixeira PA-C [facility] Oncology and Hematolog y [address] [place] [address] 08/07/2025 10:11:59 08/07/2025 10:58:13 Malignant neoplasm of prostate 224814293 C61 47708 Prostate biopsy performed on May 20, 2025 [...] planning to start radiation therapy. 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 Patient received 1 cycle ABVD with significan t side effects. Patient finished treatment with radiation therapy. Patient has been on observatio n since that time. Prostate s pecific antigen above reference range 897803132 R97.20 54946 Labs on July 17, 2025 with PSA 6.6. Will follow-up as patient starts androgen deprivatio n therapy. Drug therapy finding 309 276357 Z79.818 [id number] Starting androgen deprivatio n therapy with Eligard for 4-6 months on August 07, 2025. Will follow up tolerabili ty. Education performed before injection was given today. Discussed possible side effects to [facility] for. Health Concerns Section Related Observation LastModified by Organization Detai ls LastModified Time None Recorded Concern Status LastModified by Organization Details LastModified Time None Recorded Advance Directives Directive N: Payers Insurance Date Sequence Insurance Name Policy Number Policy Moraes Covered Member ID Moraes Member ID Guarantor Name 07/17/2025 1 [facility] [id number] Srinivasa Hager [id number] Srinivasa Hager 07/17/2025 1 [place] Srinivasa Hager [id number] Srinivasa Hager 07/17/2025 [facility] (MEDICARE REPLACEMENT/A DVANTAGE - PPO) [id number] Srinivasa Hager [id number] Sriinvasa Hager 08/12/2025 1 [facility] (MEDICARE REPLACEMENT/A DVANTAGE - PPO) [id number] Srinivasa Hager [id number] Srinivasa Hager Notes Date Note Type Note Provider Name and Address Organization Details Recorded Time 06/09/2025 text/html 06/09/25 Patient returns to my office for [...] cancer and the next steps in management. 05/05/25 Patient returns to my office for MRI results [...] of his anticoagulation therapy on potential biopsy procedures. He mentions a prior colonoscopy performed approximately three to four years ago, during which two small polyps measuring 5 millimeters were removed. He also notes a history of thyroid cysts, which he attributes to prior chemotherapy or radiation therapy. He has been advised by his oncologist to monitor his thyroid function, which has been stable thus far. Srinivasa describes a previous experience with a sinus infection that required antibiotics, which interfered with his warfarin therapy and resulted in hematuria for three days. He recalls receiving vitamin K treatment to stabilize his condition. 01/06/25Srinivasa Hager is a 74-year-old male who [...] his blood was sent for testing in [place]. He also has a history of lymphoma, which he has been managing for nearly five years. His father likely from a perforated bowel, and Srinivasa himself has been told he is at risk for a similar condition. 0 05/20/25 TRUS Bx:RLM 4+3=7, PI RADS #3 Atypical small acinar proliferation, vol 54.2 cc04/23/25 MRI Prostate w/w/o (BH): PERIPHERAL ZONE: 2 small decreased T2 signal [...] PSA 4. PSA 3.93 JORGE RIVERA MD [address] [facility], [place], [address], [facility] - [place] - [place] & [place] 06/11/2025 07:24:54 07/07/2025 text/html 07/07/25 Tele visit to discuss [...] only tele visit conducted my office in [facility]. Patient identity confirmed with name and [...] his blood was sent for testing in [place]. He also has a history of lymphoma, which he has been managing for nearly five years. His father likely from a perforated bowel, and Srinivasa himself has been told he is at risk for a similar condition. 07/01/25 PET-CT ([facility]): Extensive scatter and artifact throughout the examination, [...] PSA 4. PSA 3.93 JORGE RIVERA MD [address] [facility], [place], [address], [place] [facility] - [place] & [place] 07/07/2025 12:24:16 07/14/2025 text/html 07/14/25 Tele visit to discuss upcoming Barrigel on 08/03/25.Srinivasa Hager is a 75-year-old male who presents for a telephonic visit to discuss the Barrigel procedure. He has previously spoken with Dr. Martins regarding this procedure. The Barrigel procedure involves a transperineal injection of a hydrostatic gel placed between the rectal wall and the prostate to minimize radiation effects on the rectum. The gel dissolves naturally within approximately three months. The patient is currently on warfarin and expressed concerns about whether he needs to discontinue it for the procedure. He was reassured that discontinuation is not necessary, although anesthesia may have differing requirements. He also inquired about the need for antibiotics prior to the procedure and was informed that a three-day course of antibiotics would be prescribed, starting the day before the procedure. The patient is scheduled for the Barrigel procedure on the and has no activity restrictions following the procedure. Audio only tele visit conducted my office in [facility]. Patient identity confirmed with name and date of . Verbal consent given to proceed. 07/07/25 Tele visit to discuss PET-CT results. [...] Dr. Martins, a radiation oncologist, for further evaluationand treatment planning. Audio only tele visit conducted my office in [facility]. Patient identity confirmed with name and date of . Verbal consent given to proceed. 06/09/25Patient returns to my office for TRUS Bx [...] which is not uncommon when cancer is nearby.Srinivasa has a history of cancer treatment, including chemotherapy and radiation therapy, and reports that his previous cancer disappeared following treatment. He recalls being treated by Dr. Vasquez, his oncologist, during that time. He also experienced complications with chemotherapy, including lung issues, which led to a switch to radiation therapy.Post-operativ kenrick, Srinivasa reports bleeding episodes that began after [...] red blood clots and slimy material resembling gelatin.Srinivasa denies pain associated with the prostate cancer and reports hemorrhoids as a separate concern. He expresses interest in understanding the rate of growth of his prostate cancer and the next steps in management. 5Patient returns to my office for MRI results and follow up LUTS and elevated PSA.Srinviasa Hager is a 75-year-old male who presents [...] vitamin K treatment to stabilize his condition. 01/06Srinivasa Hager is a 74-year-old male who presents [...] his blood was sent for testing in [place]. He also has a history of lymphoma, which he has been managing for nearly five years. His father likely from a perforated bowel, and Srinivasa himself has been told he is at risk for a similar condition. 07/01/25 PET-CT ([facility]): Extensive scatter and artifact throughout the examination, [...] Degenerative disease involving the spine, PARS defects L5. No evidence of metastatic disease.05/20/25 TRUS Bx: RLM 4+3=7, PI RADS #3 [...] 4 lesions and were localized on the [employer] CAD software.TRANSITION ZONE: The transition zone is [...] PSA 4. PSA 3.93 JORGE RIVERA MD [address], [place], [address], [facility] - [facility] & [place] 07/15/2025 12:22:36 07/17/2025 text/html 75 yo M presents for evaluation of prostate cancer. Patient seen by Urology in April 2025 for elevated PSA. Prostate biopsy performed on May 20, 2025 with findings of prostate adenocarcinoma [place] 4+3=7 involving 1 core. Representing 15% of total core volume. No perineural invasion identified. Patient seen by Radiation Medicine and discussion radiation therapy for treatment prostate cancer. PSA PET scan performed on July 01, 2025 with no evidence metastatic disease.Based on pathology and imaging pT2 N0 M0. Stage II. grade group 3 based on [place] score. ECOG 0. Based on NCCN guidelines patient falls into intermediate risk category. Discussion androgen deprivation therapy with Eligard or Lupron for 4-6 months. Will start androgen deprivation prior to starting radiation therapy. Will follow-up Patient presents July 17, 2025. Discussed androgen deprivation therapy and consideration there of while being treated with radiation therapy. Markell Sharma MD [address], [place], [address], [facility] - [facility] & [place] 07/17/2025 14:52:17 08/07/2025 text/html 75 yo M presents for evaluation of prostate cancer. Patient seen by Urology in April 2025 for elevated PSA. Prostate biopsy performed on May 20, 2025 with findings of prostate adenocarcinoma Buzz 4+3=7 involving 1 core. Representing 15% of [...] to start radiation therapy. Ioana Teixeira PA-C [address], [place], [address], [facility] - [place] - [place] & [place] 08/07/2025 10:49:42
--- OUTSIDE RECORDS SUMMARY | 2025-08-12 15:10 | XMS_ITS | Continuity of Care Document ---
Author Organization [facility] Address [address] [facility] [address] [place] [address] Care Team Providers Care Oim Consultant Name Role Phone SIA FERRIS Primary Care Provider Assessment Encounter Date Assessment Date Assessment LastModified by Organization Details LastModified Time 07/14/2025 07/14/2025 ASSESSMENT: Srinivasa Hager is a 75-year-old male with prostate cancer requiring radiation therapy. PLAN: 1. Proceed with the Barrigel procedure scheduled for the to minimize radiation effects on the rectum. 2. Prescribe a three-day course of antibiotics to be started the day before the procedure. The prescription will be sent to [facility] in [place]. 3. Advise the patient to inform the [...] available Not available Lab None recorded. Referral None recorded. Procedures None recorded. Surgeries transperi dori placement of biodegrad able material, charmaine-pros tatic, single or multiple injection (s), including image guidance, when performed (SURG) 2024 025 [email or web address] Not available 08/05/2025 11:50:47 Imaging None recorded. Medication Orders cefdinir 300 mg capsule 2024 025 [facility], [address], [address], 07/24/2025 05:02:43 Patient TargetsNo targets recorded. Patient InstructionsNo instructions recorded. Reason for Referral None Reported. Results Created Date Observation Date Name Description Value Unit Range Abnormal Flag Note LastModifiedBy Organization Detail LastModifiedTime 07/01/2007/01/2025 PET-C T, skull base to mid-t high scan No observ ation record ed. [facility] [address] [place] [address] [place], [address], 07/03/2025 10:45:08 Result Notes None recorded. 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 3573490818501 Active 2024 Nieves garza, [place] - [facility] - [place] & [place] 11:10:38 Hyperchole sterolemia 37111787 Active 2024 Nieves garza, [place] - [facility] & [place] 11:10:46 History of radiation therapy 873643937 Active 2024 Nieves garza, [place] - [facility] & [place] 11:10:57 Prostate specific antigen above reference range 712347545 Active 2024 MATIAS RIVERA MD [address], [place], [address] , [place] - [facility] [place] & [place] 11:55:36 Lower urinary tract symptoms 197594420 Active [address], [place], [address] , [place] - [facility] & [place] 5 11:56:25 Malignant neoplasm of prostate 184370212 Active 2024 MATIAS RIVERA MD [address], [place], [address] , [facility] & [place] 5 16:24:52 Problem Notes None recorded. Procedures Surgical History Date Name Laterality Status Provider Name and Address Organization Details Recorded Time 0 Radiation Therapy completed [facility] & [place] 05/05/2025 10:49:43 0 Cancer Surgery completed Mo Mendez [facility] & [place] 05/05/2025 10:49:43 4 Abdominal Surgery completed [facility] & [place] 05/05/2025 10:49:43 7 Tonsillectomy/ Adenoidectomy completed Mo Mendez [facility] & [place] 05/05/2025 10:49:43 knee joint operation completed Nieves VASQUEZ [facility] & [place] 01/06/2025 11:09:38 Imaging Results None recorded. Procedure Notes None recorded. Medical Equipment None Reported. Allergies Allergen ID Allergen Name Allergen Category Reaction Reaction Severity Criticality Documentation Date Start Date Code Code System Note Provider Name and Address Organization Details Recorded Time 545309 Substance with sulfonami de structure and antibacte rial mechanism of action (substanc e) medicatio n Not available Not available Not available 12/10/2024 21100 8003 SNOMED Nieves Dinh [facility], [facility] & [place] 5 09:33:08 Medications Name Sig Start Date [...] Tobacco Smoking Status Never Smoker Renea David [facility], [place] - [facility] - [place] & [place] 07/17/2025 13:16:05 Do You Have An Advance [...] Has Tobacco Cessation Counseling Been Provided? No [email or web address] Information not available 07/17/2025 Sex: Unknown Functional Status Question Answer Note LastModified by Organizat ion Details LastModified Time Do you use any illicit or recreational drugs? No Information not available 05/05/2025 Do you or have you ever used any other forms of tobacco or nicotine? No [email or web address] Information not available 07/17/2025 What is your level of alcohol consumption? None Information not available 05/05/2025 What is your exercise level? Occasional Information not available 05/05/2025 Mental Status Question Answer Note LastModified by Organization D etails LastModified Time Do you feel stressed (tense, restless, nervous, or anxious, or unable to sleep at night)? [id number] Information not available 05/05/2025 Family History Relationship Description Onset Age of this Age Resolved Age Notes LastModified by Organization Details LastModified Time Mother Malignant melanoma [email or web address] Not available 07/17 13:14:00 Paternal Aunt Malignant neoplastic disease states it grew on her spine and ended up killin g her . [email or web address] Not available 07/17/2025 13:15:27 Medical History Condition Response Clotting Disorder Y Deep Vein Thrombosis Y Diabetes Y Back Problems Y High Cholesterol Y Hypertension Y Immunizations Vaccine Type Date [...] 50 mcg/0.25mL dose 1 completed Not Available [facility] 08/07/2025 10:12:24 COVID-19, mRNA, LNP-S, PF, 100 mcg/0.5mL dose or 50 mcg/0.25mL dose 1 completed Not Available [facility] 08/07/2025 10:12:24 Influenza, high-dose, quadrivalent, PF 1 completed Not Available [facility] 08/07/2025 10:12:24 COVID-19, mRNA, LNP-S, PF, 100 mcg/0.5mL dose or 50 mcg/0.25mL dose 1 completed Not Available [facility] 08/07/2025 10:12:24 Influenza, high-dose, quadrivalent, PF 2 completed Not Available [facility] 08/07/2025 10:12:24 COVID-19, mRNA, LNP-S, bivalent, PF, 50 mcg/0.5 mL or 25mcg/0.25 mL dose 2 completed Not Available [facility] 08/07/2025 10:12:24 RSV, bivalent, protein subunit RSVpreF, diluent reconstituted, 0.5 mL, PF 3 completed Not Available [facility] 08/07/2025 10:12:24 Influenza, adjuvanted, quadrivalent, PF 3 completed Not Available [facility] 08/07/2025 10:12:24 Pneumococcal conjugate PCV20, polysaccharide [id number] conjugate, adjuvant, PF 4 completed Not Available [facility] 08/07/2025 10:12:24 Influenza, high-dose, trivalent, PF 4 completed Not Available [facility] 08/07/2025 10:12:24 Tdap 4 completed Not Available [facility] 08/07/2025 10:12:24 zoster recombinant 4 completed Not Available [facility] 08/07/2025 10:12:24 zoster recombinant 5 completed Not Available [facility] 08/07/2025 10:12:24 Past Encounters Encounter ID Performer Location Encounter Start Date Encounter Closed Date Diagnosis/Indication Diagnosis SNOMED-CT Code Diagnosis ICD10 Code Diagnosis IMO Codes Diagnosis Note [id number] MATIAS RIVERA MD [facility] 00 [address] [facility] [address] [place] [address] 07/07/2025 07:42:01 07/07/2025 08:21:52 Malignant neoplasm of prostate 548853883 C61 40465 [id number] MATIAS RIVERA MD [facility]1 00 [address] [facility] [address] [place] [address] 07/14/2025 07:49:24 07/14/2025 08:33:29 Malignant neoplasm of prostate 468977665 C61 13630 Prostate s pecific antigen above reference range 711580207 R97.20 51532 Health Concerns Section Related Observation LastModified by Organization Detai ls LastModified Time None Recorded Concern Status LastModified by Organization Details LastModified Time None Recorded Payers Encounter Date Sequence Insurance Name Policy Number Policy Moraes Covered Member ID Moraes Member ID Guarantor Name 07/14/2025 1 [facility] (MEDICARE REPLACEMENT/A DVANTAGE - PPO) [id number] Srinivasa Hager [id number] Srinivasa Hager Notes Date Note Type Note Provider Name and Address Organization Details Recorded Time 07/14/2025 text/html 07/14/25 Tele visit to discuss [...] only tele visit conducted my office in [facility]. Patient identity confirmed with name and [...] only tele visit conducted my office in [facility]. Patient identity confirmed with name and [...] identified in only one core, with a [place] score of 4+3=7, indicating intermediate-risk prostate cancer. [...] his blood was sent for testing in [place]. He also has a history of lymphoma, [...] Vol. PSA 5.611/06/14 PSA 4. PSA 3.93 MATIAS RIVERA MD [address] , [place], [address], [facility] - [place] & [place] 07/15/2025 12:22:36
[2025-08-12 15:48] LABS: INR 1.55 (0.9-1.1); Prothrombin Time 16.7 seconds (10.1-12.5)
[2025-08-12 16:08] LABS: Creatinine,Serum 0.80 mg/dl (0.66-1.25); Estimated Glomerular Filt Rate 94 ml/min (>60); GFR (African American) 114 ML/MIN (>60)
== END 2025-08-12 23:59 | disposition home or self-care (01) ==
LOC: LAB 14:18
PROVIDERS: PCP Nurse Practitioner Family; Visit Provider Internal Medicine
DX: C61 Malignant neoplasm of prostate (principal); Z79.01 Long term (current) use of anticoagulants
CPT/HCPCS: 36415; 82565; 85610

== ENCOUNTER 2025-08-17 10:31 | Outpatient (CLI) | payer MEDICARE, SELFPAY ==
--- OUTSIDE RECORDS SUMMARY | 2025-08-17 10:43 | XMS_ITS | Encounter Summary ---
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
--- OUTSIDE RECORDS SUMMARY | 2025-08-17 10:43 | XMS_ITS ---
Author Organization [facility] Address [address] [place] [address] Care Team Providers Care Checker Product Design Name Role Phone Catrachita Raphael APRN Primary [...] Hager Date of 1950 Phone Email [email or web address] Treatment Team Patient Care Team: Petros Crain MD as Consulting Physician (General Surgery) Seth Pierre MD as Consulting Physician (Radiation Oncology) Tima Vasquez MD as Referring Physician (Hematology and Oncology) Provider Phone numbers Care Team Provider: Catrachita Raphael APRN, ([phone]) Care Team Provider: Petros Crain MD, ([phone]) Care Team Provider: Seth Pierre MD, ([phone]) Care Team Provider: Tima Vasquez MD, ([phone]) Care Team Provider: Leodan Pedraza MD, ([phone]) Post Treatment Care Team Primary Care Physician Catrachita Raphael APRN [phone] [address] [place] [facility] [address] [address] Background Information Medical history Past Medical History: Cataract bilat still present Diabetes mellitus (CMS/HCC) very seldom and if feels funny Factor 5 Leiden mutation, heterozygous (CMS/HCC) H/O blood clots Hypertension Lymphoma (CMS/HCC) PE (pulmonary thromboembolism) (CMS/HCC) Tinnitus Wears glasses Surgical history Past Surgical History: CERVICAL LYMPH NODE BIOPSY/EXCISION Procedure: EXCISION LEFT CERVICAL LYMPH NODE, INSERTION OF PORT; Surgeon: Petros Crain MD; Location: [facility] OR; Service: General COLONOSCOPY HERNIA REPAIR Dr. Red @ [facility]- right inguinal - unsure about mesh in place LYMPH NODE BIOPSY (L) neck Dr. Marrero @ [facility] OTHER SURGICAL HISTORY vocal cord visualization PORTACATH PLACEMENT [facility] Tobacco use Social History Tobacco Use Smoking [...] neck node with other smaller nodes. 10/02/2019 [facility] left neck fine-needle aspiration and biopsy on Lovenox off Coumadin for procedure showed atypical lymphoid proliferation with dysplastic CD30 positive cells suspicious for classic Hodgkin lymphoma but unequivocal diagnosis hindered by the low number of CD30 positive cells. Excisional biopsy recommended by pathology. -10/27/2019 initial [facility] medical oncology consultation: Reviewed the above [...] due to shortness ofbreath [facility] Lifetime Dose Tracking Doxorubicin: 204.375 mg/m2 [...] doctors and nurses such as exercise andactivity. sql consultant effects of radiation therapy vary greatly depending on the areas included in the field ofradiation and the radiation techniques that were used. Ask your doctors and nurses about the risk of product safety test engineer effects. Keep your follow up appointments and [...] to you. General Cancer Support & Resources [facility] [place] [address], [address] [place] [address] Med Onc: Acid Blower Onc: Shipping And Receiving Coordinator: Carina Spears - Psychiatric Nurse Practitioner: Yulissa Hughes APRN - [phone] Kick It! (A free smoking cessation program) Financial Counselor and Contact Information: [facility] Financial Counseling - Electrophysiology Scientist Contact Information: Dee Marrero - [phone] Wound Ostomy & Continence Nurse: Local Cancer [...] Toward Empowerment - for Women with Cancer: ([facility]) The Tools and encouragement you need [...] the last Sunday of each month. Location: [facility]; [address] [place] [address]. For more information call Estephanie Harrell @ [...] advice of a doctor or other health resident care associate. Please use these recommendations to talk with [...] of cancer in the general population. The [place] Cancer Society (ACS) recommends these screening guidelines for men: Recommendation Frequency Comments Colon and Rectal Cancer Screening For more information see the ACS document Colorectal Cancer: Early Detection. www.cancer.org/ssLINK/xafonpvvow-tqvjdn-jrpjz-detection-maxim Options for colon cancer screening can be [...] see the ACS Document Testicular Cancer Detection: http://www.cancer.org/cancer/testicularcancer/detailedguide/qedhghbltz-ahelye-ed tection Men of any age can develop [...] more information, visit http://www.nhlbi.nih.gov/health/public/heart/obesity/lose_wt/index.htm www.win.niddk.nih.gov Call the [place] Heart Association Talk to your health care [...] Experts recommend at least 30 minutes of yucpiljs-yz-dxjgaahw activity per day, five days a week. [...] you can call a national hotline at 8(365)-QUIT-NOW. Have regular check-ups by a healthcare professional. For more information about healthy screening tests for men visit the U.S. Department of Health and Human Services. http://www.womenshealth.gov/abmnpdblm-cymfd-bed-vaccines/rknsjsmgn-vgler-evs-men / For more information about adult vaccinations visit the CDC: http://www.cdc.gov/vaccines/recs/schedules/adult-schedule.htm Keep up-to-date on general health screening tests, including cholesterol, blood pressure and glucose (blood sugar) levels. Get an annual influenza vaccine (flu shot). Get vaccinated with the pneumococcal vaccine, which prevents a type of pneumonia, and re-vaccinatedas determined by your health care team. Don???t forget dental and eye health! The [place] [employer] Association recommends adults have their eyes examined every two years until age 60, then annually. People who wear glasses or corrective lenses or are at high risk for eye problems (i.e., diabetics, family history of eye disease) should be seen more frequently. The [place] Dental Association recommends adults see their dentist at least once a year. No information on file. No information on file.
--- OUTSIDE RECORDS SUMMARY | 2025-08-17 10:43 | XMS_ITS | Encounter Summary ---
[facility] Address [address] [place] [address] Care Team Providers Care Funeral Location Manager Name Role Phone Catrachita Raphael APRN Primary Care Provid er Encounter Details Date Type Department Care Team (Late st Contact Info) Description 07/22/2018 External CPT II TAX MAP TECHNICIAN - [facility] Social History Tobacco [...] documented as of this encounter Care Teams Funeral Location Manager Relationship Specialty Start Date End Date Catrachita Raphael APRN [address] [place] [address] PCP - General Family Medicine 10/09/19 documented as of this encounter
--- OUTSIDE RECORDS SUMMARY | 2025-08-17 10:43 | XMS_ITS | Clinical Summary ---
Author Organization [employer] ([place], [place], [place], [place]) Address [address] [place] [address] Care Team Providers Care Aircraft Cabin Cleaner Name Role Phone Unavailable Primary Care Provider [...] Shingles Vaccine (Zoster) Completed 12/01/2024, 11/2023 Insurance [facility] MEDICARE ADVANTAGE
--- OUTSIDE RECORDS SUMMARY | 2025-08-17 10:43 | XMS_ITS | Encounter Summary ---
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
--- OUTSIDE RECORDS SUMMARY | 2025-08-17 10:43 | XMS_ITS | Encounter Summary ---
Author Organization [employer] ([place], [place], [place], [place]) Address [address] [facility] [place] [address] Care Team Providers Care Mechanical Facilities Technician Name Role Phone Unavailable Primary Care Provider Unavailabl e Reason for Referral * MRI (Routine) - Closed Specialty Diagnoses / Procedures Referred By Contac t Referred To Contact Radiology Diagnoses Elevated PSA Procedures MR prostate without & with IV contrast Jorge Ocampo MD [address] [address] Phone: tel: fax: Referral ID Status Reason Start Date Expiration Date Visits Re quested Visits Authorized [id number] Closed 04/13/2025 04/13/2026 1 1 Encounter Details Date Type Department Care Team (Late st Contact Info) Description 04/13/[address] [facility] Central Scheduling 1 [place] [address] Jorge Ocampo MD [address] [facility] [address] [place] [address] Elevated PSA (Primary Dx) Social [...] protocol. The images were reviewed on the [employer] CAD workstation. The prostate measures 5.6 x [...] seen containing fat only. Procedure Note Dimas Babrosa MD - 04/23/2025 MR PELVIS WITHOUT AND WITH CONTRAST HISTORY: Elevated PSA COMPARISON: None FINDINGS: Multiplanar MR imaging of the pelvis was performed without and with contrast using the prostate MRI protocol. The images were reviewed on the [employer] CAD workstation. The prostate measures 5.6 x [...]
--- OUTSIDE RECORDS SUMMARY | 2025-08-17 10:43 | XMS_ITS | Clinical Summary ---
[facility] Address [address] [place] [address] Care Team Providers Care Drums Teacher Name Role Phone Catrachita Raphael APRN Primary [...] year) Discontinued Medical Devices Implanted Type Area Dice Maker Device Identifier Shelf Expiration Date Model / Serial / Lot Powerport Isp Clearvue Cath 8f 45cm - [id number] Implanted:Qty: 1 on 11/12/2019 by Petros Crain MD at [facility] Implant Right: Neck BARD PERIPHERAL VASCULAR 01/19/2021 [id number] / / [id number] Procedures Procedure Name Priority Date/Time Associated Diagnosis Comments SCANNED - COLONOSCOPY 12/11/2016 from Last 3 Months or Most Recently Relevant to Health Maintenance Results * SCANNED - COLONOSCOPY (12/11/2016) Catrachita Raphael APRN CHART REVIEW TABS Final Result from Last 3 Months or Most Recently Relevant to Health Maintenance Insurance Care Teams Drums Teacher Relationship Specialty Start Date End Date Catrachita Raphael APRN [address] [place] [address] [place] [address] PCP - General Family Medicine 10/09/19
--- OUTSIDE RECORDS SUMMARY | 2025-08-17 10:43 | XMS_ITS | Referral Summary ---
Author Organization [employer] ([place], [place], [place], [place] Address [address] [place] [address] Care Team Providers Care Industrial Equipment Wirer Name Role Phone Unavailable Primary Care Provider [...] Plan of Treatment Not on file Insurance [facility] [place] [address]
--- OUTSIDE RECORDS SUMMARY | 2025-08-17 10:43 | XMS_ITS | Encounter Summary ---
Author Organization [facility] Address [address] [place] [address] Care Team Providers Care Hoop Riveter Name Role Phone Catrachita Raphael APRN Primary Care Provid er Encounter Details Date Type Department Care Team (Late st Contact Info) Description 12/06/2017 External CPT II SUPERVISOR BYPRODUCTS - [facility] Social History Tobacco Use [...] documented as of this encounter Care Teams Hoop Riveter Relationship Specialty Start Date End Date Catrachita Raphael APRN [address] [place] [address] PCP - General Family Medicine 10/09/19 documented as of this encounter
[2025-08-17 11:05] LABS: INR 2.35 (0.9-1.1); Prothrombin Time 24.5 seconds (10.1-12.5)
== END 2025-08-17 23:59 | disposition home or self-care (01) ==
LOC: LAB 10:32
PROVIDERS: PCP Nurse Practitioner Family; Visit Provider Nurse Practitioner Family
DX: D68.2 Hereditary deficiency of other clotting factors (principal)
CPT/HCPCS: 36415; 85610

== ENCOUNTER 2025-08-27 11:50 | Outpatient (CLI) | payer MEDICARE, SELFPAY ==
--- OUTSIDE RECORDS SUMMARY | 2025-07-21 21:33 | XMS_ITS | Continuity of Care Document ---
Author Organization [facility] Phone Care Team Providers Care Magician/Illusionist Name Role Phone ALENA COLLIER Primary Attending ALENA COLLIER Unavailable ALENA COLLIER Admitting SIA FERRIS Primary Care ALLERGIES AND ADVERSE REACTIONS ALLERGIES AND ADVERSE REACTIONS Code System Allergy Substance Adverse Reaction Date Reaction (Severity) Comment Status Reported By Updated [place] [id number] SNOMED CT SULFA ANTIBIOTICS Adverse reaction to substance unknown active Patient [id number] on May 03, 2021 11:45:54 AM [facility] FAMILY HISTORY RELATION: Father Status: Cause of : Perforation of intestine Age at : 83 SNOMED-CT Diagnosis Age At Onset Information not available RELATION: Mother Status: LIVING SNOMED-CT Diagnosis Age At Onset [id number] Malignant melanoma of skin [id number] Factor V deficiency [id number] Hypercholesterolemia RESULTS Patient: QAMAR Loredo Date of : 1950 1 LABORATORY RESULTS ORDER 100: COMP METABOLIC PA CATALINO (LOINC: 02663-3) ORDER DATE: July 17, 2025 7:07:00 PM [facility] Specimen Source: PLASMA Specimen Type: Plasma specim en PERFORMING LAB: [address] [id number] Result Comment: Final Result Date: July 17, 2025 8:56:00 PM UT (TECH: TGD) LOINC TEST FLAG RESULT REFERENCE RANGE UPDA ADARSH BY 2951-2 Sodium [Moles/volume ] in Serum or Plasma N 139 mmol/L 136 mmol/L - 145 mmol/L July 17, 2025 8:56:00 PM UT (TECH: TGD) 2823-3 Potassium [Moles/volume] in Serum or Plasma N 4.6 mmol/L 3.6 mmol/L - 5.0 mmol/L July 17, 2025 8:56:00 PM UTC (TECH: TGD) 2074-0 Chloride [Moles/volume] in Serum or Plasma N 102 mmol/L 98 mmol/L - 107 mmol/L July 17, 2025 8:56:00 PM UTC (TECH: TGD) 2027-9 Carbon dioxide, tota l [Moles/volume] in Serum or Plasma N 26.7 mmol/L 21.0 mmol/L - 32.0 mmol/L July 17, 2025 8:56:00 PM UTC (TECH: TGD) 15343-0 Anion gap in Blood N 14.9 S [id number] 8:56:00 PM UTC (TECH: TGD) 2345-7 Glucose [Mass/volume ] in Serum or Plasma N 113 mg/dl 70 mg/dl - 120 mg/dl July 17, 2025 8:56:00 PM UTC (TECH: TGD) 6299-2 Urea nitrogen [Mass/volume] in Blood H 19 mg/dL 7 mg/dL - 18 mg/dL July 17, 2025 8:56:00 PM UTC (TECH: TGD) 17854-4 Creatinine [Moles/volume] in Blood N 0.8 mg/dL 0.6 mg/dL - 1.3 mg/dL July 17, 2025 8:56:00 PM UTC (TECH: TGD) 15002-9 Glomerular filtratio n rate/1.73 sq M.predicted by Creatinine-based formula (MDRD) N 92 mlpermin 60 mlpermin July 17, 2025 8:56:00 PM UTC (TECH: TGD) 42022-0 Osmolality of Serum or Plasma by calculated by sum of electrolytes N 292 mosm/kg 275 mosm/kg - 301 mosm/kg July 17, 2025 8:56:00 PM UTC (TECH: TGD) 2885-2 Protein [Mass/volume ] in Serum or Plasma N 7.4 g/dl 6.4 g/dl - 8.2 g/dl July 17, 2025 8:56:00 PM UTC (TECH: TGD) 1751-7 Albumin [Mass/volume ] in Serum or Plasma N 3.9 g/dl 3.4 g/dl - 5.0 g/dl July 17, 2025 8:56:00 PM UTC (TECH: TGD) 2336-6 Globulin [Mass/volum e] in Serum N 3.5 July 17, 2025 8:56:00 PM UTC (TECH: TGD) 1759-0 Albumin/Globulin [Ma ss Ratio] in Serum or Plasma N 1.1 0.7 - 2 July 17, 2025 8:56:00 PM UTC (TECH: TGD) 68572-5 Calcium [Mass/volume ] in Serum or Plasma N 9.8 mg/dl 8.5 mg/dl - 10.5 mg/dl July 17, 2025 8:56:00 PM UTC (TECH: TGD) 1975-2 Bilirubin.total [Mass/volume] in Serum or Plasma N 0.60 mg/dL 0.10 mg/dL - 1.00 mg/dL July 17, 2025 8:56:00 PM UT (TECH: TGD) 1920-8 Aspartate aminotransferase [Enzymatic activity/volume] in Serum or Plasma N 17 U/L 0 U/L - 37 U/L July 17, 2025 8:56:00 PM UTC (TECH: TGD) 1742-6 Alanine aminotransferase [Enzymatic activity/volume] in Serum or Plasma N 26 U/L 0 U/L - 65 U/L July 17, 2025 8:56:00 PM UT (TECH: TGD) 6768-6 Alkaline phosphatase [Enzymatic activity/volume] in Serum or Plasma N 56 U/L 46 U/L - 116 U/L July 17, 2025 8:56:00 PM UTC (TECH: TGD) ORDER 200: CBC AUTO W DIFF ( LOINC: 08235-2) ORDER DATE: July 17, 2025 7:07:00 PM UT Specimen Source: EDTA Specimen Type: Blood specime n with EDTA PERFORMING LAB: [address] [id number] Result Comment: Final Result Date: July 17, 2025 7:53:00 PM UT (TECH: MH2) LOINC TEST FLAG RESULT REFERENCE RANGE UPDA ADARSH BY 6690-2 Leukocytes [#/volume] in Blood by Automated count N 8.6 K/ul 4.0 K/ul - 10.5 K/ul July 17, 2025 7:53:00 PM UTC (TECH: [employer]) 789-8 Erythrocytes [#/volume] in Blood by Automated count N 5.6 M/mm3 4.7 M/mm3 - 6.1 M/mm3 July 17, 2025 7:53:00 PM UTC (TECH: [employer]) 718-7 Hemoglobin [Mass/volume] in Blood N 15.5 gm/dl 13.5 gm/dl - 18.0 gm/dl July 17, 2025 7:53:00 PM UTC (TECH: [employer]) 48938-9 Hematocrit [Volume Fraction] of Blood N 47.7 % 42.0 % - 52.0 % July 17, 2025 7:53:00 PM UTC (TECH: [employer]) 787-2 Erythrocyte mean corpuscular volume [Entitic volume] by Automated count N 85.3 fl 78 fl - 100 fl July 17, 2025 7:53:00 PM UTC (TECH: [employer]) 785-6 Erythrocyte mean corpuscular hemoglobin [Entitic mass] by Automated count N 27.7 pg 27 pg - 31 pg July 17, 2025 7:53:00 PM UTC (TECH: [employer]) 786-4 Erythrocyte mean corpuscular hemoglobin concentration [Mass/volume] by Automated count N 32.5 g/dl 32 g/dl - 36 g/dl July 17, 2025 7:53:00 PM UTC (TECH: [employer]) 65912-2 Erythrocyte distribution width [Ratio] H 14.1 % 11.5 % - 14.0 % July 17, 2025 7:53:00 PM UTC (TECH: [employer]) 497-3 Platelets [#/volume] in Blood by Automated count N 230 K/ul 150 K/ul - 450 K/ul July 17, 2025 7:53:00 PM UTC (TECH: [employer]) 92304-1 Platelet mean volume [Entitic volume] in Blood by Automated count N 9.5 fl 6 fl - 9.5 fl July 17, 2025 7:53:00 PM UTC (TECH: [employer]) 32711-5 Neutrophils/100 leukocytes in Blood N 61.4 % 43 % - 65 % June 7:53:00 PM UTC (TECH: [employer]) 736-9 Lymphocytes/100 leukocytes in Blood by Automated count N 26.9 % 20.5 % - 45.5 % July 17, 2025 7:53:00 PM UTC (TECH: [employer]) 5905-5 Monocytes/100 leukocytes in Blood by Automated count N 8.7 % 5.5 % - 11.7 % July 17, 2025 7:53:00 PM UTC (TECH: [employer]) 713-8 Eosinophils/100 leukocytes in Blood by Automated count N 2.2 % 0.9 % - 2.9 % July 17, 2025 7:53:00 PM UTC (TECH: [employer]) 706-2 Basophils/100 leukocytes in Blood by Automated count N 0.6 % 0.2 % - 1.0 % July 17, 2025 7:53:00 PM UTC (TECH: [employer]) 14160-0 Immature granulocytes/100 leukocytes in Blood by Automated count N 0.2 % 0.0 % - 0.8 % July 17, 2025 7:53:00 PM UTC (TECH: [employer]) 01875-6 Nucleated cells [#/volume] in Blood N 0.0 % June 7:53:00 PM UTC (TECH: [employer]) 07090-2 Neutrophils [#/volume] in Blood H 5.3 K/uL 2.2 K/uL - 4.8 K/uL July 17, 2025 7:53:00 PM UTC (TECH: [employer]) 731-0 Lymphocytes [#/volume] in Blood by Automated count N 2.3 CELL/MCL 1.3 CELL/MCL - 2.9 CELL/MCL July 17, 2025 7:53:00 PM UTC (TECH: [employer]) 742-7 Monocytes [#/volume] in Blood by Automated count N 0.7 CELL/MCL 0.3 CELL/MCL - 0.8 CELL/MCL July 17, 2025 7:53:00 PM UTC (TECH: [employer]) 711-2 Eosinophils [#/volume] in Blood by Automated count N 0.2 CELL/MCL 0 CELL/MCL - 0.2 CELL/MCL July 17, 2025 7:53:00 PM UTC (TECH: [employer]) 704-7 Basophils [#/volume] in Blood by Automated count N 0.1 CELL/MCL 0.0 CELL/MCL - 1.0 CELL/MCL July 17, 2025 7:53:00 PM UTC (TECH: 2) 03474-7 Immature granulocytes [#/volume] in Blood N 0.02 K/ul June 7:53:00 PM UTC (TECH: MH2) 46074-6 Nucleated cells [#/volume] in Blood N 0.00 K/uL June 7:53:00 PM UT (TECH: MH2) 84035-1 Manual Differential panel - Blood N NO July 17, 2025 7:53:00 PM UTC (TECH: MH2) ORDER 300: PT PROTHROMBIN TI ME W INR (LOINC: 76933-1) ORDER DATE: July 17, 2025 7:07:00 PM UTC Specimen Source: PLASMA Specimen Type: Plasma specim en PERFORMING LAB: [address] [id number] Result Comment: Final Result Date: July 17, 2025 7:56:00 PM UT (TECH: MH2) LOINC TEST FLAG [place] [address]-6 INR in Platelet poor plasma or blood by Coagulation assay H 17.8 SECONDS 9.3 SECONDS - 11.4 SECONDS July 17, 2025 7:56:00 PM UT (TECH: MH2) 6301-6 INR in Platelet poor plasma by Coagulation assay H 1.8 Ratio 0.97 Ratio - 1.05 Ratio July 17, 2025 7:56:00 PM UTC (TECH: MH2) ORDER 400: PROSTATE SPECIFIC AG PSA (LOINC: 2857-1) ORDER DATE: July 17, 2025 7:07:00 PM UTC Specimen Source: PLASMA Specimen Type: Plasma specim en PERFORMING LAB: [address] [id number] Result Comment: Final Result Date: July 17, 2025 8:56:00 PM UTC (TECH: TGD) LOINC TEST FLAG RESULT REFERENCE RANGE UPDA ADARSH BY 2857-1 Prostate specific Ag [Mass/volume] in Serum or Plasma H 6.6 ng/mL 0 ng/mL - 4.0 ng/mL July 17, 2025 8:56:00 PM UTC (TECH: TGD) ORDER 500: TESTOSTERONE FREE AND TOTAL (LOINC: 2986-8) ORDER DATE: July 17, 2025 7:07:00 PM UTC Specimen Source: SERUM Specimen Type: Serum specime n PERFORMING LAB: [facility] [address] [facility][1] [id number] Result Comment: June 7:10:00 PM UTC Performed at: - [facility] Result Comment: July 21, 2025 7:10:00 PM UTC [address] [place], [place] [id number] Result Comment: July 21, 2025 7:10:00 PM UTC [employer]: Abimael Escobar PhD, Phone: [phone] Result Comment: July 21, 2025 7:10:00 PM UTC Performed at: [facility] Result Comment: July 21, 2025 7:10:00 PM UTC [facility] [place], [place] [id number] Result Comment: July 21, 2025 7:10:00 PM UTC [employer]: Roger Chase MD, Phone: [phone] Result Comment: July 21, 2025 7:10:00 PM UTC Final Result Date: July 17, 2025 6:00:00 PM UTC (TECH: LAB) LOINC TEST FLAG RESULT REFERENCE RANGE UPDA ADARSH BY 2986-8 Testosterone [Mass/volume] in Serum or Plasma N 295 ng/dL 264-916 July 17 6:00:00 PM UTC (TECH: LAB) 2991-8 Testosterone Free [Mass/volume] in Serum or Plasma L 5.2 pg/mL 6.6-18.1 July 17 6:00:00 PM UTC (TECH: LAB) LABORATORY NARRATIVE RESULTS Information is not available RADIOLOGY RESULTS Information is not available PATHOLOGY [...] Effective Dates Offered Cessation Comment Updated By [id number] Historical Tobacco smoking status Never Smoked [id number] on May 17, 2021 4:02:42 PM [facility] SOCIAL HISTORY - Gender Sex: Male SOCIAL HISTORY - Status : status i nformation is not available Intention in Next Year: intention information is not available SOCIAL HISTORY - Assessments Code System Description Status Date Value of Assessment Updated By Comment Assessment Information is no t available SOCIAL HISTORY - [place] Affiliation [place] information is not av ailable SOCIAL HISTORY [...] available. ENCOUNTERS ENCOUNTER INFORMATION Reason for Visit Not Specified Admission July 17, 2025 5:57:00 PM [place] C [address] [id number] Discharge July 17, 2025 5:57:00 PM UT DISCHARGED TO HOME OR SELF CARE ENCOUNTER DIAGNOSES Notes information is not nayla ilable. Code System Diagnosis Onset Date Diagnosis information is not available. ABSTRACT DIAGNOSES Code System Diagnosis Updated By Abatement Date C61 ICD10 MALIGNANT NEOPLA SM OF PROSTATE [id number] on July 21, 2025 3:08:09 AM [facility] C61 ICD10 MALIGNANT NEOPLA SM OF PROSTATE [id number] on July 21, 2025 3:08:09 AM [facility] CARE TEAM Care Magician/Illusionist Role ALENA COLLIER Primary Attending ALENA COLLIER Referring ALENA COLLIER Admitting SIA FERRIS Primary Care CARE TEAM CARE transitional nurse Role on Team Location Telecom Status Start Date End Chente e Updated By BARRINGTON STOVALL PCP normal July 17, 2025 4:00:00 AM [facility] July 17, 2025 5:57:00 PM [facility] [id number] on July 17, 2025 5:58:41 PM [facility] AMIRA COLLAZO Referring normal July 17, 2025 4:00:00 AM [facility] July 17, 2025 5:57:00 PM UT [id number] on July 17, 2025 5:58:41 PM [facility] AMIRA COLLAZO Attending normal July 17, 2025 4:00:00 AM [facility] July 17, 2025 5:57:00 PM UT [id number] on July 17, 2025 5:58:41 PM [facility] AMIRA COLLAZO Admitting normal July 17, 2025 4:00:00 AM [facility] July 17, 2025 5:57:00 PM [facility] [id number] on July 17, 2025 5:58:41 PM [facility]
--- OUTSIDE RECORDS SUMMARY | 2025-08-05 08:51 | XMS_ITS | Continuity of Care Document ---
Author Organization [facility] Phone Care Team Providers Care Software Quality Specialist Name Role Phone MATIAS RIVERA Primary Attending SIA FERRIS Primary Care MATIAS RIVERA Surgeon MATIAS RIVERA Admitting ALLERGIES AND ADVERSE REACTIONS ALLERGIES AND ADVERSE REACTIONS Code System Allergy Substance Adverse Reaction Date Reaction (Severity) Comment Status Reported By Updated [place] [id number] SNOMED CT SULFA ANTIBIOTICS Adverse reaction to substance unknown active Patient [id number] on July 31, 2025 5:30:31 PM [place] [id number] SNOMED CT Sulfa Antibiotics Rash (Mild) active ASSESSMENTS Malignant neoplasm of prostate ; FAMILY HISTORY RELATION: Father Status: Cause of : Perforation of intestine Age at : 83 SNOMED-CT Diagnosis Age At Onset Information not available RELATION: Mother Status: LIVING SNOMED-CT Diagnosis Age At Onset [id number] Malignant melanoma of skin [id number] Factor V deficiency [id number] Hypercholesterolemia PROBLEMS PATIENT PROBLEMS Code Description/Comments Category Status Upda adarsh By [id number] Malignant neoplasm of prostate activ e [id number] on August 03, 2025 1:12:51 PM UTC RESULTS Patient: QAMAR Loredo Date of : 1950 1 LABORATORY RESULTS ORDER 500: GLUCOSE BEDSIDE T ESTING (LOINC: 71899-9) ORDER DATE: August 03, 2025 11:03:00 AM UTC Specimen Source: WHOLE BLOOD Specimen Type: Whole blood s ample PERFORMING LAB: [address] [id number] Result Comment: August 03, 2025 11:04:00 AM UTC Test performed by: [id number] ; Instrument: [id number] Final Result Date: August 03, 2025 11:04:00 AM [place] LOINC TEST FLAG [place] [address]-0 Glucose [Mass/volume] in Capillary blood by Glucometer H 125 mg/dl 70 mg/dl - 105 mg/dl August 03, 2025 11:04:00 AM UT ORDER 600: PT PROTHROMBIN TI ME W INR (LOINC: 83653-6) ORDER DATE: August 03, 2025 11:09:00 AM UT Specimen Source: PLASMA Specimen Type: Plasma specim en PERFORMING LAB: [address] [id number] Result Comment: Final Result Date: August 03, 2025 11:44:00 AM UT (TECH: JNJ) LOINC TEST FLAG [place] [address]-7 INR in Platelet poor plasma or blood by Coagulation assay H 18.7 SECONDS 9.3 SECONDS - 11.4 SECONDS August 03, 2025 11:44:00 AM UT (TECH: MyerJ) 6301-6 INR in Platelet poor plasma by Coagulation assay H 1.8 Ratio 0.97 Ratio - 1.05 Ratio August 03, 2025 11:44:00 AM UT (TECH: JNJ) ORDER 700: PTT PARTIAL THROM B TIME (LOINC: 3173-2) ORDER DATE: August 03, 2025 11:09:00 AM UT Specimen Source: PLASMA Specimen Type: Plasma specim en PERFORMING LAB: [address] [id number] Result Comment: Final Result Date: August 03, 2025 11:44:00 AM UT (TECH: JNJ) LOINC TEST FLAG RESULT REFERENCE RANGE UPDA ADARSH BY 3173-2 Activated partial thromboplastin time (aPTT) in Blood by Coagulation assay N 32.1 SECONDS 24.5 SECONDS - 32.8 SECONDS August 03, 2025 11:44:00 AM UT (TECH: JNJ) ORDER 1000: GLUCOSE BEDSIDE TESTING (LOINC: 46886-4) ORDER DATE: August 03, 2025 1:47:00 PM UT Specimen Source: WHOLE BLOOD Specimen Type: Whole blood s ample PERFORMING LAB: [address] [id number] Result Comment: August 03, 2025 1:59:00 PM UTC Test performed by: [id number] ; Instrument: [id number] Final Result Date: August 03, 2025 1:59:00 PM [facility] LOINC TEST FLAG RESULT [place] [address]-7 Glucose [Mass/volume ] in Capillary blood by Glucometer H 123 mg/dl 70 mg/dl - 105 mg/dl August 03, 2025 1:59:00 PM [facility] LABORATORY NARRATIVE RESULTS Information is not available RADIOLOGY RESULTS Information is not available PATHOLOGY NARRATIVE RESULTS Information is not available MICROBIOLOGY RESULTS No Micro Labs/Results Exist for Patient BLOOD ADMIN RESULTS Information is not available TREATMENT PLAN DISCHARGE MEDICATIONS Status RXNORM Medication Dose Route Frequency Dates Comments U pdated By Continued [id number] metFORMIN HCl Oral Tablet 500 MG 500 MG ORAL THREE TIMES A DAY Prescribe d: August 03, 2025 1:11:09 PM [facility] [id number] on August 03, 2025 1:11:09 PM [facility] Continued 132652 traMADol HCl Oral Tablet 50 MG 1 TAB ORAL EVERY SIX HOURS NEEDED Prescribe d: August 03, 2025 1:11:09 PM [facility] [id number] on August 03, 2025 1:11:09 PM [facility] Continued 355055 Warfarin Sodium Oral Tablet 5 MG 1 TAB ORAL Prescribe d: August 03, 2025 1:11:09 PM [facility] t/th/sa/johnson [id number] on August 03, 2025 1:11:09 PM [facility] Continued 008105 Losartan Potassium Oral Tablet 50 MG 50 MG ORAL ONCE DAILY Prescribe d: August 03, 2025 1:11:09 PM [facility] [id number] on August 03, 2025 1:11:09 PM [facility] Continued 443901 Niacin (Antihyperlipi demic) Oral Tablet 500 MG 1 TAB ORAL ONCE DAILY Prescribe d: August 03, 2025 1:11:09 PM [facility] [id number] on August 03, 2025 1:11:09 PM [facility] Continued 046357 Atorvastatin Calcium Oral Tablet 40 MG 40 MG ORAL ONCE DAILY Prescribe d: August 03, 2025 1:11:09 PM [facility] [id number] on August 03, 2025 1:11:09 PM [facility] Continued 013127 glipiZIDE ER Oral Tablet Extended Release 24 Hour 10 MG 10 MG ORAL ONCE DAILY Prescribe d: August 03, 2025 1:11:09 PM [facility] [id number] on August 03, 2025 1:11:09 PM [facility] Continued 020876 Tamsulosin HCl Oral Capsule 0.4 MG 0.4 MG ORAL ONCE DAILY Prescribe d: August 03, 2025 1:11:09 PM [facility] [id number] on August 03, 2025 1:11:09 PM [facility] Continued 838309 Warfarin Sodium Oral Tablet 10 MG 10 MG ORAL EVERY SUNDAY-- Y Prescribe d: August 03, 2025 1:11:09 PM [facility] [id number] on August 03, 2025 1:11:09 PM [facility] PATIENT OPEN ORDERS Code System Descriptio n Frequency Occurrenc es Priority Category Start Date Ordering Physician Updated By Patient open order informati on is not available. SCHEDULED PROCEDURES Code System Description Status Scheduled Date Upd ated By Patient scheduled procedure information is not available. MEDICATIONS HOME MEDICATIONS Status RXNORM [facility] Medication Dose Route Frequency Dates Comments Reported By Updated By Active 290508 06949 85802 0 Atorvastatin Calcium Oral Tablet 40 MG 40.0 MG ORAL DAILY Last Dose: August 03, 2025 1:00:00 AM [facility] [id number] on August 03, 2025 10:53:19 AM [facility] Active 563601 98642 99113 0 glipiZIDE ER Oral Tablet Extended Release 24 Hour 10 MG 10.0 MG ORAL DAILY Last Dose: August 02, 2025 12:00:0 0 PM [facility] [id number] on August 03, 2025 10:53:40 AM [facility] Active 744546 33186 27873 0 Losartan Potassium Oral Tablet 50 MG 50.0 MG ORAL DAILY Last Dose: August 03, 2025 1:00:00 AM [facility] [id number] on August 03, 2025 10:53:48 AM [facility] Active 235467 62560 78457 1 metFORMIN HCl Oral Tablet 500 MG 500.0 MG ORAL TID Last Dose: August 03, 2025 1:00:00 AM [facility] [id number] on August 03, 2025 10:54:04 AM [facility] Active 471055 21264 85761 0 Niacin (Antihyperli pidemic) Oral Tablet 500 MG 1.0 TAB ORAL DAILY Last Dose: August 03, 2025 1:00:00 AM [facility] [id number] on August 03, 2025 10:54:13 AM [facility] Active 753901 47543 11963 1 Tamsulosin HCl Oral Capsule 0.4 MG 0.4 MG ORAL DAILY Last Dose: August 03, 2025 1:00:00 AM [facility] [id number] on August 03, 2025 10:54:25 AM [facility] Active 255496 79012 53267 1 Warfarin Sodium Oral Tablet 10 MG 10.0 MG ORAL MWF Last Dose: August 01, 2025 1:00:00 AM [facility] [id number] on August 03, 2025 10:55:18 AM [facility] Active 865729 22146 58826 1 Warfarin Sodium Oral Tablet 5 MG 1.0 TAB ORAL Last Dose: August 03, 2025 1:00:00 AM [facility] t//sa/s u [id number] on August 03, 2025 1:09:08 PM [facility] DISCHARGE MEDICATIONS Status RXNORM [facility] Medication Dose Route Frequency Dates Dis pense Data Comments Physician Updated By Continu ed [id number] 1148 1999 801 metFORMIN HCl Oral Tablet 500 MG 500.0 MG ORAL THREE TIMES A DAY Prescr ibed: [facility] 2024 1:11:0 9 PM [facility] ART MATIAS S PHY [id number] on August 03, 2025 1:11:09 PM [facility] Continu ed 813406 0435 4037 708 traMADol HCl Oral Tablet 50 MG 1.0 TAB ORAL EVERY SIX HOURS NEEDED Prescr ibed: [facility] 2024 1:11:0 9 PM [facility] ART MATIAS S PHY [id number] on August 03, 2025 1:11:09 PM [facility] Continu ed 491246 6020 9273 201 Warfarin Sodium Oral Tablet 5 MG 1.0 TAB ORAL Prescr ibed: [facility] 2024 1:11:0 9 PM [facility] t/th/sa/s u ART MATIAS S PHY [id number] on August 03, 2025 1:11:09 PM [facility] Continu ed 492796 2337 2019 230 Losartan Potassium Oral Tablet 50 MG 50.0 MG ORAL ONCE DAILY Prescr ibed: [facility] 2024 1:11:0 9 PM [facility] ART MATIAS S PHY [id number] on August 03, 2025 1:11:09 PM [facility] Continu ed 252302 1211 1002 090 Niacin (Antihyperl ipidemic) Oral Tablet 500 MG 1.0 TAB ORAL ONCE DAILY Prescr ibed: [facility] 2024 1:11:0 9 PM [place] ART MATIAS S PHY [id number] on August 03, 2025 1:11:09 PM [facility] Continu ed 698055 5183 4082 990 Atorvastati n Calcium Oral Tablet 40 MG 40.0 MG ORAL ONCE DAILY Prescr ibed: [facility] 2024 1:11:0 9 PM [facility] ART MATIAS S PHY [id number] on August 03, 2025 1:11:09 PM [facility] Continu ed 788149 2719 9072 590 glipiZIDE ER Oral Tablet Extended Release 24 Hour 10 MG 10.0 MG ORAL ONCE DAILY Prescr ibed: [facility] 2024 1:11:0 9 PM [facility] ART MATIAS S PHY [id number] on August 03, 2025 1:11:09 PM [facility] Continu ed 161737 6757 1201 601 Tamsulosin HCl Oral Capsule 0.4 MG 0.4 MG ORAL ONCE DAILY Prescr ibed: [facility] 2024 1:11:0 9 PM [facility] ART MATIAS S PHY [id number] on August 03, 2025 1:11:09 PM [facility] Continu ed 848661 3553 1619 874 Warfarin Sodium Oral Tablet 10 MG 10.0 MG ORAL EVERY SUNDAY-Sun-Sun Prescr ibed: [facility] 2024 1:11:0 9 PM [facility] ART MATIAS S PHY [id number] on August 03, 2025 1:11:09 PM [facility] INPATIENT MEDICATIONS Status RXNORM [facility] Medication Dose Route Frequency Rat e Quantity Dates Indication Dispense Data Comments Physician Updated By Marissa inued [id number] 5738 7084 001 ceFAZolin (ANCEF) 2 GM SOLR 2.0 GM INTRAV ENOUS ONE TIME ADMINISTRA TION (UNSCHEDUL ED) Start: [facility] 2024 10:00: 00 AM [place] End: [facility] 2024 11:12: 50 AM [facility] RADHA CONCEPCION [id number] on August 03, 2025 11:12:00 AM [facility] Marissa inued 229087 9329 8011 704 LACTATED RINGERS SOLN 1000. 0 ML INTRAV ENOUS ONE TIME ONLY (PACU) 25.0 ML/HR Start: [facility] 2024 9:18:0 0 PM UTC End: [facility] 2024 1:11:0 9 PM UTC BENEDICT Anna [id number] on August 04, 2025 4:25:00 AM UTC Discont inued 1577529 0040 9117 630 meperidine (DEMEROL) 25 MG/ML SOLN 12.5 MG INTRAV ENOUS NEEDED (PACU) Start: [facility] 2024 9:18:0 0 PM UTC End: [facility] 2024 1:11:0 9 PM UTC BENEDICT Anna [id number] on August 04, 2025 4:25:00 AM UTC Discont inued 5205277 0040 9117 630 meperidine (DEMEROL) 25 MG/ML SOLN 25.0 MG INTRAV ENOUS NEEDED (PACU) Start: [facility] 2024 9:18:0 0 PM UTC End: [facility] 2024 1:11:0 9 PM UTC BENEDICT Anna [id number] on August 04, 2025 4:25:00 AM UTC Discont inued 6332 3080 811 fentaNYL (SUBLIMAZE) 50 MCG/ML SOSY 25.0 MCG INTRAV ENOUS EVERY 5 MINUTES NEEDED (PACU) Start: [facility] 2024 9:18:0 0 PM UTC End: [facility] 2024 1:11:0 9 PM UTC BENEDICT Anna [id number] on August 04, 2025 4:25:00 AM UTC Discont inued 6332 3080 811 fentaNYL (SUBLIMAZE) 50 MCG/ML SOSY 50.0 MCG INTRAV ENOUS EVERY 5 MINUTES NEEDED (PACU) Start: [facility] 2024 9:18:0 0 PM UTC End: [facility] 2024 1:11:0 9 PM UTC BENEDICT Anna [id number] on August 04, 2025 4:25:00 AM UTC Discont inued 3949098 6180 9431 401 HYDROmorpho ne (DILAUDID) 0.5 MG/0.5ML SOLN 0.5 MG INTRAV ENOUS EVERY 10 MINUTES NEEDED (PACU) Start: [facility] 2024 9:18:0 0 PM UTC End: [facility] 2024 1:11:0 9 PM UTC BENEDICT Anna [id number] on August 04, 2025 4:25:00 AM UTC Discont inued 6987567 4313 9128 331 HYDROmorpho ne (DILAUDID) 1 MG/ML SOLN 1.0 MG INTRAV ENOUS EVERY 10 MINUTES NEEDED (PACU) Start: [facility] 2024 9:18:0 0 PM UTC End: [facility] 2024 1:11:0 9 PM UTC BENEDICT Anna [id number] on August 04, 2025 4:25:00 AM UTC Discont inued 0769663 6673 5613 000 ondansetron (ZOFRAN) INJ 4 MG/2 ML SOLN 4.0 MG INTRAV ENOUS NEEDED (PACU) Start: [facility] 2024 9:18:0 0 PM UTC End: [facility] 2024 1:11:0 9 PM UTC BENEDICT Anna [id number] on August 04, 2025 4:25:00 AM UTC Discont inued 6871112 0051 7970 201 droperidol (INAPSINE) 2.5 MG/ML SOLN 0.625 MG INTRAV ENOUS NEEDED (PACU) Start: [facility] 2024 9:18:0 0 PM UTC End: [facility] 2024 1:11:0 9 PM UTC BENEDICT Anna [id number] on August 04, 2025 4:25:00 AM UTC Discont inued 3514842 8070 3041 112 midazolam (VERSED) 2 MG/2 ML SOLN 1.0 MG INTRAV ENOUS EVERY FIVE MINUTES NEEDED Start: [facility] 2024 9:18:0 0 PM UTC End: [facility] 2024 1:11:0 9 PM UTC BENEDICT Anna [id number] on August 04, 2025 4:25:00 AM UTC Discont inued 2179005 3152 3041 112 midazolam (VERSED) 2 MG/2 ML SOLN 2.0 MG INTRAV ENOUS NEEDED (PACU) Start: [facility] 2024 9:18:0 0 PM UTC End: [facility] 2024 1:11:0 9 PM UTC BENEDICT Anna [id number] on August 04, 2025 4:25:00 AM UTC Discont inued 558507 2716 8011 704 LACTATED RINGERS SOLN 1000. 0 ML IV CONTIN UOUS ONE TIME ADMINISTRA TION (UNSCHEDUL ED) 25.0 ML/HR Start: [facility] 2024 9:18:0 0 PM UTC End: [facility] 2024 11:12: 50 AM UTC BENEDICT Anna [id number] on August 03, 2025 11:12:00 AM UTC Discont inued 097198 8706 1092 825 promethazin e (PHENERGAN) 25 MG/ML SOLN 12.5 MG INTRAV ENOUS NEEDED (PACU) Start: [facility] 2024 9:18:0 0 PM UTC End: [facility] 2024 1:11:0 9 PM UT BENEDICT Anna [id number] on August 04, 2025 4:25:00 AM UTC Discont inued XXXX XXX0 011 promethazin e (PHENERGAN) 12.5 MG GEL 12.5 MG TOPICA L NEEDED (PACU) Start: [facility] 2024 9:18:0 0 PM UTC End: [facility] 2024 1:11:0 9 PM UT BENEDICT Anan [id number] on August 04, 2025 4:25:00 AM UTC Discont inued 0671694 4366 9909 332 PACU - fentaNYL (SUBLIMAZE) 100 MCG/2ML SOLN 100.0 MCG INTRAV ENOUS ONE TIME ONLY (SCHEDULED DOSE) Start: [facility] 2024 10:53: 00 AM UTC End: [facility] 2024 10:53: 00 AM UTC ART MATIAS S INTERFAC ED on August 03, 2025 10:52:00 AM UTC Discont inued 8652718 5632 2247 902 lidocaine (XYLOCAINE) 1% MPF SOLN 30.0 ML ONE TIME ONLY (SCHEDULED DOSE) Start: [facility] 2024 10:55: 00 AM UTC End: [facility] 2024 10:55: 00 AM UTC ART MATIAS S INTERFAC ED on August 03, 2025 10:55:00 AM UTC Discont inued 1616325 4788 5626 105 ceFAZolin (ANCEF) 2 GM SOLR 2.0 GM INTRAV ENOUS ONE TIME ONLY (SCHEDULED DOSE) Start: [facility] 2024 11:05: 00 AM UTC End: [facility] 2024 11:05: 00 AM UTC ART MATIAS S INTERFAC ED on August 03, 2025 11:05:00 AM UTC Discont inued 9129115 8793 9020 901 PROPOFOL 200 MG/20ML EMUL 200.0 MG INTRAV ENOUS ONE TIME ONLY (SCHEDULED DOSE) 8.333 MG/HR Start: [facility] 2024 3:51:0 0 PM UTC End: [facility] 2024 3:52:0 0 PM UTC ART MATIAS Strickland [id number] on August 03, 2025 3:52:00 PM UTC Discont inued 6285724 7185 3014 505 DEXAMETHASO NE SODIUM PHOSPHATE 20.0 MG INTRAV ENOUS ONE TIME ONLY (SCHEDULED DOSE) 0.833 MG/HR Start: [facility] 2024 3:51:0 0 PM UTC End: [facility] 2024 3:52:0 0 PM UTC ART MATIAS Strickland [id number] on August 03, 2025 3:52:00 PM UTC Discont inued 8075984 2739 5613 000 ONDANSETRON HCL 4 MG/2ML SOLN 4.0 MG INTRAV ENOUS ONE TIME ONLY (SCHEDULED DOSE) 0.167 MG/HR Start: [facility] 2024 3:51:0 0 PM UTC End: [facility] 2024 3:52:0 0 PM UTC ART MATIAS S [id number] on August 03, 2025 3:52:00 PM UTC Discont inued [id number] 3058 8051 701 EPHEDRINE SULFATE (PRESSORS) 5 50.0 MG INTRAV ENOUS ONE TIME ONLY (SCHEDULED DOSE) 2.083 MG/HR Start: [facility] 2024 3:51:0 0 PM UTC End: [facility] 2024 3:52:0 0 PM UTC ART MATIAS Strickland [id number] on August 03, 2025 3:52:00 PM UTC Discont inued 7126 6901 101 PHENYLEPHRI NE HCL (PRESSORS) 1 1.0 MG INTRAV ENOUS ONE TIME ONLY (SCHEDULED DOSE) 0.042 MG/HR Start: [facility] 2024 3:51:0 0 PM UTC End: [facility] 2024 3:52:0 1 PM UTC ART MATIAS Strickland [id number] on August 03, 2025 3:52:00 PM UTC Discont inued 8484856 8843 3020 202 LIDOCAINE HCL 2 % SOLN 2.0 ML ONE TIME ONLY (SCHEDULED DOSE) 0.083 ML/HR Start: [facility] 2024 3:51:0 0 PM UTC End: [facility] 2024 3:52:0 1 PM UTC ART MATIAS Strickland [id number] on August 03, 2025 3:52:00 PM UTC Discont inued 319688 8235 8011 704 LACTATED RINGERS SOLN 1000. 0 ML IV CONTIN UOUS ONE TIME ONLY (SCHEDULED DOSE) Start: [facility] 2024 11:42: 00 AM UTC End: [facility] 2024 11:42: 00 AM UTC ART MATIAS Strickland INTERFAC ED on August 03, 2025 4:00:00 AM [place] SOCIAL HISTORY SOCIAL HISTORY - Smoking Status SNOMED-CT Social History Element Description Effective Dates Offered Cessation Comment Updated By [id number] Current Tobacco smoking status Never Smoked [id number] on July 29, 2025 4:27:11 PM [facility] SOCIAL HISTORY - Gender Sex: Male SOCIAL HISTORY - Status : status i nformation is not available Intention in Next Year: intention information is not available SOCIAL HISTORY - Assessments Code System Description Status Date Value of Assessment Updated By Comment Assessment Information is no t available SOCIAL HISTORY - Jena Affiliation Jena information is not av ailable SOCIAL HISTORY - Legal Sex Legal Sex information is not available SOCIAL HISTORY - Sexual Behavior Sexual Orientation Gender Identity SNOMED-CT Description SNO MED -CT Description Activity Level No of Partners Partner Type UpdatedBy Information is not available SOCIAL HISTORY - Occupation Occupation information is no t available VITAL SIGNS PATIENT VITAL SIGNS This section displays the mo st recent value for each vital sign as of August 05, 2025 1:51:03 PM [facility] Loinc Code Vital Sign Activity Date Result Updated By 8302-2 Body height August 03, 2025 10:56:27 AM [place] 182.88 cm (72.0 in) [id number] on August 03, 2025 10:56:27 AM [facility] 26841-5 Body mass index (BMI) [Ratio] August 03, 2025 10:56:27 AM [place] 30.169 kg/m2 3140-1 Body Surface Area Derived From Formula August 03, 2025 10:56:27 AM UT 2.2289 m2 04280-8 Body weight Measured August 03, 2025 10:56:27 AM UT 100.9 kg (222.0 lb) [id number] on August 03, 2025 10:56:27 AM [facility] PEDIATRIC GROWTH CHART - VITAL SIGNS This section displays Head C ircumference Percentile, Weight for Length Percentile and BMI Percentile Loinc Code Pediatric Measure Age (Months) Result Updat ed By No Pediatric Growth Chart Pe rcentile Information Available. HEALTH CONCERNS Problems Concern Status Health Concern problem infor mation not available. Smoking Status Status Years Used Consumed packs p er day Health Concern smoking histo ry information not available. Family History Concern Status Health Concern family histor y information not available. ENCOUNTERS ENCOUNTER INFORMATION Reason for Visit [facility] Admission August 03, 2025 10:29:[address] [address] Discharge August 03, 2025 6:29:00 PM [facility] DISCHARGED TO HOME OR SELF CARE ENCOUNTER DIAGNOSES Notes information is not nayla ilable. Code System Diagnosis Onset Date Diagnosis information is not available. 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 [id number] on August 05, 2025 1:42:22 PM [facility] E78.5 ICD10 HYPERLIPIDEMIA, UNSPECIFIED [id number] on August 05, 2025 1:42:22 PM [facility] Z86.718 ICD10 PERSONAL HISTORY OF OTHER VENOUS THROMBOSIS AND EMBOLISM [id number] on August 05, 2025 1:42:22 PM [place] E11.9 ICD10 TYPE 2 DIABETES MELLITUS WITHOUT COMPLICATIONS [id number] on August 05, 2025 1:42:22 PM [facility] Z79.899 ICD10 OTHER GROUP HOME (CURRENT) DRUG THERAPY [id number] on August 05, 2025 1:42:22 PM [place] Z79.84 ICD10 GROUP HOME (CURRE NT) USE OF ORAL HYPOGLYCEMIC DRUGS [id number] on August 05, 2025 1:42:22 PM [facility] Z88.2 ICD10 ALLERGY STATUS TO SULFONAMID ES [id number] on August 05, 2025 1:42:22 PM [facility] CARE TEAM Care Software Quality Specialist Role MATIAS RIVERA Primary Attending SIA FERRIS Primary Care MATIAS RIVERA Surgeon MATIAS RIVERA Admitting HOSPITAL DISCHARGE INSTRUCTION DISCHARGE INSTRUCTION Encounter [id number] Admit Date August 03, 2025 10: 29:00 AM [facility] Discharge Date August 03, 2025 6:2 9:00 PM [facility] PATIENT EDUCATION SUMMARY Patient/Visit Information: Patient Name: CATA FOOTE Diag: Attending Caregiver: NICOLE Strickland Discharge Instruction Sheets Provided: Anesthesia, [facility] DC Instructions After Barrigel- post op instructions BEFAST-Stroke Warning Signs Discharge Information Fall Prevention in Hospitals and in the Home [facility] - Medication Management KYNECT- HELP Medication Side Effects Suicide - Managing your Feelings Patient Instructions: Followup Appointments/Instructions: CARE TEAM CARE round boner Role on Team Location Telecom Status Start Date End Chente e Updated By NICOLE COLLAZO Surgeon normal August 03, 2025 10:29:00 AM [facility] August 03, 2025 6:29:00 PM [facility] [id number] on August 05, 2025 1:42:37 PM [facility] PCP normal August 03, 2025 10:31:42 AM [facility] August 03, 2025 6:29:00 PM [facility] [id number] on August 05, 2025 1:42:37 PM [facility] NO DEFINED PRIMARY C PCP normal July 28, 2025 12:55:43 PM [facility] August 03, 2025 10:31:42 AM [facility] [id number] on August 05, 2025 1:42:37 PM [facility] NICOLE COLLAZO Attending normal July 28, 2025 12:55:43 PM [facility] August 03, 2025 6:29:00 PM [facility] [id number] on August 05, 2025 1:42:37 PM [facility] ART MATIAS Strickland PHY Admitting normal July 28, 2025 12:55:43 PM [facility] August 03, 2025 6:29:00 PM [facility] [id number] on August 05, 2025 1:42:37 PM [facility]
--- OUTSIDE RECORDS SUMMARY | 2025-08-21 05:41 | XMS_ITS | Continuity of Care Document ---
Author Organization [facility] Phone Care Team Providers Care Hydrogen Treater Name Role Phone ALENA COLLIER Unavailable ALENA COLLIER Admitting SIA FERRIS Primary Care ALENA COLLIER Primary Attending ALLERGIES AND ADVERSE REACTIONS ALLERGIES AND ADVERSE REACTIONS Code System Allergy Substance Adverse Reaction Date Reaction (Severity) Comment Status Reported By [place] [id number] SNOMED CT SULFA ANTIBIOTICS Adverse reaction to substance unknown active Patient [id number] on July 31, 2025 5:30:31 PM [facility] [id number] SNOMED CT Sulfa Antibiotics Rash (Mild) active FAMILY HISTORY RELATION: Father Status: Cause of : Perforation of intestine Age at : 83 SNOMED-CT Diagnosis Age At Onset Information not available RELATION: Mother Status: LIVING SNOMED-CT Diagnosis Age At Onset [id number] Malignant melanoma of skin [id number] Factor V deficiency [id number] Hypercholesterolemia RESULTS Patient: QAMAR Loredo Date of : 1950 1 LABORATORY RESULTS ORDER 100: CBC AUTO W DIFF ( LOINC: 81464-9) ORDER DATE: August 06, 2025 8:22:00 PM [facility] Specimen Source: EDTA Specimen Type: Blood specime n with EDTA PERFORMING LAB: [facility] [address] [facility] [id number] Result Comment: Final Result Date: August 07, 2025 2:55:00 PM UT (TECH: TH) LOINC TEST FLAG RESULT REFERENCE RANGE UPDA ADARSH BY 6690-2 Leukocytes [#/volume] in Blood by Automated count N 7.5 K/ul 4.0 K/ul - 10.5 K/ul August 07, 2025 2:55:00 PM UTC (TECH: TH) 789-8 Erythrocytes [#/volume] in Blood by Automated count N 5.5 M/mm3 4.7 M/mm3 - 6.1 M/mm3 August 07, 2025 2:55:00 PM UTC (TECH: TH) 718-7 Hemoglobin [Mass/volume] in Blood N 15.3 gm/dl 13.5 gm/dl - 18.0 gm/dl August 07, 2025 2:55:00 PM UTC (TECH: TH) 95413-5 Hematocrit [Volume Fraction] of Blood N 47.4 % 42.0 % - 52.0 % August 07, 2025 2:55:00 PM UTC (TECH: TH) 787-2 Erythrocyte mean corpuscular volume [Entitic volume] by Automated count N 86.7 fl 78 fl - 100 fl August 07, 2025 2:55:00 PM UTC (TECH: TH) 785-6 Erythrocyte mean corpuscular hemoglobin [Entitic mass] by Automated count N 28.0 pg 27 pg - 31 pg August 07, 2025 2:55:00 PM UTC (TECH: TH) 786-4 Erythrocyte mean corpuscular hemoglobin concentration [Mass/volume] by Automated count N 32.3 g/dl 32 g/dl - 36 g/dl August 07, 2025 2:55:00 PM UTC (TECH: TH) 13167-2 Erythrocyte distribution width [Ratio] H 14.1 % 11.5 % - 14.0 % August 07, 2025 2:55:00 PM UTC (TECH: TH) 777-3 Platelets [#/volume] in Blood by Automated count N 242 K/ul 150 K/ul - 450 K/ul August 07, 2025 2:55:00 PM UTC (TECH: TH) 15805-5 Platelet mean volume [Entitic volume] in Blood by Automated count H 9.6 fl 6 fl - 9.5 fl August 07, 2025 2:55:00 PM UTC (TECH: TH) 11056-2 Neutrophils/100 leukocytes in Blood N 56.4 % 43 % - 65 % August 07, 2025 2:55:00 PM UTC (TECH: TH) 736-9 Lymphocytes/100 leukocytes in Blood by Automated count N 29.3 % 20.5 % - 45.5 % August 07, 2025 2:55:00 PM UTC (TECH: TH) 5905-5 Monocytes/100 leukocytes in Blood by Automated count N 10.2 % 5.5 % - 11.7 % August 07, 2025 2:55:00 PM UTC (TECH: TH) 713-8 Eosinophils/100 leukocytes in Blood by Automated count N 2.9 % 0.9 % - 2.9 % August 07, 2025 2:55:00 PM UTC (TECH: TH) 706-2 Basophils/100 leukocytes in Blood by Automated count N 0.7 % 0.2 % - 1.0 % August 07, 2025 2:55:00 PM UTC (TECH: TH) 23341-8 Immature granulocytes/100 leukocytes in Blood by Automated count N 0.5 % 0.0 % - 0.8 % August 07, 2025 2:55:00 PM UTC (TECH: TH) 19847-7 Nucleated cells [#/volume] in Blood N 0.0 % August 07, 2025 2:55:00 PM UTC (TECH: TH) 32309-2 Neutrophils [#/volume] in Blood N 4.2 K/uL 2.2 K/uL - 4.8 K/uL August 07, 2025 2:55:00 PM UTC (TECH: TH) 731-0 Lymphocytes [#/volume] in Blood by Automated count N 2.2 CELL/MCL 1.3 CELL/MCL - 2.9 CELL/MCL August 07, 2025 2:55:00 PM UTC (TECH: TH) 742-7 Monocytes [#/volume] in Blood by Automated count N 0.8 CELL/MCL 0.3 CELL/MCL - 0.8 CELL/MCL August 07, 2025 2:55:00 PM UTC (TECH: TH) 711-2 Eosinophils [#/volume] in Blood by Automated count N 0.2 CELL/MCL 0 CELL/MCL - 0.2 CELL/MCL August 07, 2025 2:55:00 PM UTC (TECH: TH) 704-7 Basophils [#/volume] in Blood by Automated count N 0.1 CELL/MCL 0.0 CELL/MCL - 1.0 CELL/MCL August 07, 2025 2:55:00 PM UTC (TECH: TH) 69530-3 Immature granulocytes [#/volume] in Blood N 0.04 K/ul August 07, 2025 2:55:00 PM UTC (TECH: TH) 71466-1 Nucleated cells [#/volume] in Blood N 0.00 K/uL August 07, 2025 2:55:00 PM UTC (TECH: TH) 52754-9 Manual Differential panel - Blood N NO August 07, 2025 2:55:00 PM UTC (TECH: TH) ORDER 200: COMP METABOLIC PA CATALINO (LOINC: 37756-8) ORDER DATE: August 06, 2025 8:22:00 PM UTC Specimen Source: PLASMA Specimen Type: Plasma specim en PERFORMING LAB: [address] [id number] Result Comment: Final Result Date: August 07, 2025 3:40:00 PM UTC (TECH: ARR) LOINC TEST FLAG RESULT REFERENCE RANGE UPDA ADARSH BY 2951-2 Sodium [Moles/volume ] in Serum or Plasma N 140 mmol/L 136 mmol/L - 145 mmol/L August 07, 2025 3:40:00 PM UTC (TECH: ARR) 2823-3 Potassium [Moles/volume] in Serum or Plasma N 4.6 mmol/L 3.6 mmol/L - 5.0 mmol/L August 07, 2025 3:40:00 PM UTC (TECH: ARR) 2075-0 Chloride [Moles/volu me] in Serum or Plasma N 101 mmol/L 98 mmol/L - 107 mmol/L August 07, 2025 3:40:00 PM UTC (TECH: ARR) 8-9 Carbon dioxide, tota l [Moles/volume] in Serum or Plasma N 29.3 mmol/L 21.0 mmol/L - 32.0 mmol/L August 07, 2025 3:40:00 PM UTC (TECH: ARR) 50068-3 Anion gap in Blood N 14.3 O ct2024 3:40:00 PM UTC (TECH: ARR) 2345-7 Glucose [Mass/volume ] in Serum or Plasma H 147 mg/dl 70 mg/dl - 120 mg/dl August 07, 2025 3:40:00 PM UTC (TECH: ARR) 6299-2 Urea nitrogen [Mass/volume] in Blood H 20 mg/dL 7 mg/dL - 18 mg/dL August 07, 2025 3:40:00 PM UTC (TECH: ARR) 45476-2 Creatinine [Moles/volume] in Blood N 0.8 mg/dL 0.6 mg/dL - 1.3 mg/dL August 07, 2025 3:40:00 PM UTC (TECH: ARR) 42789-5 Glomerular filtratio n rate/1.73 sq M.predicted by Creatinine-based formula (MDRD) N 92 mlpermin 60 mlpermin August 07, 2025 3:40:00 PM UTC (TECH: ARR) 58403-2 Osmolality of Serum or Plasma by calculated by sum of electrolytes N 296 mosm/kg 275 mosm/kg - 301 mosm/kg August 07, 2025 3:40:00 PM UTC (TECH: ARR) 2885-2 Protein [Mass/volume ] in Serum or Plasma N 7.5 g/dl 6.4 g/dl - 8.2 g/dl August 07, 2025 3:40:00 PM UTC (TECH: ARR) 1751-7 Albumin [Mass/volume ] in Serum or Plasma N 3.9 g/dl 3.4 g/dl - 5.0 g/dl August 07, 2025 3:40:00 PM UTC (TECH: ARR) 2336-6 Globulin [Mass/volum e] in Serum N 3.6 August 07, 2025 3:40:00 PM UTC (TECH: ARR) 1759-0 Albumin/Globulin [Ma ss Ratio] in Serum or Plasma N 1.1 0.7 - 2 August 07, 2025 3:40:00 PM UTC (TECH: ARR) 64942-1 Calcium [Mass/volume ] in Serum or Plasma N 9.9 mg/dl 8.5 mg/dl - 10.5 mg/dl August 07, 2025 3:40:00 PM UTC (TECH: ARR) 1975-2 Bilirubin.total [Mass/volume] in Serum or Plasma N 0.70 mg/dL 0.10 mg/dL - 1.00 mg/dL August 07, 2025 3:40:00 PM UTC (TECH: ARR) 1920-8 Aspartate aminotransferase [Enzymatic activity/volume] in Serum or Plasma N 15 U/L 0 U/L - 37 U/L August 07, 2025 3:40:00 PM UTC (TECH: ARR) 1742-6 Alanine aminotransferase [Enzymatic activity/volume] in Serum or Plasma N 25 U/L 0 U/L - 65 U/L August 07, 2025 3:40:00 PM UTC (TECH: ARR) 6768-6 Alkaline phosphatase [Enzymatic activity/volume] in Serum or Plasma L 45 U/L 46 U/L - 116 U/L August 07, 2025 3:40:00 PM UTC (TECH: ARR) ORDER 300: PROSTATE SPECIFIC AG PSA (LOINC: 2857-1) ORDER DATE: August 06, 2025 8:22:00 PM UTC Specimen Source: PLASMA Specimen Type: Plasma specim en PERFORMING LAB: [address] [id number] Result Comment: Final Result Date: August 07, 2025 3:40:00 PM UTC (TECH: ARR) LOINC TEST FLAG RESULT REFERENCE RANGE UPDA ADARSH BY 2857-1 Prostate specific Ag [Mass/volume] in Serum or Plasma H 7.3 ng/mL 0 ng/mL - 4.0 ng/mL August 07, 2025 3:40:00 PM UTC (TECH: ARR) ORDER 400: TESTOSTERONE FREE AND TOTAL (LOINC: 2986-8) ORDER DATE: August 06, 2025 8:22:00 PM UTC Specimen Source: SERUM Specimen Type: Serum specime n PERFORMING LAB: [address] [id number] Result Comment: August 11, 2025 7:10:00 PM UTC Performed at: - [facility] Result Comment: August 11, 2025 7:10:00 PM UTC [address] [place], [place] [id number] Result Comment: August 11, 2025 7:10:00 PM UTC Regional Service Manager: Abimael Escobar PhD, Phone: [phone] Result Comment: August 11, 2025 7:10:00 PM UTC Performed at: - [facility] Result Comment: August 11, 2025 7:10:00 PM UTC [address] [place], [place] [id number] Result Comment: August 11, 2025 7:10:00 PM [facility] Regional Service Manager: Roger Chase MD, Phone: [phone] Result Comment: August 11, 2025 7:10:00 PM UT Final Result Date: August 07, 2025 2:44:00 PM UT (TECH: LAB) LOINC TEST FLAG RESULT REFERENCE RANGE UPDA ADARSH BY 2986-8 Testosterone [Mass/v olume] in Serum or Plasma N 273 ng/dL 264-916 August 07 025 2:44:00 PM UT (TECH: LAB) 2991-8 Testosterone Free [Mass/volume] in Serum or Plasma L 5.5 pg/mL 6.6-18.1 August 07, 2025 2:44:00 PM UT (TECH: LAB) LABORATORY NARRATIVE RESULTS Information is not available RADIOLOGY RESULTS Information is not available PATHOLOGY NARRATIVE RESULTS Information is not available MICROBIOLOGY RESULTS No Micro Labs/Results Exist for Patient BLOOD ADMIN RESULTS Information is not available MEDICATIONS HOME MEDICATIONS Status RXNORM [facility] Medication Dose Route Frequency Dates Comments Reported By Updated By Active [id number] 240338 06505 Atorvastatin Calcium Oral Tablet 40 MG 40.0 MG ORAL DAILY Last Dose: [id number] on August 07, 2025 3:18:58 PM UT Active 022101 682610 29180 glipiZIDE ER Oral Tablet Extended Release 24 Hour 10 MG 10.0 MG ORAL DAILY Last Dose: [id number] on August 07, 2025 3:18:59 PM UT Active 594031 093538 Losartan Potassium Oral Tablet 50 MG 50.0 MG ORAL DAILY Last Dose: [id number] on August 07, 2025 3:18:59 PM UT Active 729116 191362 93081 metFORMIN HCl Oral Tablet 500 MG 500.0 MG ORAL TID Last Dose: [id number] on August 07, 2025 3:18:59 PM UT Active 171271 222715 73021 Niacin (Antihyperli pidemic) Oral Tablet 500 MG 1.0 TAB ORAL DAILY Last Dose: [id number] on August 07, 2025 3:18:59 PM UT Active 703407 092574 72643 Tamsulosin HCl Oral Capsule 0.4 MG 0.4 MG ORAL DAILY Last Dose: [id number] on August 07, 2025 3:18:59 PM UT Active 559543 911561 19689 Warfarin Sodium Oral Tablet 10 MG 10.0 MG ORAL MWF Last Dose: [id number] on August 07, 2025 3:18:59 PM [facility] Active 165585 459301 59212 Warfarin Sodium Oral Tablet 5 MG 1.0 TAB ORAL Last Dose: ///s u [id number] on August 07, 2025 3:18:59 PM [facility] DISCHARGE MEDICATIONS Status RXNORM ND Medication Dose Route Frequency Dates Dis pense Data Comments Physician Updated By No Discharge Medication Info rmation Available INPATIENT MEDICATIONS Status RXNORM ND Medication Dose Route Frequency Rat e Quantity Dates Indication Dispense Data Comments Physician Updated [facility] [id number] [phone] leuprolide (ELIGARD) 7.5 MG KIT 7.5 MG SUBCUT ANEOUS ONE TIME ADMINISTRA TION (UNSCHEDUL ED) Start: [facility] 2024 12:00: 00 PM [facility] End: [facility] 2024 3:01:4 2 PM [facility] AMIRA AELNA Carlson [id number] on August 07, 2025 3:01:00 PM [facility] SOCIAL HISTORY SOCIAL HISTORY - Smoking Status SNOMED-CT Social History Element Description Effective Dates Offered Cessation Comment Updated By [id number] Historical Tobacco smoking status Never Smoked [id number] on July 29, 2025 4:27:11 PM [facility] SOCIAL HISTORY - Gender Sex: Male SOCIAL HISTORY - Status : status i nformation is not available Intention in Next Year: intention information is not available SOCIAL HISTORY - Assessments Code System Description Status Date Value of Assessment Updated By Comment Assessment Information is no t available SOCIAL HISTORY - [place] Affiliation [place] information is not av ailable SOCIAL HISTORY [...] for each vital sign as of August 21, 2025 10:41:06 AM [facility] Loinc Code Vital Sign Activity Date Result Updated By 8310-5 Body temperature August 07 2:10:00 PM [facility] 97.3 [degF] 33643-3 Body weight Measured August 07, 2025 3:13:59 PM UTC 102.0 kg (225.0 lb) [id number] on August 07, 2025 3:13:59 PM UT 8462-4 Diastolic blood pressure August 07, 2025 2:10:00 PM UTC 72.0 mm[Hg] 8867-4 Heart rate August 07, 2025 2:10:00 PM UTC 67 /min 93919-0 Oxygen saturation in Arterial blood by Pulse oximetry August 07, 2025 2:10:00 PM UTC 95.0 % 9279-1 Respiratory rate August 07 2:10:00 PM UTC 18 /min 8480-6 Systolic blood pressure August 07, 2025 2:10:00 PM UTC 142.0 mm[Hg] PEDIATRIC GROWTH CHART - VITAL SIGNS This [...] available. ENCOUNTERS ENCOUNTER INFORMATION Reason for Visit KECIA Admission August 07, 2025 1:48:[address] [address] Discharge August 20, 2025 8:27:00 PM [facility] DISCHARGED TO HOME OR SELF CARE ENCOUNTER DIAGNOSES Notes information is not nayla ilable. Code System Diagnosis Onset Date Diagnosis information is not available. 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 [id number] on August 21, 2025 10:40:37 AM [facility] Z88.2 ICD10 ALLERGY STATUS TO SULFONAMID ES [id number] on August 21, 2025 10:40:37 AM [facility] CARE TEAM Care Hydrogen Treater Role ALENA COLLIER Referring ALENA COLLIER Admitting SIA FERRIS Primary Care ALENA COLLIER Primary Attending CARE TEAM CARE property assessment monitor Role on Team Location Telecom Status Start Date End Chente e Updated By BARRINGTON STOAVLL PCP normal August 04, 2025 12:44:47 PM UT August 20, 2025 8:27:00 PM [facility] [id number] on August 04, 2025 12:44:47 PM [facility] AMIRA COLLAZO Referring normal August 04, 2025 12:44:47 PM [facility] August 20, 2025 8:27:00 PM [facility] [id number] on August 04, 2025 12:44:47 PM [facility] AMIAR COLLAZO Attending normal August 04, 2025 12:44:47 PM [facility] August 20, 2025 8:27:00 PM [facility] [id number] on August 04, 2025 12:44:47 PM [facility] AMIRA COLLAZO Admitting normal August 04, 2025 12:44:47 PM [facility] August 20, 2025 8:27:00 PM [facility] [id number] on August 04, 2025 12:44:47 PM [facility]
--- OUTSIDE RECORDS SUMMARY | 2025-08-24 13:16 | XMS_ITS | Continuity of Care Document ---
Author Organization [facility] Phone Care Team Providers Care Aircraft Restorer Name Role Phone SIA FERRIS Primary Care MINA CAMERON Primary Attending MINA CAMERON Admitting MATIAS RIVERA Unavailable ALLERGIES AND ADVERSE REACTIONS ALLERGIES AND ADVERSE REACTIONS Code System Allergy Substance Adverse Reaction Date Reaction (Severity) Comment Status Reported By Updated [place] [id number] SNOMED CT SULFA ANTIBIOTICS Adverse reaction to substance unknown active Patient [id number] on July 31, 2025 5:30:31 PM [facility] [id number] SNOMED CT Sulfa Antibiotics Rash (Mild) active FAMILY HISTORY RELATION: Father Status: Cause of : Perforation of intestine Age at : 83 SNOMED-CT Diagnosis Age At Onset Information not available RELATION: Mother Status: LIVING SNOMED-CT Diagnosis Age At Onset [id number] Malignant melanoma of skin 0728151 Factor V deficiency [id number] Hypercholesterolemia MEDICATIONS HOME MEDICATIONS Status RXNORM NDC Medication [...] Effective Dates Offered Cessation Comment Updated By [id number] Historical Tobacco smoking status Never Smoked [id number] on July 29, 2025 4:27:11 PM [facility] SOCIAL HISTORY - Gender Sex: Male SOCIAL HISTORY - Status : status i nformation is not available Intention in Next Year: intention information is not available SOCIAL HISTORY - Assessments Code System Description Status Date Value of Assessment Updated By Comment Assessment Information is no t available SOCIAL HISTORY - [place]vi Affiliation [place] information is not av ailable SOCIAL HISTORY [...] available. ENCOUNTERS ENCOUNTER INFORMATION Reason for Visit RADIATION Admission August 10, 2025 5:08:[address] [address] Discharge August 22, 2025 3:59:00 AM [facility] DISCHARGED TO HOME OR SELF CARE ENCOUNTER DIAGNOSES Notes information is not nayla ilable. Code System Diagnosis Onset Date Diagnosis information is not available. 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 [id number] on July 07, 2025 12:40:32 PM [facility] Z51.0 ICD10 ENCOUNTER FOR AN TINEOPLASTIC RADIATION THERAPY [id number] on August 24, 2025 6:16:04 PM [facility] C61 ICD10 MALIGNANT NEOPLASM OF PROSTA TE [id number] on August 24, 2025 6:16:06 PM [facility] CARE TEAM Care Aircraft Restorer Role SIA FERRIS Primary Care MINA CAMERON Primary Attending MINA CAMERON Admitting MATIAS RIVERA Referring CARE TEAM CARE clinical trial coordinator Role on Team Location Telecom Status Start Date End Chente e Updated By BARRINGTON STOVALL PCP normal July 07, 2025 12:40:33 PM [facility] August 22, 2025 3:59:00 AM [facility] [id number] on July 07, 2025 12:40:33 PM [facility] NICOLE COLLAZO Referring normal July 07, 2025 12:40:33 PM [facility] August 22, 2025 3:59:00 AM [facility] [id number] on July 07, 2025 12:40:33 PM [facility] RAKESH COLLAZO Attending normal July 07, 2025 12:40:32 PM [facility] August 22, 2025 3:59:00 AM [facility] [id number] on July 07, 2025 12:40:33 PM [facility] RAKESH COLLAZO Admitting normal July 07, 2025 12:40:32 PM [facility] August 22, 2025 3:59:00 AM [facility] [id number] on July 07, 2025 12:40:33 PM [facility]
--- OUTSIDE RECORDS SUMMARY | 2025-08-27 11:53 | XMS_ITS | Clinical Summary ---
Author Organization [employer] ([place], [place], [place], [place], [place]) Address [address] [place] [address] Care Team Providers Care Solution Mixer Name Role Phone Unavailable Primary Care Provider [...] 2024 Falls Risk Screening 10/22/2024 COVID-19 VACCINE ( - 2024-2 6 season) 2025 08/09/2022, 08/24/2021, 12/15/2020, Additional history exists Influenza Vaccine (#1) 2025 , 07/10/2023, 08/07/2022, Additional history exists DTAP/TDAP/TD VACCINES (2 - T d or Tdap) 09/22/2034 09/22/2024 Pneumococcal 50+ years Completed 08/28/2024, 2019 Shingles Vaccine (Zoster) Completed 12/01/2024, 11/2023 Insurance [employer] MEDICARE ADVANTAGE
--- OUTSIDE RECORDS SUMMARY | 2025-08-27 11:53 | XMS_ITS | Referral Summary ---
Author Organization [employer] ([place], [place], [place], [place], [place]) Address [address] [place] [address] Care Team Providers Care Boatbuilder Apprentice Wood Name Role Phone Unavailable Primary Care Provider [...] Plan of Treatment Not on file Insurance [facility] [place] [phone]
--- OUTSIDE RECORDS SUMMARY | 2025-08-27 11:54 | XMS_ITS | Continuity of Care Document ---
Author Organization [facility] Address [address] [place] [address] Care Team Providers Care Aviculturist Name Role Phone SIA FERRIS Primary Care Provider Assessment No assessment recorded. Plan of Treatment Reminders Order Date Submit Date Provider Last Modified By Organization Details Last Modified Time Details Appointments DAILY TREATMEN T 2024 10:15A M Forrest Treatment Not available Not available Not available ON TREATMEN T VISIT 2024 10:30A M MINA CAMERON MD Not available Not available Not available DAILY TREATMEN T 2024 10:15A M Forrest Treatment Not available Not available Not available DAILY TREATMEN T 2024 10:15A M Forrest Treatment Not available Not available Not available DAILY TREATMEN T 2024 11:15A M Forrest Treatment Not available Not available Not available DAILY TREATMEN T 2024 10:30A M Forrest Treatment Not available Not available Not available DAILY TREATMEN T 2024 11:15A M Forrest Treatment Not available Not available Not available ON TREATMEN T VISIT 2024 11:30A M MINA CAMERON MD Not available Not available Not available DAILY TREATMEN T 2024 10:15A M Forrest Treatment Not available Not available Not available DAILY TREATMEN T 2024 10:15A M Forrest Treatment Not available Not available Not available OV EST 30 2024 01:00P M Ioana Teixeira PA-C Not available Not available Not available DAILY TREATMEN T 2024 11:30A M Forrest Treatment Not available Not available Not available DAILY TREATMEN T 2024 10:30A M Forrest Treatment Not available Not available Not available DAILY TREATMEN T 2024 10:15A M Forrest Treatment Not available Not available Not available ON TREATMEN T VISIT 2024 10:30A M MINA CAMERON MD Not available Not available Not available DAILY TREATMEN T 2024 10:15A M Forrest Treatment Not available Not available Not available DAILY TREATMEN T 2024 10:15A M Forrest Treatment Not available Not available Not available DAILY TREATMEN T 2024 10:15A M Forrest Treatment Not available Not available Not available DAILY TREATMEN T 2024 10:15A M Forrest Treatment Not available Not available Not available ON TREATMEN T VISIT 2024 10:30A M MINA CAMERON MD Not available Not available Not available DAILY TREATMEN T 2024 10:15A M Forrest Treatment Not available Not available Not available DAILY TREATMEN T 2024 10:15A M Forrest Treatment Not available Not available Not available DAILY TREATMEN T 2024 10:15A M Forrest Treatment Not available Not available Not available DAILY TREATMEN T 2024 10:15A M Forrest Treatment Not available Not available Not available DAILY TREATMEN T 2024 10:15A M Forrest Treatment Not available Not available Not available ON TREATMEN T VISIT 2024 10:30A M MINA CAMERON MD Not available Not available Not available DAILY TREATMEN T 2024 10:15A M Forrest Treatment Not available Not available Not available DAILY TREATMEN T 2024 10:15A M Forrest Treatment Not available Not available Not available DAILY TREATMEN T 2024 10:15A M Forrest Treatment Not available Not available Not available DAILY TREATMEN T 2024 10:15A M Forrest Treatment Not available Not available Not available DAILY TREATMEN T 2024 10:15A M Forrest Treatment Not available Not available Not available ON TREATMEN T VISIT 2024 10:30A M MINA CAMERON MD Not available Not available Not available Lab PSA, serum or plasma 2024 025 [facility] (Registration ), [address] [place], [address], 07/17/2025 16:58:41 CMP, serum or plasma 2024 025 [facility] (Registration ), [address] [place], [address], 07/17/2025 16:58:40 testoste columba, free + total, serum 2024 025 [facility] (Registration ), [address] [place], [address], 07/21/2025 15:13:03 CBC w/ diff [address] [place] [address] (Registration ), [address] [place], [address], 07/24/2025 11:17:00 PT/INR [address] [place] [address] (Registration ), [address] [place], [address], 07/24/2025 11:17:00 Referral None recorded . Procedures [...] WBC 8.6 K/uL 4.0-10 .5 Not Available [facility] (Ccd) [address] [place], [address], 07/17/2025 15:55:14 07/17/2007/17/2025 CBC AUTO W DIFF RBC 5.6 M/mm3 4.7-6. 1 Not Available [facility] ([facility]) [address] , [place], [address], 07/17/2025 15:55:14 07/17/20 25 07/17/2025 CBC AUTO W DIFF HGB 15.5 gm/dL 13.5-1 8.0 Not Available [facility] ([facility]) [address] , [place], [address], 07/17/2025 15:55:14 07/17/20 25 07/17/2025 CBC AUTO W DIFF HCT 47.7 % 42.0-5 2.0 Not Available [facility] ([facility]) [address] , [place], [address], 07/17/2025 15:55:14 07/17/20 25 07/17/2025 CBC AUTO W DIFF MCV 85.3 fL 78-100 Not Available [facility] ([facility]) [address] , [place], [address], 07/17/2025 15:55:14 07/17/20 25 07/17/2025 CBC AUTO W DIFF MCH 27.7 pg 27-31 Not Available [facility] ([facility]) [address] , [place], [address], 07/17/2025 15:55:14 07/17/20 25 07/17/2025 CBC AUTO W DIFF MCHC 32.5 g/dL 32-36 Not Available [facility] ([facility]) [address] , [place], [address], 07/17/2025 15:55:14 07/17/20 25 07/17/2025 CBC AUTO W DIFF RDW 14.1 % 11.5-1 4.0 high Not Available [facility] ([facility]) [address], [place], [address], 07/17/2025 15:55:14 07/17/20 25 07/17/2025 CBC AUTO W DIFF platelet count 230 K/uL 150-45 0 Not Available [facility] ([facility]) [address] [place], [address], 07/17/2025 15:55:14 07/17/20 25 07/17/2025 CBC AUTO W DIFF MPV 9.5 fL 6-9.5 Not Available [facility] ([facility]) [address], [place], [address], 07/17/2025 15:55:14 07/17/20 25 07/17/2025 CBC AUTO W DIFF neutrophil% 61.4 % 43-65 Not Available [facility] ([facility]) [address] [facility], [place], [address], 07/17/2025 15:55:14 07/17/20 25 07/17/2025 CBC AUTO W DIFF lymphocyte% 26.9 % 20.5-4 5.5 Not Available [facility] ([facility]) [address] [place], [address], 07/17/2025 15:55:14 07/17/20 25 07/17/2025 CBC AUTO W DIFF monocyte% 8.7 % 5.5-11 .7 Not Available [facility] ([facility]) [address] [place], [address], 07/17/2025 15:55:14 07/17/20 25 07/17/2025 CBC AUTO W DIFF eosinophil% 2.2 % 0.9-2. 9 Not Available [facility] ([facility]) [address] [place], [address], 07/17/2025 15:55:14 07/17/20 25 07/17/2025 CBC AUTO W DIFF basophil% 0.6 % 0.2-1. 0 Not Available [facility] ([facility]) [address] [place], [address], 07/17/2025 15:55:14 07/17/20 25 07/17/2025 CBC AUTO W DIFF immature granulocytes % 0.2 % 0.0-0. 8 Not Available [facility] ([facility]) [address] [facility], [place], [address], 07/17/2025 15:55:14 07/17/20 25 07/17/2025 CBC AUTO W DIFF nucleated red blood cells % 0.0 % Not Available [facility] ([facility]) [address] [facility], [place], [address], 07/17/2025 15:55:14 07/17/20 25 07/17/2025 CBC AUTO W DIFF neutrophil# 5.3 K/uL 2.2-4. 8 high Not Available [facility] ([facility]) [address] [facility], [place], [address], 07/17/2025 15:55:14 07/17/20 25 07/17/2025 CBC AUTO W DIFF lymphocyte# 2.3 cell/ mcL 1.3-2. 9 Not Available [facility] ([facility]) [address] [facility], [place], [address], 07/17/2025 15:55:14 07/17/20 25 07/17/2025 CBC AUTO W DIFF monocyte# 0.7 cell/ mcL 0.3-0. 8 Not Available [facility] ([facility]) [address] [place], [address], 07/17/2025 15:55:14 07/17/20 25 07/17/2025 CBC AUTO W DIFF eosinophil# 0.2 cell/ mcL 0-0.2 Not Available [facility] ([facility]) [address] [place], [address], 07/17/2025 15:55:14 07/17/20 25 07/17/2025 CBC AUTO W DIFF basophil# 0.1 cell/ mcL 0.0-1. 0 Not Available [facility] ([facility]) [address] , [place], [address], 07/17/2025 15:55:14 07/17/20 25 07/17/2025 CBC AUTO W DIFF immature gramulocytes # 0.02 K/uL Not Available [facility] ([facility]) [address] , [place], [address], 07/17/2025 15:55:14 07/17/20 25 07/17/2025 CBC AUTO W DIFF nucleated red blood cells # 0.00 K/uL Not Available [facility] ([facility]) [address] , [place], [address], 07/17/2025 15:55:14 07/17/20 25 07/17/2025 CBC AUTO W DIFF manual differential NO Not Available [facility] ([facility]) [address] , [place], [address], 07/17/2025 15:55:14 07/17/20 25 07/17/2025 PT (PROT HROMB IN TIME) W INR prothrombin time 17.8 secon ds 9.3-11 .4 high Not Available [facility] ([facility]) [address] , [place], [address], 07/17/2025 15:57:24 07/17/20 25 07/17/2025 PT (PROT [...] Mecha nical Heart Valve s Not Available [facility] ([facility]) [address] , [place], [address], 07/17/2025 15:57:24 07/17/20 25 07/17/2025 COMP METAB OLIC PANEL sodium 139 mmol/ L 136-14 5 Not Available [facility] ([facility]) [address], [place], [address], 07/17/2025 16:58:40 07/17/20 25 07/17/2025 COMP METAB OLIC PANEL potassium 4.6 mmol/ L 3.6-5. 0 Not Available [facility] ([facility]) [address], [place], [address], 07/17/2025 16:58:40 07/17/20 25 07/17/2025 COMP METAB OLIC PANEL chloride 102 mmol/ L 98-107 Not Available [facility] ([facility]) [address], [place], [address], 07/17/2025 16:58:40 07/17/20 25 07/17/2025 COMP METAB OLIC PANEL carbon dioxide 26.7 mmol/ L 21.0-3 2.0 Not Available [facility] ([facility]) [address], [place], [address], 07/17/2025 16:58:40 07/17/20 25 07/17/2025 COMP METAB OLIC PANEL anion gap 14.9 Not Available [facility] ([facility]) [address] , [place], [address], 07/17/2025 16:58:40 07/17/20 25 07/17/2025 COMP METAB OLIC PANEL glucose 113 mg/dL 70-120 Not Available [facility] ([facility]) [address], [place], [address], 07/17/2025 16:58:40 07/17/20 25 07/17/2025 COMP METAB OLIC PANEL BUN 19 mg/dL 7-18 high Not Available [facility] ([facility]) [address], [place], [address], 07/17/2025 16:58:40 07/17/2007/17/2025 COMP METAB OLIC PANEL creatinine 0.8 mg/dL 0.6-1. 3 Not Available [facility] ([facility]) [address], [place], [address], 07/17/2025 16:58:40 07/17/20 25 07/17/2025 COMP METAB [...] paige ing kiney funct ion. Not Available [facility] ([facility]) [address] , [place], [address], 07/17/2025 16:58:40 07/17/2007/17/2025 COMP METAB OLIC PANEL osmolality (calculated) 292 mOsm/ kg 275-30 1 OSMOL ALITY IS A CALCU LATIO N UTILI ZING THE SERUM /PLAS MA SODIU M, GLUCO SE AND UREA NITRO GEN (BUN) LEVEL S. FOR THE MOST ACCUR ATE RESUL T A MEASU RED SERUM OSMOL ALITY IS SUGGE STED. Not Available [facility] ([facility]) [address], [place], [address], 07/17/2025 16:58:40 07/17/20 25 07/17/2025 COMP METAB OLIC PANEL total protein 7.4 g/dL 6.4-8. 2 Not Available [facility] ([facility]) [address], [place], [address], 07/17/2025 16:58:40 07/17/20 25 07/17/2025 COMP METAB OLIC PANEL albumin 3.9 g/dL 3.4-5. 0 Not Available [facility] ([facility]) [address] , [place], [address], 07/17/2025 16:58:40 07/17/20 25 07/17/2025 COMP METAB OLIC PANEL globulin 3.5 Not Available [facility] ([facility]) [address], [place], [address], 07/17/2025 16:58:40 07/17/20 25 07/17/2025 COMP METAB OLIC PANEL alb/glob ratio 1.1 0.7-2 Not Available [facility] ([facility]) [address], [place], [address], 07/17/2025 16:58:40 07/17/20 25 07/17/2025 COMP METAB OLIC PANEL calcium 9.8 mg/dL 8.5-10 .5 Not Available [facility] ([facility]) [address], [place], [address], 07/17/2025 16:58:40 07/17/20 25 07/17/2025 COMP METAB OLIC PANEL bilirubin total 0.60 mg/dL 0.10-1 .00 Not Available [facility] ([facility]) [address], [place], [address], 07/17/2025 16:58:40 07/17/20 25 07/17/2025 COMP METAB OLIC PANEL AST (SGOT) 17 U/L 0-37 Not Available [facility] ([facility]) [address], [place], [address], 07/17/2025 16:58:40 07/17/20 25 07/17/2025 COMP METAB OLIC PANEL ALT (SGPT) 26 U/L 0-65 Not Available [facility] ([facility]) [address] [facility], [place], [address], 07/17/2025 16:58:40 07/17/20 25 07/17/2025 COMP METAB OLIC PANEL alk phosphatase 56 U/L 46-116 Not Available [facility] ([facility]) [address] [facility], [place], [address], 07/17/2025 16:58:40 07/17/20 25 07/17/2025 PROST ATE SPECI FIC AG (PSA) prostate specific Ag (PSA) 6.6 NG/mL 0-4.0 high Not Available [facility] ([facility]) [address] [facility], [place], [address], 07/17/2025 16:58:41 07/17/20 25 07/21/2025 TESTO STERO NE,FR EE AND TOTAL testosterone , serum 295 NG/dL 264-91 6 Adult male refer ence inter valentín is based on a popul ation of healt hy nonob larisa males (BMI <30) betwe en 19 and 39 years old. Claudette robins et.al . JCEM 2017, 102;1 161-1 173. PMID: 93872 103. Not Available [facility] ([facility]) [address] [facility], [place], [address], 07/21/2025 15:13:03 07/17/20 25 07/21/2025 TESTO STERO NE,FR EE AND TOTAL testosterone , free, direct 5.2 pg/mL 6.6-18 .1 low Perfo rmed at: CB - [facility] [address] [place] [address] Lab Direc tor: Ramu hernandez PhD, Phone : [phone] Perfo rmed at: BN - [facility] [place] [address] [facility] , [place] [address] Lab Direc tor: Dayanara mann MD, Phone : [phone] Not Available [facility] ([facility]) [address], [place], [address], 07/21/2025 15:13:03 07/01/20 25 07/01/2025 PET-C T, skull base to mid-t high scan No observ ation record ed. [facility] [address] [place] [address] [place], [address], 07/03/2025 10:45:08 Result Notes None recorded. 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 2847894975256 Active 2024 Nieves garza, [place] - [facility] - [place] & [place] 5 11:10:38 Hyperchole sterolemia 25399409 Active 2024 Nieves garza, [place] - [facility] [place] 5 11:10:46 History of radiation therapy 674484021 Active 2024 Nieves Dinh null, [place] [facility] [place] 5 11:10:57 Prostate specific antigen above reference range 228749926 Active 2024 MATIAS RIVERA MD [address], [place], [address] , [place] - [facility] - [facility] & [place] 5 11:55:36 Lower urinary tract symptoms 498144187 Active 2024 MATIAS RIVERA MD [address], [place], [address] , [place] - [facility] - [facility] & [place] 5 11:56:25 Malignant neoplasm of prostate 376772166 Active 2024 MATIAS RIVERA MD [address], [place], [address] , [place] - [facility] - [place] & [place] 5 16:24:52 Problem Notes Documentation Provider Name and Address Organization Details Recorded Time Security Director Consult Note : SW met w/ pt and during clinic appt for initial consult. SW informed pt of role in care and provided contact information. Pt denied needs at this time. SW communicated support ongoing. Rosmery Aj kayla [facility] - [place] & [place] 07/17/2025 14:22:38 Radiation Oncologist Consult Note : [...] continue to f/u. Adela Velasquez P[facility]RO [facility]za [facility] & [place] 08/04/2025 14:56:37 Procedures Surgical History Date Name Laterality Status Provider Name and Address Organization Details Recorded Time 0 Radiation Therapy completed [facility] & [place] 05/05/2025 10:49:43 0 Cancer Surgery completed [facility] & [place] 05/05/2025 10:49:43 4 Abdominal Surgery completed [facility] & [place] 05/05/2025 10:49:43 7 Tonsillectomy/ Adenoidectomy completed [facility] & [place] 05/05/2025 10:49:43 knee joint operation completed Nieves [facility] & [place] 01/06/2025 11:09:38 Imaging Results None recorded. Procedure Notes None recorded. Medical Equipment None Reported. Allergies Allergen ID Allergen Name Allergen Category Reaction Reaction Severity Criticality Documentation Date Start Date Code Code System Note Provider Name and Address Organization Details Recorded Time 520256 Substance with sulfonami de structure and antibacte rial mechanism of action (substanc e) medicatio n Not available Not available Not available 12/10/2024 32132 8004 SNOMED PERDO Sampson [facility] & [place] 5 09:33:08 Medications Name Sig Start Date [...] Last Updated DateTime 182.88 cm 30.5 kg/m2 218826. 21 g 98.2 [degF] 96 % 96 % 66 /min 139/77 mm[Hg] Renea VASQUEZ [facility] & [place] 13:13:36 Social History Question Answer Notes LastModified by Organizat [employer] Details LastModified Time Tobacco Smoking Status Never Smoker Renea [facility], [facility] & [place] 07/17/2025 13:16:05 Do You Have An Advance Directive? No Information not available 05/05/2025 Are You Blind Or Do You Have Difficulty Seeing? Yes Information not available 05/05/2025 What Is Your Level Of Caffeine Consumption? Moderate [email or web address] Information not available 07/17/2025 What Was The Date Of Your Most Recent Tobacco Screening? 05/02/2025 Information not available 05/05/2025 Are You Passively Exposed To Smoke? No Information not available 05/05/2025 Has Tobacco Cessation Counseling Been Provided? No [email or web address] Information not available 07/17/2025 Sex: Unknown Functional Status Question Answer Note LastModified by Organizat ion Details LastModified Time Do you use any illicit or recreational drugs? No Information not available 05/05/2025 Do you or have you ever used any other forms of tobacco or nicotine? No [email or web address] Information not available 07/17/2025 What is your level of alcohol consumption? None Information not available 05/05/2025 What is your exercise level? Occasional Information not available 05/05/2025 Mental Status Question Answer Note LastModified by Organization D etails LastModified Time Do you feel stressed (tense, restless, nervous, or anxious, or unable to sleep at night)? CX33009-8 Information not available 05/05/2025 Family History Relationship Description Onset Age of this Age Resolved Age Notes LastModified by Organization Details LastModified Time Mother Malignant melanoma [email or web address] Not available 07/17 13:14:00 Paternal Aunt Malignant neoplastic disease states it grew on her spine and ended up jami g her . [email or web address] Not available 07/17/2025 13:15:27 Medical History Condition Response Clotting Disorder Y Deep Vein Thrombosis Y Diabetes Y Back Problems Y High Cholesterol Y Hypertension Y Immunizations Vaccine Type Date Status Note Provider Nam e and Address Organization Details Recorded Time Influenza, adjuvanted, trivalent, PF 9 completed Not Available [facility] 08/07/2025 10:12:24 Influenza, split virus, quadrivalent, PF 0 completed Not Available [facility] 08/07/2025 10:12:24 Pneumococcal conjugate PCV 13 0 completed [facility] Available [facility]07/[facility] 10:12:24 COVID-19, mRNA, LNP-S, PF, 100 mcg/0.5mL dose or 50 mcg/0.25mL dose 1 completed Not Available [facility] 08/07/2025 10:12:24 COVID-19, mRNA, LNP-S, PF, 100 mcg/0.5mL dose or 50 mcg/0.25mL dose 1 completed Not Available [facility] 08/07/2025 10:12:24 Influenza, high-dose, quadrivalent, PF 1 completed Not Available [facility] 08/07/2025 10:12:24 COVID-19, mRNA, LNP-S, PF, 100 mcg/0.5mL dose or 50 mcg/0.25mL dose 1 completed Not Available [facility] 08/07/2025 10:12:24 Influenza, high-dose, quadrivalent, PF 2 completed Not Available [facility] 08/07/2025 10:12:24 COVID-19, mRNA, LNP-S, bivalent, PF, 50 mcg/0.5 mL or 25mcg/0.25 mL dose 2 completed Not Available [facility] 08/07/2025 10:12:24 RSV, bivalent, protein subunit RSVpreF, diluent reconstituted, 0.5 mL, PF 3 completed Not Available [facility] 08/07/2025 10:12:24 Influenza, adjuvanted, quadrivalent, PF 3 completed Not Available [facility] 08/07/2025 10:12:24 Pneumococcal conjugate PCV20, polysaccharide [id number] conjugate, adjuvant, PF 4 completed Not Available [facility] 08/07/2025 10:12:24 Influenza, high-dose, trivalent, PF 4 completed Not Available [facility] 08/07/2025 10:12:24 Tdap 4 completed Not Available [facility] 08/07/2025 10:12:24 zoster recombinant 4 completed Not Available [facility] 08/07/2025 10:12:24 zoster recombinant 5 completed Not Available [facility] 08/07/2025 10:12:24 Past Encounters Encounter ID Performer Location Encounter Start Date Encounter Closed Date Diagnosis/Indication Diagnosis SNOMED-CT Code Diagnosis ICD10 Code Diagnosis IMO Codes Diagnosis Note [id number] MATIAS RIVERA MD [facility] [address] [facility] [address] [place] [address] 07/07/2025 07:42:01 07/07/2025 08:21:52 Malignant neoplasm of prostate 083037143 C61 [id number] MATIAS RIVERA MD [facility] [address] [facility] [address] [place] [address] 07/14/2025 07:49:24 07/14/2025 08:33:29 Malignant neoplasm of prostate 693738613 C61 12379 Prostate s pecific antigen above reference range 631115983 R97.20 [id number] Markell Sharma MD [facility] [address] [facility] [address] [place] [address] 07/17/2025 13:02:04 07/17/2025 13:56:16 Malignant neoplasm of prostate 436985537 C61 71415 Prostate biopsy performed on May 20, 2025 with findings of prostate adenocarci noma [place] 4+3=7 involving 1 core. 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 [...] Date Sequence Insurance Name Policy Number Policy Omraes Covered Member ID Moraes Member ID Guarantor Name 07/17/2025 1 [facility] (MEDICARE REPLACEMENT/A DVANTAGE - PPO) [id number] Srinivasa Hager [id number] Srinivasa Hager Notes Date Note Type Note Provider Name and Address Organization Details Recorded Time 07/17/2025 text/html 75 yo M presents for evaluation of prostate cancer. Patient seen by Urology in April 2025 for elevated PSA. Prostate biopsy performed on May 20, 2025 with findings of prostate adenocarcinoma [place] 4+3=7 involving 1 core. Representing 15% of [...] treated with radiation therapy. Markell Sharma MD [address], [place], [address], [place] - [facility] - [place] & [place] 07/17/2025 14:52:17
--- OUTSIDE RECORDS SUMMARY | 2025-08-27 11:54 | XMS_ITS | Encounter Summary ---
[facility] Organization [facility] Address [address] [place] [address] Care Team Providers Care Concrete Gun Operator Name Role Phone Catrachita Raphael APRN Primary Care Provid er Encounter Details Date Type Department Care Team (Late st Contact Info) Description 07/22/2018 External CPT II COPY COORDINATOR - [facility] Social History Tobacco Use [...] documented as of this encounter Care Teams Concrete Gun Operator Relationship Specialty Start Date End Date Catrachita Raphael APRN [address] [place] [address] PCP - General Family Medicine 10/09/19 documented as of this encounter
--- OUTSIDE RECORDS SUMMARY | 2025-08-27 11:54 | XMS_ITS | Continuity of Care Document ---
Author Organization [facility] Address [address] [address] Care Team Providers Care Grain Processor Name Role Phone SIA FERRIS Primary Care [...] Not available OV EST 30 2024 01:00P Arelis Teixeira [...] available Not available Not available Lab None recorded . Referral radiatio n oncologi st referral - Glsn 4+3 2024 025 [email or web address] Mina Cameron MD, [address] [place], [address], 08/04/2025 14:56:37 Procedures None recorded . Surgeries None recorded . Imaging None recorded . Medication Orders None recorded . Patient TargetsNo targets recorded. Patient InstructionsNo instructions recorded. Reason for Referral Glsn 4+3 Referring Physician: Jorge Rivera, Urology, Encounter Date: 07/07/2025 Results Created Date Observation Date Name Description Value Unit Range Abnormal Flag Note LastModifiedBy Organization Detail LastModifiedTime 06/09/20 25 06/09/2025 urina lysis , dipst ick Leukocytes (reference range) negati ve Not Available [facility] [address] [facility] [address], [place], [address], 06/09/2025 15:45:06 06/09/20 25 06/09/2025 urina lysis , dipst ick Nitrite (reference range:) negati ve Not Available [place] [address] [address] [facility] [address], [place], [address], 06/09/2025 15:45:06 06/09/20 25 06/09/2025 urina lysis , dipst ick Urobilinogen (reference range) 0.2 Not Available [place] [address] [address] [facility] [address], [place], [address], 06/09/2025 15:45:06 06/09/20 25 06/09/2025 urina lysis , dipst ick Protein (reference range) negati ve Not Available [place] [address] [address] [facility] [address], [place], [address], 06/09/2025 15:45:06 06/09/20 25 06/09/2025 urina lysis , dipst ick pH (reference range 5-8.5) 5.5 Not Available [place] [address] [address] [facility] [address], [place], [address], 06/09/2025 15:45:06 06/09/20 25 06/09/2025 urina lysis , dipst ick Blood (reference range:) large Not Available [place] [address] [address] [facility] [address], [place], [address], 06/09/2025 15:45:06 06/09/20 25 06/09/2025 urina lysis , dipst ick Specific [place] (reference range) 1.010 Not Available [place] [address] [address] [facility] [address], [place], [address], 06/09/2025 15:45:06 06/09/20 25 06/09/2025 urina lysis , dipst ick Ketone (reference range) negati ve Not Available [place] [address], [place], [address], 06/09/2025 15:45:06 06/09/20 25 06/09/2025 urina lysis , dipst ick Bilirubin (reference range) negati ve Not Available [place] [address] [address] [facility] [address], [place], [address], 06/09/2025 15:45:06 06/09/20 25 06/09/2025 urina lysis , dipst ick Glucose (reference range) 1000 Not Available [place] [address] [address] [facility] [address], [place], [address], 06/09/2025 15:45:06 06/09/20 25 06/09/2025 urina lysis , dipst ick Color (reference range: yellow-brown ) Yellow Not Available [place] [address] [address] [facility] [address], [place], [address], 06/09/2025 15:45:06 06/09/20 25 06/09/2025 bladd er scan (PROC ) Calculated Residual Urine: 0ml Not Available [place] [address] [address] [facility] [address], [place], [address], 06/09/2025 15:44:54 07/01/20 25 07/01/2025 PET-C T, skull base to mid-t high scan No observ ation record ed. [facility] [address] [place] [address] , [place], [address], 07/03/2025 10:45:08 Result Notes None recorded. 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 0691789720013 Active 2024 Nieves garza, [place] - [facility] - [place] & [place] 5 11:10:38 Hyperchole sterolemia 45111092 Active 2024 Nieves Dinh null, [place] - [facility] - [facility] & [place] 5 11:10:46 History of radiation therapy 377342722 Active 2024 Nieves Dinh null, [place] - [facility] - [place] & [place] 5 11:10:57 Prostate specific antigen above reference range 428802043 Active 2024 JORGE RIVERA MD [address], [place], [address] , [place] - [facility] - [place] & [place] 5 11:55:36 Lower urinary tract symptoms 045325226 Active 2024 JORGE RIVERA MD [address], [place], [address] , [place] - [facility] - [place] & [place] 5 11:56:25 Malignant neoplasm of prostate 658950035 Active 2024 JORGE RIVERA MD [address], [place], [address] , [place] - [facility] - [place] & [place] 5 16:24:52 Problem Notes None recorded. Procedures Surgical History Date Name Laterality Status Provider Name and Address Organization Details Recorded Time 0 Radiation Therapy completed Mo Mendezmag [place] - [facility] - [place] & [place] 05/05/2025 10:49:43 0 Cancer Surgery completed Mo Mendezad [place] - [facility] - [place] & [place] 05/05/2025 10:49:43 4 Abdominal Surgery completed Mo Stead [place] - [facility] - [place] & [place] 05/05/2025 10:49:43 7 Tonsillectomy/ Adenoidectomy completed Mo Mendezmag [place] - [facility] - [place] & [place] 05/05/2025 10:49:43 knee joint operation completed Nieves Dinh [place] - [facility] - [place] & [place] 01/06/2025 11:09:38 Imaging Results None recorded. Procedure Notes None recorded. Medical Equipment None Reported. Allergies Allergen ID Allergen Name Allergen Category Reaction Reaction Severity Criticality Documentation Date Start Date Code Code System Note Provider Name and Address Organization Details Recorded Time 852608 Substance with sulfonami de structure and antibacte rial mechanism of action (substanc e) medicatio n Not available Not available Not available 12/10/2024 98930 8003 SNOMED Nieves Dinh [facility], [place] - [facility] - [place] & [place] 5 09:33:08 Medications Name Sig Start Date [...] Tobacco Smoking Status Never Smoker Renea David [facility], [facility] 07/17/2025 13:16:05 Do You Have An Advance Directive? No Information not available 05/05/2025 Are You Blind Or Do You Have Difficulty Seeing? Yes Information not available 05/05/2025 What Is Your Level Of Caffeine Consumption? Moderate [email or web address] Information not available 07/17/2025 What Was The Date Of Your Most Recent Tobacco Screening? 05/02/2025 Information not available 05/05/2025 Are You Passively Exposed To Smoke? No Information not available 05/05/2025 Has Tobacco Cessation Counseling Been Provided? No [email or web address] Information not available 07/17/2025 Sex: Unknown Functional Status Question Answer Note LastModified by Organizat ion Details LastModified Time Do you use any illicit or recreational drugs? No Information not available 05/05/2025 Do you or have you ever used any other forms of tobacco or nicotine? No [email or web address] Information not available 07/17/2025 What is your level of alcohol consumption? None Information not available 05/05/2025 What is your exercise level? Occasional Information not available 05/05/2025 Mental Status Question Answer Note LastModified by Organization D etails LastModified Time Do you feel stressed (tense, restless, nervous, or anxious, or unable to sleep at night)? [id number] Information not available 05/05/2025 Family History Relationship Description Onset Age of this Age Resolved Age Notes LastModified by Organization Details LastModified Time Mother Malignant melanoma [email or web address] Not available 07/17 13:14:00 Paternal Aunt Malignant neoplastic disease states it grew on her spine and ended up jami g her . [email or web address] Not available 07/17/2025 13:15:27 Medical History Condition Response Diabetes Y Clotting Disorder Y Back Problems Y Deep Vein Thrombosis Y Hypertension Y High Cholesterol Y Immunizations Vaccine Type Date Status Note Provider Dimitri hinkle and Address Organization Details Recorded Time Influenza, adjuvanted, trivalent, PF 9 completed Not Available [facility] 08/07/2025 10:12:24 Influenza, split virus, quadrivalent, PF 0 completed Not Available [facility] 08/07/2025 10:12:24 Pneumococcal conjugate PCV 13 0 completed Not Available [facility] 08/07/2025 10:12:24 COVID-19, mRNA, LNP-S, PF, 100 mcg/0.5mL dose or 50 mcg/0.25mL dose 1 completed Not Available [facility] 08/07/2025 10:12:24 COVID-19, mRNA, LNP-S, PF, 100 mcg/0.5mL dose or 50 mcg/0.25mL dose 1 completed Not Available [facility] 08/07/2025 10:12:24 Influenza, high-dose, quadrivalent, PF 1 completed Not Available [facility] 08/07/2025 10:12:24 COVID-19, mRNA, LNP-S, PF, [...] 0.5 mL, PF 3 completed Not Available [facility] 08/07/2025 10:12:24 Influenza, adjuvanted, quadrivalent, PF 3 completed Not Available [facility] 08/07/2025 10:12:24 Pneumococcal conjugate PCV20, polysaccharide [id number] conjugate, adjuvant, PF 4 completed Not Available [facility] 08/07/2025 10:12:24 Influenza, high-dose, trivalent, PF 4 completed Not Available [facility] 08/07/2025 10:12:24 Tdap 4 completed Not Available [facility] 08/07/2025 10:12:24 zoster recombinant 4 completed Not Available [facility] 08/07/2025 10:12:24 zoster recombinant 5 completed Not Available [facility] 08/07/2025 10:12:24 Past Encounters Encounter ID Performer Location Encounter Start Date Encounter Closed Date Diagnosis/Indication Diagnosis SNOMED-CT Code Diagnosis ICD10 Code Diagnosis IMO Codes Diagnosis Note [id number] JORGE RIVERA MD [facility] [address] [facility] [address] [place] [address] 06/09/2025 14:46:25 06/09/2025 16:29:00 Malignant neoplasm of prostate [id number] C61 46040 [id number] JORGE RIVERA MD [facility] 00 [address] [facility] [address] [place] [address] 07/07/2025 07:42:01 07/07/2025 08:21:52 Malignant neoplasm of prostate [id number] C61 66437 Health Concerns Section Related Observation LastModified by Organization Detai ls LastModified Time None Recorded Concern Status LastModified by Organization Details LastModified Time None Recorded Payers Encounter Date Sequence Insurance Name Policy Number Policy Moraes Covered Member ID Moraes Member ID Guarantor Name 07/07/2025 1 [facility] (MEDICARE REPLACEMENT/A DVANTAGE - PPO) [id number] Srinivasa Hager [id number] Srinivasa Hager Notes Date Note Type Note [...] only tele visit conducted my office in [facility]. Patient identity confirmed with name and date [...] his blood was sent for testing in [place]. He also has a history of lymphoma, which he has been managing for nearly five years. His father likely from a perforated bowel, and Srinivasa himself has been told he is at risk for a similar condition. 07/01/25 PET-CT ([facility]): Extensive scatter and artifact throughout the examination, [...] 4 lesions and were localized on the [employer] CAD software.TRANSITION ZONE: The transition zone is [...] 4. PSA 3.93 JORGE RIVERA MD [address] [facility], [place], [address], [facility] - [place] & [place] 07/07/2025 12:24:16
--- OUTSIDE RECORDS SUMMARY | 2025-08-27 11:54 | XMS_ITS | Encounter Summary ---
Author Organization [facility] Address [address] [place] [address] Care Team Providers Care Enrollment Nurse Name Role Phone Catrachita Raphael APRN Primary Care Provid er Encounter Details Date Type Department Care Team (Late st Contact Info) Description 12/06/2017 External CPT II CVT TECH - [facility] Social History Tobacco Use [...] documented as of this encounter Care Teams Enrollment Nurse Relationship Specialty Start Date End Date Catrachita Raphael APRN [address] [place] [address] PCP - General Family Medicine 10/09/19 documented as of this encounter
--- OUTSIDE RECORDS SUMMARY | 2025-08-27 11:54 | XMS_ITS | Clinical Summary ---
[facility] [address] [place] [address] Care Team Providers Care Financial Services Sales Representative Name Role Phone Catrachita Raphael APRN [...] year) Discontinued Medical Devices Implanted Type Area Retail Service Representative Device Identifier Shelf Expiration Date Model / Serial / Lot Powerport Isp Clearvue Cath 8f 45cm - [id number] Implanted:Qty: 1 on 11/12/2019 by Petros Crain MD at [facility] Implant Right: Neck BARD [employer]IPHER[employer]ASC[employer] 01/19/2021 [id number] / / [id number] Procedures Procedure Name Priority Date/Time Associated Diagnosis Comments SCANNED - COLONOSCOPY 12/11/2016 from Last 3 Months or Most Recently Relevant to Health Maintenance Results * SCANNED - COLONOSCOPY (12/11/2016) Catrachita Raphael APRN CHART REVIEW TABS Final Result from Last 3 Months or Most Recently Relevant to Health Maintenance Insurance Care Teams Financial Services Sales Representative Relationship Specialty Start Date End Date Catrachita Raphael APRN [address] [place] [address] [place] [address] PCP - General Family Medicine 10/09/19
--- OUTSIDE RECORDS SUMMARY | 2025-08-27 11:54 | XMS_ITS | Continuity of Care Document ---
Author Organization [facility] Address [address] [facility] [address] [place] [address] Care Team Providers Care Shore Working Supervisor Name Role Phone SIA FERRIS Primary Care Provider [phone] Assessment No assessment recorded. Plan of Treatment [...] TREATMEN T VISIT 2024 10:30A M MINA CAMEORN MD Not available Not available Not available [...] Lab PSA, serum or plasma 2024 025 [facility] (Registration ), [address] , [place], [address], 08/07/2025 11:42:09 CMP, serum or plasma 2024 025 [facility] (Registration ), [address], [place], [address], 08/07/2025 11:42:07 testoste columba, free + total, serum 2024 025 [facility] (Registration ), [address], [place], [address], 08/11/2025 15:12:56 CBC w/ diff 2024 025 sandoval [facility] (Registration ), [address] [place], [address], 08/14/2025 09:51:25 Referral None recorded . Procedures None recorded . Surgeries None recorded . Imaging None recorded . Medication Orders None recorded . Patient TargetsNo targets recorded. Patient InstructionsNo instructions recorded. Reason for Referral None Reported. Results Created Date Observation Date Name Description Value Unit Range Abnormal Flag Note LastModifiedBy Organization Detail LastModifiedTime 07/17/2007/17/2025 CBC AUTO W DIFF WBC 8.6 K/uL 4.0-10 .5 Not Available [facility] ([facility]) [address] , [place], [address], 07/17/2025 15:55:14 07/17/2007/17/2025 CBC AUTO W DIFF RBC 5.6 M/mm3 4.7-6. 1 Not Available [facility] ([facility]) [address] , [place], [address], 07/17/2025 15:55:14 07/17/2007/17/2025 CBC AUTO W DIFF HGB 15.5 gm/dL 13.5-1 8.0 Not Available [facility] ([facility]) [address] , [place], [address], 07/17/2025 15:55:14 07/17/20 25 07/17/2025 CBC AUTO W DIFF HCT 47.7 % 42.0-5 2.0 Not Available [facility] ([facility]) [address] , [place], [address], 07/17/2025 15:55:14 07/17/20 25 07/17/2025 CBC AUTO W DIFF MCV 85.3 fL 78-100 Not Available [facility] ([facility]) [address] , [place], [address], 07/17/2025 15:55:14 07/17/20 25 07/17/2025 CBC AUTO W DIFF MCH 27.7 pg 27-31 Not Available [facility] ([facility]) [address] , [place], [address], 07/17/2025 15:55:14 07/17/20 25 07/17/2025 CBC AUTO W DIFF MCHC 32.5 g/dL 32-36 Not Available [facility] ([facility]) [address] , [place], [address], 07/17/2025 15:55:14 07/17/2007/17/2025 CBC AUTO W DIFF RDW 14.1 % 11.5-1 4.0 high Not Available [facility] ([facility]) [address] , [place], [address], 07/17/2025 15:55:14 07/17/20 25 07/17/2025 CBC AUTO W DIFF platelet count 230 K/uL 150-45 0 Not Available [facility] ([facility]) [address] [place], [address], 07/17/2025 15:55:14 07/17/20 25 07/17/2025 CBC AUTO W DIFF MPV 9.5 fL 6-9.5 Not Available [facility] ([facility]) [address] [facility], [place], [address], 07/17/2025 15:55:14 07/17/20 25 07/17/2025 CBC AUTO W DIFF neutrophil% 61.4 % 43-65 Not Available [facility] ([facility]) [address] [facility], [place], [address], 07/17/2025 15:55:14 07/17/20 25 07/17/2025 CBC AUTO W DIFF lymphocyte% 26.9 % 20.5-4 5.5 Not Available [facility] ([facility]) [address] [facility], [place], [address], 07/17/2025 15:55:14 07/17/20 25 07/17/2025 CBC AUTO W DIFF monocyte% 8.7 % 5.5-11 .7 Not Available [facility] ([facility]) [address] [facility], [place], [address], 07/17/2025 15:55:14 07/17/20 25 07/17/2025 CBC AUTO W DIFF eosinophil% 2.2 % 0.9-2. 9 Not Available [facility] ([facility]) [address] [place], [address], 07/17/2025 15:55:14 07/17/20 25 07/17/2025 CBC AUTO W DIFF basophil% 0.6 % 0.2-1. 0 Not Available [facility] ([facility]) [address] [place], [address], 07/17/2025 15:55:14 07/17/20 25 07/17/2025 CBC AUTO W DIFF immature granulocytes % 0.2 % 0.0-0. 8 Not Available [facility] ([facility]) [address], [place], [address], 07/17/2025 15:55:14 07/17/20 25 07/17/2025 CBC AUTO W DIFF nucleated red blood cells % 0.0 % Not Available [facility] ([facility]) [address] [facility], [place], [address], 07/17/2025 15:55:14 07/17/20 25 07/17/2025 CBC AUTO W DIFF neutrophil# 5.3 K/uL 2.2-4. 8 high Not Available [facility] ([facility]) [address] [facility], [place], [address], 07/17/2025 15:55:14 07/17/20 25 07/17/2025 CBC AUTO W DIFF lymphocyte# 2.3 cell/ mcL 1.3-2. 9 Not Available [facility] ([facility]) [address] [facility], [place], [address], 07/17/2025 15:55:14 07/17/20 25 07/17/2025 CBC AUTO W DIFF monocyte# 0.7 cell/ mcL 0.3-0. 8 Not Available [facility] ([facility]) [address] [facility], [place], [address], 07/17/2025 15:55:14 07/17/20 25 07/17/2025 CBC AUTO W DIFF eosinophil# 0.2 cell/ mcL 0-0.2 Not Available [facility] ([facility]) [address] [facility], [place], [address], 07/17/2025 15:55:14 07/17/20 25 07/17/2025 CBC AUTO W DIFF basophil# 0.1 cell/ mcL 0.0-1. 0 Not Available [facility] ([facility]) [address] [facility], [place], [address], 07/17/2025 15:55:14 07/17/20 25 07/17/2025 CBC AUTO W DIFF immature gramulocytes # 0.02 K/uL Not Available [facility] ([facility]) [address] , [place], [address], 07/17/2025 15:55:14 07/17/20 25 07/17/2025 CBC AUTO W DIFF nucleated red blood cells # 0.00 K/uL Not Available [facility] ([facility]) [address] , [place], [address], 07/17/2025 15:55:14 07/17/20 25 07/17/2025 CBC AUTO W DIFF manual differential NO Not Available [facility] ([facility]) [address] , [place], [address], 07/17/2025 15:55:14 07/17/20 25 07/17/2025 PT (PROT HROMB IN TIME) W INR prothrombin time 17.8 secon ds 9.3-11 .4 high Not Available [facility] ([facility]) [address] , [place], [address], 07/17/2025 15:57:24 07/17/20 25 07/17/2025 PT (PROT [...] Mecha nical Heart Valve s Not Available [facility] ([facility]) [address] , [place], [address], 07/17/2025 15:57:24 07/17/20 25 07/17/2025 COMP METAB OLIC PANEL sodium 139 mmol/ L 136-14 5 Not Available [facility] ([facility]) [address] , [place], [address], 07/17/2025 16:58:40 07/17/20 25 07/17/2025 COMP METAB OLIC PANEL potassium 4.6 mmol/ L 3.6-5. 0 Not Available [facility] ([facility]) [address] , [place], [address], 07/17/2025 16:58:40 07/17/20 25 07/17/2025 COMP METAB OLIC PANEL chloride 102 mmol/ L 98-107 Not Available [facility] ([facility]) [address] , [place], [address], 07/17/2025 16:58:40 07/17/20 25 07/17/2025 COMP METAB OLIC PANEL carbon dioxide 26.7 mmol/ L 21.0-3 2.0 Not Available [facility] ([facility]) [address] [place], [address], 07/17/2025 16:58:40 07/17/20 25 07/17/2025 COMP METAB OLIC PANEL anion gap 14.9 Not Available [facility] ([facility]) [address] , [place], [address], 07/17/2025 16:58:40 07/17/20 25 07/17/2025 COMP METAB OLIC PANEL glucose 113 mg/dL 70-120 Not Available [facility] ([facility]) [address] [place], [address], 07/17/2025 16:58:40 07/17/20 25 07/17/2025 COMP METAB OLIC PANEL BUN 19 mg/dL 7-18 high Not Available [facility] ([facility]) [address] [place], [address], 07/17/2025 16:58:40 07/17/20 25 07/17/2025 COMP METAB OLIC PANEL creatinine 0.8 mg/dL 0.6-1. 3 Not Available [facility] ([facility]) [address], [place], [address], 07/17/2025 16:58:40 07/17/20 25 07/17/2025 COMP METAB [...] paige ing kiney funct ion. Not Available [facility] ([facility]) [address] , [place], [address], 07/17/2025 16:58:40 07/17/20 25 07/17/2025 COMP METAB OLIC PANEL osmolality (calculated) 292 mOsm/ kg 275-30 1 OSMOL ALITY IS A CALCU LATIO N UTILI ZING THE SERUM /PLAS MA SODIU M, GLUCO SE AND UREA NITRO GEN (BUN) LEVEL S. FOR THE MOST ACCUR ATE RESUL T A MEASU RED SERUM OSMOL ALITY IS SUGANTONIO MENDEZD. Not Available [facility] ([facility]) [address], [place], [address], 07/17/2025 16:58:40 07/17/20 25 07/17/2025 COMP METAB OLIC PANEL total protein 7.4 g/dL 6.4-8. 2 Not Available [facility] ([facility]) [address], [place], [address], 07/17/2025 16:58:40 07/17/20 25 07/17/2025 COMP METAB OLIC PANEL albumin 3.9 g/dL 3.4-5. 0 Not Available [facility] ([facility]) [address] , [place], [address], 07/17/2025 16:58:40 07/17/20 25 07/17/2025 COMP METAB OLIC PANEL globulin 3.5 Not Available [facility] ([facility]) [address] , [place], [address], 07/17/2025 16:58:40 07/17/20 25 07/17/2025 COMP METAB OLIC PANEL alb/glob ratio 1.1 0.7-2 Not Available [facility] ([facility]) [address] , [place], [address], 07/17/2025 16:58:40 07/17/20 25 07/17/2025 COMP METAB OLIC PANEL calcium 9.8 mg/dL 8.5-10 .5 Not Available [facility] ([facility]) [address] , [place], [address], 07/17/2025 16:58:40 07/17/20 25 07/17/2025 COMP METAB OLIC PANEL bilirubin total 0.60 mg/dL 0.10-1 .00 Not Available [facility] ([facility]) [address] , [place], [address], 07/17/2025 16:58:40 07/17/20 25 07/17/2025 COMP METAB OLIC PANEL AST (SGOT) 17 U/L 0-37 Not Available [facility] ([facility]) [address] , [place], [address], 07/17/2025 16:58:40 07/17/20 25 07/17/2025 COMP METAB OLIC PANEL ALT (SGPT) 26 U/L 0-65 Not Available [facility] ([facility]) [address], [place], [address], 07/17/2025 16:58:40 07/17/20 25 07/17/2025 COMP METAB OLIC PANEL alk phosphatase 56 U/L 46-116 Not Available [facility] ([facility]) [address] [facility], [place], [address], 07/17/2025 16:58:40 07/17/20 25 07/17/2025 PROST ATE SPECI FIC AG (PSA) prostate specific Ag (PSA) 6.6 NG/mL 0-4.0 high Not Available [facility] ([facility]) [address] [facility], [place], [address], 07/17/2025 16:58:41 07/17/20 25 07/21/2025 TESTO STERO NE,FR EE AND TOTAL testosterone , serum 295 NG/dL 264-91 6 Adult male refer ence inter valentín is based on a popul ation of healt hy nonob larisa males (BMI <30) betwe en 19 and 39 years old. Claudette robins et.al . JCEM 2017, 102;1 161-1 173. PMID: 54904 103. Not Available [facility] ([facility]) [address] [facility], [place], [address], 07/21/2025 15:13:03 07/17/20 25 07/21/2025 TESTO STERO NE,FR EE AND TOTAL testosterone , free, direct 5.2 pg/mL 6.6-18 .1 low Perfo rmed at: CB - [facility] [address] [place] [address] Lab Direc tor: Ramu hernandez PhD, Phone : [phone] Perfo rmed at: BN - [facility] Jennifre yan [address] [place] [address] [facility] [place] [address] Lab Direc tor: Dayanara mann MD, Phone : [phone] Not Available [facility] ([facility]) [address] [facility], [place], [address], 07/21/2025 15:13:03 08/07/20 25 08/07/2025 CBC AUTO W DIFF WBC 7.5 K/uL 4.0-10 .5 Not Available [facility] ([facility]) [address] , [place], [address], 08/07/2025 10:56:51 08/07/20 25 08/07/2025 CBC AUTO W DIFF RBC 5.5 M/mm3 4.7-6. 1 Not Available [facility] ([facility]) [address] , [place], [address], 08/07/2025 10:56:51 08/07/20 25 08/07/2025 CBC AUTO W DIFF HGB 15.3 gm/dL 13.5-1 8.0 Not Available [facility] ([facility]) [address] , [place], [address], 08/07/2025 10:56:51 08/07/20 25 08/07/2025 CBC AUTO W DIFF HCT 47.4 % 42.0-5 2.0 Not Available [facility] ([facility]) [address] , [place], [address], 08/07/2025 10:56:51 08/07/20 25 08/07/2025 CBC AUTO W DIFF MCV 86.7 fL 78-100 Not Available [facility] ([facility]) [address] , [place], [address], 08/07/2025 10:56:51 08/07/20 25 08/07/2025 CBC AUTO W DIFF MCH 28.0 pg 27-31 Not Available [facility] ([facility]) [address] , [place], [address], 08/07/2025 10:56:51 08/07/20 25 08/07/2025 CBC AUTO W DIFF MCHC 32.3 g/dL 32-36 Not Available [facility] ([facility]) [address] , [place], [address], 08/07/2025 10:56:51 08/07/20 25 08/07/2025 CBC AUTO W DIFF RDW 14.1 % 11.5-1 4.0 high Not Available [facility] ([facility]) [address], [place], [address], 08/07/2025 10:56:51 08/07/20 25 08/07/2025 CBC AUTO W DIFF platelet count 242 K/uL 150-45 0 Not Available [facility] ([facility]) [address], [place], [address], 08/07/2025 10:56:51 08/07/20 25 08/07/2025 CBC AUTO W DIFF MPV 9.6 fL 6-9.5 high Not Available [facility] ([facility]) [address] [facility], [place], [address], 08/07/2025 10:56:51 08/07/20 25 08/07/2025 CBC AUTO W DIFF neutrophil% 56.4 % 43-65 Not Available [facility] ([facility]) [address] [facility], [place], [address], 08/07/2025 10:56:51 08/07/20 25 08/07/2025 CBC AUTO W DIFF lymphocyte% 29.3 % 20.5-4 5.5 Not Available [facility] ([facility]) [address] [facility], [place], [address], 08/07/2025 10:56:51 08/07/20 25 08/07/2025 CBC AUTO W DIFF monocyte% 10.2 % 5.5-11 .7 Not Available [facility] ([facility]) [address] [place], [address], 08/07/2025 10:56:51 08/07/20 25 08/07/2025 CBC AUTO W DIFF eosinophil% 2.9 % 0.9-2. 9 Not Available [facility] ([facility]) [address] [facility], [place], [address], 08/07/2025 10:56:51 08/07/20 25 08/07/2025 CBC AUTO W DIFF basophil% 0.7 % 0.2-1. 0 Not Available [facility] ([facility]) [address] [facility], [place], [address], 08/07/2025 10:56:51 08/07/20 25 08/07/2025 CBC AUTO W DIFF immature granulocytes % 0.5 % 0.0-0. 8 Not Available [facility] ([facility]) [address] [facility], [place], [address], 08/07/2025 10:56:51 08/07/20 25 08/07/2025 CBC AUTO W DIFF nucleated red blood cells % 0.0 % Not Available [facility] ([facility]) [address] [facility], [place], [address], 08/07/2025 10:56:51 08/07/20 25 08/07/2025 CBC AUTO W DIFF neutrophil# 4.2 K/uL 2.2-4. 8 Not Available [facility] ([facility]) [address] [facility], [place], [address], 08/07/2025 10:56:51 08/07/20 25 08/07/2025 CBC AUTO W DIFF lymphocyte# 2.2 cell/ mcL 1.3-2. 9 Not Available [facility] ([facility]) [address] [facility], [place], [address], 08/07/2025 10:56:51 08/07/20 25 08/07/2025 CBC AUTO W DIFF monocyte# 0.8 cell/ mcL 0.3-0. 8 Not Available [facility] ([facility]) [address] [place], [address], 08/07/2025 10:56:51 08/07/20 25 08/07/2025 CBC AUTO W DIFF eosinophil# 0.2 cell/ mcL 0-0.2 Not Available [facility] ([facility]) [address] , [place], [address], 08/07/2025 10:56:51 08/07/20 25 08/07/2025 CBC AUTO W DIFF basophil# 0.1 cell/ mcL 0.0-1. 0 Not Available [facility] ([facility]) [address] , [place], [address], 08/07/2025 10:56:51 08/07/20 25 08/07/2025 CBC AUTO W DIFF immature gramulocytes # 0.04 K/uL Not Available [facility] ([facility]) [address], [place], [address], 08/07/2025 10:56:51 08/07/20 25 08/07/2025 CBC AUTO W DIFF nucleated red blood cells # 0.00 K/uL Not Available [facility] ([facility]) [address] , [place], [address], 08/07/2025 10:56:51 08/07/2008/07/2025 CBC AUTO W DIFF manual differential NO Not Available [facility] ([facility]) [address] , [place], [address], 08/07/2025 10:56:51 08/07/20 25 08/07/2025 COMP METAB OLIC PANEL sodium 140 mmol/ L 136-14 5 Not Available [facility] ([facility]) [address], [place], [address], 08/07/2025 11:42:07 08/07/20 25 08/07/2025 COMP METAB OLIC PANEL potassium 4.6 mmol/ L 3.6-5. 0 Not Available [facility] ([facility]) [address] , [place], [address], 08/07/2025 11:42:07 08/07/2008/07/2025 COMP METAB OLIC PANEL chloride 101 mmol/ L 98-107 Not Available [facility] ([facility]) [address] , [place], [address], 08/07/2025 11:42:07 08/07/2008/07/2025 COMP METAB OLIC PANEL carbon dioxide 29.3 mmol/ L 21.0-3 2.0 Not Available [facility] ([facility]) [address] , [place], [address], 08/07/2025 11:42:07 08/07/2008/07/2025 COMP METAB OLIC PANEL anion gap 14.3 Not Available [facility] ([facility]) [address], [place], [address], 08/07/2025 11:42:07 08/07/20 25 08/07/2025 COMP METAB OLIC PANEL glucose 147 mg/dL 70-120 high Not Available [facility] ([facility]) [address], [place], [address], 08/07/2025 11:42:07 08/07/20 25 08/07/2025 COMP METAB OLIC PANEL BUN 20 mg/dL 7-18 high Not Available [facility] ([facility]) [address] , [place], [address], 08/07/2025 11:42:07 08/07/20 25 08/07/2025 COMP METAB OLIC PANEL creatinine 0.8 mg/dL 0.6-1. 3 Not Available [facility] ([facility]) [address], [place], [address], 08/07/2025 11:42:07 08/07/20 25 08/07/2025 COMP METAB [...] paige ing kiney funct ion. Not Available [facility] ([facility]) [address] , [place], [address], 08/07/2025 11:42:07 08/07/2008/07/2025 COMP METAB OLIC PANEL osmolality (calculated) 296 mOsm/ kg 275-30 1 OSMOL ALITY IS A CALCU LATIO N UTILI ZING THE SERUM /PLAS MA SODIU M, GLUCO SE AND UREA NITRO GEN (BUN) LEVEL S. FOR THE MOST ACCUR ATE RESUL T A MEASU RED SERUM OSMOL ALITY IS SUGGE STED. Not Available [facility] ([facility]) [address] , [place], [address], 08/07/2025 11:42:07 08/07/20 25 08/07/2025 COMP METAB OLIC PANEL total protein 7.5 g/dL 6.4-8. 2 Not Available [facility] ([facility]) [address], [place], [address], 08/07/2025 11:42:07 08/07/20 25 08/07/2025 COMP METAB OLIC PANEL albumin 3.9 g/dL 3.4-5. 0 Not Available [facility] ([facility]) [address], [place], [address], 08/07/2025 11:42:07 08/07/20 25 08/07/2025 COMP METAB OLIC PANEL globulin 3.6 Not Available [facility] ([facility]) [address] , [place], [address], 08/07/2025 11:42:07 08/07/20 25 08/07/2025 COMP METAB OLIC PANEL alb/glob ratio 1.1 0.7-2 Not Available [facility] ([facility]) [address], [place], [address], 08/07/2025 11:42:07 08/07/20 25 08/07/2025 COMP METAB OLIC PANEL calcium 9.9 mg/dL 8.5-10 .5 Not Available [facility] ([facility]) [address], [place], [address], 08/07/2025 11:42:07 08/07/2008/07/2025 COMP METAB OLIC PANEL bilirubin total 0.70 mg/dL 0.10-1 .00 Not Available [facility] ([facility]) [address] [facility], [place], [address], 08/07/2025 11:42:07 08/07/20 25 08/07/2025 COMP METAB OLIC PANEL AST (SGOT) 15 U/L 0-37 Not Available [facility] ([facility]) [address] [facility], [place], [address], 08/07/2025 11:42:07 08/07/20 25 08/07/2025 COMP METAB OLIC PANEL ALT (SGPT) 25 U/L 0-65 Not Available [facility] ([facility]) [address] [facility], [place], [address], 08/07/2025 11:42:07 08/07/20 25 08/07/2025 COMP METAB OLIC PANEL alk phosphatase 45 U/L 46-116 low Not Available [facility] ([facility]) [address] [facility], [place], [address], 08/07/2025 11:42:07 08/07/20 25 08/07/2025 PROST ATE SPECI FIC AG (PSA) prostate specific Ag (PSA) 7.3 NG/mL 0-4.0 high Not Available [facility] ([facility]) [address] [facility], [place], [address], 08/07/2025 11:42:09 08/07/20 25 08/11/2025 TESTO STERO NE,FR EE AND TOTAL testosterone , serum 273 NG/dL 264-91 6 Adult male refer ence inter valentín is based on a popul ation of healt hy nonob larisa males (BMI <30) betwe en 19 and 39 years old. Claudette robins et.al . JCEM 2017, 102;1 161-1 173. PMID: 27490 103. Not Available [facility] ([facility]) [address] [facility], [place], [address], 08/11/2025 15:12:56 08/07/20 25 08/11/2025 TESTO STERO NE,FR EE AND TOTAL testosterone , free, direct 5.5 pg/mL 6.6-18 .1 low Perfo rmed at: - [facility] [address] [place], [place] [id number] Lab Direc tor: Ramu hernandez PhD, Phone : [phone] Perfo rmed at: - [facility] [address] [place] [address] Lab Direc tor: Dayanara mann MD, Phone : [phone] Not Available [facility] ([facility]) [address] [facility], [place], [address], 08/11/2025 15:12:56 Result Notes None recorded. 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 3564802352056 Active 2024 PEDRO Sampson - [place] 5 11:10:38 Hyperchole sterolemia 40956448 Active 2024 PEDRO Sampson - [place] 03/18/202 5 11:10:46 History of radiation therapy 159142048 Active 2024 Nieves Dinh null, [place] [facility] [place] 5 11:10:57 Prostate specific antigen above reference range 041400950 Active 2024 MATIAS RIVERA MD [address], [place], [address] , [place] [facility] [place] 5 11:55:36 Lower urinary tract symptoms 944277165 Active 2024 MATIAS RIVERA MD [address], [place], [address] , [place] [facility] [place] [place] 5 11:56:25 Malignant neoplasm of prostate [id number] Active 2024 MATIAS RIVERA MD [address] , [place], [address] , [place] [facility] - [place] & [place] 5 16:24:52 Problem Notes None recorded. Procedures Surgical History Date Name Laterality Status Provider Name and Address Organization Details Recorded Time 0 Radiation Therapy completed Mo Sprague [place] & [place] 05/05/2025 10:49:43 0 Cancer Surgery completed Mo Mendezad [place] [facility] & [place] 05/05/2025 10:49:43 4 Abdominal Surgery completed Mo Mendezad [place] [facility] & [place] 05/05/2025 10:49:43 7 Tonsillectomy/ Adenoidectomy completed Mo Mendezad [place] & [place] 05/05/2025 10:49:43 knee joint operation completed Nieves Dinh [place] & [place] 01/06/2025 11:09:38 Imaging Results None recorded. Procedure Notes None recorded. Medical Equipment None Reported. Allergies Allergen ID Allergen Name Allergen Category Reaction Reaction Severity Criticality Documentation Date Start Date Code Code System Note Provider Name and Address Organization Details Recorded Time 214773 Substance with sulfonami de structure and antibacte rial mechanism of action (substanc e) medicatio n Not available Not available Not available 12/10/2024 21832 8003 SNOMED Nieves Dinh [facility], [place] - [facility] - [place] & [place] 5 09:33:08 Medications Name Sig Start Date [...] Organization Details Last Updated DateTime 182.88 cm 30.4 kg/m2 743365. 49 g 97.3 [degF] 96 % 96 % 67 /min 18 /min 142/72 mm[Hg] Perri Noble [facility] & [place] 10:26:15 Social History Question Answer Notes LastModified by [email or web address] ion Details LastModified Time Tobacco Smoking Status Never Smoker Renea Frankie [facility] & [place] 07/17/2025 13:16:05 Do You Have An Advance Directive? No Information not available 05/05/2025 Are You Blind Or Do You Have Difficulty Seeing? Yes Information not available 05/05/2025 What Is Your Level Of Caffeine Consumption? Moderate [email or web address] Information not available 07/17/2025 What Was The Date Of Your Most Recent Tobacco Screening? 05/02/2025 Information not available 05/05/2025 Are You Passively Exposed To Smoke? No Information not available 05/05/2025 Has Tobacco Cessation Counseling Been Provided? No [email or web address] Information not available 07/17/2025 Sex: Unknown Functional Status Question Answer Note LastModified by Organizat ion Details LastModified Time Do you use any illicit or recreational drugs? No Information not available 05/05/2025 Do you or have you ever used any other forms of tobacco or nicotine? No [email or web address] Information not available 07/17/2025 What is your level of alcohol consumption? None Information not available 05/05/2025 What is your exercise level? Occasional Information not available 05/05/2025 Mental Status Question Answer Note LastModified by Organization D etails LastModified Time Do you feel stressed (tense, restless, nervous, or anxious, or unable to sleep at night)? [id number] Information not available 05/05/2025 Family History Relationship Description Onset Age of this Age Resolved Age Notes LastModified by Organization Details LastModified Time Mother Malignant melanoma [email or web address] Not available 07/17 13:14:00 Paternal Aunt Malignant neoplastic disease states it grew on her spine and ended up killin g her . [email or web address] Not available 07/17/2025 13:15:27 Medical History Condition Response Diabetes Y Clotting Disorder Y Back Problems Y Deep Vein Thrombosis Y Hypertension Y High Cholesterol Y Immunizations Vaccine Type Date Status Note Provider Nam e and Address Organization Details Recorded Time Influenza, adjuvanted, trivalent, PF 9 completed Not Available [facility] 08/07/2025 10:12:24 Influenza, split virus, quadrivalent, PF 0 completed Not Available [facility] 08/07/2025 10:12:24 Pneumococcal conjugate PCV 13 0 completed Not Available [facility] 08/07/2025 10:12:24 COVID-19, mRNA, LNP-S, PF, 100 mcg/0.5mL dose or 50 mcg/0.25mL dose 1 completed Not Available [facility] 08/07/2025 10:12:24 COVID-19, mRNA, LNP-S, PF, 100 mcg/0.5mL dose or 50 mcg/0.25mL dose 1 completed Not Available [facility] 08/07/2025 10:12:24 Influenza, high-dose, quadrivalent, PF 1 completed Not Available [facility] 08/07/2025 10:12:24 COVID-19, mRNA, LNP-S, PF, 100 mcg/0.5mL dose or 50 mcg/0.25mL dose 1 completed Not Available [facility] 08/07/2025 10:12:24 Influenza, high-dose, quadrivalent, PF 2 completed Not Available [facility] 08/07/2025 10:12:24 COVID-19, mRNA, LNP-S, bivalent, PF, 50 mcg/0.5 mL or 25mcg/0.25 mL dose 2 completed Not Available [facility] 08/07/2025 10:12:24 RSV, bivalent, protein subunit RSVpreF, diluent reconstituted, 0.5 mL, PF 3 completed Not Available [facility] 08/07/2025 10:12:24 Influenza, adjuvanted, quadrivalent, PF 3 completed Not Available [facility] 08/07/2025 10:12:24 Pneumococcal conjugate PCV20, polysaccharide [id number] conjugate, adjuvant, PF 4 completed Not Available [facility] 08/07/2025 10:12:24 Influenza, high-dose, trivalent, PF 4 completed Not Available [facility] 08/07/2025 10:12:24 Tdap 4 completed Not Available [facility] 08/07/2025 10:12:24 zoster recombinant 4 completed Not Available [facility] 08/07/2025 10:12:24 zoster recombinant 5 completed Not Available [facility] 08/07/2025 10:12:24 Past Encounters Encounter ID Performer Location Encounter Start Date Encounter Closed Date Diagnosis/Indication Diagnosis SNOMED-CT Code Diagnosis ICD10 Code Diagnosis IMO Codes Diagnosis Note [id number] MATIAS RIVERA MD [facility] Urology-1 00 [address] [facility] [facility] [place] [address] 07/14/2025 07:49:24 07/14/2025 08:33:29 Malignant neoplasm of prostate 959127510 C61 20622 Prostate s pecific antigen above reference range 284528468 R97.20 [id number] Markell Sharma MD [facility] Hematolog [facility] [address] [facility] [facility] [address] [place] [address] 07/17/2025 13:02:04 07/17/2025 13:56:16 Malignant neoplasm of prostate 153653161 C61 07341 Prostate biopsy performed on May 20, 2025 with findings of prostate adenocarci noma [place] 4+3=7 involving 1 core. 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 Patient received 1 cycle ABVD with significan t side effects. Patient finished treatment with radiation therapy. Patient has been on observatio n since that time. [id number] Ioana Teixeira PA-C [facility] Hematolog [facility] [address] [facility] [address] [place] [address] 08/07/2025 10:11:59 08/07/2025 10:58:13 Malignant neoplasm of prostate 670489923 C61 73176 Prostate biopsy performed on May 20, 2025 with findings of prostate adenocarci noma [place] 4+3=7 involving 1 core. 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 Patient received 1 cycle ABVD with significan t side effects. Patient finished treatment with radiation therapy. Patient has been on observatio n since that time. Prostate s pecific antigen above reference range 358495636 R97.20 [id number] Labs on July 17, 2025 with PSA 6.6. Will follow-up as patient starts androgen deprivatio n therapy. Drug therapy finding 309 690521 Z79.818 [id number] Starting androgen deprivatio n therapy with Eligard for 4-6 months on August 07, 2025. Will follow up tolerabili ty. Education performed before injection was given today. Discussed possible side effects [facility]. Health Concerns Section Related Observation LastModified by Organization Detai ls LastModified Time None Recorded Concern Status LastModified by Organization Details LastModified Time None Recorded Payers Encounter Date Sequence Insurance Name Policy Number Policy Moraes Covered Member ID Moraes Member ID Guarantor Name 08/07/2025 1 [facility] (MEDICARE REPLACEMENT/A DVANTAGE - PPO) [id number] Srinivasa Hager [id number] Srinivasa Hager Notes Date Note Type Note [...] to start radiation therapy. Ioana Teixeira PA-C [address], [place], [address], [facility] [place] 08/07/2025 10:49:42
--- OUTSIDE RECORDS SUMMARY | 2025-08-27 11:54 | XMS_ITS | Encounter Summary ---
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
--- OUTSIDE RECORDS SUMMARY | 2025-08-27 11:54 | XMS_ITS | Encounter Summary ---
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
--- OUTSIDE RECORDS SUMMARY | 2025-08-27 11:54 | XMS_ITS | Data Portability ---
Author Organization [facility] RODRIGO [place] CLOSED Address [address] [place] [address] Care Team Providers Care Manager Government Name Role Phone TIMA MAHER Referring Provider SIA FERRIS Primary Care Provider [phone] Assessment No assessment recorded. Plan of Treatment [...] By Organization Details Last Modified Time 04/15/2020 [id number] shortness of breath: care instructions [email or web address] Not [...] 04/15/20 20 Laryngoscopy Flex completed Calista Amor [facility] 04/15/2020 15:59:53 Imaging Results None recorded. Procedure Notes None recorded. Medical Equipment None Reported. Allergies Allergen ID Allergen Name Allergen Category Reaction Reaction Severity Criticality Documentation Date Start Date Code Code System Note Provider Name and Address Organization Details Recorded Time 153103 niacin medicatio n rash mild Not available 04/09/20202019 7393 RxNorm Pricilla Issa [facility] 0 15:49:59 134631 Substance with sulfonami de structure and antibacte rial mechanism of action (substanc e) medicatio n Not available Not available Not available 04/15/2020 76632 8003 SNOMED Patricia Ziegler [facility] 0 14:43:08 Medications Name Sig Start Date [...] Updated DateTime 0 182.88 cm 33.5 kg/m2 637246. 32 g 97.3 [degF] 101 /min 115/60 mm[Hg] Patricia Ziegler [facility] 0 14:47:52 Social History Question Answer Notes LastModified by Collective Details LastModified Time Tobacco Smoking Status Never Smoker Gomezhazel Del Toros [facility] 04/15/2020 14:48:04 How Much Tobacco Do You Chew? None Information not available 04/15/2020 Sex: Unknown Functional Status Question Answer Note LastModified by [email or web address] Details LastModified Time What is your level [...] available 04/15 14:46:34 Medical History Condition Response Cancer High Cholesterol Y Diabetes Y Hypertension Y Past Encounters Encounter ID Performer Location Encounter Start Date Encounter Closed Date Diagnosis/Indication Diagnosis SNOMED-CT Code Diagnosis ICD10 Code Diagnosis IMO Codes Diagnosis Note [id number] RIC CALABRESE MD [facility] [address] [address] [place] [address] 04/15/2020 13:56:41 04/15/2020 16:29:07 Dyspnea 591934639 R06.00 Classical Hodgkin lymphoma 685942686 C81.70 Laryngeal spasm 77678418 2 J38.5 -possible Health Concerns Section Related Observation LastModified by Organization Detai ls LastModified Time None Recorded Concern Status LastModified by Organization Details LastModified Time None Recorded Advance Directives Directive None Recorded Payers Insurance Date Sequence Insurance Name Policy Number Policy Moraes Covered Member ID Moraes Member ID Guarantor Name 04/19/2020 1 [place] Srinivasa Hager [id number] Srinivasa Hager 04/15/2020 2 [employer] (MEDICARE SUPPLEMENT) Srinivasa Hager [id number] Srinivasa Hager Notes Date Note Type Note [...] normal findings(EKG,Ultraso und). RIC CALABRESE MD [address] [place], [address], [facility] 04/15/2020 17:42:35
--- OUTSIDE RECORDS SUMMARY | 2025-08-27 11:55 | XMS_ITS ---
Author Organization [facility] Address [address] [place] [address] Care Team Providers Care Roving Changer Name Role Phone Catrachita Raphael APRN Primary [...] Hager Date of 1950 Phone Email [email or web address] Patient Care Team: Petros Crain MD as Consulting Physician (General Surgery) Seth Pierre MD as Consulting Physician (Radiation Oncology) Tima Vasquez MD as Referring Physician (Hematology and Oncology) Provider Phone numbers Care Team Provider: Catrachita Raphael APRN, ([phone]) Care Team Provider: Petros Crain MD, ([phone]) Care Team Provider: Seth Pierre MD, ([phone]) Care Team Provider: Tima Vasquez MD, ([phone]) Care Team Provider: Leodan Pedraza MD, ([phone]) Post Treatment Care Team Primary Care Physician Catrachita Raphael APRN [phone] [address] [facility] [address] [address] Background Information Medical history Past Medical History: [...] Surgeon: Petros Crain MD; Location: [facility] OR; Service: General COLONOSCOPY HERNIA REPAIR Dr. Red @ [facility]- right inguinal - unsure about mesh in place LYMPH NODE BIOPSY (L) neck Dr. Marrero @ [facility] OTHER SURGICAL HISTORY vocal cord visualization PORTACATH PLACEMENT [facility] Tobacco use Social History Tobacco Use [...] neck node with other smaller nodes. 10/02/2019 [facility] left neck fine-needle aspiration and biopsy on Lovenox off Coumadin for procedure showed atypical lymphoid proliferation with dysplastic CD30 positive cells suspicious for classic Hodgkin lymphoma but unequivocal diagnosis hindered by the low number of CD30 positive cells. Excisional biopsy recommended by pathology. -10/27/2019 initial [facility] medical oncology consultation: Reviewed the [...] due to shortness ofbreath and [facility] Lifetime Dose Tracking Doxorubicin: 204.375 mg/m2 (480 [...] doctors and nurses such as exercise andactivity. termite helper effects of radiation therapy vary greatly depending on the areas included in the field ofradiation and the radiation techniques that were used. Ask your doctors and nurses about the risk of supervisor intermediates effects. Keep your follow up appointments and [...] to you. General Cancer Support & Resources [facility] [address], [address] [place] [address] Med Onc: Mobile Practice Lead Onc: Physical Sciences Professor: Carina Spears - Psychiatric Nurse Practitioner: Yulissa Hughes APRN - [phone] Kick It! (A free smoking cessation program) Financial Counselor and Contact Information: [facility] Financial Counseling - Piano Accompanist Contact Information: Dee Marrero - [phone] Wound Ostomy & Continence Nurse: Local Cancer [...] Toward Empowerment - for Women with Cancer: ([facility]) The Tools and encouragement you [...] the last Sunday of each month. Location: [facility]; [address] [place] [address]. For more information call Estephanie Harrell @ [...] advice of a doctor or other health disabilities caregiver. Please use these recommendations to talk with [...] of cancer in the general population. The [place] [employer] (ACS) recommends these screening guidelines for men: Recommendation Frequency Comments Colon and Rectal Cancer Screening For more information see the ACS document Colorectal Cancer: Early Detection. www.cancer.org/ssLINK/iqjxbqjnkw-yqwqbt-efpay-detection-maxim Options for colon cancer screening can be [...] see the ACS Document Testicular Cancer Detection: http://www.cancer.org/cancer/testicularcancer/detailedguide/gizkterdrr-edlfat-ja tection Men of any age can develop [...] more information, visit http://www.nhlbi.nih.gov/health/public/heart/obesity/lose_wt/index.htm www.win.niddk.nih.gov Call the [place] [employer] Talk to your health care [...] Experts recommend at least 30 minutes of tecmszyy-wk-nbsejkre activity per day, five days a week. [...] you can call a national hotline at 3(498)-QUIT-NOW. Have regular check-ups by a healthcare professional. For more information about healthy screening tests for men visit the U.S. Department of Health and Human Services. http://www.womenshealth.gov/botozdpam-vccpk-abk-vaccines/dqgtwdsdc-fmyon-umx-men / For more information about adult vaccinations visit the CDC: http://www.cdc.gov/vaccines/recs/schedules/adult-schedule.htm Keep up-to-date on general health screening tests, including cholesterol, blood pressure and glucose (blood sugar) levels. Get an annual influenza vaccine (flu shot). Get vaccinated with the pneumococcal vaccine, which prevents a type of pneumonia, and re-vaccinatedas determined by your health care team. Don???t forget dental and eye health! The [employer] recommends adults have their eyes examined every two years until age 60, then annually. People who wear glasses or correctivelenses or are at high risk for eye problems (i.e., diabetics, family history of eye disease) shouldbe seen more frequently. The [employer] recommends adults see their dentist at least once a year. No information on file. No information on file.
--- OUTSIDE RECORDS SUMMARY | 2025-08-27 11:55 | XMS_ITS | Data Portability ---
Author Organization [place] - [facility] & [place] [facility] ADMIN Address [address] [place] [id number] Care Team Providers Care Television News Photographer Name Role Phone SIA FERRIS Primary Care Provider [phone] Assessment Encounter Date Assessment Date Assessment LastModified by Organization Details LastModified Time 06/09/2025 06/09/2025 ASSESSMENT: Srinivasa Hager is a 75-year-old male with intermediate-ris k prostate cancer (Cusseta score 4+3=7) identified in one core during [...] Srinivasa to schedule the PSMA scan at [facility] and coordinate follow-up discussions after the scan results are available. 7. Encourage Srinivasa to contact the clinic if any concerns [...] procedure. The prescription will be sent to [facility] in [place]. 3. Advise the patient to inform the [...] TREATMEN T VISIT 2024 10:30A M MINA CLAYTON MD Not available Not available Not available [...] TREATMEN T VISIT 2024 11:30A M MINA CLAYTON MD Not available Not available Not available [...] TREATMEN T VISIT 2024 10:30A M MINA CLAYTON MD Not available Not available Not available [...] TREATMEN T VISIT 2024 10:30A M MINA CLAYTON MD Not available Not available Not available [...] TREATMEN T VISIT 2024 10:30A M MINA CLAYTON MD Not available Not available Not available [...] TREATMEN T VISIT 2024 10:30A M MINA CLAYTON MD Not available Not available Not available Lab PSA, serum or plasma 2024 025 [facility] (Registration ), [address] [place], [address], 08/07/2025 11:42:09 CMP, serum or plasma 2024 025 [facility] (Registration ), [address] [place], [address], 08/07/2025 11:42:07 testoste columba, free + total, serum 2024 025 [facility] (Registration ), [address] [place], [address], 08/11/2025 15:12:56 CBC w/ diff 2024 025 [facility] (Registration ), [address] [place], [address], 08/14/2025 09:51:25 PSA, serum or plasma 2024 025 [facility] (Registration ), [address] [place], [address], 07/17/2025 16:58:41 CMP, serum or plasma 2024 025 [facility] (Registration ), [address], [place], [address], 07/17/2025 16:58:40 testoste columba, free + total, serum 2024 025 [facility] (Registration ), [address], [place], [address], 07/21/2025 15:13:03 CBC w/ diff [address] (Registration ), [address], [place], [address], 07/24/2025 11:17:00 PT/INR [address] (Registration ), [address], [place], [address], 07/24/2025 11:17:00 urinalys is, dipstick [address] [facility], [address] [facility] [address], [place], [address], 06/09/2025 16:25:[address] n onc[address]i st referral - Glsn 4+3 2024 025 Mina Clayton MD, [address] [facility], [place], [address], 08/04/2025 14:56:37 Procedures bladder scan (PROC) [address] [facility], [address] [facility] [address], [place], [address], 06/09/2025 16:25:20 Surgeries transper ineal placemen t of biodegra dable material , charmaine-pro static, single or multiple injectio n(s), fuentesin g image guidance , when performe d (SURG) 2024 025 [email or web address] Not available 08/05/2025 11:50:47 Imaging PET-CT, skull base to mid-thig h scan - PSMA scan 2024 025 [facility], [address] [place] [address] , [place], [address], 07/03/2025 10:45:08 Medication Orders cefdinir 300 mg capsule 2024 025 [facility] [id number], [address], 07/24/2025 05:02:43 Patient TargetsNo targets recorded. Patient InstructionsNo instructions recorded. Reason for Referral Glsn 4+3 Referring Physician: Jorge Rivera, Urology, Encounter Date: 07/07/2025 Results Created Date Observation Date Name Description Value Unit Range Abnormal Flag Note LastModifiedBy Organization Detail LastModifiedTime 05/18/2005/18/2025 PT (PROT HROMB IN TIME) W INR prothrombin time 12.0 secon ds 9.3-11 .4 high Not Available [facility] ([facility]) [address], [place], [address], 05/18/2025 11:13:28 05/18/2005/18/2025 PT (PROT HROMB IN TIME) W INR [...] Mecha nical Heart Valve s Not Available [facility] ([facility]) [address], [place], [address], 05/18/2025 11:13:28 05/18/20 25 05/18/2025 PTT (PART IAL THROM B TIME) PTT (partial thrombin time) 31.4 secon ds 24.5-3 2.8 Not Available [facility] ([facility]) [address], [place], [address], 05/18/2025 11:14:34 05/20/20 25 05/28/2025 PATHO LOGY SPECI MEN pathology specimen SEE SURESH NAVA Not Available [facility] ([facility]) [address] [facility], [place], [address], 05/28/2025 09:57:30 06/09/20 25 06/09/2025 urina lysis , dipst ick Leukocytes (reference range) negati ve Not Available [place] [address] [address] [facility], [place], [address], 06/09/2025 15:45:06 06/09/20 25 06/09/2025 urina lysis , dipst ick Nitrite (reference range:) negati ve Not Available [place] [address] [address] [facility] [address], [place], [address], 06/09/2025 15:45:06 06/09/20 25 06/09/2025 urina lysis , dipst ick Urobilinogen (reference range) 0.2 Not Available [place] [address] [address] [facility] [address], [place], [address], 06/09/2025 15:45:06 06/09/20 25 06/09/2025 urina lysis , dipst ick Protein (reference range) negati ve Not Available [place] [address] [address] [facility] [address], [place], [address], 06/09/2025 15:45:06 06/09/20 25 06/09/2025 urina lysis , dipst ick pH (reference range 5-8.5) 5.5 Not Available [facility] [place] [address] [address] [facility] [address], [place], [address], 06/09/2025 15:45:06 06/09/20 25 06/09/2025 urina lysis , dipst ick Blood (reference range:) large Not Available [place] [address] [address] [facility] [address], [place], [address], 06/09/2025 15:45:06 06/09/20 25 06/09/2025 urina lysis , dipst ick Specific Ora (reference range) 1.010 Not Available [place] [address] [address] [facility] [address], [place], [address], 06/09/2025 15:45:06 06/09/20 25 06/09/2025 urina lysis , dipst ick Ketone (reference range) negati ve Not Available [place] [address] [address] [facility] [address], [place], [address], 06/09/2025 15:45:06 06/09/20 25 06/09/2025 urina lysis , dipst ick Bilirubin (reference range) negati ve Not Available [place] [address] [address] [facility] [address], [place], [address], 06/09/2025 15:45:06 06/09/20 25 06/09/2025 urina lysis , dipst ick Glucose (reference range) 1000 Not Available [place] [address] [address] [facility] [address], [place], [address], 06/09/2025 15:45:06 06/09/20 25 06/09/2025 urina lysis , dipst ick Color (reference range: yellow-brown ) Yellow Not Available [place] [address], [place], [address], 06/09/2025 15:45:06 06/09/2006/09/2025 [place] er scan (PROC ) Calculated Residual Urine: 0ml Not Available [facility], [place], [address], 06/09/2025 15:44:54 07/17/20 25 07/17/2025 CBC AUTO W DIFF WBC 8.6 K/uL 4.0-10 .5 Not Available [facility] ([facility]) [address] , [place], [address], 07/17/2025 15:55:14 07/17/20 25 07/17/2025 CBC AUTO W DIFF RBC 5.6 M/mm3 4.7-6. 1 Not Available [facility] ([facility]) [address] , [place], [address], 07/17/2025 15:55:14 07/17/20 25 07/17/2025 CBC AUTO W DIFF HGB 15.5 gm/dL 13.5-1 8.0 Not Available [facility] ([facility]) [address] , [place], [address], 07/17/2025 15:55:14 07/17/20 25 07/17/2025 CBC AUTO W DIFF HCT 47.7 % 42.0-5 2.0 Not Available [facility] ([facility]) [address] , [place], [address], 07/17/2025 15:55:14 07/17/20 25 07/17/2025 CBC AUTO W DIFF MCV 85.3 fL 78-100 Not Available [facility] ([facility]) [address] , [place], [address], 07/17/2025 15:55:14 07/17/20 25 07/17/2025 CBC AUTO W DIFF MCH 27.7 pg 27-31 Not Available [facility] ([facility]) [address] , [place], [address], 07/17/2025 15:55:14 07/17/20 25 07/17/2025 CBC AUTO W DIFF MCHC 32.5 g/dL 32-36 Not Available [facility] ([facility]) [address] , [place], [address], 07/17/2025 15:55:14 07/17/20 25 07/17/2025 CBC AUTO W DIFF RDW 14.1 % 11.5-1 4.0 high Not Available [facility] ([facility]) [address], [place], [address], 07/17/2025 15:55:14 07/17/20 25 07/17/2025 CBC AUTO W DIFF platelet count 230 K/uL 150-45 0 Not Available [facility] ([facility]) [address], [place], [address], 07/17/2025 15:55:14 07/17/20 25 07/17/2025 CBC AUTO W DIFF MPV 9.5 fL 6-9.5 Not Available [facility] ([facility]) [address] [place], [address], 07/17/2025 15:55:14 07/17/20 25 07/17/2025 CBC AUTO W DIFF neutrophil% 61.4 % 43-65 Not Available [facility] ([facility]) [address] [place], [address], 07/17/2025 15:55:14 07/17/20 25 07/17/2025 CBC AUTO W DIFF lymphocyte% 26.9 % 20.5-4 5.5 Not Available [facility] ([facility]) [address] [place], [address], 07/17/2025 15:55:14 07/17/20 25 07/17/2025 CBC AUTO W DIFF monocyte% 8.7 % 5.5-11 .7 Not Available [facility] ([facility]) [address], [place], [address], 07/17/2025 15:55:14 07/17/20 25 07/17/2025 CBC AUTO W DIFF eosinophil% 2.2 % 0.9-2. 9 Not Available [facility] ([facility]) [address] [facility], [place], [address], 07/17/2025 15:55:14 07/17/20 25 07/17/2025 CBC AUTO W DIFF basophil% 0.6 % 0.2-1. 0 Not Available [facility] ([facility]) [address] [place], [address], 07/17/2025 15:55:14 07/17/20 25 07/17/2025 CBC AUTO W DIFF immature granulocytes % 0.2 % 0.0-0. 8 Not Available [facility] ([facility]) [address] [place], [address], 07/17/2025 15:55:14 07/17/20 25 07/17/2025 CBC AUTO W DIFF nucleated red blood cells % 0.0 % Not Available [facility] ([facility]) [address] [place], [address], 07/17/2025 15:55:14 07/17/20 25 07/17/2025 CBC AUTO W DIFF neutrophil# 5.3 K/uL 2.2-4. 8 high Not Available [facility] ([facility]) [address] [place], [address], 07/17/2025 15:55:14 07/17/20 25 07/17/2025 CBC AUTO W DIFF lymphocyte# 2.3 cell/ mcL 1.3-2. 9 Not Available [facility] ([facility]) [address], [place], [address], 07/17/2025 15:55:14 07/17/20 25 07/17/2025 CBC AUTO W DIFF monocyte# 0.7 cell/ mcL 0.3-0. 8 Not Available [facility] ([facility]) [address] [facility], [place], [address], 07/17/2025 15:55:14 07/17/20 25 07/17/2025 CBC AUTO W DIFF eosinophil# 0.2 cell/ mcL 0-0.2 Not Available [facility] ([facility]) [address] [facility], [place], [address], 07/17/2025 15:55:14 07/17/20 25 07/17/2025 CBC AUTO W DIFF basophil# 0.1 cell/ mcL 0.0-1. 0 Not Available [facility] ([facility]) [address] [facility], [place], [address], 07/17/2025 15:55:14 07/17/20 25 07/17/2025 CBC AUTO W DIFF immature gramulocytes # 0.02 K/uL Not Available [facility] ([facility]) [address] [facility], [place], [address], 07/17/2025 15:55:14 07/17/20 25 07/17/2025 CBC AUTO W DIFF nucleated red blood cells # 0.00 K/uL Not Available [facility] ([facility]) [address] [place], [address], 07/17/2025 15:55:14 07/17/2007/17/2025 CBC AUTO W DIFF manual differential NO Not Available [facility] ([facility]) [address] [place], [address], 07/17/2025 15:55:14 07/17/20 25 07/17/2025 PT (PROT HROMB IN TIME) W INR prothrombin time 17.8 secon ds 9.3-11 .4 high Not Available [facility] ([facility]) [address] , [place], [address], 07/17/2025 15:57:24 07/17/20 25 07/17/2025 PT (PROT [...] Mecha nical Heart Valve s Not Available [facility] ([facility]) [address], [place], [address], 07/17/2025 15:57:24 07/17/20 25 07/17/2025 COMP METAB OLIC PANEL sodium 139 mmol/ L 136-14 5 Not Available [facility] ([facility]) [address] [facility], [place], [address], 07/17/2025 16:58:40 07/17/20 25 07/17/2025 COMP METAB OLIC PANEL potassium 4.6 mmol/ L 3.6-5. 0 Not Available [facility] ([facility]) [address], [place], [address], 07/17/2025 16:58:40 07/17/20 25 07/17/2025 COMP METAB OLIC PANEL chloride 102 mmol/ L 98-107 Not Available [facility] ([facility]) [address], [place], [address], 07/17/2025 16:58:40 07/17/20 25 07/17/2025 COMP METAB OLIC PANEL carbon dioxide 26.7 mmol/ L 21.0-3 2.0 Not Available [facility] ([facility]) [address] [facility], [place], [address], 07/17/2025 16:58:40 07/17/20 25 07/17/2025 COMP METAB OLIC PANEL anion gap 14.9 Not Available [facility] ([facility]) [address] [facility], [place], [address], 07/17/2025 16:58:40 07/17/20 25 07/17/2025 COMP METAB OLIC PANEL glucose 113 mg/dL 70-120 Not Available [facility] ([facility]) [address] [facility], [place], [address], 07/17/2025 16:58:40 07/17/20 25 07/17/2025 COMP METAB OLIC PANEL BUN 19 mg/dL 7-18 high Not Available [facility] ([facility]) [address] [facility], [place], [address], 07/17/2025 16:58:40 07/17/20 25 07/17/2025 COMP METAB OLIC PANEL creatinine 0.8 mg/dL 0.6-1. 3 Not Available [facility] ([facility]) [address] [place], [address], 07/17/2025 16:58:40 07/17/20 25 07/17/2025 COMP METAB [...] paige ing kiney funct ion. Not Available [facility] ([facility]) [address], [place], [address], 07/17/2025 16:58:40 07/17/20 25 07/17/2025 COMP METAB OLIC PANEL osmolality (calculated) 292 mOsm/ kg 275-30 1 OSMOL ALITY IS A CALCU LATIO N UTILI ZING THE SERUM /PLAS MA SODIU M, GLUCO SE AND UREA NITRO GEN (BUN) LEVEL S. FOR THE MOST ACCUR ATE RESUL T A MEASU RED SERUM OSMOL ALITY IS SUGANTONIO STED. Not Available [facility] ([facility]) [address] [facility], [place], [address], 07/17/2025 16:58:40 07/17/20 25 07/17/2025 COMP METAB OLIC PANEL total protein 7.4 g/dL 6.4-8. 2 Not Available [facility] ([facility]) [address] [facility], [place], [address], 07/17/2025 16:58:40 07/17/20 25 07/17/2025 COMP METAB OLIC PANEL albumin 3.9 g/dL 3.4-5. 0 Not Available [facility] ([facility]) [address] [facility], [place], [address], 07/17/2025 16:58:40 07/17/20 25 07/17/2025 COMP METAB OLIC PANEL globulin 3.5 Not Available [facility] ([facility]) [address] [facility], [place], [address], 07/17/2025 16:58:40 07/17/20 25 07/17/2025 COMP METAB OLIC PANEL alb/glob ratio 1.1 0.7-2 Not Available [facility] ([facility]) [address] [facility], [place], [address], 07/17/2025 16:58:40 07/17/20 25 07/17/2025 COMP METAB OLIC PANEL calcium 9.8 mg/dL 8.5-10 .5 Not Available [facility] ([facility]) [address] [facility], [place], [address], 07/17/2025 16:58:40 07/17/20 25 07/17/2025 COMP METAB OLIC PANEL bilirubin total 0.60 mg/dL 0.10-1 .00 Not Available [facility] ([facility]) [address] [facility], [place], [address], 07/17/2025 16:58:40 07/17/20 25 07/17/2025 COMP METAB OLIC PANEL AST (SGOT) 17 U/L 0-37 Not Available [facility] ([facility]) [address] [facility], [place], [address], 07/17/2025 16:58:40 07/17/20 25 07/17/2025 COMP METAB OLIC PANEL ALT (SGPT) 26 U/L 0-65 Not Available [facility] ([facility]) [address] [facility], [place], [address], 07/17/2025 16:58:40 07/17/20 25 07/17/2025 COMP METAB OLIC PANEL alk phosphatase 56 U/L 46-116 Not Available [facility] ([facility]) [address] [facility], [place], [address], 07/17/2025 16:58:40 07/17/20 25 07/17/2025 PROST ATE SPECI FIC AG (PSA) prostate specific Ag (PSA) 6.6 NG/mL 0-4.0 high Not Available [facility] ([facility]) [address] [facility], [place], [address], 07/17/2025 16:58:41 07/17/20 25 07/21/2025 TESTO STERO NE,FR EE AND TOTAL testosterone , serum 295 NG/dL 264-91 6 Adult male refer ence inter valentín is based on a popul ation of healt hy nonob larisa males (BMI <30) betwe en 19 and 39 years old. trinidad Medeiros . JCEM 2017, 102;1 161-1 173. PMID: 75160 103. Not Available [facility] ([facility]) [address] , [place], [address], 07/21/2025 15:13:03 07/17/20 25 07/21/2025 TESTO STERO NE,FR EE AND TOTAL testosterone , free, direct 5.2 pg/mL 6.6-18 .1 low Perfo rmed at: CB [facility] [address] [place] [address] Lab Direc tor: Ramu hernandez PhD, Phone : [phone] Perfo rmed at: - [facility] [address] [place] [address] Lab Direc tor: Dayanara mann MD, Phone : [phone] Not Available [facility] ([facility]) [address] , [place], [address], 07/21/2025 15:13:03 08/07/2008/07/2025 CBC AUTO W DIFF WBC 7.5 K/uL 4.0-10 .5 Not Available [facility] ([facility]) [address] , [place], [address], 08/07/2025 10:56:51 08/07/20 25 08/07/2025 CBC AUTO W DIFF RBC 5.5 M/mm3 4.7-6. 1 Not Available [facility] ([facility]) [address] , [place], [address], 08/07/2025 10:56:51 08/07/20 25 08/07/2025 CBC AUTO W DIFF HGB 15.3 gm/dL 13.5-1 8.0 Not Available [facility] ([facility]) [address] , [place], [address], 08/07/2025 10:56:51 08/07/20 25 08/07/2025 CBC AUTO W DIFF HCT 47.4 % 42.0-5 2.0 Not Available [facility] ([facility]) [address] , [place], [address], 08/07/2025 10:56:51 08/07/20 25 08/07/2025 CBC AUTO W DIFF MCV 86.7 fL 78-100 Not Available [facility] ([facility]) [address] , [place], [address], 08/07/2025 10:56:51 08/07/20 25 08/07/2025 CBC AUTO W DIFF MCH 28.0 pg 27-31 Not Available [facility] ([facility]) [address], [place], [address], 08/07/2025 10:56:51 08/07/20 25 08/07/2025 CBC AUTO W DIFF MCHC 32.3 g/dL 32-36 Not Available [facility] ([facility]) [address] , [place], [address], 08/07/2025 10:56:51 08/07/20 25 08/07/2025 CBC AUTO W DIFF RDW 14.1 % 11.5-1 4.0 high Not Available [facility] ([facility]) [address] , [place], [address], 08/07/2025 10:56:51 08/07/20 25 08/07/2025 CBC AUTO W DIFF platelet count 242 K/uL 150-45 0 Not Available [facility] ([facility]) [address], [place], [address], 08/07/2025 10:56:51 08/07/20 25 08/07/2025 CBC AUTO W DIFF MPV 9.6 fL 6-9.5 high Not Available [facility] ([facility]) [address], [place], [address], 08/07/2025 10:56:51 08/07/20 25 08/07/2025 CBC AUTO W DIFF neutrophil% 56.4 % 43-65 Not Available [facility] ([facility]) [address] [facility], [place], [address], 08/07/2025 10:56:51 08/07/20 25 08/07/2025 CBC AUTO W DIFF lymphocyte% 29.3 % 20.5-4 5.5 Not Available [facility] ([facility]) [address] [facility], [place], [address], 08/07/2025 10:56:51 08/07/20 25 08/07/2025 CBC AUTO W DIFF monocyte% 10.2 % 5.5-11 .7 Not Available [facility] ([facility]) [address] [place], [address], 08/07/2025 10:56:51 08/07/20 25 08/07/2025 CBC AUTO W DIFF eosinophil% 2.9 % 0.9-2. 9 Not Available [facility] ([facility]) [address] [place], [address], 08/07/2025 10:56:51 08/07/20 25 08/07/2025 CBC AUTO W DIFF basophil% 0.7 % 0.2-1. 0 Not Available [facility] ([facility]) [address] [place], [address], 08/07/2025 10:56:51 08/07/20 25 08/07/2025 CBC AUTO W DIFF immature granulocytes % 0.5 % 0.0-0. 8 Not Available [facility] ([facility]) [address] [place], [address], 08/07/2025 10:56:51 08/07/20 25 08/07/2025 CBC AUTO W DIFF nucleated red blood cells % 0.0 % Not Available [facility] ([facility]) [address] [facility], [place], [address], 08/07/2025 10:56:51 08/07/20 25 08/07/2025 CBC AUTO W DIFF neutrophil# 4.2 K/uL 2.2-4. 8 Not Available [facility] ([facility]) [address] [facility], [place], [address], 08/07/2025 10:56:51 08/07/20 25 08/07/2025 CBC AUTO W DIFF lymphocyte# 2.2 cell/ mcL 1.3-2. 9 Not Available [facility] ([facility]) [address] [facility], [place], [address], 08/07/2025 10:56:51 08/07/20 25 08/07/2025 CBC AUTO W DIFF monocyte# 0.8 cell/ mcL 0.3-0. 8 Not Available [facility] ([facility]) [address] [facility], [place], [address], 08/07/2025 10:56:51 08/07/20 25 08/07/2025 CBC AUTO W DIFF eosinophil# 0.2 cell/ mcL 0-0.2 Not Available [facility] ([facility]) [address] [facility], [place], [address], 08/07/2025 10:56:51 08/07/20 25 08/07/2025 CBC AUTO W DIFF basophil# 0.1 cell/ mcL 0.0-1. 0 Not Available [facility] ([facility]) [address] [facility], [place], [address], 08/07/2025 10:56:51 08/07/20 25 08/07/2025 CBC AUTO W DIFF immature gramulocytes # 0.04 K/uL Not Available [facility] ([facility]) [address] [facility], [place], [address], 08/07/2025 10:56:51 08/07/20 25 08/07/2025 CBC AUTO W DIFF nucleated red blood cells # 0.00 K/uL Not Available [facility] ([facility]) [address] , [place], [address], 08/07/2025 10:56:51 08/07/20 25 08/07/2025 CBC AUTO W DIFF manual differential NO Not Available [facility] ([facility]) [address], [place], [address], 08/07/2025 10:56:51 08/07/2008/07/2025 COMP METAB OLIC PANEL sodium 140 mmol/ L 136-14 5 Not Available [facility] ([facility]) [address], [place], [address], 08/07/2025 11:42:07 08/07/2008/07/2025 COMP METAB OLIC PANEL potassium 4.6 mmol/ L 3.6-5. 0 Not Available [facility] ([facility]) [address] , [place], [address], 08/07/2025 11:42:07 08/07/20 25 08/07/2025 COMP METAB OLIC PANEL chloride 101 mmol/ L 98-107 Not Available [facility] ([facility]) [address] , [place], [address], 08/07/2025 11:42:07 08/07/20 25 08/07/2025 COMP METAB OLIC PANEL carbon dioxide 29.3 mmol/ L 21.0-3 2.0 Not Available [facility] ([facility]) [address] , [place], [address], 08/07/2025 11:42:07 08/07/20 25 08/07/2025 COMP METAB OLIC PANEL anion gap 14.3 Not Available [facility] ([facility]) [address], [place], [address], 08/07/2025 11:42:07 08/07/2008/07/2025 COMP METAB OLIC PANEL glucose 147 mg/dL 70-120 high Not Available [facility] ([facility]) [address], [place], [address], 08/07/2025 11:42:07 08/07/20 25 08/07/2025 COMP METAB OLIC PANEL BUN 20 mg/dL 7-18 high Not Available [facility] ([facility]) [address] , [place], [address], 08/07/2025 11:42:07 08/07/2008/07/2025 COMP METAB OLIC PANEL creatinine 0.8 mg/dL 0.6-1. 3 Not Available [facility] ([facility]) [address] , [place], [address], 08/07/2025 11:42:07 08/07/2008/07/2025 COMP METAB OLIC PANEL [...] paige ing kiney funct ion. Not Available [facility] ([facility]) [address] , [place], [address], 08/07/2025 11:42:07 08/07/2008/07/2025 COMP METAB OLIC PANEL osmolality (calculated) 296 mOsm/ kg 275-30 1 OSMOL ALITY IS A CALCU LATIO N UTILI ZING THE SERUM /PLAS MA SODIU M, GLUCO SE AND UREA NITRO GEN (BUN) LEVEL S. FOR THE MOST ACCUR ATE RESUL T A MEASU RED SERUM OSMOL ALITY IS INES CHAVEZ. Not Available [facility] ([facility]) [address] [facility], [place], [address], 08/07/2025 11:42:07 08/07/20 25 08/07/2025 COMP METAB OLIC PANEL total protein 7.5 g/dL 6.4-8. 2 Not Available [facility] ([facility]) [address] [facility], [place], [address], 08/07/2025 11:42:07 08/07/2008/07/2025 COMP METAB OLIC PANEL albumin 3.9 g/dL 3.4-5. 0 Not Available [facility] ([facility]) [address] [facility], [place], [address], 08/07/2025 11:42:07 08/07/20 25 08/07/2025 COMP METAB OLIC PANEL globulin 3.6 Not Available [facility] ([facility]) [address] [facility], [place], [address], 08/07/2025 11:42:07 08/07/20 25 08/07/2025 COMP METAB OLIC PANEL alb/glob ratio 1.1 0.7-2 Not Available [facility] ([facility]) [address] [facility], [place], [address], 08/07/2025 11:42:07 08/07/20 25 08/07/2025 COMP METAB OLIC PANEL calcium 9.9 mg/dL 8.5-10 .5 Not Available [facility] ([facility]) [address] [place], [address], 08/07/2025 11:42:07 08/07/20 25 08/07/2025 COMP METAB OLIC PANEL bilirubin total 0.70 mg/dL 0.10-1 .00 Not Available [facility] ([facility]) [address] [place], [address], 08/07/2025 11:42:07 08/07/20 25 08/07/2025 COMP METAB OLIC PANEL AST (SGOT) 15 U/L 0-37 Not Available [facility] ([facility]) [address], [place], [address], 08/07/2025 11:42:07 08/07/20 25 08/07/2025 COMP METAB OLIC PANEL ALT (SGPT) 25 U/L 0-65 Not Available [facility] ([facility]) [address] [facility], [place], [address], 08/07/2025 11:42:07 08/07/20 25 08/07/2025 COMP METAB OLIC PANEL alk phosphatase 45 U/L 46-116 low Not Available [facility] ([facility]) [address] [facility], [place], [address], 08/07/2025 11:42:07 08/07/20 25 08/07/2025 PROST ATE SPECI FIC AG (PSA) prostate specific Ag (PSA) 7.3 NG/mL 0-4.0 high Not Available [facility] ([facility]) [address] [facility], [place], [address], 08/07/2025 11:42:09 08/07/20 25 08/11/2025 TESTO STERO NE,FR EE AND TOTAL testosterone , serum 273 NG/dL 264-91 6 Adult male refer ence inter valentín is based on a popul ation of healt hy nonob larisa males (BMI <30) betwe en 19 and 39 years old. Claudette robins, et.al . JCEM 2017, 102;1 161-1 173. PMID: 30464 103. Not Available [facility] ([facility]) [address] [facility], [place], [address], 08/11/2025 15:12:56 08/07/20 25 08/11/2025 TESTO STERO NE,FR EE AND TOTAL testosterone , free, direct 5.5 pg/mL 6.6-18 .1 low Perfo rmed at: [facility] [place] [address] [facility], [place] [address] Lab Direc tor: Ramu hernandez PhD, Phone : [phone] Perfo rmed at: [facility] [place] [address] , [place] [address] Lab Direc tor: Dayanara mann MD, Phone : [phone] Not Available [facility] ([facility]) [address], [place], [address], 08/11/2025 15:12:56 07/01/20 25 07/01/2025 PET-C T, skull base to mid-t high scan No observ ation record ed. [facility] [address] [place] [address] , [place], [address], 07/03/2025 10:45:08 Result Notes None recorded. 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 4328819554269 Active 2024 Nieves garza, [place] - [facility] - [place] & [place] 5 11:10:38 Hyperchole sterolemia 54719619 Active 2024 Nieves garza, [place] - [facility] [place] & [place] 5 11:10:46 History of radiation therapy 413867912 Active 2024 Nieves Dinh null, [place] - [facility] - [place] & [place] 5 11:10:57 Prostate specific antigen above reference range 787987979 Active 2024 JORGE RIVERA MD [address], [place], [address] , [place] - [facility] - [place] & [place] 5 11:55:36 Lower urinary tract symptoms 481124523 Active 2024 JORGE RIVERA MD [address], [place], [address] , [facility] - [facility] - [place] & [place] 5 11:56:25 Malignant neoplasm of prostate 309355023 Active 2024 JORGE RIVERA MD [address], [place], [address] , [facility] - [facility] - [place] & [place] 5 16:24:52 Problem Notes Documentation Provider Name and Address Organization Details Recorded Time Adjunct Political Science Instructor Consult Note : SW met w/ pt and during clinic appt for initial consult. SW informed pt of role in care and provided contact information. Pt denied needs at this time. SW communicated support ongoing. Rosmery garza, [facility] [place] [facility] & [place] 07/17/2025 14:22:38 Radiation Oncologist Consult Note : [...] will continue to f/u. Adela Velasquez kayla, [facility] [place] [facility] & [place] 08/04/2025 14:56:37 Oncology Patient Navigator : ONN contacted pt. after recent visit with medical oncology. Pt. did not have any questions/concerns. ONN encouraged pt. to reach out should any needs arise. ONN will continue to f/u. NASIMA gazra, [facility] [place] [facility] - [place] & [place] 08/10/2025 16:42:53 Procedures Surgical History Date Name Laterality Status Provider Name and Address Organization Details Recorded Time 0 Radiation Therapy completed Mo Mendezmag [facility] [place] [facility] & [place] 05/05/2025 10:49:43 0 Cancer Surgery completed Mo Mendezmag [facility] [place] [facility] & [place] 05/05/2025 10:49:43 4 Abdominal Surgery completed [facility] [place] 05/05/2025 10:49:43 7 Tonsillectomy/ Adenoidectomy completed Mo Sprague [place] - [facility] & [place] 05/05/2025 10:49:43 knee joint operation completed Nieves Dinh [place] - [facility] & [place] 01/06/2025 11:09:38 Imaging Results None recorded. Procedure Notes None recorded. Medical Equipment None Reported. Allergies Allergen ID Allergen Name Allergen Category Reaction Reaction Severity Criticality Documentation Date Start Date Code Code System Note Provider Name and Address Organization Details Recorded Time 260199 Substance with sulfonami de structure and antibacte rial mechanism of action (substanc e) medicatio n Not available Not available Not available 12/10/2024 40713 8003 SNOMED Nieves Dinh null, [place] - [facility] & [place] 09:33:08 Medications Name Sig Start Date Stop [...] Updated DateTime 5 182.88 cm 30 kg/m2 536954. 63 g 97 % 97 % 50 /min 126/68 mm[Hg] Ana Hill [facility] & [place] 5 15:44:15 Date Recorded Body height Body mass index (BMI) Body weight Body temperature Oxygen saturation Oxygen saturation in Arterial blood by Pulse oximetry Heart rate Systolic And Diastolic Provider Name and Address Organization Details Last Updated DateTime 5 182.88 cm 30.5 kg/m2 976072. 21 g 98.2 [degF] 96 % 96 % 66 /min 139/77 mm[Hg] Renea Frankie [facility] & [place] 5 13:13:36 Date Recorded Body height Body mass index (BMI) Body weight Body temperature Oxygen saturation Oxygen saturation in Arterial blood by Pulse oximetry Heart rate Respiratory rate Systolic And Diastolic Provider Name and Address Organization Details Last Updated DateTime 5 182.88 cm 30.4 kg/m2 880443. 49 g 97.3 [degF] 96 % 96 % 67 /min 18 /min 142/72 mm[Hg] Perri VASQUEZ [facility] & [place] 10:26:15 Social History Question Answer Notes LastModified by [employer] Details LastModified Time Tobacco Smoking Status Never Smoker Renea garza, [facility] & [place] 07/17/2025 13:16:05 Do You Have An Advance Directive? No Information not available 05/05/2025 Are You Blind Or Do You Have Difficulty Seeing? Yes Information not available 05/05/2025 What Is Your Level Of Caffeine Consumption? Moderate [email or web address] Information not available 07/17/2025 What Was The Date Of Your Most Recent Tobacco Screening? 05/02/2025 Information not available 05/05/2025 Are You Passively Exposed To Smoke? No Information not available 05/05/2025 Has Tobacco Cessation Counseling Been Provided? No [email or web address] Information not available 07/17/2025 Sex: Unknown Functional Status Question Answer Note LastModified by [employer] Details LastModified Time Do you use any illicit or recreational drugs? No Information not available 05/05/2025 Do you or have you ever used any other forms of tobacco or nicotine? No Information not available 07/17/2025 What is your level of alcohol consumption? None Information not available 05/05/2025 What is your exercise level? Occasional Information not available 05/05/2025 Mental Status Question Answer Note LastModified by Organization D etails LastModified Time Do you feel stressed (tense, restless, nervous, or anxious, or unable to sleep at night)? [id number] Information not available 05/05/2025 Family History Relationship Description Onset Age of this Age Resolved Age Notes LastModified by Organization Details LastModified Time Mother Malignant melanoma [email or web address] Not available 07/17 13:14:00 Paternal Aunt Malignant neoplastic disease states it grew on her spine and ended up killin g her . [email or web address] Not available 07/17/2025 13:15:27 Medical History Condition Response Diabetes Y Clotting Disorder Y Deep Vein Thrombosis Y Back Problems Y Hypertension Y High Cholesterol Y Immunizations Vaccine Type Date Status Note Provider Nam e and Address Organization Details Recorded Time Influenza, adjuvanted, trivalent, PF 9 completed Not Available [facility] 08/07/2025 10:12:24 Influenza, split virus, quadrivalent, PF 0 completed Not Available [facility] 08/07/2025 10:12:24 Pneumococcal conjugate PCV 13 0 completed Not Available [facility] 08/07/2025 10:12:24 COVID-19, mRNA, LNP-S, PF, 100 mcg/0.5mL dose or 50 mcg/0.25mL dose 1 completed Not Available [facility] 08/07/2025 10:12:24 COVID-19, mRNA, LNP-S, PF, 100 mcg/0.5mL dose or 50 mcg/0.25mL dose 1 completed Not Available [facility] 08/07/2025 10:12:24 Influenza, high-dose, quadrivalent, PF 1 completed Not Available [facility] 08/07/2025 10:12:24 COVID-19, mRNA, LNP-S, PF, 100 mcg/0.5mL dose or 50 mcg/0.25mL dose 1 completed Not Available [facility] 08/07/2025 10:12:24 Influenza, high-dose, quadrivalent, PF 2 completed Not Available [facility] 08/07/2025 10:12:24 COVID-19, mRNA, LNP-S, bivalent, PF, 50 mcg/0.5 mL or 25mcg/0.25 mL dose 2 completed Not Available [facility] 08/07/2025 10:12:24 RSV, bivalent, protein subunit RSVpreF, diluent reconstituted, 0.5 mL, PF 3 completed Not Available [facility] 08/07/2025 10:12:24 Influenza, adjuvanted, quadrivalent, PF 3 completed Not Available [facility] 08/07/2025 10:12:24 Pneumococcal conjugate PCV20, polysaccharide [id number] conjugate, adjuvant, PF 4 completed Not Available [facility] 08/07/2025 10:12:24 Influenza, high-dose, trivalent, PF 4 [...] ICD10 Code Diagnosis IMO Codes Diagnosis Note [id number] JORGE RIVERA MD [facility]-[address] [place] [address] 01/06/2025 10:41:52 01/06/2025 11:59:04 Prostate specific antigen above reference range 666636921 R97.20 26954 Lower urin xiang tract symptoms 529876070 R39.9 5137654 continue tamsulosin [id number] JORGE RIVERA MD [facility]-[address] [facility] [address] [place] [address] 05/05/2025 10:33:31 05/05/2025 11:40:29 Prostate specific antigen above reference range 722764441 R97.20 91758 [id number] JORGE RIVERA MD [facility] Urology-[address] [place] [address] 06/09/2025 14:46:25 06/09/2025 16:29:00 Malignant neoplasm of prostate 248882341 C61 44251 [id number] JORGE RIVERA MD [facility] Urology-[address] [place] [address] 07/07/2025 07:42:01 07/07/2025 08:21:52 Malignant neoplasm of prostate 110835363 C61 80152 [id number] JORGE RIVERA MD [facility] Urology-[address] [place] [address] 07/14/2025 07:49:24 07/14/2025 08:33:29 Malignant neoplasm of prostate 688802403 C61 16875 Prostate s pecific antigen above reference range 119744073 R97.20 54638 [id number] Markell Sharma MD [facility]olog [facility] [address] [facility] [address] [place] [address] 07/17/2025 13:02:04 07/17/2025 13:56:16 Malignant neoplasm of prostate 474325263 C61 89663 Prostate biopsy performed on May 20, 2025 with findings of prostate adenocarci noma Cusseta 4+3=7 involving 1 core. 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 Patient received 1 cycle ABVD with significan t side effects. Patient finished treatment with radiation therapy. Patient has been on observatio n since that time. 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 Patient received 1 cycle ABVD with significan t side effects. Patient finished treatment with radiation therapy. Patient has been on observatio n since that time. Prostate s pecific antigen above reference range 464454935 R97.20 50553 Labs on July 17, 2025 with PSA 6.6. Will follow-up as patient starts androgen deprivatio n therapy. Drug therapy finding 309 538486 Z79.818 [id number] Starting androgen deprivatio n therapy with Eligard for 4-6 months on August 07, 2025. Will follow up tolerabili ty. Education performed before injection was given today. Discussed possible side effects to vasquez for. Health Concerns Section Related Observation LastModified by Organization Detai ls LastModified Time None Recorded Concern Status LastModified by Organization Details LastModified Time None Recorded Advance Directives Directive N: Payers Insurance Date Sequence Insurance Name Policy Number Policy Moraes Covered Member ID Moraes Member ID Guarantor Name 07/17/2025 1 [facility] [id number] Srinivasa Hager [id number] Srinivasa Hager 07/17/2025 1 [place] Srinivasa Hager [id number] Srinivasa Hager 07/17/2025 [facility] (MEDICARE REPLACEMENT/A DVANTAGE - PPO) [id number] Srinivasa Hager [id number] Srinivasa Hager 08/24/2025 1 [facility] (MEDICARE REPLACEMENT/A DVANTAGE - PPO) [id number] Srinivasa Hager [id number] Srinivasa Hager Notes Date Note Type Note [...] identified in only one core, with a Cusseta score of 4+3=7, indicating intermediate-risk prostate cancer. [...] his blood was sent for testing in [place]. He also has a history of lymphoma, [...] PSA 4. PSA 3.93 JORGE RIVERA MD [address] [facility], [place], [address], [facility] - NT - [place] & [place] 06/11/2025 07:24:54 07/07/2025 text/html 07/07/25 Tele visit [...] only tele visit conducted my office in [facility]. Patient identity confirmed with name [...] identified in only one core, with a Cusseta score of 4+3=7, indicating intermediate-risk prostate cancer. [...] his blood was sent for testing in [place]. He also has a history of lymphoma, [...] 4. PSA 3.93 JORGE RIVERA MD [address] [facility], [place], [address], [facility] - [facility] - [place] & [place] 07/07/2025 12:24:16 07/14/2025 text/html 07/14/25 Tele visit [...] only tele visit conducted my office in [facility]. Patient identity confirmed with name [...] only tele visit conducted my office in [facility]. Patient identity confirmed with name [...] his blood was sent for testing in [place]. He also has a history of lymphoma, [...] PSA 4. PSA 3.93 JORGE RIVERA MD [address] [facility], [place], [address], [place] - [place] - [place] & [place] 07/15/2025 12:22:36 07/17/2025 text/html 75 yo M presents for evaluation of prostate cancer. Patient seen by Urology in April 2025 for elevated PSA. Prostate biopsy performed on May 20, 2025 with findings of prostate adenocarcinoma C[place]seta 4+3=7 involving 1 core. Representing 15% of total core volume. No perineural invasion identified. Patient seen by Radiation Medicine and discussion radiation therapy for treatment prostate cancer. PSA PET scan performed on July 01, 2025 with no evidence metastatic disease.Based on pathology and imaging pT2 N0 M0. Stage II. grade group 3 based on Cusseta score. ECOG 0. Based on NCCN guidelines patient falls into intermediate risk category. Discussion androgen deprivation therapy with Eligard or Lupron for 4-6 months. Will start androgen deprivation prior to starting radiation therapy. Will follow-up Patient presents July 17, 2025. Discussed androgen deprivation therapy and consideration there of while being treated with radiation therapy. Markell Sharma MD [address], [place], [address], [place] - [facility] & [place] 07/17/2025 14:52:17 08/07/2025 text/html 75 yo M presents for evaluation of prostate cancer. Patient seen by Urology in April 2025 for elevated PSA. Prostate biopsy performed on May 20, 2025 with findings of prostate adenocarcinoma C[place]seta 4+3=7 involving 1 core. Representing 15% of total core volume. No perineural invasion identified. Patient seen by Radiation Medicine and discussion radiation therapy for treatment prostate cancer. PSA PET scan performed on July 01, 2025 with no evidence metastatic disease.Based on pathology and imaging pT2 N0 M0. Stage II. grade group 3 based on Cusseta score. ECOG 0. Based on NCCN guidelines [...] to start radiation therapy. Ioana Teixeira PA-C [address], [place], [address], [place] [facility] & [place] 08/07/2025 10:49:42
--- OUTSIDE RECORDS SUMMARY | 2025-08-27 11:55 | XMS_ITS | Continuity of Care Document ---
Author Organization [facility] Address [address] [facility] 100 [place] [address] Care Team Providers Care Dog Trainer Name Role Phone SIA FERRIS Primary Care Provider [phone] Assessment Encounter Date Assessment Date Assessment LastModified [...] procedure. The prescription will be sent to [facility] in [place]. 3. Advise the patient to inform the [...] Not available Lab None recorded . Referral None recorded . Procedures None recorded . Surgeries transper ineal placemen t of biodegra dable material , charmaine-pro static, single or multiple injectio n(s), includin g image guidance , when performe d (SURG) 2024 025 Not available 08/05/2025 11:50:47 Imaging None recorded . Medication Orders cefdinir 300 mg capsule 2024 025 [facility], [address], [address], 07/24/2025 05:02:43 Patient TargetsNo targets recorded. Patient InstructionsNo instructions recorded. Reason for Referral None Reported. Results Created Date Observation Date Name Description Value Unit Range Abnormal Flag Note LastModifiedBy Organization Detail LastModifiedTime 07/01/2007/01/2025 PET-C T, skull base to mid-t high scan No observ ation record ed. [facility] [address] [place] [address] [place], [address], 07/03/2025 10:45:08 Result Notes None recorded. 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 5125005714542 Active 2024 Nieves garza, [place] - [facility] - [place] & [place] 5 11:10:38 Hyperchole sterolemia 53640085 Active 2024 Nieves garza, [place] [facility] [place] & [place] 5 11:10:46 History of radiation therapy 676527768 Active 2024 Nieves garza, [place] - [facility] - [place] & [place] 5 11:10:57 Prostate specific antigen above reference range 897206769 Active 2024 MATIAS RIVERA MD [address], [place], [address] , [place] - [facility] - [place] & [place] 5 11:55:36 Lower urinary tract symptoms 114090743 Active 2024 MATIAS RIVERA MD [facility] [place], [address] , [place] - [facility] - [place] & [place] 5 11:56:25 Malignant neoplasm of prostate 156446679 Active 2024 MATIAS RIVERA MD [facility] [place], [address] , [place] [facility] - [place] & [place] 5 16:24:52 Problem Notes None recorded. Procedures Surgical History Date Name Laterality Status Provider Name and Address Organization Details Recorded Time 0 Radiation Therapy completed Mo Darcie [place] - [facility] - [place] & [place] 05/05/2025 10:49:43 0 Cancer Surgery completed Mo Sprague [place] - [facility] - [place] & [place] 05/05/2025 10:49:43 4 Abdominal Surgery completed Mo Sprague [place] [facility] - [place] & [place] 05/05/2025 10:49:43 7 Tonsillectomy/ Adenoidectomy completed Mo Sprague [place] [facility] - [place] & [place] 05/05/2025 10:49:43 knee joint operation completed Nieves Dinh [place] - [facility] - [place] & [place] 01/06/2025 11:09:38 Imaging Results None recorded. Procedure Notes None recorded. Medical Equipment None Reported. Allergies Allergen ID Allergen Name Allergen Category Reaction Reaction Severity Criticality Documentation Date Start Date Code Code System Note Provider Name and Address Organization Details Recorded Time 092608 Substance with sulfonami de structure and antibacte rial mechanism of action (substanc e) medicatio n Not available Not available Not available 12/10/2024 21463 8003 SNOMED Nieves Dinh null, [place] - [facility] & [place] 5 09:33:08 Medications Name Sig Start Date [...] Social History Question Answer Notes LastModified by Frock Advisor Details LastModified Time Tobacco Smoking Status Never Smoker Renea Frankie [facility], [facility] & [place] 07/17/2025 13:16:05 Do You Have An Advance [...] Has Tobacco Cessation Counseling Been Provided? No [email or web address] Information not available 07/17/2025 Sex: Unknown Functional Status Question Answer Note LastModified by Organizat ion Details LastModified Time Do you use any illicit or recreational drugs? No Information not available 05/05/2025 Do you or have you ever used any other forms of tobacco or nicotine? No [email or web address] Information not available 07/17/2025 What is your level of alcohol consumption? None Information not available 05/05/2025 What is your exercise level? Occasional Information not available 05/05/2025 Mental Status Question Answer Note LastModified by Organization D etails LastModified Time Do you feel stressed (tense, restless, nervous, or anxious, or unable to sleep at night)? [id number] Information not available 05/05/2025 Family History Relationship Description Onset Age of this Age Resolved Age Notes LastModified by Organization Details LastModified Time Mother Malignant melanoma [email or web address] Not available 07/17 13:14:00 Paternal Aunt Malignant neoplastic disease states it grew on her spine and ended up jedin g her . [email or web address] Not available 07/17/2025 13:15:27 Medical History Condition Response Diabetes Y Back Problems Y Clotting Disorder Y High Cholesterol Y Deep Vein Thrombosis Y Hypertension Y Immunizations Vaccine Type Date Status Note Provider Nam e and Address Organization Details Recorded Time Influenza, adjuvanted, trivalent, PF 9 completed Not Available [facility] 08/07/2025 10:12:24 Influenza, split virus, quadrivalent, PF 0 completed Not Available [facility] 08/07/2025 10:12:24 Pneumococcal conjugate PCV 13 0 completed Not Available [facility] 08/07/2025 10:12:24 COVID-19, mRNA, LNP-S, PF, 100 mcg/0.5mL dose or 50 mcg/0.25mL dose 1 completed Not Available [facility] 08/07/2025 10:12:24 COVID-19, mRNA, LNP-S, PF, 100 mcg/0.5mL dose or 50 mcg/0.25mL dose 1 completed Not Available [facility] 08/07/2025 10:12:24 Influenza, high-dose, quadrivalent, PF 1 completed Not Available [facility] 08/07/2025 10:12:24 COVID-19, mRNA, LNP-S, PF, 100 mcg/0.5mL dose or 50 mcg/0.25mL dose 1 completed Not Available [facility] 08/07/2025 10:12:24 Influenza, high-dose, quadrivalent, PF 2 completed Not Available [facility] 08/07/2025 10:12:24 COVID-19, mRNA, LNP-S, bivalent, PF, 50 mcg/0.5 mL or 25mcg/0.25 mL dose 2 completed Not Available [facility] 08/07/2025 10:12:24 RSV, bivalent, protein subunit RSVpreF, diluent reconstituted, 0.5 mL, PF 3 completed Not Available [facility] 08/07/2025 10:12:24 Influenza, adjuvanted, quadrivalent, PF 3 completed Not Available [facility] 08/07/2025 10:12:24 Pneumococcal conjugate PCV20, polysaccharide [id number] conjugate, adjuvant, PF 4 completed Not Available [facility] 08/07/2025 10:12:24 Influenza, high-dose, trivalent, PF 4 completed Not Available [facility] 08/07/2025 10:12:24 Tdap 4 completed Not Available [facility] 08/07/2025 10:12:24 zoster recombinant 4 completed Not Available [facility] 08/07/2025 10:12:24 zoster recombinant 5 completed Not Available [facility] 08/07/2025 10:12:24 Past Encounters Encounter ID Performer Location Encounter Start Date Encounter Closed Date Diagnosis/Indication Diagnosis SNOMED-CT Code Diagnosis ICD10 Code Diagnosis IMO Codes Diagnosis Note [id number] MATIAS RIVERA MD [facility] 00 [address] [facility] 100 [place] [address] 07/07/2025 07:42:01 07/07/2025 08:21:52 Malignant neoplasm of prostate 457777485 C61 80628 [id number] MATIAS RIVERA MD [facility] [address] 07/14/2025 07:49:24 07/14/2025 08:33:29 Malignant neoplasm of prostate 982940506 C61 11305 Prostate s pecific antigen above reference range 939166320 R97.20 68746 Health Concerns Section Related Observation LastModified by Organization Detai ls LastModified Time None Recorded Concern Status LastModified by Organization Details LastModified Time None Recorded Payers Encounter Date Sequence Insurance Name Policy Number Policy Moraes Covered Member ID Moraes Member ID Guarantor Name 07/14/2025 1 [facility] (MEDICARE REPLACEMENT/A DVANTAGE - PPO) [id number] Srinivasa Hager [id number] Srinivasa Hager Notes Date Note Type Note [...] only tele visit conducted my office in [facility]. Patient identity confirmed with name and date [...] only tele visit conducted my office in [facility]. Patient identity confirmed with name and date [...] identified in only one core, with a Bonneau score of 4+3=7, indicating intermediate-risk prostate cancer. [...] cancer and the next steps in management. Tanya returns to my office for MRI results [...] his blood was sent for testing in [place]. He also has a history of lymphoma, which he has been managing for nearly five years. His father likely from a perforated bowel, and Srinivasa himself has been told he is at risk for a similar condition. 07/01/25 PET-CT ([facility]): Extensive scatter and artifact throughout the [...] PSA 4. PSA 3.93 MATIAS RIVERA MD [address] [facility], [place], [address], [facility] - [place] & [place] 07/15/2025 12:22:36
[2025-08-27 12:28] LABS: INR 2.41 (0.9-1.1); Prothrombin Time 25.1 seconds (10.1-12.5)
== END 2025-08-27 23:59 | disposition home or self-care (01) ==
LOC: LAB 11:52
PROVIDERS: PCP Nurse Practitioner Family; Visit Provider Nurse Practitioner Family
DX: D68.2 Hereditary deficiency of other clotting factors (principal)
CPT/HCPCS: 36415; 85610

== ENCOUNTER 2025-09-21 12:30 | Outpatient (CLI) | payer MEDICARE, SELFPAY ==
--- OUTSIDE RECORDS SUMMARY | 2025-09-18 06:56 | XMS_ITS | Continuity of Care Document ---
Author Organization [facility] Phone Care Team Providers Care Front Office Spec Name Role Phone SIA FERRIS Primary Care ALENA COLLIER Admitting ALENA COLLIER Primary Attending ALLERGIES AND ADVERSE REACTIONS ALLERGIES AND ADVERSE REACTIONS Code System Allergy Substance Adverse Reaction Date Reaction (Severity) Comment Status Reported By Updated [place] [id number] SNOMED CT SULFA ANTIBIOTICS Adverse reaction to substance unknown active Patient [id number] on July 31, 2025 5:30:31 PM [facility] [id number] SNOMED CT Sulfa Antibiotics Rash (Mild) active FAMILY HISTORY RELATION: Father Status: Cause of : Perforation of intestine Age at : 83 SNOMED-CT Diagnosis Age At Onset Information not available RELATION: Mother Status: LIVING SNOMED-CT Diagnosis Age At Onset [id number] Malignant melanoma of skin 3841062 Factor V deficiency [id number] Hypercholesterolemia RESULTS Patient: QAMAR Loredo Date of : 1950 1 LABORATORY RESULTS ORDER 100: CBC AUTO W DIFF ( LOINC: 62913-8) ORDER DATE: September 07, 2025 2:30:00 PM UT Specimen Source: EDTA Specimen Type: Blood specime n with EDTA PERFORMING LAB: [address] [id number] Result Comment: Final Result Date: September 07, 2025 6:54:00 PM UT (TECH: AAC) LOINC TEST FLAG RESULT REFERENCE RANGE UPDA ADARSH BY 6690-2 Leukocytes [#/volume] in Blood by Automated count N 5.8 K/ul 4.0 K/ul - 10.5 K/ul September 07, 2025 6:54:00 PM UT (TECH: AAC) 789-8 Erythrocytes [#/volume] in Blood by Automated count N 5.3 M/mm3 4.7 M/mm3 - 6.1 M/mm3 September 07, 2025 6:54:00 PM UTC (TECH: AAC) 718-7 Hemoglobin [Mass/volume] in Blood N 14.5 gm/dl 13.5 gm/dl - 18.0 gm/dl September 07, 2025 6:54:00 PM UTC (TECH: AAC) 70819-6 Hematocrit [Volume Fraction] of Blood N 45.9 % 42.0 % - 52.0 % September 07, 2025 6:54:00 PM UTC (TECH: AAC) 787-2 Erythrocyte mean corpuscular volume [Entitic volume] by Automated count N 86.9 fl 78 fl - 100 fl September 07, 2025 6:54:00 PM UTC (TECH: AAC) 785-6 Erythrocyte mean corpuscular hemoglobin [Entitic mass] by Automated count N 27.5 pg 27 pg - 31 pg September 07, 2025 6:54:00 PM UTC (TECH: AAC) 786-4 Erythrocyte mean corpuscular hemoglobin concentration [Mass/volume] by Automated count L 31.6 g/dl 32 g/dl - 36 g/dl September 07, 2025 6:54:00 PM UTC (TECH: AAC) 20147-9 Erythrocyte distribution width [Ratio] N 14.0 % 11.5 % - 14.0 % September 07, 2025 6:54:00 PM UTC (TECH: AAC) 777-3 Platelets [#/volume] in Blood by Automated count N 189 K/ul 150 K/ul - 450 K/ul September 07, 2025 6:54:00 PM UTC (TECH: AAC) 37547-2 Platelet mean volume [Entitic volume] in Blood by Automated count N 9.0 fl 6 fl - 9.5 fl September 07, 2025 6:54:00 PM UTC (TECH: AAC) 56378-0 Neutrophils/100 leukocytes in Blood H 69.4 % 43 % - 65 % September 07, 2025 6:54:00 PM UTC (TECH: AAC) 736-9 Lymphocytes/100 leukocytes in Blood by Automated count L 14.4 % 20.5 % - 45.5 % September 07, 2025 6:54:00 PM UTC (TECH: AAC) 5905-5 Monocytes/100 leukocytes in Blood by Automated count H 13.0 % 5.5 % - 11.7 % September 07, 2025 6:54:00 PM UTC (TECH: AAC) 713-8 Eosinophils/100 leukocytes in Blood by Automated count N 2.7 % 0.9 % - 2.9 % September 07, 2025 6:54:00 PM UTC (TECH: AAC) 706-2 Basophils/100 leukocytes in Blood by Automated count N 0.2 % 0.2 % - 1.0 % September 07, 2025 6:54:00 PM UTC (TECH: AAC) 11564-3 Immature granulocytes/100 leukocytes in Blood by Automated count N 0.3 % 0.0 % - 0.8 % September 07, 2025 6:54:00 PM UTC (TECH: AAC) 66647-5 Nucleated cells [#/volume] in Blood N 0.0 % September 07, 2025 6:54:00 PM UTC (TECH: AAC) 19247-0 Neutrophils [#/volume] in Blood N 4.0 K/uL 2.2 K/uL - 4.8 K/uL September 07, 2025 6:54:00 PM UTC (TECH: AAC) 731-0 Lymphocytes [#/volume] in Blood by Automated count L 0.8 CELL/MCL 1.3 CELL/MCL - 2.9 CELL/MCL September 07, 2025 6:54:00 PM UTC (TECH: AAC) 742-7 Monocytes [#/volume] in Blood by Automated count N 0.8 CELL/MCL 0.3 CELL/MCL - 0.8 CELL/MCL September 07, 2025 6:54:00 PM UTC (TECH: AAC) 711-2 Eosinophils [#/volume] in Blood by Automated count N 0.2 CELL/MCL 0 CELL/MCL - 0.2 CELL/MCL September 07, 2025 6:54:00 PM UTC (TECH: AAC) 704-7 Basophils [#/volume] in Blood by Automated count N 0.0 CELL/MCL 0.0 CELL/MCL - 1.0 CELL/MCL September 07, 2025 6:54:00 PM UTC (TECH: AAC) 27303-6 Immature granulocytes [#/volume] in Blood N 0.02 K/ul September 07, 2025 6:54:00 PM UTC (TECH: AAC) 39847-2 Nucleated cells [#/volume] in Blood N 0.00 K/uL September 07, 2025 6:54:00 PM UT (TECH: AAC) 55964-5 Manual Differential panel - Blood N NO September 07, 2025 6:54:00 PM UTC (TECH: AAC) ORDER 200: COMP METABOLIC PA CATALINO (LOINC: 40486-0) ORDER DATE: September 07, 2025 2:30:00 PM UTC Specimen Source: PLASMA Specimen Type: Plasma specim en PERFORMING LAB: [address] [id number] Result Comment: Final Result Date: September 07, 2025 7:37:00 PM UT (TECH: [employer]) LOINC TEST FLAG RESULT REFERENCE RANGE UPDA ADARSH BY 2951-2 Sodium [Moles/volume ] in Serum or Plasma N 137 mmol/L 136 mmol/L - 145 mmol/L September 07, 2025 7:37:00 PM UTC (TECH: SHG) 2823-3 Potassium [Moles/volume] in Serum or Plasma N 4.3 mmol/L 3.6 mmol/L - 5.0 mmol/L September 07, 2025 7:37:00 PM UTC (TECH: SHG) 2075-0 Chloride [Moles/volume] in Serum or Plasma N 100 mmol/L 98 mmol/L - 107 mmol/L September 07, 2025 7:37:00 PM UTC (TECH: SHG) 8-9 Carbon dioxide, tota l [Moles/volume] in Serum or Plasma N 27.1 mmol/L 21.0 mmol/L - 32.0 mmol/L September 07, 2025 7:37:00 PM UTC (TECH: SHG) 17972-6 Anion gap in Blood N 14.2 N ov2024 7:37:00 PM UTC (TECH: SHG) 2345-7 Glucose [Mass/volume ] in Serum or Plasma N 97 mg/dl 70 mg/dl - 120 mg/dl September 07, 2025 7:37:00 PM UTC (TECH: SHG) 6299-2 Urea nitrogen [Mass/volume] in Blood H 19 mg/dL 7 mg/dL - 18 mg/dL September 07, 2025 7:37:00 PM [facility] (TECH: [employer]) 91465-0 Creatinine [Moles/volume] in Blood N 0.8 mg/dL 0.6 mg/dL - 1.3 mg/dL September 07, 2025 7:37:00 PM UT (TECH: [employer]) 93783-1 Glomerular filtratio n rate/1.73 sq M.predicted by Creatinine-based formula (MDRD) N 92 mlpermin 60 mlpermin September 07, 2025 7:37:00 PM [facility] (TECH: [employer]) 75841-8 Osmolality of Serum or Plasma by calculated by sum of electrolytes N 287 mosm/kg 275 mosm/kg - 301 mosm/kg September 07, 2025 7:37:00 PM [facility] (TECH: [employer]) 2885-2 Protein [Mass/volume ] in Serum or Plasma N 6.8 g/dl 6.4 g/dl - 8.2 g/dl September 07, 2025 7:37:00 PM [facility] (TECH: [employer]) 1751-7 Albumin [Mass/volume ] in Serum or Plasma N 3.5 g/dl 3.4 g/dl - 5.0 g/dl September 07, 2025 7:37:00 PM [facility] (TECH: [employer]) 2336-6 Globulin [Mass/volum e] in Serum N 3.3 September 07, 2025 7:37:00 PM [facility] (TECH: [employer]) 1759-0 Albumin/Globulin [Ma ss Ratio] in Serum or Plasma N 1.1 0.7 - 2 September 07, 2025 7:37:00 PM [facility] (TECH: [employer]) 51031-2 Calcium [Mass/volume ] in Serum or Plasma N 9.1 mg/dl 8.5 mg/dl - 10.5 mg/dl September 07, 2025 7:37:00 PM [facility] (TECH: [employer]) 1975-2 Bilirubin.total [Mass/volume] in Serum or Plasma N 0.50 mg/dL 0.10 mg/dL - 1.00 mg/dL September 07, 2025 7:37:00 PM [facility] (TECH: [employer]) 1920-8 Aspartate aminotransferase [Enzymatic activity/volume] in Serum or Plasma N 6 U/L 0 U/L - 37 U/L September 07, 2025 7:37:00 PM UTC (TECH: SHG) 1742-6 Alanine aminotransferase [Enzymatic activity/volume] in Serum or Plasma N 19 U/L 0 U/L - 65 U/L September 07, 2025 7:37:00 PM UTC (TECH: SHG) 6768-6 Alkaline phosphatase [Enzymatic activity/volume] in Serum or Plasma N 56 U/L 46 U/L - 116 U/L September 07, 2025 7:37:00 PM UTC (TECH: SHG) ORDER 300: PROSTATE SPECIFIC AG PSA (LOINC: 2857-1) ORDER DATE: September 07, 2025 2:30:00 PM UTC Specimen Source: PLASMA Specimen Type: Plasma specim en PERFORMING LAB: [address] [id number] Result Comment: Final Result Date: September 07, 2025 7:37:00 PM UTC (TECH: SHG) LOINC TEST FLAG RESULT REFERENCE RANGE UPDA ADARSH BY 2857-1 Prostate specific Ag [Mass/volume] in Serum or Plasma H 4.4 ng/mL 0 ng/mL - 4.0 ng/mL September 07, 2025 7:37:00 PM UTC (TECH: SHG) ORDER 400: TESTOSTERONE FREE AND TOTAL (LOINC: 2986-8) ORDER DATE: September 07, 2025 6:48:00 PM UTC Specimen Source: SERUM Specimen Type: Serum specime n PERFORMING LAB: [address] [id number] Result Comment: September 10, 2025 8:10:00 PM UTC Performed at: - [facility] Result Comment: September 10, 2025 8:10:00 PM UTC [address] [place], [place] [id number] Result Comment: September 10, 2025 8:10:00 PM UTC Material Preparation Worker: Abimael Escobar PhD, Phone: [phone] Result Comment: September 10, 2025 8:10:00 PM UTC Performed at: - [facility] Result Comment: September 10, 2025 8:10:[address] [facility] [place], [place] [id number] Result Comment: September 10, 2025 8:10:00 PM [facility] Material Preparation Worker: Roger Chase MD, Phone: [phone] Result Comment: September 10, 2025 8:10:00 PM UT Final Result Date: September 07, 2025 6:21:00 PM UT (TECH: LAB) LOINC TEST FLAG RESULT REFERENCE RANGE UPDA ADARSH BY 2986-8 Testosterone [Mass/v olume] in Serum or Plasma L 9 ng/dL 264-916 September 07, 2025 6:21:00 PM UT (TECH: LAB) 2991-8 Testosterone Free [Mass/volume] in Serum or Plasma L 0.4 pg/mL 6.6-18.1 September 07 6:21:00 PM UT (TECH: LAB) LABORATORY NARRATIVE RESULTS Information is not available RADIOLOGY RESULTS Information is not available PATHOLOGY NARRATIVE RESULTS Information is not available MICROBIOLOGY RESULTS No Micro Labs/Results Exist for Patient BLOOD ADMIN RESULTS Information is not available MEDICATIONS HOME MEDICATIONS Status RXNORM [facility] Medication Dose Route Frequency Dates Comments Reported By Updated By Active 291084 35062 96937 0 Atorvastatin Calcium Oral Tablet 40 MG 40.0 MG ORAL DAILY Last Dose: [id number] on September 07, 2025 6:46:59 PM [facility] Active 172581 07753 06384 0 glipiZIDE ER Oral Tablet Extended Release 24 Hour 10 MG 10.0 MG ORAL DAILY Last Dose: [id number] on September 07, 2025 6:46:59 PM [facility] Active 470957 93534 20257 0 Losartan Potassium Oral Tablet 50 MG 50.0 MG ORAL DAILY Last Dose: [id number] on September 07, 2025 6:46:59 PM [facility] Active 887806 39029 04641 1 metFORMIN HCl Oral Tablet 500 MG 500.0 MG ORAL TID Last Dose: [id number] on September 07, 2025 6:46:59 PM [facility] Active 442123 81960 92275 0 Niacin (Antihyperli pidemic) Oral Tablet 500 MG 1.0 TAB ORAL DAILY Last Dose: [id number] on September 07, 2025 6:46:59 PM [facility] Active 557580 00674 20978 1 Tamsulosin HCl Oral Capsule 0.4 MG 0.4 MG ORAL DAILY Last Dose: [id number] on September 07, 2025 6:46:59 PM UT Active 848396 17204 38829 1 Warfarin Sodium Oral Tablet 10 MG 10.0 MG ORAL MWF Last Dose: [id number] on September 07, 2025 6:46:59 PM UT Active 196739 26335 55073 1 Warfarin Sodium Oral Tablet 5 MG 1.0 TAB ORAL Last Dose: //sa/s u [id number] on September 07, 2025 6:47:00 PM UT DISCHARGE MEDICATIONS Status RXNORM NDC Medication Dose Route Frequency Dates Dis pense Data Comments Physician Updated By No Discharge Medication Info rmation Available INPATIENT MEDICATIONS Status RXNORM NDC Medication Dose Route Frequency Rat e Quantity Dates Indication Dispense Data Comments Physician Updated By Discont inued 723560 0917 5075 375 leuprolide (ELIGARD) 7.5 MG KIT 7.5 MG SUBCUT ANEOUS ONE TIME ADMINISTRA TION (UNSCHEDUL ED) Start: 2024 2:09:0 0 PM UT End: [facility]2024 2:10:0 0 PM UT AMIRA ROSAS on September 02, 2025 2:10:00 PM UT Discont inued 709517 4778 5075 375 leuprolide (ELIGARD) 7.5 MG KIT 7.5 MG SUBCUT ANEOUS GIVE ONE DOSE NOW Start: 2024 3:00:0 0 PM UTC End: 2024 6:31:3 9 PM UTC AMIRA Carlson [id number] on September 07, 2025 6:31:00 PM UT SOCIAL HISTORY SOCIAL HISTORY - Smoking Status SNOMED-CT Social History Element Description Effective Dates Offered Cessation Comment Updated By [id number] Historical Tobacco smoking status Never Smoked [id number] on July 29, 2025 4:27:11 PM UT SOCIAL HISTORY - Gender Sex: Male SOCIAL HISTORY - Status : status i nformation is not available Intention in Next Year: intention information is not available SOCIAL HISTORY - Assessments Code System Description Status Date Value of Assessment Updated By Comment Assessment Information is no t available SOCIAL HISTORY - Lime Affiliation Lime information is not av ailable SOCIAL HISTORY [...] value for each vital sign as of September 18, 2025 11:56:12 AM UTC Loinc Code Vital Sign Activity Date Result Updated By 8310-5 Body temperature September 07 6:15:00 PM UTC 97.7 [degF] 73357-2 Body weight Measured August 6:51:37 PM UTC 99.1 kg (218.0 lb) [id number] on September 07, 2025 6:51:37 PM UTC 8462-4 Diastolic blood pressure September 07, 2025 6:15:00 PM UTC 63.0 mm[Hg] 8867-4 Heart rate September 07 6:15:00 PM UTC 65 /min 44017-1 Oxygen saturation in Arterial blood by Pulse oximetry September 07, 2025 6:15:00 PM UTC 98.0 % 9279-1 Respiratory rate September 07 6:15:00 PM UTC 16 /min 8480-6 Systolic blood pressure September 07, 2025 6:15:00 PM UTC 118.0 mm[Hg] PEDIATRIC GROWTH CHART - VITAL SIGNS [...] INFORMATION Reason for Visit Not Specified Admission September 07, 2025 5:58:[address] [address] Discharge September 16, 2025 9:05:00 PM [facility] DISCHARGED TO HOME OR SELF CARE ENCOUNTER DIAGNOSES Notes information is not nayla ilable. Code System Diagnosis Onset Date Diagnosis information is not available. ABSTRACT DIAGNOSES Code System Diagnosis Updated By Abatement Date Z51.11 ICD10 ENCOUNTER FOR AN TINEOPLASTIC CHEMOTHERAPY [id number] on September 18, 2025 11:55:57 AM UT C61 ICD10 MALIGNANT NEOPLASM OF PROSTA TE [id number] on September 18, 2025 11:55:57 AM UT Z51.11 ICD10 ENCOUNTER FOR AN TINEOPLASTIC CHEMOTHERAPY [id number] on September 18, 2025 11:55:57 AM [facility] C61 ICD10 MALIGNANT NEOPLASM OF PROSTA TE [id number] on September 18, 2025 11:55:57 AM UT Z88.2 ICD10 ALLERGY STATUS TO SULFONAMID ES [id number] on September 18, 2025 11:55:57 AM UT Z79.818 ICD10 MCFP (CURRE NT) USE OF OTHER AGENTS AFFECTING ESTROGEN RECEPTORS AND ESTROGEN LEVELS [id number] on September 18, 2025 11:55:57 AM [facility] CARE TEAM Care Front Office Spec Role SIA FERRIS Primary Care ALENA COLLIRE Admitting ALENA COLLIER Primary Attending CARE TEAM CARE industrial waste inspector Role on Team Location Telecom Status Start Date End Chente e Updated By BARRINGTON STOVALL PCP normal August 05, 2025 6:59:18 PM [facility] September 16, 2025 9:05:00 PM [facility] [id number] on August 05, 2025 6:59:18 PM [facility] AMIRA COLLAZO Attending normal August 05, 2025 6:59:18 PM [facility] September 16, 2025 9:05:00 PM [facility] [id number] on August 05, 2025 6:59:18 PM [facility] AMIRA COLLAZO Admitting normal August 05, 2025 6:59:18 PM [facility] September 16, 2025 9:05:00 PM [facility] [id number] on August 05, 2025 6:59:18 PM [facility]
--- OUTSIDE RECORDS SUMMARY | 2025-09-21 12:33 | XMS_ITS | Data Portability ---
Author Organization [facility] RODRIGO [place] Address [address] [place] [address] Care Team Providers Care Aboriginal Liaison Officer Name Role Phone TIMA MAHER Referring Provider [phone] SIA FERRIS Primary Care Provider Assessment No [...] By Organization Details Last Modified Time 04/15/2020 [id number] shortness of breath: care instructions [email or web address] Not [...] 04/15/20 20 Laryngoscopy Flex completed Calista Amor [facility] 04/15/2020 15:59:53 Imaging Results None recorded. Procedure Notes None recorded. Medical Equipment None Reported. Allergies Allergen ID Allergen Name Allergen Category Reaction Reaction Severity Criticality Documentation Date Start Date Code Code System Note Provider Name and Address Organization Details Recorded Time 079755 niacin medicatio n rash mild Not available 04/09/20202019 7393 RxNorm Pricilla Issa [facility] 0 15:49:59 724590 Substance with sulfonami de structure and antibacte rial mechanism of action (substanc e) medicatio n Not available Not available Not available 04/15/2020 28211 8003 SNOMED Patricia Ziegler [facility] 0 14:43:08 Medications Name Sig Start Date [...] Updated DateTime 0 182.88 cm 33.5 kg/m2 179680. 32 g 97.3 [degF] 101 /min 115/60 mm[Hg] Patricia Ziegler [facility] 0 14:47:52 Social History Question Answer Notes LastModified by [employer] Details LastModified Time Tobacco Smoking Status Never Smoker Gomezhazel Del Toros [facility] 04/15/2020 14:48:04 How Much Tobacco Do You Chew? 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.70 Laryngeal spasm 07494176 2 J38.5 -possible Health Concerns Section Related Observation LastModified by Organization Detai ls LastModified Time None Recorded Concern Status LastModified by Organization Details LastModified Time None Recorded Advance Directives Directive None Recorded Payers Insurance Date Sequence Insurance Name Policy Number Policy Moraes Covered Member ID Moraes Member ID Guarantor Name 04/19/2020 1 [place] Srinivasa Hager [id number] Srinivasa Hager 04/15/2020 2 AARP (MEDICARE SUPPLEMENT) Srinivasa Hager [id number] Srinivasa Hager Notes Date Note Type Note [...] normal findings(EKG,Ultraso und). RIC CALABRESE MD [address] [place], [address], [facility] 04/15/2020 17:42:35
--- OUTSIDE RECORDS SUMMARY | 2025-09-21 12:33 | XMS_ITS ---
Author Organization [facility] Address [address] [place] [address] Care Team Providers Care Superintendent [employer]munition Storage Name Role Phone Catrachita Raphael APRN Primary [...] Hager Date of 1950 Phone Email [email or web address] Patient Care Team: Petros Crain MD as Consulting Physician (General Surgery) Seth Pierre MD as Consulting Physician (Radiation Oncology) Tima Vasquez MD as Referring Physician (Hematology and Oncology) Provider Phone numbers Care Team Provider: Catrachita Raphael APRN, ([phone]) Care Team Provider: Petros Crain MD, ([phone]) Care Team Provider: Seth Pierre MD, ([phone]) Care Team Provider: Tima Vasquez MD, ([phone]) Care Team Provider: Leodan Pedraza MD, ([phone]) Post Treatment Care Team Primary Care Physician Catrachita Raphael APRN [phone] [address] [place] [facility] [address] [address] Background Information Medical history Past Medical History: Cataract bilat still present Diabetes mellitus (CMS/HCC) very seldom and if feels funny Factor 5 Leiden mutation, heterozygous (CMS/HCC) H/O blood clots Hypertension Lymphoma (CMS/HCC) PE (pulmonary thromboembolism) (CMS/HCC) Tinnitus Wears glasses Surgical history Past Surgical History: CERVICAL LYMPH NODE BIOPSY/EXCISION Procedure: EXCISION LEFT CERVICAL LYMPH NODE, INSERTION OF PORT; Surgeon: Petros Crain MD; Location: [facility] OR; Service: General COLONOSCOPY HERNIA REPAIR Dr. Red @ [facility]- right inguinal - unsure about mesh in place LYMPH NODE BIOPSY (L) neck Dr. Marrero @ [facility] OTHER SURGICAL HISTORY vocal cord visualization PORTACATH PLACEMENT [facility] Tobacco use Social History Tobacco Use [...] neck node with other smaller nodes. 10/02/2019 [facility] left neck fine-needle aspiration and biopsy on Lovenox off Coumadin for procedure showed atypical lymphoid proliferation with dysplastic CD30 positive cells suspicious for classic Hodgkin lymphoma but unequivocal diagnosis hindered by the low number of CD30 positive cells. Excisional biopsy recommended by pathology. -10/27/2019 initial [facility] medical oncology consultation: Reviewed the [...] due to shortness ofbreath [facility] Lifetime Dose Tracking Doxorubicin: 204.375 mg/m2 [...] doctors and nurses such as exercise andactivity. intermediate manager effects of radiation therapy vary greatly depending on the areas included in the field ofradiation and the radiation techniques that were used. Ask your doctors and nurses about the risk of oysterman effects. Keep your follow up appointments and [...] to you. General Cancer Support & Resources [facility] [address], [address] [place] [address] Med Onc: Reed Fixer Onc: Sizing Machine Operator: Carina Spears - Psychiatric Nurse Practitioner: Yulissa Hughes APRN - [phone] Kick It! (A free smoking cessation program) Financial Counselor and Contact Information: Psychiatric Financial Counseling - County Coroner Contact Information: Dee Marrero - [phone] Wound Ostomy & Continence Nurse: Local Cancer [...] Toward Empowerment - for Women with Cancer: (Psychiatric) The Tools and encouragement you need to [...] the last Sunday of each month. Location: [facility]; [address] [place] [address]. For more information call Estephanie Harrell @ [...] advice of a doctor or other health field care manager. Please use these recommendations to talk with [...] of cancer in the general population. The [place] [employer] (ACS) recommends these screening guidelines for men: Recommendation Frequency Comments Colon and Rectal Cancer Screening For more information see the ACS document Colorectal Cancer: Early Detection. www.cancer.org/ssLINK/aqhkuctumg-xfjqss-xzmgm-detection-maxim Options for colon cancer screening can be [...] see the ACS Document Testicular Cancer Detection: http://www.cancer.org/cancer/testicularcancer/detailedguide/lfckdmuupg-htfbdv-cp tection Men of any age can develop [...] more information, visit http://www.nhlbi.nih.gov/health/public/heart/obesity/lose_wt/index.htm www.win.niddk.nih.gov Call the [place] [employer] Talk to your health care [...] Experts recommend at least 30 minutes of dfycahjw-fn-oamaoate activity per day, five days a week. [...] you can call a national hotline at 9(913)-QUIT-NOW. Have regular check-ups by a healthcare professional. For more information about healthy screening tests for men visit the U.S. Department of Health and Human Services. http://www.womenshealth.gov/jlahaexrx-boqsq-zga-vaccines/wrztyltri-jfnkb-pye-men / For more information about adult vaccinations visit the CDC: http://www.cdc.gov/vaccines/recs/schedules/adult-schedule.htm Keep up-to-date on general health screening tests, including cholesterol, blood pressure and glucose (blood sugar) levels. Get an annual influenza vaccine (flu shot). Get vaccinated with the pneumococcal vaccine, which prevents a type of pneumonia, and re-vaccinatedas determined by your health care team. Don???t forget dental and eye health! The [employer] recommends adults have their eyes examined every two years until age 60, then annually. People who wear glasses or correctivelenses or are at high risk for eye problems (i.e., diabetics, family history of eye disease) shouldbe seen more frequently. The [employer] recommends adults see their dentist at least once a year. No information on file. No information on file.
--- OUTSIDE RECORDS SUMMARY | 2025-09-21 12:33 | XMS_ITS | Encounter Summary ---
[facility] Address [address] [place] [address] Care Team Providers Care Dental Services Director Name Role Phone Catrachita Raphael APRN Primary Care Provid er Encounter Details Date Type Department Care Team (Late st Contact Info) Description 05/04/2017 External CPT II PELT DROPPER - [facility] Social History Tobacco Use [...] documented as of this encounter Care Teams Dental Services Director Relationship Specialty Start Date End Date Catrachita Raphael APRN [address] [place] [id number] PCP - General Family Medicine 10/09/19 documented as of this encounter
--- OUTSIDE RECORDS SUMMARY | 2025-09-21 12:33 | XMS_ITS | Encounter Summary ---
[facility] Address [address] [place] [address] Care Team Providers Care Jeep Mechanic Name Role Phone Catrachita Raphael APRN Primary Care Provid er Encounter Details Date Type Department Care Team (Late st Contact Info) Description 07/22/2018 External CPT II SERVICE UNIT OPERATOR OIL WELL - [facility] Social History Tobacco Use [...] documented as of this encounter Care Teams Jeep Mechanic Relationship Specialty Start Date End Date Catrachita Raphael APRN [address] [place] [address] [place] [id number] PCP - General Family Medicine 10/09/19 documented as of this encounter
--- OUTSIDE RECORDS SUMMARY | 2025-09-21 12:33 | XMS_ITS | Clinical Summary ---
Author Organization [facility] ([place], [place], [place], [place], [place]) Address [address] [place] [address] Care Team Providers Care Lead Auditor Name Role Phone Unavailable Primary Care Provider [...] Shingles Vaccine (Zoster) Completed 12/01/2024, 11/2023 Insurance [facility] MEDICARE ADVANTAGE
--- OUTSIDE RECORDS SUMMARY | 2025-09-21 12:33 | XMS_ITS | Encounter Summary ---
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
--- OUTSIDE RECORDS SUMMARY | 2025-09-21 12:33 | XMS_ITS | Clinical Summary ---
[facility] Address [address] [place] [address] Care Team Providers Care Road Traffic Controller Name Role Phone Catrachita Raphael APRN Primary [...] year) Discontinued Medical Devices Implanted Type Area Game Tester Device Identifier Shelf Expiration Date Model / Serial / Lot Powerport Isp Clearvue Cath 8f 45cm - [id number] Implanted:Qty: 1 on 11/12/2019 by Petros Crain MD at [facility] Implant Right: Neck BARD PERIPHERAL VASCULAR 01/19/2021 [id number] / / [id number] Procedures Procedure Name Priority Date/Time Associated Diagnosis Comments SCANNED - COLONOSCOPY 12/11/2016 from Last 3 Months or Most Recently Relevant to Health Maintenance Results * SCANNED - COLONOSCOPY (12/11/2016) Catrachita Raphael APRN CHART REVIEW TABS Final Result from Last 3 Months or Most Recently Relevant to Health Maintenance Insurance [id number] [place] [id number] [facility] Medicare [employer] PPO Care Teams Road Traffic Controller Relationship Specialty Start Date End Date Catrachita Raphael APRN [address] [place] [address] [place] [id number] PCP - General Family Medicine 10/09/19
--- OUTSIDE RECORDS SUMMARY | 2025-09-21 12:33 | XMS_ITS | Referral Summary ---
Author Organization [employer] ([place], [place], [place], [place], [place]) Address [address] [place] [address] Care Team Providers Care Reservation Manager Name Role Phone Unavailable Primary Care [...] Plan of Treatment Not on file Insurance [facility] MEDICARE ADVANTAGE
--- OUTSIDE RECORDS SUMMARY | 2025-09-21 12:33 | XMS_ITS | Encounter Summary ---
[facility] [address] [place] [address] Care Team Providers Care Service Desk Director Name Role Phone Catrachita Raphael APRN Primary Care Provid er Encounter Details Date Type Department Care Team (Late st Contact Info) Description 12/06/2017 External CPT II CABLE RESPOOLER - [facility] Social History Tobacco Use [...] documented as of this encounter Care Teams Service Desk Director Relationship Specialty Start Date End Date Catrachita Raphael APRN [address] [place] [address] PCP - General Family Medicine 10/09/19 documented as of this encounter
[2025-09-21 12:56] LABS: INR 2.96 (0.9-1.1); Prothrombin Time 30.3 seconds (10.1-12.5)
== END 2025-09-21 23:59 | disposition home or self-care (01) ==
LOC: LAB 12:31
PROVIDERS: PCP Nurse Practitioner Family; Visit Provider Nurse Practitioner Family
DX: Z79.01 Long term (current) use of anticoagulants (principal)
CPT/HCPCS: 36415; 85610